=== PATIENT | female | born 1955 | race Hispanic/Latino ===

== ENCOUNTER 2018-06-02 10:25 | Observation (INO) | payer OTHER ==
[2018-06-02 10:45] VITALS: BMI 26.2
[2018-06-02 11:15] LABS: BASO # 0.03 K/mm3 (0.0-2.0); BASO % 0.2 % (0.0-3.0); EOS # 0.3 (0.0-0.7); EOS % 1.4 % (1.5-5.0); GRAN # 15.27 (1.4-6.5); GRAN % 80.5 % (50.0-68.0); HEMOGLOBIN 15.4 g/dL (12.0-16.0); LYMPH % 10.5 % (22.0-35.0); MEAN CELL VOLUME 94.9 fl (80.0-105.0); MEAN CORPUSCULAR HEMOGLOBIN 31.7 pg (25.0-35.0); MEAN CORPUSCULAR HGB CONC 33.4 g/dl (31.0-37.0); MEAN PLATELET VOLUME 9.3 fl (7.0-11.0); MONO # 1.4 (0.1-0.6); MONO % 7.4 % (1.0-6.0); RBC 4.86 10^6/uL (3.5-6.1); RED CELL DISTRIBUTION WIDTH 12.2 % (11.5-14.5)
[2018-06-02 11:20] LABS: ALBUMIN 3.7 g/dL (3.0-4.8); ALT/SGPT 44 U/L (7-56); AMYLASE 52 U/L (35-125); AST/SGOT 61 U/L (14-36); BLOOD UREA NITROGEN 13 mg/dL (7-21); CALCIUM 9.3 mg/dL (8.4-10.5); GFR NON-AFRICAN AMERICAN > 60; INR 1.18; LIPASE 80 U/L (23-300); PARTIAL THROMBOPLASTIN TIME 26.1 Seconds (25.1-36.5); PROTHROMBIN TIME 13.6 SECONDS (9.4-12.5)
[2018-06-02 11:30] LABS: TROPONIN I < 0.01 ng/mL
[2018-06-02] MEDS ORDERED: Iohexol 350 MG/100 ML VIAL ONE (11:32)
--- NOTE | 2018-06-02 11:41 | ED PDOC ---
Arrival/HPI - General Chief Complaint: Abdominal Pain Time Seen by Provider: 06/02/18 10:28 Historian: Patient - History of Present Illness Narrative History of Present Illness (Text): 06/02/18 11:34 63yo female with no significant pmhx referred to ED by her PMD for complaint of diffuse abdominal pain, gassy, and constipation. Patient reports history of pain for one month. States she gets constipation baseline all her life. States she "passed lots of gas" s/p using laxative last night and her pain improved. States she saw her PMD today for the pain and was referred to the ED. Denies nausea, vomiting, diarrhea, fever,c hills, back pain, chest pain, SOB, melena, hematemesis, dizziness, any other complaint. She report history of daily alcohol use, but stopped a week ago. Past Medical History - Provider Review Nursing Documentation Reviewed: Yes - Reproductive Menopause: Yes - Psychiatric Hx Substance Use: No - Surgical History Hx Section: Yes (x2) - Anesthesia Hx Anesthesia: Yes Hx Anesthesia Reactions: No Hx Malignant Hyperthermia: No Family/Social History - Physician Review Nursing Documentation Reviewed: Yes Family/Social History: Unknown Family HX Smoking Status: Never Smoked Hx Alcohol Use: Yes (stopped 5 days ago) Frequency of alcohol use: Daily Hx Substance Use: No Allergies/Home Meds Allergies/Adverse Reactions: Allergies No Known Allergies Allergy (Verified 06/02/18 16:29) Home Medications: Home Meds Medication Instructions Recorded Confirmed RX: No Known Home Med 06/02/18 06/02/18 Review of Systems - Physician Review All systems were reviewed & negative as marked: Yes - Review of Systems Constitutional: Normal Eyes: Normal ENT: Normal Respiratory: Normal Cardiovascular: Normal Gastrointestinal: Abdominal Pain, Constipation. absent: Diarrhea, Nausea, Vomiting, Hematochezia, Hematemesis Genitourinary Female: Normal Musculoskeletal: Normal Skin: Normal Neurological: Normal Endocrine: Normal Hemo/Lymphatic: Normal Psychiatric: Normal Physical Exam Vital Signs Reviewed: Yes Vital Signs Temp Pulse Resp BP Pulse Ox 06/02/18 10:59 97.8 F 104 H 16 136/89 96 Temperature: Afebrile Blood Pressure: Normal Pulse: Regular Respiratory Rate: Normal Appearance: Positive for: Well-Appearing, Non-Toxic, Comfortable Pain Distress: None Mental Status: Positive for: Alert and Oriented X 3 - Systems Exam Head: Present: Atraumatic, Normocephalic Pupils: Present: PERRL Extroacular Muscles: Present: EOMI Conjunctiva: Present: Normal Mouth: Present: Moist Mucous Membranes Neck: Present: Normal Range of Motion Respiratory/Chest: Present: Clear to Auscultation, Good Air Exchange. No: Respiratory Distress, Accessory Muscle Use Cardiovascular: Present: Regular Rate and Rhythm, Normal S1, S2. No: Murmurs Abdomen: Present: Distention, Normal Bowel Sounds, Other (Rigid). No: Tenderness, Peritoneal Signs, Rebound, Guarding, McBurney's Point Tender, Rovsing's Sign Present Back: Present: Normal Inspection Upper Extremity: Present: Normal Inspection. No: Cyanosis, Edema Lower Extremity: Present: Normal Inspection. No: Edema Neurological: Present: GCS=15, CN II-XII Intact, Speech Normal Skin: Present: Warm, Dry, Normal Color. No: Rashes Psychiatric: Present: Alert, Oriented x 3, Normal Insight, Normal Concentration Medical Decision Making ED Course and Treatment: 06/02/18 12:44 63yo female referred to ED for complaint of abdominal pain with constipation x weeks. Labs Abdominal/pelvic CT Lactic acid Blood culture 1L NS, Pepcid chest xray EKG 06/02/18 12:46 Labs was reviewed and leukocytosis was noted EKG NSR @91bpm. N-stemi Abdominal/pelvic CT IMPRESSION: 4 cm mass in the pancreatic tail consistent with a pancreatic malignancy. There is moderate ascites and peritoneal metastases and multiple liver metastases. Chest xray IMPRESSION: No active disease. Case was PAM lance who referred pt to the ED. Pt will be admitted to Dr. mullins's service. All result and plan was DW the pt and her by the bedside and they both agreed 06/02/18 14:17 Case was PAM Geiger who is covering Dr. mullins and she saw pt by the [facility]. Accepted pt for transfer and requested Dr. Isiah padron consult. Case was PAM Lantigua, IR rn occupational health and he states biopsy will likely be done next week. - Lab Interpretations Lab Results: 06/02/18 11:00 06/02/18 11:00 Lab Results 06/02/18 11:00: Sodium 138, Potassium 4.4, Chloride 98, Carbon Dioxide 33, Anion Gap 12, BUN 13, Creatinine 0.6 L, Est GFR ( Amer) > 60, Est GFR (Non-Af Amer) > 60, Random Glucose 132 H, Calcium 9.3, Total Bilirubin 1.0, AST 61 H, ALT 44, Alkaline Phosphatase 206 H, Lactate Dehydrogenase 697, Total Creatine Kinase 45, Troponin I < 0.01, Total Protein 7.5, Albumin 3.7, Globulin 3.9, Albumin/Globulin Ratio 1.0 L, Amylase 52, Lipase 80 06/02/18 11:00: PT 13.6 H, INR 1.18, APTT 26.1 06/02/18 11:00: WBC 19.0 H, RBC 4.86, Hgb 15.4, Hct 46.1, MCV 94.9, MCH 31.7, MCHC 33.4, RDW 12.2, Plt Count 338, MPV 9.3, Gran % 80.5 H, Lymph % (Auto) 10.5 L, Sanborn % (Auto) 7.4 H, Eos % (Auto) 1.4 L, Baso % (Auto) 0.2, Gran # 15.27 H, Lymph # (Auto) 2.0, Sanborn # (Auto) 1.4 H, Eos # (Auto) 0.3, Baso # (Auto) 0.03 - RAD Interpretation Radiology Orders: 06/02/18 11:21 ABD & PELVIS IV CONTRAST ONLY [CT] Stat - Medication Orders Current Medication Orders: Discontinued Medications Famotidine (Pepcid) 20 mg IVP STAT STA Stop: 06/02/18 10:53 Last Admin: 06/02/18 11:20 Dose: 20 mg IVP Administration Document 06/02/18 11:20 (Rec: 06/02/18 11:20 [id number] Charges for Administration # of IVP Administrations 1 Disposition/Present on Arrival - Present on Arrival Any Indicators Present on Arrival: No History of DVT/PE: No History of Uncontrolled Diabetes: No Urinary Catheter: No History of Decub. Ulcer: No History Surgical Site Infection Following: None - Disposition Have Diagnosis and Disposition been Completed?: Yes Diagnosis: Pancreatic cancer metastasized to liver, Leukocytosis, Ascites Disposition: HOSPITALIZED Disposition Time: 12:40 Patient Plan: Admission Patient Problems: Current Active Problems Problem Status Onset Ascites Acute Leukocytosis Acute Pancreatic cancer metastasized to liver Acute Condition: FAIR
--- NOTE | 2018-06-02 12:30 | CT ---
Date of service: 06/02/2018 PROCEDURE: CT Abdomen and Pelvis with contrast HISTORY: abdominal pain COMPARISON: None. TECHNIQUE: Contrast dose: 100 cc of Omni 350 Radiation dose: Total exam DLP = 482.62 mGy-cm. This CT exam was performed using one or more of the following dose reduction techniques: Automated exposure control, adjustment of the mA and/or kV according to patient size, and/or use of iterative reconstruction technique. FINDINGS: LOWER THORAX: Unremarkable. LIVER: Multiple metastatic lesions are seen throughout the liver. The largest measures 2.8 cm diameter. GALLBLADDER AND BILE DUCTS: Unremarkable. PANCREAS: There is a 4 cm mass in the tail of the pancreas SPLEEN: Unremarkable. ADRENALS: Unremarkable. No mass. KIDNEYS AND URETERS: Unremarkable. No hydronephrosis. No solid mass. VASCULATURE: Unremarkable. No aortic aneurysm. No aortic atherosclerotic calcification or mural plaque present. BOWEL: Unremarkable. No obstruction. No gross mural thickening. APPENDIX: Normal appendix. PERITONEUM: There is a moderate amount of ascites. There is increased density within the omental fat consistent with peritoneal metastases. LYMPH NODES: Unremarkable. No enlarged lymph nodes. BLADDER: Unremarkable. REPRODUCTIVE: Unremarkable. BONES: Multilevel disc degeneration OTHER FINDINGS: Findings were discussed with Sal Bartlett at 12:20 p.m. IMPRESSION: 4 cm mass in the pancreatic tail consistent with a pancreatic malignancy. There is moderate ascites and peritoneal metastases and multiple liver metastases.
--- NOTE | 2018-06-02 13:45 | RAD ---
Date of service: 06/02/2018 HISTORY: admission COMPARISON: No prior. FINDINGS: LUNGS: No active pulmonary disease. PLEURA: No significant pleural effusion identified, no pneumothorax apparent. CARDIOVASCULAR: No aortic atherosclerotic calcification present. Normal cardiac size. No pulmonary vascular congestion. OSSEOUS STRUCTURES: No significant abnormalities. VISUALIZED UPPER ABDOMEN: Normal. OTHER FINDINGS: None. IMPRESSION: No active disease.
[2018-06-02 14:45] LABS: URINE BILIRUBIN NEGATIVE (NEGATIVE); URINE BLOOD SMALL (NEGATIVE); URINE GLUCOSE (UA) NEGATIVE (NEGATIVE); URINE LEUKOCYTE ESTERASE NEGATIVE Leu/uL (NEGATIVE); URINE PROTEIN NEGATIVE mg/dL (<30 mg/dL); URINE UROBILINOGEN 0.2 E.U./dL (<1 E.U./dL)
[2018-06-02 14:46] LABS: URINE APPEARANCE CLEAR (CLEAR); URINE COLOR YELLOW (YELLOW)
[2018-06-02 14:55] LABS: URINE BACTERIA FEW /hpf; URINE EPITHELIAL CELLS 0 - 2 /hpf (0-5); URINE WBC 0 - 2 /hpf (0-6)
[2018-06-02] MEDS ORDERED: HYDROmorphone 1 mg/ml ISec IVP PRN (18:20)
--- NOTE | 2018-06-02 19:29 | CARD ---
APPROVED REPORT Date of service: 06/02/2018 EKG Measurement Heart [id number] HI [id number] <Conclusion> Normal sinus rhythm with sinus arrhythmia Normal ECG
[2018-06-02] MEDS ORDERED: Simethicone 80 mg Chewtab PO ONE (19:44)
[2018-06-02 20:02] VITALS: RESP 16
--- NOTE | 2018-06-02 21:36 | HP ---
DATE OF EXAM: 06/02/2018 HISTORY OF PRESENT ILLNESS: The patient is a 63-year-old white female who states she has not been feeling well for almost a month. She was having bloating abdominal distention and has poor appetite intermittently for the last 2-3 days. She started to have abdominal pain, starting from right upper abdomen to epigastrium to the left upper abdomen. She states she lost 2 pounds in the last few days. She has never been to any doctor. She states she does not like to go to doctor, so finally she decided to go to Dr. Estrada who examined the patient in the office and referred her to emergency room for further evaluation. PAST MEDICAL HISTORY: She has no significant past medica history. She take Tylenol once in a while. ALLERGIES: SHE IS NOT ALLERGIC TO ANY MEDICATIONS. MEDICATIONS AT HOME: She is not on any medicine at home. FAMILY HISTORY: Significant for mom having pancreatic cancer and she of complication of pancreatic cancer. SOCIAL HISTORY: She is . Lives with her and she does drink on a regular basis; however, she does not smoke. PHYSICAL EXAMINATION: GENERAL: She looks uncomfortable, complain of abdominal discomfort. She is awake, alert, oriented and communicative. VITAL SIGNS: She is afebrile, pulse 104, respirations 16, and blood pressure 136/89. LUNGS: Bilateral good airflow. No rhonchi or crackle. HEART: S1 and S2 audible. ABDOMEN: Distended. She has palpable discomfort on the left upper epigastric periumbilical area. Positive ascites. NEUROLOGIC: She is awake, alert, oriented, and communicative. LABORATORY DATA: WBC is 19, hemoglobin 15, hematocrit 46, and platelet 338. PT 13.6 and INR 1.18. Chemistry: Sodium 138, potassium 4.4, chloride 98, CO2 of 33, BUN 13, creatinine 0.6, and blood sugar 132. Lactic acid 1.3. AST 61, ALT 44, and alk phos 206. She had x-ray chest done that shows disease; however, she had CT scan the abdomen and pelvis done that shows 4 cm mass in the pancreas consistent with pancreatic malignancy, moderate ascites and peritoneal mets and multiple liver mets. ASSESSMENT: 1. Abdominal pain secondary to metastatic probably pancreatic malignancy. 2. Malignant ascites. 3. Leukocytosis. PLAN: We will get GI consult. We will get Dr. Oj Norris for biopsy. We will start her on IV fluids, start her on Protonix, analgesic as needed and spoke to the patient's that the patient is going to need biopsy to confirm if this is malignancy. We will followup her electrolyte and CBC in a.m. José Luis Geiger MD
[2018-06-03] MEDS ORDERED: POLYETHYLENE GLYCOL 3350 17 GM/Dose PACKET PO ONE (05:13)
[2018-06-03 06:44] LABS: BASO # 0.04 K/mm3 (0.0-2.0); BASO % 0.2 % (0.0-3.0); EOS # 0.3 (0.0-0.7); EOS % 1.7 % (1.5-5.0); GRAN # 16.16 (1.4-6.5); GRAN % 81.3 % (50.0-68.0); HEMOGLOBIN 15.2 g/dL (12.0-16.0); LYMPH # 1.7 (1.2-3.4); LYMPH % 8.5 % (22.0-35.0); MEAN CELL VOLUME 94.5 fl (80.0-105.0); MEAN CORPUSCULAR HGB CONC 32.8 g/dl (31.0-37.0); MEAN PLATELET VOLUME 9.3 fl (7.0-11.0); MONO # 1.7 (0.1-0.6); MONO % 8.3 % (1.0-6.0); RBC 4.91 10^6/uL (3.5-6.1); RED CELL DISTRIBUTION WIDTH 12.2 % (11.5-14.5); WHITE BLOOD COUNT 19.9 10^3/uL (4.5-11.0)
[2018-06-03 07:00] VITALS: BP 140/91; PULSE 90; TEMP 99.1; O2SAT 98
[2018-06-03 07:20] LABS: ALBUMIN 3.5 g/dL (3.0-4.8); ALT/SGPT 42 U/L (7-56); AST/SGOT 51 U/L (14-36); BLOOD UREA NITROGEN 13 mg/dL (7-21); CALCIUM 9.3 mg/dL (8.4-10.5); GFR NON-AFRICAN AMERICAN > 60
--- NOTE | 2018-06-03 15:00 | CON ---
DATE: 06/03/2018 REQUESTING PHYSICIAN: José Luis Geiger MD REASON FOR CONSULTATION: I have been asked to see this 63-year-old female, who comes to the hospital with 4-week history of increasing abdominal pain. This has been associated with constipation. The patient came to the emergency room at the recommendation of her physician, Dr. Estrada. For further evaluation of her abdominal pain, CT scan of the abdomen and pelvis performed in the emergency room revealed a 4 cm mass in the tail of the pancreas with associated liver metastasis and peritoneal metastasis. The patient has a history of alcoholism. She drinks a half quart of vodka on a daily basis and has done so for many years. Her last drink was a week ago. PAST MEDICAL HISTORY: Notable for alcoholism. FAMILY HISTORY: Significant for mother with pancreatic cancer. SOCIAL HISTORY: She is an alcoholic. She drinks a half quart of vodka daily. She denies cigarette smoking. REVIEW OF SYSTEMS: Fourteen-point review of systems is notable for abdominal pain and constipation. PHYSICAL EXAMINATION: GENERAL: Well-developed female, lying in bed, in no acute distress. VITAL SIGNS: Reveal temperature of 99.1, blood pressure of 140/91, heart rate of 90. HEENT: Reveal sclerae to be white. Conjunctivae pink. NECK: Supple. CHEST: Reveal lungs to be clear. HEART: Exam reveals a regular rate and rhythm. ABDOMEN: Softly distended. Mild diffuse tenderness. No rebound. No guarding. EXTREMITIES: Show no edema. LABORATORY DATA: Reveal white blood cell count 19.9, hemoglobin 15.2. Chemistries reveal AST 51, ALT 42, alkaline phosphatase of 175. CA 19-9 level was pending. IMPRESSION: A 63-year-old female with a history of alcoholism with stage IV pancreatic cancer with liver and peritoneal metastases. Her prognosis is extremely poor. RECOMMENDATIONS: 1. Await CA 19-[address]-guided biopsy of either liver metastasis or tail of the pancreas mass. 3. Suggest genetic testing for pancreatic cancer as the mother has had pancreatic cancer. Again, her long-term prognosis, which is stage IV pancreatic cancer, is extremely poor. Chet Kincaid MD
--- NOTE | 2018-06-03 20:29 | CON ---
DATE: 06/03/2018 This is [facility] consult for Dr. Holt on the medical floor. CHIEF COMPLIANT: Abdominal pain. HISTORY OF PRESENT ILLNESS: The patient is a 63-year-old female, admitted by the emergency room for evaluation for severe abdominal pain with blotting of approximately 2 to 3 days with the patient's reporting that they discovered for few weeks prior. She reports decreased appetite recently, but otherwise she was recommended by her primary Dr. to be evaluated. With significant findings on CAT to be discussed below. However, she is now seen with her at bedside and appears to be in no acute distress. ALLERGIES: NO KNOWN ALLERGIES. MEDICATIONS: Denied. PAST MEDICAL HISTORY: The patient denies any past history of significance, although does admit to alcohol use. FAMILY AND SOCIAL HISTORY: , lives with her . Her mother with history of pancreatic cancer. The patient is a nonsmoker; however, she does admit to drinking, half a quarter of vodka on a daily basis, last drink was approximately 1 week prior. REVIEW OF SYSTEMS: A 12-point review of systems was done, which is negative except for items mentioned in the history of present illness. PHYSICAL EXAMINATION: VITAL SIGNS: Temperature 99.1, pulse 90, respirations 16, blood pressure 140/91, and pulse ox 98%. HEENT: Unremarkable. NECK: Supple. HEART: Regular rate. LUNGS: Clear. ABDOMEN: Soft, mildly distended, little generalized tenderness too. Gentle palpation and questionable ascites. EXTREMITIES: No edema. SKIN: Warm and dry. NEUROLOGIC: Awake, alert, and oriented x3. LABORATORY DATA: The patient's labs were done. White blood cell count of 19.9, hemoglobin 15.2, hematocrit 46.4, and platelet count 337,000 with an INR of 1.18 done yesterday. Metabolic panel showing potassium of 5.3, chloride of 94, non-fasting glucose 116, AST of 51, alkaline phosphatase of 175, CA 19-9 of greater of 10,000, CA value of 13.1. A urine specimen was done which was positive for small amount of blood, trace of ketones; otherwise negative. The patient did have an EKG on admission yesterday which showed normal sinus rhythm, normal EKG. She had a chest x-ray done yesterday, it was read as no active disease with a CT scan of her abdomen and pelvis done yesterday, done with contrast. IMPRESSION: A 4 cm mass in the pancreatic consistent with pancreatic malignancy. There is a moderate ascites and peritoneal metastasis. Has multiple liver metastasis. The patient's blood cultures were negative after 24 hours. ASSESSMENT: Newly diagnosed pancreatic mass with ascites, probably malignancy, leukocytosis, and alcohol abuse. PLAN: I had a conversation with Dr. Holt. He is to obtain the tissue diagnosis and anticipation of eventual recommendations for treatment. The patient will continue present medical regimen with further recommendations as per gastrointestinal program consultant, with mentioned tissue diagnosis, possibly as outpatient as this is an holiday weekend with interventional radiologist, Dr. Norris not available at present with disposition as per primary doctor. The patient is also recommended to follow with Dr. Holt, the patient's reports that he knows from family members having seen doctor. We will follow with Dr. Holt as an outpatient, she should be discharged in the interm. This is a complex patient with a comprehensive medically necessary and appropriate visit carried in excess of 30 minutes with the patient's questions answered to her satisfaction. Elie Vital MD
--- NOTE | 2018-06-04 08:50 | DS ---
HISTORY OF PRESENT ILLNESS: The patient is 63 years old who was admitted yesterday because of almost one month history of abdominal pain, increasing abdominal girth, decreased appetite and small weight loss; also history of intermittent constipation. Upon evaluation in emergency room, she was found to have a 4 cm mass in her pancreas. So, the patient was admitted for further evaluation. Because of the long weekend, arrangement could not be made to have a CT-guided biopsy, so the patient opted to go home today and will have biopsy done next week sometime. She is given prescription for followup with Dr. Oj Norris and she was given a phone number and advised to make appointment. PHYSICAL EXAMINATION: GENERAL: Today, she is awake and alert, anxious. VITAL SIGNS: She is afebrile, pulse 90, respirations 16, blood pressure 140/91. LUNGS: Bilateral fair airflow. No rhonchi or crackles. HEART: S1 and S2 audible. ABDOMEN: Soft, distended. Periumbilical, right upper, left upper quadrant palpable discomfort. NEUROLOGIC: The patient is awake, alert, oriented; communicative. EXTREMITIES: Bilateral leg, no edema. LABORATORY DATA: WBC 19.9, hemoglobin 15, hematocrit 46, platelets 337. Chemistry; sodium 134, potassium 5.3, chloride 94, CO2 of 32, BUN 13, creatinine 0.6, blood sugar 116. AST 51, alk phos is 171. CEA is 13 and CA 19-9 is more than 10,000. ASSESSMENT: 1. Probably pancreatic malignancy with metastasis to the peritoneum and metastasis to the liver. 2. Intermittent constipation. 3. Leukocytosis. 4. High CA 19-9. PLAN: The patient is being discharged home today. She is given prescription of Percocet. She is advised to take MiraLax daily. She will contact Dr. Oj Norris as outpatient and I also will endorse it to Dr. Barrientos to follow up her as outpatient. José Luis Geiger MD
== END 2018-06-03 13:35 | disposition home or self-care (01) ==
LOC: ED 10:25 → INTOOBSV 13:18 → ERH 13:18 → 3RSO 15:42
PROVIDERS: ADMIT Internal Medicine Nephrology; ATTEND Internal Medicine Nephrology
DX: C25.2 Malignant neoplasm of tail of pancreas (principal); C78.6 Secondary malignant neoplasm of retroperitoneum and peritoneum; C78.7 Secondary malignant neoplasm of liver and intrahepatic bile duct; D72.829 Elevated white blood cell count, unspecified; R18.0 Malignant ascites; F10.20 Alcohol dependence, uncomplicated; K59.00 Constipation, unspecified; Z80.0 Family history of malignant neoplasm of digestive organs
CPT/HCPCS: 36415; 71045; 74177; 80053; 81001; 82150; 82378; 82550; 83605; 83615; 83690; 84484; 85025; 85610; 85730; 86301; 87040; 93005; 96374; 99284; C9113; G0378; Q9967

== ENCOUNTER 2018-06-10 10:42 | Day surgery (SDC) | payer OTHER ==
[2018-06-10 11:35] LABS: BASO # 0.03 K/mm3 (0.0-2.0); BASO % 0.1 % (0.0-3.0); EOS # 0.2 (0.0-0.7); EOS % 0.5 % (1.5-5.0); GRAN # 27.15 (1.4-6.5); GRAN % 87.1 % (50.0-68.0); HEMOGLOBIN 16.3 g/dL (12.0-16.0); LYMPH # 2.8 (1.2-3.4); MEAN CELL VOLUME 93.1 fl (80.0-105.0); MEAN CORPUSCULAR HEMOGLOBIN 31.1 pg (25.0-35.0); MEAN CORPUSCULAR HGB CONC 33.4 g/dl (31.0-37.0); MEAN PLATELET VOLUME 9.7 fl (7.0-11.0); MONO % 3.3 % (1.0-6.0); PLATELET COUNT 343 10^3/uL (120.0-450.0); RBC 5.24 10^6/uL (3.5-6.1); RED CELL DISTRIBUTION WIDTH 12.3 % (11.5-14.5)
[2018-06-10 11:36] LABS: WHITE BLOOD COUNT 31.2 10^3/uL (4.5-11.0)
[2018-06-10 11:49] LABS: CALCIUM 9.2 mg/dL (8.4-10.5)
[2018-06-10 11:54] LABS: INR 1.16; PROTHROMBIN TIME 13.4 SECONDS (9.4-12.5)
[2018-06-10 12:09] LABS: ANISOCYTOSIS SLIGHT; ATYPICAL LYMPHOCYTE 1 % (0.0-0.0); LYMPHOCYTE 10 % (22.0-35.0); MONOCYTE 1 % (1.0-6.0); NEUTROPHIL 88 % (50.0-70.0); PLATELET ESTIMATE NORMAL (NORMAL)
[2018-06-10] MEDS ORDERED: Lidocaine 1% Inj (20ml) ONE (13:38)
[2018-06-10] MEDS ORDERED: Midazolam 2 MG/2 ML VIAL ONE (13:38)
[2018-06-10] MEDS ORDERED: Midazolam 2 MG/2 ML VIAL IVP ONE (14:00)
[2018-06-10] MEDS ORDERED: Oxycodone/Acetaminophen 5/325 mg Tab PO PRN (14:10)
[2018-06-10] MEDS ORDERED: Sodium Chloride 0.45% 1,000 ML IV SCH (14:15)
[2018-06-10 15:14] VITALS: BP 142/80; PULSE 80; RESP 18; TEMP 98.9; O2SAT 96
--- NOTE | 2018-06-10 20:03 | CT ---
PROCEDURE: CT guided liver biopsy. HISTORY: Pancreatic mass with liver lesions. Carcinomatosis. Evaluate for malignancy PHYSICIAN(S): Oj Norris MD. TECHNIQUE: The relative risks and indications of the procedure were explained to the patient and consent obtained. The patient was placed supine on the CT scanner and preliminary images through the upper abdomen obtained. Conscious sedation and monitoring were provided throughout the procedure by a nurse. There are multiple low-attenuation masses in both lobes liver. A 4 cm lesion in the neural segment left lobe was selected for biopsy.. A subxyphoid approach was selected and the area prepped and draped in the usual sterile fashion. 1% Xylocaine was used to anesthetize the skin and soft tissues. A 17-gauge guiding needle was advanced into the 4 cm left liver mass.. Its position was confirmed with CT. Using coaxial technique, multiple core biopsies were obtained. The postprocedure images show no evidence of significant hemorrhage. IMPRESSION: 1. CT-guided liver biopsy as described above.
== END 2018-06-10 16:50 | disposition home or self-care (01) ==
LOC: SDS 10:42
PROVIDERS: ATTEND Radiology Vascular & Interventional Radiology
DX: C78.7 Secondary malignant neoplasm of liver and intrahepatic bile duct (principal); C25.9 Malignant neoplasm of pancreas, unspecified; Z72.89 Other problems related to lifestyle
CPT/HCPCS: 36415; 47000; 77012; 80048; 85025; 85610; 85730; 88307; 99152; J2250; J2405; J3010; J7030

== ENCOUNTER 2018-06-15 14:15 | Inpatient (IN) | payer OTHER ==
[2018-06-15 14:17] VITALS: BMI 26.7
[2018-06-15] MEDS ORDERED: Sodium Chloride 0.9% 1,000 ML IV STA (14:17)
[2018-06-15] MEDS ORDERED: Morphine 4 mg/ml ISec IVP STA ×2 (14:47→16:19)
--- NOTE | 2018-06-15 14:54 | ED PDOC ---
Arrival/HPI - General Chief Complaint: Abdominal Pain Historian: Patient - Critical Care Critical Care Minutes: 60 minutes - History of Present Illness Narrative History of Present Illness (Text): 06/15/18 14:17 63 y/o F, with past medical history of pancreatic CA with metastases to liver, was referred to the ED by Dr. Holt for evaluation of nausea, vomiting and abdominal pain and distention today. Patient states history of abdominal pain since past 1 week and was reportedly started on 10 mg oxycodon 2 days ago for pain management. Patient reports following up with Dr. Holt this morning when she experienced an episode of vomiting in his office and was subsequently referred to the ED for evaluation. Patient denies any other associated somatic complaints. Patient denies any fevers, chills, headache, dizziness, chest pain, shortness of breath, dyspnea on exertion, cough, diarrhea, back pain, neck pain, or any other complaints. Oncologist: Dr. Holt Time/Duration: 1 week Symptom Onset: Gradual Symptom Course: Unchanged Activities at Onset: Light Context: Home Past Medical History - Provider Review Nursing Documentation Reviewed: Yes - Travel History Have you recently traveled outside [place] w/in the past 3 mons?: No - Reproductive Menopause: Yes - Cardiac Hx Pacemaker: No - Pulmonary Hx Respiratory Disorders: No - Neurological Hx Neurological Disorder: No - HEENT Hx HEENT Disorder: No - Renal Hx Renal Disorder: No - Endocrine/Metabolic Hx Endocrine Disorders: No - Hematological/Oncological Hx Blood Transfusions: No Hx Cancer: Yes (pancreatic) - Integumentary Hx Dermatological Disorder: No - Musculoskeletal/Rheumatological Hx Musculoskeletal Disorders: No - Gastrointestinal Hx Gastrointestinal Disorders: Yes (ASCITES-PANCREATIC CA WITH METS TO LIVER 06-02-18) - Genitourinary/Gynecological Hx Genitourinary Disorders: Yes (C/S X 2) - Psychiatric Hx Emotional Abuse: No Hx Physical Abuse: No Hx Substance Use: No - Surgical History Hx Section: Yes (x2) - Anesthesia Hx Anesthesia: Yes Hx Anesthesia Reactions: No Hx Malignant Hyperthermia: No - Suicidal Assessment Feels Threatened In Home Enviroment: No Family/Social History - Physician Review Nursing Documentation Reviewed: Yes Family/Social History: No Known Family HX Smoking Status: Never Smoked Hx Alcohol Use: Yes (MODERATE TO HEAVY IN THE PAST) Hx Substance Use: No Allergies/Home Meds Allergies/Adverse Reactions: Allergies No Known Allergies Allergy (Verified 06/15/18 15:47) Review of Systems - Physician Review All systems were reviewed & negative as marked: Yes - Review of Systems Constitutional: absent: Fevers Respiratory: absent: SOB, Cough Cardiovascular: absent: Chest Pain Gastrointestinal: Abdominal Pain, Nausea, Vomiting. absent: Diarrhea Genitourinary Female: absent: Dysuria, Urine Output Changes Musculoskeletal: absent: Back Pain, Neck Pain Skin: absent: Rash Neurological: absent: Headache, Dizziness Physical Exam Vital Signs Reviewed: Yes Vital Signs Temp Pulse Resp BP Pulse Ox 06/15/18 14:22 98.2 F 93 H 18 128/71 98 Temperature: Afebrile Blood Pressure: Normal Pulse: Regular Respiratory Rate: Normal Appearance: Positive for: Well-Appearing, Non-Toxic, Comfortable Pain Distress: None Mental Status: Positive for: Alert and Oriented X 3 - Systems Exam Head: Present: Atraumatic, Normocephalic Pupils: Present: PERRL Extroacular Muscles: Present: EOMI Conjunctiva: Present: Normal Respiratory/Chest: Present: Clear to Auscultation, Good Air Exchange. No: Respiratory Distress, Accessory Muscle Use Cardiovascular: Present: Regular Rate and Rhythm, Normal S1, S2. No: Murmurs Abdomen: Present: Tenderness (diffuse tenderness), Distention. No: Peritoneal Signs Back: Present: Normal Inspection Upper Extremity: Present: Normal Inspection. No: Cyanosis, Edema Lower Extremity: Present: Normal Inspection. No: Edema Neurological: Present: GCS=15, CN II-XII Intact, Speech Normal Skin: Present: Warm, Dry, Other (jaundice). No: Rashes Psychiatric: Present: Alert, Oriented x 3, Normal Insight, Normal Concentration Medical Decision Making ED Course and Treatment: 06/15/18 14:17 Impression: 63 year old female presents to the ED for evaluation of abdominal pain, nausea and vomiting. Differential Diagnosis included but are not limited to: -- Ascites --Sepsis Plan: -- VBG -- EKG -- Labs --Dextrose --Sodium Bicarbonate --Calcium Gluconate --Albuterol -- Morphine --Zosyn --Vancomycin --Blood Culture -- Reglan -- IV Fluids -- Urine Culture -- Urinalysis -- Reassess and disposition Prior Visits: Notes and results from previous visits were reviewed. Progress Notes: 06/15/18 15:30 CODE SEPSIS ACTIVATED. 30cc/kg NSS ordered. Zosyn and Vancomycin. Call placed to Dr. Patel(covering for Dr. Estrada). 06/15/18 16:05 Profound hyperkalemia of 6.1 detected with sodium of [address] noted. [address] Patel who accepts the case onto his service. Spoke to Dr. Orosco(sales assistant entertainment and media) who will come down to evaluate the patient. 06/15/18 16:[address] Lacey Nichole(oncology)who will come see the patient. - Lab Interpretations Lab Results: 06/15/18 14:54 06/15/18 14:54 Lab Results 06/15/18 14:54: Sodium 123 L, Chloride 79 L, Potassium 6.1 H* D, Carbon Dioxide 24, Anion Gap 26 H, BUN 76 H, Creatinine 3.6 H, Est GFR ( Amer) 15, Est GFR (Non-Af Amer) 13, Random Glucose 157 H, Calcium 9.1, Magnesium 3.3 H, Total Bilirubin 1.5 H, AST 94 H D, ALT 50, Alkaline Phosphatase 255 H D, Total Protein 7.8, Albumin 3.7, Globulin 4.2, Albumin/Globulin Ratio 0.9 L, Lipase 149 06/15/18 14:54: pO2 30, VBG pH 7.19 L*, VBG pCO2 70.0 H*, VBG HCO3 26.7, VBG Total CO2 28.8 H, VBG O2 Sat (Calc) 49.9, VBG Base Excess -3.1 L, VBG Potassium 5.7 H, Sodium 119.0 L*, Chloride 78.0 L, Glucose 158 H, Lactate 5.4 H*, FiO2 21.0, Venous Blood Potassium 5.7 H 06/15/18 14:54: PT 13.2 H, INR 1.15, APTT 27.5 06/15/18 14:54: WBC 32.3 H*, RBC 5.35, Hgb 16.7 H, Hct 49.1 H, MCV 91.8, MCH 31.2, MCHC 34.0, RDW 12.7, Plt Count 346, MPV 9.7, Gran % 89.8 H, Lymph % (Auto) 7.2 L, [place] % (Auto) 2.7, Eos % (Auto) 0.2 L, Baso % (Auto) 0.1, Gran # 28.98 H, Lymph # (Auto) 2.3, [place] # (Auto) 0.9 H, Eos # (Auto) 0.1, Baso # (Auto) 0.03, Neutrophils % (Manual) Pending, Lymphocytes % (Manual) Pending, Monocytes % (Manual) Pending I have reviewed the lab results: Yes - Medication Orders Current Medication Orders: Sodium Chloride (Sodium Chloride 0.9%) 1,000 mls @ 999 mls/hr IV .[id number] STA Stop: 06/15/18 15:17 Discontinued Medications Metoclopramide HCl (Reglan) 10 mg IVP STAT STA Stop: 06/15/18 14:18 Morphine Sulfate (Morphine) 6 mg IVP STAT STA Stop: 06/15/18 14:48 - Scribe Statement The provider has reviewed the documentation as recorded by the Scribe Jeancarlos Israel. All medical record entries made by the Scribe were at my direction and personally dictated by me. I have reviewed the chart and agree that the record accurately reflects my personal performance of the history, physical exam, medical decision making, and the department course for this patient. I have also personally directed, reviewed, and agree with the discharge instructions and disposition. Disposition/Present on Arrival - Present on Arrival Any Indicators Present on Arrival: No History of DVT/PE: No History of Uncontrolled Diabetes: No Urinary Catheter: No History of Decub. Ulcer: No History Surgical Site Infection Following: None - Disposition Have Diagnosis and Disposition been Completed?: Yes Diagnosis: Sepsis, Hyperkalemia, Hyponatremia Disposition: HOSPITALIZED Disposition Time: 16:05 Patient Plan: Admission, ICU Patient Problems: Current Active Problems Problem Status Onset Hyperkalemia Acute Hyponatremia Acute Sepsis Acute Condition: CRITICAL
[2018-06-15 15:18] LABS: VENOUS BLOOD GAS BASE EXCESS -3.1 mmol/L (0.0-2.0); VENOUS BLOOD GAS PO2 30 mm/Hg (30-55); VENOUS BLOOD PH 7.19 (7.32-7.43)
[2018-06-15 15:24] LABS: BASO # 0.03 K/mm3 (0.0-2.0); BASO % 0.1 % (0.0-3.0); EOS # 0.1 (0.0-0.7); EOS % 0.2 % (1.5-5.0); GRAN # 28.98 (1.4-6.5); GRAN % 89.8 % (50.0-68.0); HEMOGLOBIN 16.7 g/dL (12.0-16.0); LYMPH # 2.3 (1.2-3.4); LYMPH % 7.2 % (22.0-35.0); MEAN CELL VOLUME 91.8 fl (80.0-105.0); MEAN CORPUSCULAR HEMOGLOBIN 31.2 pg (25.0-35.0); MEAN PLATELET VOLUME 9.7 fl (7.0-11.0); MONO # 0.9 (0.1-0.6); MONO % 2.7 % (1.0-6.0); PLATELET COUNT 346 10^3/uL (120.0-450.0); RBC 5.35 10^6/uL (3.5-6.1); RED CELL DISTRIBUTION WIDTH 12.7 % (11.5-14.5)
[2018-06-15 15:26] LABS: WHITE BLOOD COUNT 32.3 10^3/uL (4.5-11.0)
[2018-06-15 15:28] LABS: INR 1.15; PARTIAL THROMBOPLASTIN TIME 27.5 Seconds (25.1-36.5); PROTHROMBIN TIME 13.2 SECONDS (9.4-12.5)
[2018-06-15 15:47] LABS: ALB/GLOB RATIO 0.9 (1.1-1.8); ALBUMIN 3.7 g/dL (3.0-4.8); CALCIUM 9.1 mg/dL (8.4-10.5)
[2018-06-15] MEDS ORDERED: Piperacill/Tazo 4.5gm in NS 4.5 GM/100 ML BAG IVPB STA (15:55)
[2018-06-15] MEDS ORDERED: Insulin Regular 1 UNITS/0.01 ML ML IV STA (15:56)
[2018-06-15] MEDS ORDERED: Albuterol 0.083% Inhal Sol (2.5 mg/3 mL) UD INH STA (15:56)
[2018-06-15] MEDS ORDERED: Dextrose 50% SYRINGE Inj (50 ml) IVP STA (15:56)
[2018-06-15] MEDS ORDERED: Vancomycin 1gm in NS 250ml 1 GM/250 ML BAG IVPB STA (16:22)
[2018-06-15] MEDS ORDERED: Sodium Chloride 0.9% 1,000 ML IV SCH (17:30)
--- NOTE | 2018-06-15 17:47 | CP.PCM.CON ---
<Leandro Farmer - Last Filed: 06/15/18 17:25> History of Present Illness - History of Present Illness History of Present Illness: Leandro Farmer, PGY-1 Consult Note for ICU CC: Vomiting HPI: Ms. Coppola is a 63 year old female with a past medical history of uterine fibroid tumor removal 30 years ago who presents with complaints of vomiting and abdominal distension. Patient states that after her recent hospitalization 2 weeks ago, patient has had poor appetite, lethargy along with an inability to pass bowel movements. During that hospitalization, a CT guided biopsy confirmed pancreatic cancer with metastases to the liver. Patient reports that over the last few years, she has been drinking half a pint of vodka daily on and off along with Aleve to suppress her abdominal pain. Patient was started on a higher dose of Percocet 10 mg every 4-6 hours earlier this week per her oncologist to help relieve the pain. Patient states that after visiting her oncologist on Wednesday for blood work, patient started vomiting during a follow up appointment today. Patient was then directed to visit the ED. Patient notes excessive belching associated with intermittent periods of shortness of breath and flatulence, but denies chest pain, palpitations, dizziness, headaches, blurry vision, urinary incontinence, leg pain, fevers, chills, cough, sputum production. PMHx: As described above Surg Hx: Fibroid tumor removal, 2 c-sections All: NKDA Social: ETOH use on and off for 5 years, denies tobacco and illicit drug use Fam hx: mom passed from pancreatic cancer in her 80s Meds: Percocet 10 mg q6 PO Review of Systems - Review of Systems Review of Systems: 12 point ROS completed and negative except as described in HPI Past Patient History - Past Social History Smoking Status: Never Smoked - CARDIAC Hx Pacemaker: No - PULMONARY Hx Respiratory Disorders: No - NEUROLOGICAL Hx Neurological Disorder: No - HEENT Hx HEENT Problems: No - RENAL Hx Chronic Kidney Disease: No - ENDOCRINE/METABOLIC Hx Endocrine Disorders: No - HEMATOLOGICAL/ONCOLOGICAL Hx Blood Transfusions: No Hx Cancer: Yes (pancreatic) - INTEGUMENTARY Hx Dermatological Problems: No - MUSCULOSKELETAL/RHEUMATOLOGICAL Hx Musculoskeletal Disorders: No - GASTROINTESTINAL Hx Gastrointestinal Disorders: Yes (ASCITES-PANCREATIC CA WITH METS TO LIVER 06-02-18) - GENITOURINARY/GYNECOLOGICAL Hx Genitourinary Disorders: Yes (C/S X 2) - PSYCHIATRIC Hx Emotional Abuse: No Hx Physical Abuse: No Hx Substance Use: No - SURGICAL HISTORY Hx Section: Yes (x2) - ANESTHESIA Hx Anesthesia: Yes Hx Anesthesia Reactions: No Hx Malignant Hyperthermia: No Meds Allergies/Adverse Reactions: Allergies Allergy/AdvReac Type Severity Reaction Status Date / Time No Known Allergies Allergy Verified 06/15/18 15:47 - Medications Medications: Current Medications Vancomycin HCl (Vancomycin 1gm) 1 gm in 250 mls @ 167 mls/hr IVPB STAT STA; Protocol Stop: 06/15/18 17:51 Sodium Chloride (Sodium Chloride 0.9%) 1,000 mls @ 75 mls/hr IV .[id number] B[facility]KE Vancomycin HCl (Vancomycin 1gm) 1 gm in 250 mls @ 167 mls/hr IVPB Q12H [facility]; Protocol Piperacillin Sod/Tazobactam Sod (Zosyn 4.5 Gm In Ns 100ml) 4.5 gm in 100 mls @ 25 mls/hr IVPB Q8 [facility]; Protocol Stop: 06/16/18 09:59 Physical Exam - Constitutional Appears: Non-toxic, In Acute Distress, Chronically Ill - Head Exam Head Exam: ATRAUMATIC, NORMOCEPHALIC - Eye Exam Eye Exam: EOMI, Normal appearance Pupil Exam: PERRL - ENT Exam ENT Exam: Mucous Membranes Moist - Neck Exam Neck exam: Positive for: Normal Inspection - Respiratory Exam Respiratory Exam: Clear to Auscultation Bilateral. absent: Rales, Rhonchi, Wheezes, Respiratory Distress - Cardiovascular Exam Cardiovascular Exam: RRR, +S1, +S2 - GI/Abdominal Exam GI & Abdominal Exam: Diminished Bowel Sounds, Distended, Firm, Organomegaly. absent: Guarding, Rebound Additional comments: caput medusae present, no fluid wave present - Extremities Exam Extremities exam: Positive for: normal inspection. Negative for: joint swelling, pedal edema - Back Exam Back exam: absent: CVA tenderness (L), CVA tenderness (R) - Neurological Exam Neurological exam: Alert, Oriented x3 - Psychiatric Exam Psychiatric exam: Depressed - Skin Skin Exam: Dry, Intact Results - Vital Signs Recent Vital Signs: Last Vital Signs Temp 96.8 F L 06/15/18 16:55 Pulse 101 H 06/15/18 16:42 Resp 18 06/15/18 16:42 BP 118/62 06/15/18 16:42 Pulse Ox 99 06/15/18 16:42 - Labs Result Diagrams: 06/15/18 14:54 06/15/18 14:54 Labs: Laboratory Results - last 24 hr 06/15/18 06/15/18 06/15/18 14:54 14:54 14:54 WBC 32.3 H* RBC 5.35 Hgb 16.7 H Hct 49.1 H MCV 91.8 MCH 31.2 MCHC 34.0 RDW 12.7 Plt Count 346 MPV 9.7 Gran % 89.8 H Lymph % (Auto) 7.2 L [place] % (Auto) 2.7 Eos % (Auto) 0.2 L Baso % (Auto) 0.1 Gran # 28.98 H Lymph # (Auto) 2.3 [place] # (Auto) 0.9 H Eos # (Auto) 0.1 Baso # (Auto) 0.03 PT 13.2 H INR 1.15 APTT 27.5 pO2 30 VBG pH 7.19 L* VBG pCO2 70.0 H* VBG HCO3 26.7 VBG Total CO2 28.8 H VBG O2 Sat (Calc) 49.9 VBG Base Excess -3.1 L VBG Potassium 5.7 H Sodium 119.0 L* Chloride 78.0 L Glucose 158 H Lactate 5.4 H* FiO2 21.0 Potassium Carbon Dioxide Anion Gap BUN Creatinine Est GFR ( Amer) Est GFR (Non-Af Amer) POC Glucose (mg/dL) Random Glucose Calcium Magnesium Total Bilirubin AST ALT Alkaline Phosphatase Total Protein Albumin Globulin Albumin/Globulin Ratio Lipase Venous Blood Potassium 5.7 H 06/15/18 06/15/18 14:54 16:20 WBC RBC Hgb Hct MCV MCH MCHC RDW Plt Count MPV Gran % Lymph % (Auto) [place] % (Auto) Eos % (Auto) Baso % (Auto) Gran # Lymph # (Auto) [place] # (Auto) Eos # (Auto) Baso # (Auto) PT INR APTT pO2 VBG pH VBG pCO2 VBG HCO3 VBG Total CO2 VBG O2 Sat (Calc) VBG Base Excess VBG Potassium Sodium 123 L Chloride 79 L Glucose Lactate FiO2 Potassium 6.1 H* D Carbon Dioxide 24 Anion Gap 26 H BUN 76 H Creatinine 3.6 H Est GFR ( Amer) 15 Est GFR (Non-Af Amer) 13 POC Glucose (mg/dL) 148 H Random Glucose 157 H Calcium 9.1 Magnesium 3.3 H Total Bilirubin 1.5 H AST 94 H D ALT 50 Alkaline Phosphatase 255 H D Total Protein 7.8 Albumin 3.7 Globulin 4.2 Albumin/Globulin Ratio 0.9 L Lipase 149 Venous Blood Potassium Assessment & Plan - Assessment and Plan (Free Text) Assessment: Mrs. Coppola is 63 year old female with biopsy confirmed stage 4 pancreatic cancer who presents with abdominal distension and multiple metabolic derangements. Neuro: -AAOx3, no FND, moving extremities past midline. -Monitor neuro status. -Reorient patient as necessary. Cardio: - RRR, normotensive, no signs of HD compromise at this time - Maintain MAP>65. - Monitor for S/S, HD compromise. Pulm: - VBG shows lactic acidosis - F/u repeat VBG w shock panel - No signs of respiratory distress. CTA B/L - Patient is satting well on room air. - Maintain O2 saturation>92%. - O2 NC PRN - Elevate bed to 30 degrees GI: Metastatic Pancreatic Cancer Pain - Percocet on board from home dose Nausea - Zofran 4 q8 Constipation - Senokot, Colace, Kayexalate NM - F/u Amylase & Lipase in AM F/u Abdominal U/S - HHD - Protonix /Nephro: KIMBERLY -BUN/Cr 76/3.6 -UA negative Hypernatremic - volume depleted, hypochloremic likely 2/2 vomiting - NS @ 75 cc/hr Hyperkalemic - Ca gluconate, Albuterol, D50, insulin given, kayexalate NM ordered - CMP q4 Hypermagnesemic - Ca gluconate given - F/U CMP -Replete electrolytes as needed. -Maintain euvolemia. Endocrinology: - Random glucose: 157, 148 - Maintain euglycemia. Heme/Onc: Hem/Onc consult - Dr. Yanet lee appreciated Intravascularly depleted, third spacing from dehydration - hemodynamically stable 147/95, HR @ 100 bpm - F/u shock VBG @ 630 pm - H/H stable at 16.7, likely hemoconcentrated - No signs of HD compromise. - Continue monitoring H/H ID: ID consult - Dr. Abad - recs appreciated - Afebrile, Leukocytosis 32.3 - Follow up BCx, UCx, shock VBG - Monitor for signs and symptoms of infection. DVT prophylaxis: Heparin 5000 q8 GI prophylaxis: Protonix Patient seen, case reviewed and plan approved by Dr. Andry Orosco. Leandro Farmer, PGY-1 <Leigha Orosco - Last Filed: 06/16/18 17:31> Meds - Medications Medications: Current Medications Docusate Sodium (Colace) 100 mg PO BID [facility] Last Admin: 06/16/18 10:10 Dose: Not Given Heparin Sodium (Porcine) (Heparin) 5,000 units SC Q8 [facility]; Protocol Last Admin: 06/16/18 15:23 Dose: 5,000 units Piperacillin Sod/Tazobactam Sod (Zosyn 2.25 Gm In 0.9% 100 Ml) 2.25 gm in 100 mls @ 100 mls/hr IVPB Q8 [facility]; Protocol Stop: 06/24/18 22:01 Last Admin: 06/16/18 14:10 Dose: 100 mls/hr Dextrose/Sodium Chloride (Dextrose 5%/0.9% Ns 1000 Ml) 1,000 mls @ 125 mls/hr IV .Q8H [facility] Last Admin: 06/16/18 13:48 Dose: 125 mls/hr Ondansetron HCl (Zofran Inj) 4 mg IVP Q4H PRN PRN Reason: Nausea/Vomiting Oxycodone/Acetaminophen (Percocet 5/325 Mg Tab) 1 tab PO TID PRN PRN Reason: Pain, severe (8-10) Stop: 06/18/18 17:45 Last Admin: 06/16/18 14:03 Dose: 1 tab Pantoprazole Sodium (Protonix Ec Tab) 40 mg PO 0600 [facility] Last Admin: 06/16/18 05:29 Dose: 40 mg Sennosides (Senokot Tab) 8.6 mg PO DAILY [facility] Last Admin: 06/16/18 10:10 Dose: Not Given Sodium Chloride (Sodium Chloride Tab) 1 gm PO WM [facility] Last Admin: 06/16/18 14:12 Dose: Not Given Results - Vital Signs Recent Vital Signs: Last Vital Signs Temp 97.9 F 06/16/18 16:00 Pulse 93 H 06/16/18 17:10 Resp 21 06/16/18 17:10 BP 113/68 06/16/18 17:00 Pulse Ox 98 06/16/18 17:10 - Labs Result Diagrams: 06/16/18 06:15 06/16/18 15:16 Labs: Laboratory Results - last 24 hr 06/15/18 06/15/18 06/15/18 14:54 18:00 19:36 WBC RBC Hgb Hct MCV MCH MCHC RDW Plt Count MPV Gran % Lymph % (Auto) [place] % (Auto) Eos % (Auto) Baso % (Auto) Gran # Lymph # (Auto) [place] # (Auto) Eos # (Auto) Baso # (Auto) Neutrophils % (Manual) 85 H Band Neutrophils % 1 Lymphocytes % (Manual) 10 L Atypical Lymphs % 2 H Monocytes % (Manual) 2 Platelet Evaluation Normal pO2 49 VBG pH 7.10 L* VBG pCO2 71.0 H* VBG HCO3 22.0 VBG Total CO2 24.2 VBG O2 Sat (Calc) 78.3 H VBG Base Excess -8.9 L VBG Potassium 5.7 H Sodium 122.0 L 123 L Chloride 87.0 L 90 L Glucose 94 Lactate 4.9 H* FiO2 21.0 Potassium 5.9 H* Carbon Dioxide 20 L Anion Gap 20 BUN 68 H Creatinine 3.2 H Est GFR ( Amer) 18 Est GFR (Non-Af Amer) 15 POC Glucose (mg/dL) Random Glucose 94 Lactic Acid Calcium 8.0 L Phosphorus Magnesium Total Bilirubin 1.4 H AST 76 H ALT 36 Alkaline Phosphatase 198 H D Total Protein 5.8 Albumin 2.8 L Globulin 3.1 Albumin/Globulin Ratio 0.9 L Amylase Lipase Venous Blood Potassium 5.7 H Urine Color Urine Appearance Urine pH Ur Specific [place] Urine Protein Urine Glucose (UA) Urine Ketones Urine Blood Urine Nitrate Urine Bilirubin Urine Urobilinogen Ur Leukocyte Esterase Urine RBC Urine WBC Ur Epithelial Cells Urine Bacteria 06/15/18 06/15/18 06/15/18 21:50 23:55 23:55 WBC RBC Hgb Hct MCV MCH MCHC RDW Plt Count MPV Gran % Lymph % (Auto) [place] % (Auto) Eos % (Auto) Baso % (Auto) Gran # Lymph # (Auto) [place] # (Auto) Eos # (Auto) Baso # (Auto) Neutrophils % (Manual) Band Neutrophils % Lymphocytes % (Manual) Atypical Lymphs % Monocytes % (Manual) Platelet Evaluation pO2 VBG pH VBG pCO2 VBG HCO3 VBG Total CO2 VBG O2 Sat (Calc) VBG Base Excess VBG Potassium Sodium 123 L Chloride 85 L Glucose Lactate FiO2 Potassium 6.5 H* Carbon Dioxide 25 Anion Gap 19 BUN 70 H Creatinine 3.2 H Est GFR ( Amer) 18 Est GFR (Non-Af Amer) 15 POC Glucose (mg/dL) Random Glucose 126 H Lactic Acid 2.0 Calcium 8.6 Phosphorus Magnesium Total Bilirubin 1.6 H AST 92 H D ALT 44 Alkaline Phosphatase 231 H Total Protein 6.5 Albumin 3.0 Globulin 3.5 Albumin/Globulin Ratio 0.8 L Amylase Lipase Venous Blood Potassium Urine Color Yellow Urine Appearance Cloudy Urine pH 5.5 Ur Specific [place] >= 1.030 Urine Protein Trace H Urine Glucose (UA) Negative Urine Ketones Negative Urine Blood Trace-lysed H Urine Nitrate Negative Urine Bilirubin Negative Urine Urobilinogen 0.2 Ur Leukocyte Esterase Negative Urine RBC 5 - 10 H Urine WBC 0 - 2 Ur Epithelial Cells 0 - 2 Urine Bacteria Large 06/16/18 06/16/18 06/16/18 01:23 03:10 06:15 WBC 30.9 H* RBC 4.86 Hgb 15.3 Hct 44.7 MCV 92.0 MCH 31.5 MCHC 34.2 RDW 12.6 Plt Count 320 MPV 9.4 Gran % 89.6 H Lymph % (Auto) 8.1 L [place] % (Auto) 1.9 Eos % (Auto) 0.3 L Baso % (Auto) 0.1 Gran # 27.63 H Lymph # (Auto) 2.5 [place] # (Auto) 0.6 Eos # (Auto) 0.1 Baso # (Auto) 0.02 Neutrophils % (Manual) Band Neutrophils % Lymphocytes % (Manual) Atypical Lymphs % Monocytes % (Manual) Platelet Evaluation pO2 VBG pH VBG pCO2 VBG HCO3 VBG Total CO2 VBG O2 Sat (Calc) VBG Base Excess VBG Potassium Sodium 123 L Chloride 87 L Glucose Lactate FiO2 Potassium 5.0 Carbon Dioxide 20 L Anion Gap 21 H BUN 69 H Creatinine 3.1 H Est GFR ( Amer) 18 Est GFR (Non-Af Amer) 15 POC Glucose (mg/dL) 241 H Random Glucose 99 Lactic Acid Calcium 8.1 L Phosphorus Magnesium Total Bilirubin 1.6 H AST 93 H ALT 47 Alkaline Phosphatase 245 H Total Protein 6.4 Albumin 2.9 L Globulin 3.5 Albumin/Globulin Ratio 0.8 L Amylase Lipase Venous Blood Potassium Urine Color Urine Appearance Urine pH Ur Specific [place] Urine Protein Urine Glucose (UA) Urine Ketones Urine Blood Urine Nitrate Urine Bilirubin Urine Urobilinogen Ur Leukocyte Esterase Urine RBC Urine WBC Ur Epithelial Cells Urine Bacteria 06/16/18 06/16/18 06/16/18 06:15 06:15 09:00 WBC RBC Hgb Hct MCV MCH MCHC RDW Plt Count MPV Gran % Lymph % (Auto) [place] % (Auto) Eos % (Auto) Baso % (Auto) Gran # Lymph # (Auto) [place] # (Auto) Eos # (Auto) Baso # (Auto) Neutrophils % (Manual) Band Neutrophils % Lymphocytes % (Manual) Atypical Lymphs % Monocytes % (Manual) Platelet Evaluation pO2 VBG pH VBG pCO2 VBG HCO3 VBG Total CO2 VBG O2 Sat (Calc) VBG Base Excess VBG Potassium Sodium 124 L 124 L Chloride 85 L 86 L Glucose Lactate FiO2 Potassium 7.0 H* D 6.3 H* Carbon Dioxide 24 21 Anion Gap 22 H 24 H BUN 73 H 74 H Creatinine 3.4 H 3.1 H Est GFR ( Amer) 17 18 Est GFR (Non-Af Amer) 14 15 POC Glucose (mg/dL) Random Glucose 110 96 Lactic Acid Calcium 8.7 8.5 Phosphorus 9.6 H Magnesium 2.8 H Total Bilirubin 1.6 H AST 94 H ALT 47 Alkaline Phosphatase 241 H Total Protein 6.5 Albumin 3.0 Globulin 3.6 Albumin/Globulin Ratio 0.8 L Amylase 70 Lipase 72 Venous Blood Potassium Urine Color Urine Appearance Urine pH Ur Specific [place] Urine Protein Urine Glucose (UA) Urine Ketones Urine Blood Urine Nitrate Urine Bilirubin Urine Urobilinogen Ur Leukocyte Esterase Urine RBC Urine WBC Ur Epithelial Cells Urine Bacteria 06/16/18 06/16/18 15:16 15:16 WBC RBC Hgb Hct MCV MCH MCHC RDW Plt Count MPV Gran % Lymph % (Auto) [place] % (Auto) Eos % (Auto) Baso % (Auto) Gran # Lymph # (Auto) [place] # (Auto) Eos # (Auto) Baso # (Auto) Neutrophils % (Manual) Band Neutrophils % Lymphocytes % (Manual) Atypical Lymphs % Monocytes % (Manual) Platelet Evaluation pO2 151 H VBG pH 7.39 VBG pCO2 28.0 L VBG HCO3 16.9 L VBG Total CO2 17.8 L VBG O2 Sat (Calc) 100.0 H VBG Base Excess -6.6 L VBG Potassium 4.2 Sodium 121 L 117.0 L* Chloride 88 L 86.0 L Glucose 169 H Lactate 2.5 H FiO2 21.0 Potassium 4.4 Carbon Dioxide 18 L Anion Gap 20 BUN 72 H Creatinine 3.0 H Est GFR ( Amer) 19 Est GFR (Non-Af Amer) 16 POC Glucose (mg/dL) Random Glucose 163 H Lactic Acid Calcium 7.8 L Phosphorus Magnesium Total Bilirubin 1.8 H AST 86 H ALT 47 Alkaline Phosphatase 228 H Total Protein 6.1 Albumin 2.7 L Globulin 3.4 Albumin/Globulin Ratio 0.8 L Amylase Lipase Venous Blood Potassium 4.2 Urine Color Urine Appearance Urine pH Ur Specific [place] Urine Protein Urine Glucose (UA) Urine Ketones Urine Blood Urine Nitrate Urine Bilirubin Urine Urobilinogen Ur Leukocyte Esterase Urine RBC Urine WBC Ur Epithelial Cells Urine Bacteria Addendum Addendum: 06/15/18 17:31 ICU Attending Addendum Patient seen and examined in the ED on 06/[address] Reeves. Case reviewed on round with housestaff. 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 Likely from dehydration and poor nutrition hydrate with NS cocktail given for K repeat chem repwat VBG f/u onc rec may need paracentesis Rest of care as above Leigha Orosco MD Pulmonary Critical Care and Sleep Medicine
[2018-06-15] MEDS ORDERED: Sod Polystyrene Sulf 15 gm/60 ml Susp PR ONE (17:51)
[2018-06-15 18:12] LABS: VENOUS BLOOD GAS BASE EXCESS -8.9 mmol/L (0.0-2.0); VENOUS BLOOD GAS PO2 49 mm/Hg (30-55)
--- NOTE | 2018-06-15 18:36 | CARD ---
APPROVED REPORT Date of service: 06/15/2018 EKG Measurement Heart [id number] <Conclusion> Normal sinus rhythm Normal ECG
[2018-06-15] MEDS ORDERED: Iohexol 240 (50 ml) ONE (18:47)
--- NOTE | 2018-06-15 19:17 | PCM.SEPTIC ---
Sepsis Progress Note - Reassessment Type Date of Evaluation: 06/15/18 Time of Evaluation: 19:15 Reassessment Type: Non-invasive reassessment - Non Invasive Reassessment Were the most recent vital sign reviewed: Yes Vital Sign (Latest): Temp Pulse Resp BP Pulse Ox 96.8 F L 95 H 18 119/82 84 L 06/15/18 16:55 06/15/18 18:23 06/15/18 17:36 06/15/18 18:23 06/15/18 18:23 Cardiovascular: Yes: Regular Rate, Rhythm. No: Chest Non Tender, Edema, Murmur Respiratory: Yes: Normal Breath Sounds. No: Crackles, Rales, Rhonchi, Wheezing Capillary Refill: Normal (Less than 2 sec) Pulses: Normal Radial, Normal Dorsalis Pedis, Normal Posterior Tibialis Skin: Normal Color - Invasive Reassessment (complete 2 of 4) Was a Central Venous Pressure Measurement obtained within 6 Hours after the presentation of septic shock: No Was a central venous oxygen measurement obtained within 6 hours after the presentation of septic shock: No Was a bedside cardiovascular ultrasound performed within 6 hours after the presentation of septic shock: No Was a passive leg raise performed or was a fluid challenge performed within 6 hrs of the initial fluid bolus: No Fluid Challenge performed: No
[2018-06-15] MEDS ORDERED: Influenza Vaccine 60 mcg/0.5 mL SYR (4YR UP) IM ONE (19:35)
[2018-06-15] MEDS ORDERED: Pneumococcal 23-Valent Vaccine IM ONE (19:35)
[2018-06-15 20:03] LABS: ALB/GLOB RATIO 0.9 (1.1-1.8); ALBUMIN 2.8 g/dL (3.0-4.8)
[2018-06-15] MEDS: Piperacillin/Tazobact 2.25gm 2.25 GM/100 ML BAG IVPB SCH (21:34)
[2018-06-15 21:54] LABS: ATYPICAL LYMPHOCYTE 2 % (0.0-0.0); BAND 1 % (0-2); LYMPHOCYTE 10 % (22.0-35.0); MONOCYTE 2 % (1.0-6.0); NEUTROPHIL 85 % (50.0-70.0)
[2018-06-15 21:55] LABS: PLATELET ESTIMATE NORMAL (NORMAL)
[2018-06-15] MEDS ORDERED: Piperacill/Tazo 4.5gm in NS 4.5 GM/100 ML BAG IVPB SCH (22:00)
[2018-06-15 22:09] LABS: PH,URINE 5.5 (4.7-8.0); URINE BILIRUBIN NEGATIVE (NEGATIVE); URINE BLOOD TRACE-LYSED (NEGATIVE); URINE GLUCOSE (UA) NEGATIVE (NEGATIVE); URINE LEUKOCYTE ESTERASE NEGATIVE Leu/uL (NEGATIVE); URINE PROTEIN TRACE mg/dL (<30 mg/dL); URINE UROBILINOGEN 0.2 E.U./dL (<1 E.U./dL)
[2018-06-15 22:11] LABS: URINE APPEARANCE CLOUDY (CLEAR); URINE COLOR YELLOW (YELLOW)
[2018-06-15 22:48] LABS: URINE EPITHELIAL CELLS 0 - 2 /hpf (0-5); URINE WBC 0 - 2 /hpf (0-6)
[2018-06-15 22:49] LABS: URINE BACTERIA LARGE /hpf
[2018-06-16 00:30] LABS: ALB/GLOB RATIO 0.8 (1.1-1.8); CALCIUM 8.6 mg/dL (8.4-10.5)
[2018-06-16] MEDS ORDERED: Dextrose 50% SYRINGE Inj (50 ml) IVP ONE ×2 (00:59→07:14)
[2018-06-16] MEDS ORDERED: Insulin Regular 1 UNITS/0.01 ML ML SC STA (00:59)
[2018-06-16] MEDS ORDERED: Sod Polystyrene Sulf 15 gm/60 ml Susp PO ONE (01:00)
[2018-06-16] MEDS: Oxycodone/Acetaminophen 5/325 mg Tab PO PRN ×3 (01:00→14:03)
[2018-06-16 03:45] LABS: ALB/GLOB RATIO 0.8 (1.1-1.8); ALBUMIN 2.9 g/dL (3.0-4.8); CALCIUM 8.1 mg/dL (8.4-10.5)
[2018-06-16] MEDS: Piperacillin/Tazobact 2.25gm 2.25 GM/100 ML BAG IVPB SCH ×3 (05:28→21:31)
[2018-06-16] MEDS: Pantoprazole 40 mg EC Tab PO SCH (05:29)
[2018-06-16 06:31] LABS: BASO # 0.02 K/mm3 (0.0-2.0); BASO % 0.1 % (0.0-3.0); EOS # 0.1 (0.0-0.7); EOS % 0.3 % (1.5-5.0); GRAN # 27.63 (1.4-6.5); GRAN % 89.6 % (50.0-68.0); HEMOGLOBIN 15.3 g/dL (12.0-16.0); LYMPH # 2.5 (1.2-3.4); LYMPH % 8.1 % (22.0-35.0); MEAN CORPUSCULAR HEMOGLOBIN 31.5 pg (25.0-35.0); MEAN CORPUSCULAR HGB CONC 34.2 g/dl (31.0-37.0); MEAN PLATELET VOLUME 9.4 fl (7.0-11.0); MONO # 0.6 (0.1-0.6); MONO % 1.9 % (1.0-6.0); RBC 4.86 10^6/uL (3.5-6.1); RED CELL DISTRIBUTION WIDTH 12.6 % (11.5-14.5)
[2018-06-16 06:52] LABS: WHITE BLOOD COUNT 30.9 10^3/uL (4.5-11.0)
[2018-06-16 07:08] LABS: CALCIUM 8.7 mg/dL (8.4-10.5)
[2018-06-16 07:09] LABS: ALB/GLOB RATIO 0.8 (1.1-1.8)
--- NOTE | 2018-06-16 07:15 | CP.PCM.CON ---
History of Present Illness - History of Present Illness History of Present Illness: PGY-[address] Dawkins ID consult: Antibiotics choice Ms. Coppola, 63F, with PMH ETOH abuse, recent diagnosed pancreatic cancer with met to liver, uterine fibroid tumor removal 30 years ago, C/O vomiting and abdominal distension. Patient states that after her recent hospitalization 2 weeks ago, patient has had poor appetite, lethargy along with an inability to pass bowel movements. During that hospitalization, a CT guided biopsy confirmed pancreatic cancer with metastases to the liver. For the past few years, pt had chronic abdominal pain and she has been drinking half a pint of vodka daily on and off along with Aleve to suppress her abdominal pain. After Dx with pancreatic cancer, Dr Holt (oncologist) started her on P ercocet 10 mg every 4-6 hours earlier this week. Patient states that after visiting her oncologist on Wednesday for blood work, patient started vomiting during a follow up appointment today. Dr Holt send the pt to the ED. (+) excessive belching associated, (+) intermittent periods of shortness of breath and flatulence. (+) vomiting, bilous ROS: Denies recent antibiotics, denies travel. Home has 2 dogs and 2 birds (+) vomit (+) abdominal pain (+) excessive belching associated, (+) intermittent periods of shortness of breath and flatulence Denies chest pain, palpitations, dizziness, headaches, blurry vision, urinary incontinence, leg pain, fevers, chills, cough, sputum production. PMHx: ETOH abuse x few years, 1/2 pint vodka almost daily, last drink 1 month ago Pancreatic cancer metastasis to liver, with ascites (Dx 06/02/2018) uterine fibroid tumor removal 30 years ago Percocet and constipation Surg Hx: Fibroid tumor removal, 2 c-sections Fam hx: mom passed from pancreatic cancer in her 80s Social: ETOH use on and off for 5 years, denies tobacco and illicit drug use All: NKDA Meds: Percocet 10 mg q6 PO Last night, T93, HR 106, BP 110s, RR 55, SaO2 94RA WBC 32, Hb 16.7 Na 123, K 6.1, BUN 76, Cre 3.6 Lactate 5.4 TB 1.5, AST 94, ALT 50, Albumin 3.7, INR 1.[address] A/P: increased peritoneal carcinomatosis moderate increase in ascites increase fluid collection/loculated ascites next to gastric wall Unchange as compared 06/02/18: mild b/l pleural effusion, pericardial effusion, diffuse liver mets\ CODE SEPSIS ACTIVATED. 30cc/kg NSS ordered. Zosyn and Vancomycin. Cynthia Past Patient History - Past Social History Smoking Status: Never Smoked - CARDIAC Hx Cardiac Disorders: No Hx Pacemaker: No - PULMONARY Hx Respiratory Disorders: No - NEUROLOGICAL Hx Neurological Disorder: No - HEENT Hx HEENT Problems: No - RENAL Hx Chronic Kidney Disease: No - ENDOCRINE/METABOLIC Hx Endocrine Disorders: No - HEMATOLOGICAL/ONCOLOGICAL Hx Blood Disorders: Yes Hx Cancer: Yes (pancreatic CA WITH METS TO LIVER .NEWLY DXED MAY 2018) - INTEGUMENTARY Hx Dermatological Problems: No - MUSCULOSKELETAL/RHEUMATOLOGICAL Hx Musculoskeletal Disorders: No Hx Falls: Yes - GASTROINTESTINAL Hx Gastrointestinal Disorders: Yes (ASCITES-PANCREATIC CA WITH METS TO LIVER 06-02-18) Other/Comment: HEMORRHOIDS,CONSTIPATION. - GENITOURINARY/GYNECOLOGICAL Hx Genitourinary Disorders: Yes (C/S X 2) - PSYCHIATRIC Hx Psychophysiologic Disorder: Yes (ETOH ABUSE. H/O DRINKING DAILY VODKA.QUIT MAY 2018.) Hx Emotional Abuse: No Hx Physical Abuse: No Hx Substance Use: No (DENIES) - SURGICAL HISTORY Hx Surgeries: Yes (CS X 2,LAPAROSCOPIC SX) - ANESTHESIA Hx Anesthesia: Yes Hx Anesthesia Reactions: No Hx Malignant Hyperthermia: No Meds Allergies/Adverse Reactions: Allergies Allergy/AdvReac Type Severity Reaction Status Date / Time No Known Allergies Allergy Verified 06/15/18 15:47 - Medications Medications: Current Medications Docusate Sodium (Colace) 100 mg PO BID [facility] Last Admin: 06/15/18 18:08 Dose: 100 mg Heparin Sodium (Porcine) (Heparin) 5,000 units SC Q8 BLAKE; Protocol Last Admin: 06/16/18 05:29 Dose: 5,000 units Sodium Chloride (Sodium Chloride 0.9%) 1,000 mls @ 75 mls/hr IV .[id number] [facility] Last Admin: 06/15/18 17:29 Dose: 75 mls/hr Piperacillin Sod/Tazobactam Sod (Zosyn 2.25 Gm In 0.9% 100 Ml) 2.25 gm in 100 mls @ 100 mls/hr IVPB Q8 [facility]; Protocol Stop: 06/24/18 22:01 Last Admin: 06/16/18 05:28 Dose: 100 mls/hr Ondansetron HCl (Zofran Inj) 4 mg IVP Q4H PRN PRN Reason: Nausea/Vomiting Oxycodone/Acetaminophen (Percocet 5/325 Mg Tab) 1 tab PO TID PRN PRN Reason: Pain, severe (8-10) Stop: 06/18/18 17:45 Last Admin: 06/16/18 01:00 Dose: 1 tab Pantoprazole Sodium (Protonix Ec Tab) 40 mg PO 0600 [facility] Last Admin: 06/16/18 05:29 Dose: 40 mg Sennosides (Senokot Tab) 8.6 mg PO DAILY [facility] Last Admin: 06/15/18 18:10 Dose: 8.6 mg Sodium Chloride (Sodium Chloride Tab) 1 gm PO WM [facility] Physical Exam - Constitutional Appears: No Acute Distress - Head Exam Head Exam: ATRAUMATIC, NORMAL INSPECTION, NORMOCEPHALIC - Eye Exam Eye Exam: EOMI, Normal appearance, PERRL. absent: Scleral icterus Pupil Exam: NORMAL ACCOMODATION - ENT Exam ENT Exam: Mucous Membranes Moist - Neck Exam Additional comments: supple - Respiratory Exam Respiratory Exam: Decreased Breath Sounds (b/l lung bases), Clear to Auscultation Bilateral. absent: Rhonchi, Wheezes - Cardiovascular Exam Cardiovascular Exam: REGULAR RHYTHM, +S1, +S2 - GI/Abdominal Exam GI & Abdominal Exam: Distended, Normal Bowel Sounds, Soft, Tenderness (R sided). absent: Firm, Guarding - Extremities Exam Extremities exam: Positive for: pedal edema. Negative for: calf tenderness Additional comments: torres urine esme with slight red - Back Exam Back exam: absent: CVA tenderness (L), CVA tenderness (R) - Neurological Exam Neurological exam: Alert, Oriented x3 - Psychiatric Exam Psychiatric exam: Normal Affect, Normal Mood - Skin Skin Exam: Dry, Warm Results - Vital Signs Recent Vital Signs: Last Vital Signs Temp 98.6 F 06/16/18 02:10 Pulse 95 H 06/16/18 06:00 Resp 20 06/16/18 02:10 BP 130/62 06/16/18 02:00 Pulse Ox 98 06/16/18 02:10 - Labs Result Diagrams: 06/16/18 06:15 06/16/18 15:16 Labs: Laboratory Results - last 24 hr 06/15/18 06/15/18 06/15/18 14:54 14:54 14:54 WBC 32.3 H* RBC 5.35 Hgb 16.7 H Hct 49.1 H MCV 91.8 MCH 31.2 MCHC 34.0 RDW 12.7 Plt Count 346 MPV 9.7 Gran % 89.8 H Lymph % (Auto) 7.2 L [place] % (Auto) 2.7 Eos % (Auto) 0.2 L Baso % (Auto) 0.1 Gran # 28.98 H Lymph # (Auto) 2.3 [place] # (Auto) 0.9 H Eos # (Auto) 0.1 Baso # (Auto) 0.03 Neutrophils % (Manual) 85 H Band Neutrophils % 1 Lymphocytes % (Manual) 10 L Atypical Lymphs % 2 H Monocytes % (Manual) 2 Platelet Evaluation Normal PT 13.2 H INR 1.15 APTT 27.5 pO2 30 VBG pH 7.19 L* VBG pCO2 70.0 H* VBG HCO3 26.7 VBG Total CO2 28.8 H VBG O2 Sat (Calc) 49.9 VBG Base Excess -3.1 L VBG Potassium 5.7 H Sodium 119.0 L* Chloride 78.0 L Glucose 158 H Lactate 5.4 H* FiO2 21.0 Potassium Carbon Dioxide Anion Gap BUN Creatinine Est GFR ( Amer) Est GFR (Non-Af Amer) POC Glucose (mg/dL) Random Glucose Lactic Acid Calcium Phosphorus Magnesium Total Bilirubin AST ALT Alkaline Phosphatase Total Protein Albumin Globulin Albumin/Globulin Ratio Lipase Venous Blood Potassium 5.7 H Urine Color Urine Appearance Urine pH Ur Specific [place] Urine Protein Urine Glucose (UA) Urine Ketones Urine Blood Urine Nitrate Urine Bilirubin Urine Urobilinogen Ur Leukocyte Esterase Urine RBC Urine WBC Ur Epithelial Cells Urine Bacteria 06/15/18 06/15/18 06/15/18 14:54 16:20 18:00 WBC RBC Hgb Hct MCV MCH MCHC RDW Plt Count MPV Gran % Lymph % (Auto) [place] % (Auto) Eos % (Auto) Baso % (Auto) Gran # Lymph # (Auto) [place] # (Auto) Eos # (Auto) Baso # (Auto) Neutrophils % (Manual) Band Neutrophils % Lymphocytes % (Manual) Atypical Lymphs % Monocytes % (Manual) Platelet Evaluation PT INR APTT pO2 49 VBG pH 7.10 L* VBG pCO2 71.0 H* VBG HCO3 22.0 VBG Total CO2 24.2 VBG O2 Sat (Calc) 78.3 H VBG Base Excess -8.9 L VBG Potassium 5.7 H Sodium 123 L 122.0 L Chloride 79 L 87.0 L Glucose 94 Lactate 4.9 H* FiO2 21.0 Potassium 6.1 H* D Carbon Dioxide 24 Anion Gap 26 H BUN 76 H Creatinine 3.6 H Est GFR ( Amer) 15 Est GFR (Non-Af Amer) 13 POC Glucose (mg/dL) 148 H Random Glucose 157 H Lactic Acid Calcium 9.1 Phosphorus Magnesium 3.3 H Total Bilirubin 1.5 H AST 94 H D ALT 50 Alkaline Phosphatase 255 H D Total Protein 7.8 Albumin 3.7 Globulin 4.2 Albumin/Globulin Ratio 0.9 L Lipase 149 Venous Blood Potassium 5.7 H Urine Color Urine Appearance Urine pH Ur Specific [place] Urine Protein Urine Glucose (UA) Urine Ketones Urine Blood Urine Nitrate Urine Bilirubin Urine Urobilinogen Ur Leukocyte Esterase Urine RBC Urine WBC Ur Epithelial Cells Urine Bacteria 06/15/18 06/15/18 06/15/18 19:36 21:50 23:55 WBC RBC Hgb Hct MCV MCH MCHC RDW Plt Count MPV Gran % Lymph % (Auto) [place] % (Auto) Eos % (Auto) Baso % (Auto) Gran # Lymph # (Auto) [place] # (Auto) Eos # (Auto) Baso # (Auto) Neutrophils % (Manual) Band Neutrophils % Lymphocytes % (Manual) Atypical Lymphs % Monocytes % (Manual) Platelet Evaluation PT INR APTT pO2 VBG pH VBG pCO2 VBG HCO3 VBG Total CO2 VBG O2 Sat (Calc) VBG Base Excess VBG Potassium Sodium 123 L 123 L Chloride 90 L 85 L Glucose Lactate FiO2 Potassium 5.9 H* 6.5 H* Carbon Dioxide 20 L 25 Anion Gap 20 19 BUN 68 H 70 H Creatinine 3.2 H 3.2 H Est GFR ( Amer) 18 18 Est GFR (Non-Af Amer) 15 15 POC Glucose (mg/dL) Random Glucose 94 126 H Lactic Acid Calcium 8.0 L 8.6 Phosphorus Magnesium Total Bilirubin 1.4 H 1.6 H AST 76 H 92 H D ALT 36 44 Alkaline Phosphatase 198 H D 231 H Total Protein 5.8 6.5 Albumin 2.8 L 3.0 Globulin 3.1 3.5 Albumin/Globulin Ratio 0.9 L 0.8 L Lipase Venous Blood Potassium Urine Color Yellow Urine Appearance Cloudy Urine pH 5.5 Ur Specific [place] >= 1.030 Urine Protein Trace H Urine Glucose (UA) Negative Urine Ketones Negative Urine Blood Trace-lysed H Urine Nitrate Negative Urine Bilirubin Negative Urine Urobilinogen 0.2 Ur Leukocyte Esterase Negative Urine RBC 5 - 10 H Urine WBC 0 - 2 Ur Epithelial Cells 0 - 2 Urine Bacteria Large 06/15/18 06/16/18 06/16/18 23:55 01:23 03:10 WBC RBC Hgb Hct MCV MCH MCHC RDW Plt Count MPV Gran % Lymph % (Auto) [place] % (Auto) Eos % (Auto) Baso % (Auto) Gran # Lymph # (Auto) [place] # (Auto) Eos # (Auto) Baso # (Auto) Neutrophils % (Manual) Band Neutrophils % Lymphocytes % (Manual) Atypical Lymphs % Monocytes % (Manual) Platelet Evaluation PT INR APTT pO2 VBG pH VBG pCO2 VBG HCO3 VBG Total CO2 VBG O2 Sat (Calc) VBG Base Excess VBG Potassium Sodium 123 L Chloride 87 L Glucose Lactate FiO2 Potassium 5.0 Carbon Dioxide 20 L Anion Gap 21 H BUN 69 H Creatinine 3.1 H Est GFR ( Amer) 18 Est GFR (Non-Af Amer) 15 POC Glucose (mg/dL) 241 H Random Glucose 99 Lactic Acid 2.0 Calcium 8.1 L Phosphorus Magnesium Total Bilirubin 1.6 H AST 93 H ALT 47 Alkaline Phosphatase 245 H Total Protein 6.4 Albumin 2.9 L Globulin 3.5 Albumin/Globulin Ratio 0.8 L Lipase Venous Blood Potassium Urine Color Urine Appearance Urine pH Ur Specific [place] Urine Protein Urine Glucose (UA) Urine Ketones Urine Blood Urine Nitrate Urine Bilirubin Urine Urobilinogen Ur Leukocyte Esterase Urine RBC Urine WBC Ur Epithelial Cells Urine Bacteria 06/16/18 06/16/18 06:15 06:15 WBC 30.9 H* RBC 4.86 Hgb 15.3 Hct 44.7 MCV 92.0 MCH 31.5 MCHC 34.2 RDW 12.6 Plt Count 320 MPV 9.4 Gran % 89.6 H Lymph % (Auto) 8.1 L [place] % (Auto) 1.9 Eos % (Auto) 0.3 L Baso % (Auto) 0.1 Gran # 27.63 H Lymph # (Auto) 2.5 [place] # (Auto) 0.6 Eos # (Auto) 0.1 Baso # (Auto) 0.02 Neutrophils % (Manual) Band Neutrophils % Lymphocytes % (Manual) Atypical Lymphs % Monocytes % (Manual) Platelet Evaluation PT INR APTT pO2 VBG pH VBG pCO2 VBG HCO3 VBG Total CO2 VBG O2 Sat (Calc) VBG Base Excess VBG Potassium Sodium 124 L Chloride 85 L Glucose Lactate FiO2 Potassium 7.0 H* D Carbon Dioxide 24 Anion Gap 22 H BUN 73 H Creatinine 3.4 H Est GFR ( Amer) 17 Est GFR (Non-Af Amer) 14 POC Glucose (mg/dL) Random Glucose 110 Lactic Acid Calcium 8.7 Phosphorus 9.6 H Magnesium 2.8 H Total Bilirubin 1.6 H AST 94 H ALT 47 Alkaline Phosphatase 241 H Total Protein 6.5 Albumin 3.0 Globulin 3.6 Albumin/Globulin Ratio 0.8 L Lipase Venous Blood Potassium Urine Color Urine Appearance Urine pH Ur Specific [place] Urine Protein Urine Glucose (UA) Urine Ketones Urine Blood Urine Nitrate Urine Bilirubin Urine Urobilinogen Ur Leukocyte Esterase Urine RBC Urine WBC Ur Epithelial Cells Urine Bacteria Assessment & Plan - Assessment and Plan (Free Text) Plan: Mrs. Coppola, 63F, with Hx ETOH, chronic pain on percocet, stage 4 pancreatic cancer with liver mets, c/o intractable vomiting associated with SOB and flatullence. A: Severe sepsis complicated by KIMBERLY possibly due to hospital acquired intraabdominal infection r/o Spontaneous bacterial peritonitis (SBP) Decompensated liver injury complicated by increasing ascites, possible portal hypertension P: - zosyn (day 1) - therapeutic Paracentesis - follow on VS, WBC, culture, ascites fluid analysis, and clinical course s/r/d/w Dr Dawkins
[2018-06-16] MEDS ORDERED: Dextrose 50% SYRINGE Inj (50 ml) IVP STA (07:19)
[2018-06-16] MEDS ORDERED: Insulin Regular 1 UNITS/0.01 ML ML IV STA (07:20)
[2018-06-16] MEDS ORDERED: Sod Polystyrene Sulf 15 gm/60 ml Susp PR STA (07:22)
[2018-06-16] MEDS ORDERED: Albuterol 0.042% Inhal Sol (1.25 mg/3 mL) UD IH STA (07:22)
[2018-06-16 07:23] LABS: AMYLASE 70 U/L (35-125); LIPASE 72 U/L (23-300)
[2018-06-16] MEDS ORDERED: Albuterol 0.5% Inhal Sol (2.5 mg/0.5 ml) UD IH STA (08:05)
--- NOTE | 2018-06-16 09:07 | US ---
Date of service: 06/16/2018 HISTORY: ascites COMPARISON: None. TECHNIQUE: Sonographic evaluation of the abdomen. FINDINGS: LIVER: Measures 17.5 cm. Multiple scattered hepatic metastases are appreciated throughout the liver once again. No prominent intrahepatic biliary dilatation appreciable. Moderate perihepatic ascites identified. GALLBLADDER: Unremarkable. No gallstones. COMMON BILE DUCT: Measures mm. No stones. No dilatation. PANCREAS: Obscured by overlying stomach or bowel gas. RIGHT KIDNEY: Measures 10.4cm. Normal echogenicity. No calculus, mass, or hydronephrosis. LEFT KIDNEY: Measures 10.9cm. Normal echogenicity. No calculus, mass, or hydronephrosis. SPLEEN: Normal in size and contour, measuring 10.4 cm. Moderate perisplenic ascites identified. No mass. AORTA: No aneurysmal dilatation. IVC: Unremarkable. OTHER FINDINGS: None. IMPRESSION: Moderate upper abdominal ascites identified in the perihepatic and perisplenic spaces. Hepatic metastases reiterated as compared prior abdomen pelvis CT also performed 06/16/2018. Pancreas completely obscured by overlying bowel gas.
--- NOTE | 2018-06-16 09:15 | CP.CCUPN ---
<Heriberto Yang - Last Filed: 06/16/18 12:21> CCU Subjective - Physician Review Subjective (Free Text): Subjective: Patient seen and examined. No acute overnight events. States abdominal pain has improved from baseline. Admits to nausea and 2 bouts of nonbloody, nonbilious emesis. Denies fever, chills, chest pain, SOB. 12 point ROS negative except as indicated in the HPI Physical Examination: - Constitutional Appears: Non-toxic, In Acute Distress, Chronically Ill - Head Exam Head Exam: ATRAUMATIC, NORMOCEPHALIC - Eye Exam Eye Exam: EOMI, Normal appearance Pupil Exam: PERRL - ENT Exam ENT Exam: Mucous Membranes Moist - Neck Exam Neck exam: Positive for: Normal Inspection - Respiratory Exam Respiratory Exam: Clear to Auscultation Bilateral. absent: Rales, Rhonchi, Wheezes, Respiratory Distress - Cardiovascular Exam Cardiovascular Exam: RRR, +S1, +S2 - GI/Abdominal Exam GI & Abdominal Exam: Diminished Bowel Sounds, Distended, Firm, Organomegaly. absent: Guarding, Rebound Additional comments: caput medusae present, no fluid wave present - Extremities Exam Extremities exam: Positive for: normal inspection. Negative for: joint swelling, pedal edema - Back Exam Back exam: absent: CVA tenderness (L), CVA tenderness (R) - Neurological Exam Neurological exam: Alert, Oriented x3, responds to verbal stimuli, follows commands, moves extremities past midline - Psychiatric Exam Psychiatric exam: flat affect - Skin Skin Exam: Dry, Intact Assessment and Plan: Patient is a 63 year old female with a past medical history of biopsy confirmed stage 4 pancreatic cancer with metastasis to the liver who was referred to the emergency room by her oncologist for evaluation and treatment of evaluation of nausea, vomiting, and abdominal pain/distention today. In the ED, the patient was found to have meet SIRs criteria and multiple metabolic derangements including hyponatermia 123 and hyperkalemia 6.1. Patient was transferred to the ICU for further management. Neuro: -AAOx3 -Monitor neuro status. -Reorient patient as necessary. Cardio: - RRR, normotensive, no signs of HD compromise at this time - Maintain MAP>65. - Monitor for S/S, HD compromise. Pulm: - VBG shows lactic acidosis - F/u repeat VBG w shock panel - No signs of respiratory distress. CTA B/L - Patient is satting well on room air. - Maintain O2 saturation>92%. - O2 NC PRN - Elevate bed to 30 degrees GI: Abdominal Pain 2/2 Metastatic Pancreatic Cancer with Ascities - 06/16/[address] without contrast- Interval distention of the abdomen is identified secondary to moderate to severe ascites which has increased in the interval. Numerous hepatic metastases are identified as well as likely omental caking once again. - 06/16/2018 Abdominal U/S- -Moderate upper abdominal ascites identified in the perihepatic and perisplenic spaces. Hepatic metastases reiterated as compared prior abdomen pelvis CT also performed 06/16/2018. Pancreas completely obscured by overlying bowel gas - Pain control - Percocet on board from home dose - requires diagnostic and therapeutic paracentesis Nausea - continue Zofran 4mg q8 Constipation - continue Senokot and colace GI prophylaxis - Protonix 40mg PO daily Nephrology: KIMBERLY - BUN/Cr down trending - UA negative Hyponatremic - volume depleted, hypochloremic likely 2/2 vomiting - discontinue NS @ 75 cc/hr - start d5 NS @ 125cc/hr, after 1 liter reduce rate to 100cc/hr Hyperkalemic - Albuterol, D50, insulin given, kayexalate TX - CMP repeat at 1400 Hypermagnesemic - monitor closely Endocrinology: - Maintain euglycemia Heme/Onc: Metastatic Pancreatic Cancer - Hem/Onc consult - Dr. Yanet lee appreciated - hemodynamically stable - F/u shock VBG - H/H stable - Continue monitoring H/H DVT prophylaxis: - Heparin 5000 q8 ID: - ID consult - Dr. Max lee appreciated- continue zosyn - Follow up BCx, UCx, shock VBG - Monitor for signs and symptoms of infection Patient seen, case reviewed, and plan approved by Dr. Andry Orosco. CCU Objective - Vital Signs / Intake & Output Vital Signs (Last 4 hours): Vital Signs Pulse 06/16/18 06:00 95 H Intake and Output (Last 8hrs): Intake & Output 06/15/18 06/16/18 06/16/18 22:59 06:59 14:59 Intake Total 200 Output Total 300 Balance -100 Weight 151 lb Intake: IV 200 abx 200 Output: Urine 300 Urethral (Marie) 300 Other: Voiding Method Bedside Commode - Physical Exam Head: Positive for: Atraumatic, Normocephalic Pupils: Positive for: PERRL Extroacular Muscles: Positive for: EOMI Conjunctiva: Positive for: Normal Respiratory/Chest: Positive for: Clear to Auscultation, Good Air Exchange. Negative for: Respiratory Distress, Accessory Muscle Use Cardiovascular: Positive for: Regular Rate and Rhythm, Normal S1, S2. Negative for: Murmurs Abdomen: Positive for: Tenderness (diffuse tenderness), Distention. Negative for: Peritoneal Signs Back: Positive for: Normal Inspection Upper Extremity: Positive for: Normal Inspection. Negative for: Cyanosis, Edema Lower Extremity: Positive for: Normal Inspection. Negative for: Edema Neurological: Positive for: GCS=15, CN II-XII Intact, Speech Normal Skin: Positive for: Warm, Dry, Other (jaundice). Negative for: Rashes Psychiatric: Positive for: Alert, Oriented x 3, Normal Insight, Normal Concentration - Medications Active Medications: Active Medications Generic Name Dose Route Start Last Admin Trade Name Freq PRN Reason Stop Dose Admin Docusate Sodium 100 mg 06/15/18 18:00 06/15/18 18:08 Colace PO 100 mg BID BLAKE Administration Heparin Sodium (Porcine) 5,000 units 06/15/18 22:00 06/16/18 05:29 Heparin SC 5,000 units Q8 BLAKE Administration Protocol Sodium Chloride 1,000 mls @ 75 mls/hr 06/15/18 17:30 06/15/18 17:29 Sodium Chloride 0.9% IV 75 mls/hr .[id number] BLAKE Administration Piperacillin Sod/Tazobactam Sod 2.25 gm in 100 mls @ 100 mls/hr 06/15/18 22:00 06/16/18 05:28 Zosyn 2.25 Gm In 0.9% 100 Ml IVPB 06/24/18 22:01 100 mls/hr Q8 BLAKE Administration Protocol Ondansetron HCl 4 mg 06/16/18 02:42 Zofran Inj IVP Q4H PRN Nausea/Vomiting Oxycodone/Acetaminophen 1 tab 06/15/18 17:44 06/16/18 01:00 Percocet 5/325 Mg Tab PO 06/18/18 17:45 1 tab TID PRN Administration Pain, severe (8-10) Pantoprazole Sodium 40 mg 06/16/18 06:00 06/16/18 05:29 Protonix Ec Tab PO 40 mg 0600 BLAKE Administration Sennosides 8.6 mg 06/15/18 18:00 06/15/18 18:10 Senokot Tab PO 8.6 mg DAILY BLAKE Administration Sodium Chloride 1 gm 06/16/18 08:00 Sodium Chloride Tab PO WM BLAKE - Patient Studies Lab Studies: Lab Studies 06/16/18 06/16/18 06/16/18 Range/Units 06:15 06:15 06:15 WBC 30.9 H* (4.5-11.0) 10^3/uL RBC 4.86 (3.5-6.1) 10^6/uL Hgb 15.3 (12.0-16.0) g/dL Hct 44.7 (36.0-48.0) % MCV 92.0 (80.0-105.0) fl MCH 31.5 (25.0-35.0) pg MCHC 34.2 (31.0-37.0) g/dl RDW 12.6 (11.5-14.5) % Plt Count 320 (120.0-450.0) 10^3/uL MPV 9.4 (7.0-11.0) fl Gran % 89.6 H (50.0-68.0) % Lymph % (Auto) 8.1 L (22.0-35.0) % Morris % (Auto) 1.9 (1.0-6.0) % Eos % (Auto) 0.3 L (1.5-5.0) % Baso % (Auto) 0.1 (0.0-3.0) % Gran # 27.63 H (1.4-6.5) Lymph # (Auto) 2.5 (1.2-3.4) Morris # (Auto) 0.6 (0.1-0.6) Eos # (Auto) 0.1 (0.0-0.7) Baso # (Auto) 0.02 (0.0-2.0) K/mm3 Neutrophils % (Manual) (50.0-70.0) % Band Neutrophils % (0-2) % Lymphocytes % (Manual) (22.0-35.0) % Atypical Lymphs % (0.0-0.0) % Monocytes % (Manual) (1.0-6.0) % Platelet Evaluation (NORMAL) PT (9.4-12.5) SECONDS INR APTT (25.1-36.5) Seconds pO2 (30-55) mm/Hg VBG pH (7.32-7.43) VBG pCO2 (40-60) VBG HCO3 (21-28) mmol/l VBG Total CO2 (22-28) mmol.L VBG O2 Sat (Calc) (40-65) % VBG Base Excess (0.0-2.0) mmol/L VBG Potassium (3.6-5.2) mmol/L Sodium 124 L (132-148) mmol/L Chloride 85 L (98-107) mmol/L Glucose (65-105) mg/dl Lactate (0.7-2.1) mmol/L FiO2 % Potassium 7.0 H* D (3.6-5.0) mmol/L Carbon Dioxide 24 (21-33) mmol/L Anion Gap 22 H (10-20) BUN 73 H (7-21) mg/dL Creatinine 3.4 H (0.7-1.2) mg/dl Est GFR ( Amer) 17 Est GFR (Non-Af Amer) 14 POC Glucose (mg/dL) (65-110) mg/dL Random Glucose 110 (70-110) mg/dL Lactic Acid (0.7-2.1) mmol/L Calcium 8.7 (8.4-10.5) mg/dL Phosphorus 9.6 H (2.5-4.5) mg/dL Magnesium 2.8 H (1.7-2.2) mg/dL Total Bilirubin 1.6 H (0.2-1.3) mg/dL AST 94 H (14-36) U/L ALT 47 (7-56) U/L Alkaline Phosphatase 241 H (38-126) U/L Total Protein 6.5 (5.8-8.3) g/dL Albumin 3.0 (3.0-4.8) g/dL Globulin 3.6 gm/dL Albumin/Globulin Ratio 0.8 L (1.1-1.8) Amylase 70 (35-125) U/L Lipase 72 (23-300) U/L Venous Blood Potassium (3.6-5.2) mmol/L Urine Color (YELLOW) Urine Appearance (CLEAR) Urine pH (4.7-8.0) Ur Specific Harlan (1.005-1.035) Urine Protein (<30 mg/dL) mg/dL Urine Glucose (UA) (NEGATIVE) mg/dL Urine Ketones (NEGATIVE) mg/dL Urine Blood (NEGATIVE) Urine Nitrate (NEGATIVE) Urine Bilirubin (NEGATIVE) Urine Urobilinogen (<1 E.U./dL) E.U./dL Ur Leukocyte Esterase (NEGATIVE) Abel/uL Urine RBC (0-2) /hpf Urine WBC (0-6) /hpf Ur Epithelial Cells (0-5) /hpf Urine Bacteria (NONE) /hpf 06/16/18 06/16/18 06/15/18 Range/Units 03:10 01:23 23:55 WBC (4.5-11.0) 10^3/uL RBC (3.5-6.1) 10^6/uL Hgb (12.0-16.0) g/dL Hct (36.0-48.0) % MCV (80.0-105.0) fl MCH (25.0-35.0) pg MCHC (31.0-37.0) g/dl RDW (11.5-14.5) % Plt Count (120.0-450.0) 10^3/uL MPV (7.0-11.0) fl Gran % (50.0-68.0) % Lymph % (Auto) (22.0-35.0) % Morris % (Auto) (1.0-6.0) % Eos % (Auto) (1.5-5.0) % Baso % (Auto) (0.0-3.0) % Gran # (1.4-6.5) Lymph # (Auto) (1.2-3.4) Morris # (Auto) (0.1-0.6) Eos # (Auto) (0.0-0.7) Baso # (Auto) (0.0-2.0) K/mm3 Neutrophils % (Manual) (50.0-70.0) % Band Neutrophils % (0-2) % Lymphocytes % (Manual) (22.0-35.0) % Atypical Lymphs % (0.0-0.0) % Monocytes % (Manual) (1.0-6.0) % Platelet Evaluation (NORMAL) PT (9.4-12.5) SECONDS INR APTT (25.1-36.5) Seconds pO2 (30-55) mm/Hg VBG pH (7.32-7.43) VBG pCO2 (40-60) VBG HCO3 (21-28) mmol/l VBG Total CO2 (22-28) mmol.L VBG O2 Sat (Calc) (40-65) % VBG Base Excess (0.0-2.0) mmol/L VBG Potassium (3.6-5.2) mmol/L Sodium 123 L (132-148) mmol/L Chloride 87 L (98-107) mmol/L Glucose (65-105) mg/dl Lactate (0.7-2.1) mmol/L FiO2 % Potassium 5.0 (3.6-5.0) mmol/L Carbon Dioxide 20 L (21-33) mmol/L Anion Gap 21 H (10-20) BUN 69 H (7-21) mg/dL Creatinine 3.1 H (0.7-1.2) mg/dl Est GFR ( Amer) 18 Est GFR (Non-Af Amer) 15 POC Glucose (mg/dL) 241 H (65-110) mg/dL Random Glucose 99 (70-110) mg/dL Lactic Acid 2.0 (0.7-2.1) mmol/L Calcium 8.1 L (8.4-10.5) mg/dL Phosphorus (2.5-4.5) mg/dL Magnesium (1.7-2.2) mg/dL Total Bilirubin 1.6 H (0.2-1.3) mg/dL AST 93 H (14-36) U/L ALT 47 (7-56) U/L Alkaline Phosphatase 245 H (38-126) U/L Total Protein 6.4 (5.8-8.3) g/dL Albumin 2.9 L (3.0-4.8) g/dL Globulin 3.5 gm/dL Albumin/Globulin Ratio 0.8 L (1.1-1.8) Amylase (35-125) U/L Lipase (23-300) U/L Venous Blood Potassium (3.6-5.2) mmol/L Urine Color (YELLOW) Urine Appearance (CLEAR) Urine pH (4.7-8.0) Ur Specific Harlan (1.005-1.035) Urine Protein (<30 mg/dL) mg/dL Urine Glucose (UA) (NEGATIVE) mg/dL Urine Ketones (NEGATIVE) mg/dL Urine Blood (NEGATIVE) Urine Nitrate (NEGATIVE) Urine Bilirubin (NEGATIVE) Urine Urobilinogen (<1 E.U./dL) E.U./dL Ur Leukocyte Esterase (NEGATIVE) Abel/uL Urine RBC (0-2) /hpf Urine WBC (0-6) /hpf Ur Epithelial Cells (0-5) /hpf Urine Bacteria (NONE) /hpf 06/15/18 06/15/18 06/15/18 Range/Units 23:55 21:50 19:36 WBC (4.5-11.0) 10^3/uL RBC (3.5-6.1) 10^6/uL Hgb (12.0-16.0) g/dL Hct (36.0-48.0) % MCV (80.0-105.0) fl MCH (25.0-35.0) pg MCHC (31.0-37.0) g/dl RDW (11.5-14.5) % Plt Count (120.0-450.0) 10^3/uL MPV (7.0-11.0) fl Gran % (50.0-68.0) % Lymph % (Auto) (22.0-35.0) % Morris % (Auto) (1.0-6.0) % Eos % (Auto) (1.5-5.0) % Baso % (Auto) (0.0-3.0) % Gran # (1.4-6.5) Lymph # (Auto) (1.2-3.4) Morris # (Auto) (0.1-0.6) Eos # (Auto) (0.0-0.7) Baso # (Auto) (0.0-2.0) K/mm3 Neutrophils % (Manual) (50.0-70.0) % Band Neutrophils % (0-2) % Lymphocytes % (Manual) (22.0-35.0) % Atypical Lymphs % (0.0-0.0) % Monocytes % (Manual) (1.0-6.0) % Platelet Evaluation (NORMAL) PT (9.4-12.5) SECONDS INR APTT (25.1-36.5) Seconds pO2 (30-55) mm/Hg VBG pH (7.32-7.43) VBG pCO2 (40-60) VBG HCO3 (21-28) mmol/l VBG Total CO2 (22-28) mmol.L VBG O2 Sat (Calc) (40-65) % VBG Base Excess (0.0-2.0) mmol/L VBG Potassium (3.6-5.2) mmol/L Sodium 123 L 123 L (132-148) mmol/L Chloride 85 L 90 L (98-107) mmol/L Glucose (65-105) mg/dl Lactate (0.7-2.1) mmol/L FiO2 % Potassium 6.5 H* 5.9 H* (3.6-5.0) mmol/L Carbon Dioxide 25 20 L (21-33) mmol/L Anion Gap 19 20 (10-20) BUN 70 H 68 H (7-21) mg/dL Creatinine 3.2 H 3.2 H (0.7-1.2) mg/dl Est GFR ( Amer) 18 18 Est GFR (Non-Af Amer) 15 15 POC Glucose (mg/dL) (65-110) mg/dL Random Glucose 126 H 94 (70-110) mg/dL Lactic Acid (0.7-2.1) mmol/L Calcium 8.6 8.0 L (8.4-10.5) mg/dL Phosphorus (2.5-4.5) mg/dL Magnesium (1.7-2.2) mg/dL Total Bilirubin 1.6 H 1.4 H (0.2-1.3) mg/dL AST 92 H D 76 H (14-36) U/L ALT 44 36 (7-56) U/L Alkaline Phosphatase 231 H 198 H D (38-126) U/L Total Protein 6.5 5.8 (5.8-8.3) g/dL Albumin 3.0 2.8 L (3.0-4.8) g/dL Globulin 3.5 3.1 gm/dL Albumin/Globulin Ratio 0.8 L 0.9 L (1.1-1.8) Amylase (35-125) U/L Lipase (23-300) U/L Venous Blood Potassium (3.6-5.2) mmol/L Urine Color Yellow (YELLOW) Urine Appearance Cloudy (CLEAR) Urine pH 5.5 (4.7-8.0) Ur Specific Harlan >= 1.030 (1.005-1.035) Urine Protein Trace H (<30 mg/dL) mg/dL Urine Glucose (UA) Negative (NEGATIVE) mg/dL Urine Ketones Negative (NEGATIVE) mg/dL Urine Blood Trace-lysed H (NEGATIVE) Urine Nitrate Negative (NEGATIVE) Urine Bilirubin Negative (NEGATIVE) Urine Urobilinogen 0.2 (<1 E.U./dL) E.U./dL Ur Leukocyte Esterase Negative (NEGATIVE) Abel/uL Urine RBC 5 - 10 H (0-2) /hpf Urine WBC 0 - 2 (0-6) /hpf Ur Epithelial Cells 0 - 2 (0-5) /hpf Urine Bacteria Large (NONE) /hpf 06/15/18 06/15/18 06/15/18 Range/Units 18:00 16:20 14:54 WBC (4.5-11.0) 10^3/uL RBC (3.5-6.1) 10^6/uL Hgb (12.0-16.0) g/dL Hct (36.0-48.0) % MCV (80.0-105.0) fl MCH (25.0-35.0) pg MCHC (31.0-37.0) g/dl RDW (11.5-14.5) % Plt Count (120.0-450.0) 10^3/uL MPV (7.0-11.0) fl Gran % (50.0-68.0) % Lymph % (Auto) (22.0-35.0) % Morris % (Auto) (1.0-6.0) % Eos % (Auto) (1.5-5.0) % Baso % (Auto) (0.0-3.0) % Gran # (1.4-6.5) Lymph # (Auto) (1.2-3.4) Morris # (Auto) (0.1-0.6) Eos # (Auto) (0.0-0.7) Baso # (Auto) (0.0-2.0) K/mm3 Neutrophils % (Manual) (50.0-70.0) % Band Neutrophils % (0-2) % Lymphocytes % (Manual) (22.0-35.0) % Atypical Lymphs % (0.0-0.0) % Monocytes % (Manual) (1.0-6.0) % Platelet Evaluation (NORMAL) PT (9.4-12.5) SECONDS INR APTT (25.1-36.5) Seconds pO2 49 (30-55) mm/Hg VBG pH 7.10 L* (7.32-7.43) VBG pCO2 71.0 H* (40-60) VBG HCO3 22.0 (21-28) mmol/l VBG Total CO2 24.2 (22-28) mmol.L VBG O2 Sat (Calc) 78.3 H (40-65) % VBG Base Excess -8.9 L (0.0-2.0) mmol/L VBG Potassium 5.7 H (3.6-5.2) mmol/L Sodium 122.0 L 123 L (132-148) mmol/L Chloride 87.0 L 79 L (98-107) mmol/L Glucose 94 (65-105) mg/dl Lactate 4.9 H* (0.7-2.1) mmol/L FiO2 21.0 % Potassium 6.1 H* D (3.6-5.0) mmol/L Carbon Dioxide 24 (21-33) mmol/L Anion Gap 26 H (10-20) BUN 76 H (7-21) mg/dL Creatinine 3.6 H (0.7-1.2) mg/dl Est GFR ( Amer) 15 Est GFR (Non-Af Amer) 13 POC Glucose (mg/dL) 148 H (65-110) mg/dL Random Glucose 157 H (70-110) mg/dL Lactic Acid (0.7-2.1) mmol/L Calcium 9.1 (8.4-10.5) mg/dL Phosphorus (2.5-4.5) mg/dL Magnesium 3.3 H (1.7-2.2) mg/dL Total Bilirubin 1.5 H (0.2-1.3) mg/dL AST 94 H D (14-36) U/L ALT 50 (7-56) U/L Alkaline Phosphatase 255 H D (38-126) U/L Total Protein 7.8 (5.8-8.3) g/dL Albumin 3.7 (3.0-4.8) g/dL Globulin 4.2 gm/dL Albumin/Globulin Ratio 0.9 L (1.1-1.8) Amylase (35-125) U/L Lipase 149 (23-300) U/L Venous Blood Potassium 5.7 H (3.6-5.2) mmol/L Urine Color (YELLOW) Urine Appearance (CLEAR) Urine pH (4.7-8.0) Ur Specific Harlan (1.005-1.035) Urine Protein (<30 mg/dL) mg/dL Urine Glucose (UA) (NEGATIVE) mg/dL Urine Ketones (NEGATIVE) mg/dL Urine Blood (NEGATIVE) Urine Nitrate (NEGATIVE) Urine Bilirubin (NEGATIVE) Urine Urobilinogen (<1 E.U./dL) E.U./dL Ur Leukocyte Esterase (NEGATIVE) Able/uL Urine RBC (0-2) /hpf Urine WBC (0-6) /hpf Ur Epithelial Cells (0-5) /hpf Urine Bacteria (NONE) /hpf 06/15/18 06/15/18 06/15/18 Range/Units 14:54 14:54 14:54 WBC 32.3 H* (4.5-11.0) 10^3/uL RBC 5.35 (3.5-6.1) 10^6/uL Hgb 16.7 H (12.0-16.0) g/dL Hct 49.1 H (36.0-48.0) % MCV 91.8 (80.0-105.0) fl MCH 31.2 (25.0-35.0) pg MCHC 34.0 (31.0-37.0) g/dl RDW 12.7 (11.5-14.5) % Plt Count 346 (120.0-450.0) 10^3/uL MPV 9.7 (7.0-11.0) fl Gran % 89.8 H (50.0-68.0) % Lymph % (Auto) 7.2 L (22.0-35.0) % Morris % (Auto) 2.7 (1.0-6.0) % Eos % (Auto) 0.2 L (1.5-5.0) % Baso % (Auto) 0.1 (0.0-3.0) % Gran # 28.98 H (1.4-6.5) Lymph # (Auto) 2.3 (1.2-3.4) Morris # (Auto) 0.9 H (0.1-0.6) Eos # (Auto) 0.1 (0.0-0.7) Baso # (Auto) 0.03 (0.0-2.0) K/mm3 Neutrophils % (Manual) 85 H (50.0-70.0) % Band Neutrophils % 1 (0-2) % Lymphocytes % (Manual) 10 L (22.0-35.0) % Atypical Lymphs % 2 H (0.0-0.0) % Monocytes % (Manual) 2 (1.0-6.0) % Platelet Evaluation Normal (NORMAL) PT 13.2 H (9.4-12.5) SECONDS INR 1.15 APTT 27.5 (25.1-36.5) Seconds pO2 30 (30-55) mm/Hg VBG pH 7.19 L* (7.32-7.43) VBG pCO2 70.0 H* (40-60) VBG HCO3 26.7 (21-28) mmol/l VBG Total CO2 28.8 H (22-28) mmol.L VBG O2 Sat (Calc) 49.9 (40-65) % VBG Base Excess -3.1 L (0.0-2.0) mmol/L VBG Potassium 5.7 H (3.6-5.2) mmol/L Sodium 119.0 L* (132-148) mmol/L Chloride 78.0 L (98-107) mmol/L Glucose 158 H (65-105) mg/dl Lactate 5.4 H* (0.7-2.1) mmol/L FiO2 21.0 % Potassium (3.6-5.0) mmol/L Carbon Dioxide (21-33) mmol/L Anion Gap (10-20) BUN (7-21) mg/dL Creatinine (0.7-1.2) mg/dl Est GFR ( Amer) Est GFR (Non-Af Amer) POC Glucose (mg/dL) (65-110) mg/dL Random Glucose (70-110) mg/dL Lactic Acid (0.7-2.1) mmol/L Calcium (8.4-10.5) mg/dL Phosphorus (2.5-4.5) mg/dL Magnesium (1.7-2.2) mg/dL Total Bilirubin (0.2-1.3) mg/dL AST (14-36) U/L ALT (7-56) U/L Alkaline Phosphatase (38-126) U/L Total Protein (5.8-8.3) g/dL Albumin (3.0-4.8) g/dL Globulin gm/dL Albumin/Globulin Ratio (1.1-1.8) Amylase (35-125) U/L Lipase (23-300) U/L Venous Blood Potassium 5.7 H (3.6-5.2) mmol/L Urine Color (YELLOW) Urine Appearance (CLEAR) Urine pH (4.7-8.0) Ur Specific Harlan (1.005-1.035) Urine Protein (<30 mg/dL) mg/dL Urine Glucose (UA) (NEGATIVE) mg/dL Urine Ketones (NEGATIVE) mg/dL Urine Blood (NEGATIVE) Urine Nitrate (NEGATIVE) Urine Bilirubin (NEGATIVE) Urine Urobilinogen (<1 E.U./dL) E.U./dL Ur Leukocyte Esterase (NEGATIVE) Abel/uL Urine RBC (0-2) /hpf Urine WBC (0-6) /hpf Ur Epithelial Cells (0-5) /hpf Urine Bacteria (NONE) /hpf Laboratory Results - last 24 hr 06/15/18 06/15/18 06/15/18 14:54 14:54 14:54 WBC 32.3 H* RBC 5.35 Hgb 16.7 H Hct 49.1 H MCV 91.8 MCH 31.2 MCHC 34.0 RDW 12.7 Plt Count 346 MPV 9.7 Gran % 89.8 H Lymph % (Auto) 7.2 L Morris % (Auto) 2.7 Eos % (Auto) 0.2 L Baso % (Auto) 0.1 Gran # 28.98 H Lymph # (Auto) 2.3 Morris # (Auto) 0.9 H Eos # (Auto) 0.1 Baso # (Auto) 0.03 Neutrophils % (Manual) 85 H Band Neutrophils % 1 Lymphocytes % (Manual) 10 L Atypical Lymphs % 2 H Monocytes % (Manual) 2 Platelet Evaluation Normal PT 13.2 H INR 1.15 APTT 27.5 pO2 30 VBG pH 7.19 L* VBG pCO2 70.0 H* VBG HCO3 26.7 VBG Total CO2 28.8 H VBG O2 Sat (Calc) 49.9 VBG Base Excess -3.1 L VBG Potassium 5.7 H Sodium 119.0 L* Chloride 78.0 L Glucose 158 H Lactate 5.4 H* FiO2 21.0 Potassium Carbon Dioxide Anion Gap BUN Creatinine Est GFR ( Amer) Est GFR (Non-Af Amer) POC Glucose (mg/dL) Random Glucose Lactic Acid Calcium Phosphorus Magnesium Total Bilirubin AST ALT Alkaline Phosphatase Total Protein Albumin Globulin Albumin/Globulin Ratio Amylase Lipase Venous Blood Potassium 5.7 H Urine Color Urine Appearance Urine pH Ur Specific Harlan Urine Protein Urine Glucose (UA) Urine Ketones Urine Blood Urine Nitrate Urine Bilirubin Urine Urobilinogen Ur Leukocyte Esterase Urine RBC Urine WBC Ur Epithelial Cells Urine Bacteria 06/15/18 06/15/18 06/15/18 14:54 16:20 18:00 WBC RBC Hgb Hct MCV MCH MCHC RDW Plt Count MPV Gran % Lymph % (Auto) Morris % (Auto) Eos % (Auto) Baso % (Auto) Gran # Lymph # (Auto) Morris # (Auto) Eos # (Auto) Baso # (Auto) Neutrophils % (Manual) Band Neutrophils % Lymphocytes % (Manual) Atypical Lymphs % Monocytes % (Manual) Platelet Evaluation PT INR APTT pO2 49 VBG pH 7.10 L* VBG pCO2 71.0 H* VBG HCO3 22.0 VBG Total CO2 24.2 VBG O2 Sat (Calc) 78.3 H VBG Base Excess -8.9 L VBG Potassium 5.7 H Sodium 123 L 122.0 L Chloride 79 L 87.0 L Glucose 94 Lactate 4.9 H* FiO2 21.0 Potassium 6.1 H* D Carbon Dioxide 24 Anion Gap 26 H BUN 76 H Creatinine 3.6 H Est GFR ( Amer) 15 Est GFR (Non-Af Amer) 13 POC Glucose (mg/dL) 148 H Random Glucose 157 H Lactic Acid Calcium 9.1 Phosphorus Magnesium 3.3 H Total Bilirubin 1.5 H AST 94 H D ALT 50 Alkaline Phosphatase 255 H D Total Protein 7.8 Albumin 3.7 Globulin 4.2 Albumin/Globulin Ratio 0.9 L Amylase Lipase 149 Venous Blood Potassium 5.7 H Urine Color Urine Appearance Urine pH Ur Specific Har[place] Urine Protein Urine Glucose (UA) Urine Ketones Urine Blood Urine Nitrate Urine Bilirubin Urine Urobilinogen Ur Leukocyte Esterase Urine RBC Urine WBC Ur Epithelial Cells Urine Bacteria 06/15/18 06/15/18 06/15/18 19:36 21:50 23:55 WBC RBC Hgb Hct MCV MCH MCHC RDW Plt Count MPV Gran % Lymph % (Auto) Morris % (Auto) Eos % (Auto) Baso % (Auto) Gran # Lymph # (Auto) Morris # (Auto) Eos # (Auto) Baso # (Auto) Neutrophils % (Manual) Band Neutrophils % Lymphocytes % (Manual) Atypical Lymphs % Monocytes % (Manual) Platelet Evaluation PT INR APTT pO2 VBG pH VBG pCO2 VBG HCO3 VBG Total CO2 VBG O2 Sat (Calc) VBG Base Excess VBG Potassium Sodium 123 L 123 L Chloride 90 L 85 L Glucose Lactate FiO2 Potassium 5.9 H* 6.5 H* Carbon Dioxide 20 L 25 Anion Gap 20 19 BUN 68 H 70 H Creatinine 3.2 H 3.2 H Est GFR ( Amer) 18 18 Est GFR (Non-Af Amer) 15 15 POC Glucose (mg/dL) Random Glucose 94 126 H Lactic Acid Calcium 8.0 L 8.6 Phosphorus Magnesium Total Bilirubin 1.4 H 1.6 H AST 76 H 92 H D ALT 36 44 Alkaline Phosphatase 198 H D 231 H Total Protein 5.8 6.5 Albumin 2.8 L 3.0 Globulin 3.1 3.5 Albumin/Globulin Ratio 0.9 L 0.8 L Amylase Lipase Venous Blood Potassium Urine Color Yellow Urine Appearance Cloudy Urine pH 5.5 Ur Specific Harlan >= 1.030 Urine Protein Trace H Urine Glucose (UA) Negative Urine Ketones Negative Urine Blood Trace-lysed H Urine Nitrate Negative Urine Bilirubin Negative Urine Urobilinogen 0.2 Ur Leukocyte Esterase Negative Urine RBC 5 - 10 H Urine WBC 0 - 2 Ur Epithelial Cells 0 - 2 Urine Bacteria Large 06/15/18 06/16/18 06/16/18 23:55 01:23 03:10 WBC RBC Hgb Hct MCV MCH MCHC RDW Plt Count MPV Gran % Lymph % (Auto) Morris % (Auto) Eos % (Auto) Baso % (Auto) Gran # Lymph # (Auto) Morris # (Auto) Eos # (Auto) Baso # (Auto) Neutrophils % (Manual) Band Neutrophils % Lymphocytes % (Manual) Atypical Lymphs % Monocytes % (Manual) Platelet Evaluation PT INR APTT pO2 VBG pH VBG pCO2 VBG HCO3 VBG Total CO2 VBG O2 Sat (Calc) VBG Base Excess VBG Potassium Sodium 123 L Chloride 87 L Glucose Lactate FiO2 Potassium 5.0 Carbon Dioxide 20 L Anion Gap 21 H BUN 69 H Creatinine 3.1 H Est GFR ( Amer) 18 Est GFR (Non-Af Amer) 15 POC Glucose (mg/dL) 241 H Random Glucose 99 Lactic Acid 2.0 Calcium 8.1 L Phosphorus Magnesium Total Bilirubin 1.6 H AST 93 H ALT 47 Alkaline Phosphatase 245 H Total Protein 6.4 Albumin 2.9 L Globulin 3.5 Albumin/Globulin Ratio 0.8 L Amylase Lipase Venous Blood Potassium Urine Color Urine Appearance Urine pH Ur Specific [place] Urine Protein Urine Glucose (UA) Urine Ketones Urine Blood Urine Nitrate Urine Bilirubin Urine Urobilinogen Ur Leukocyte Esterase Urine RBC Urine WBC Ur Epithelial Cells Urine Bacteria 06/16/18 06/16/18 06/16/18 06:15 06:15 06:15 WBC 30.9 H* RBC 4.86 Hgb 15.3 Hct 44.7 MCV 92.0 MCH 31.5 MCHC 34.2 RDW 12.6 Plt Count 320 MPV 9.4 Gran % 89.6 H Lymph % (Auto) 8.1 L Morris % (Auto) 1.9 Eos % (Auto) 0.3 L Baso % (Auto) 0.1 Gran # 27.63 H Lymph # (Auto) 2.5 Morris # (Auto) 0.6 Eos # (Auto) 0.1 Baso # (Auto) 0.02 Neutrophils % (Manual) Band Neutrophils % Lymphocytes % (Manual) Atypical Lymphs % Monocytes % (Manual) Platelet Evaluation PT INR APTT pO2 VBG pH VBG pCO2 VBG HCO3 VBG Total CO2 VBG O2 Sat (Calc) VBG Base Excess VBG Potassium Sodium 124 L Chloride 85 L Glucose Lactate FiO2 Potassium 7.0 H* D Carbon Dioxide 24 Anion Gap 22 H BUN 73 H Creatinine 3.4 H Est GFR ( Amer) 17 Est GFR (Non-Af Amer) 14 POC Glucose (mg/dL) Random Glucose 110 Lactic Acid Calcium 8.7 Phosphorus 9.6 H Magnesium 2.8 H Total Bilirubin 1.6 H AST 94 H ALT 47 Alkaline Phosphatase 241 H Total Protein 6.5 Albumin 3.0 Globulin 3.6 Albumin/Globulin Ratio 0.8 L Amylase 70 Lipase 72 Venous Blood Potassium Urine Color Urine Appearance Urine pH Ur Specific Harlan Urine Protein Urine Glucose (UA) Urine Ketones Urine Blood Urine Nitrate Urine Bilirubin Urine Urobilinogen Ur Leukocyte Esterase Urine RBC Urine WBC Ur Epithelial Cells Urine Bacteria EKG/Cardiology Studies: Cardiology / EKG Studies 06/15/18 14:21 EKG [ELECTROCARDIOGRAM] Stat Comment: Reason For Exam: VOMITING Fingerstick Blood Sugar Results: 148 Critical Care Progress Note - Nutrition Nutrition: Nutrition Category Date Time Status Heart Healthy Diet [DIET] Diets 06/16/18 Breakfast Active <Leigha Orosco - Last Filed: 06/16/18 17:33> CCU Objective - Vital Signs / Intake & Output Vital Signs (Last 4 hours): Vital Signs Temp Pulse Resp BP Pulse Ox 06/16/18 17:10 93 H 21 98 06/16/18 17:00 90 20 113/68 97 06/16/18 16:50 89 23 94 L 06/16/18 16:40 94 H 13 100 06/16/18 16:30 91 H 13 94 L 06/16/18 16:20 96 H 14 95 06/16/18 16:10 95 H 14 95 06/16/18 16:00 97.9 F 93 H 19 138/77 95 06/16/18 15:50 93 H 14 96 06/16/18 15:40 88 14 97 06/16/18 15:30 86 16 99 06/16/18 15:20 89 22 97 06/16/18 15:16 121/66 06/16/18 15:15 87 L 06/16/18 15:10 80 L 06/16/18 15:06 91 L 06/16/18 14:50 93 H 22 94 L 06/16/18 14:48 98 H 24 140/98 H 96 06/16/18 14:40 102 H 15 95 06/16/18 14:30 104 H 21 96 06/16/18 14:20 105 H 19 96 06/16/18 14:10 106 H 26 H 97 06/16/18 14:00 88 110/78 06/16/18 13:59 100 H 27 H 91 L 06/16/18 13:50 104 H 26 H 92 L 06/16/18 13:40 102 H 29 H 97 Intake and Output (Last 8hrs): Intake & Output 06/16/18 06/16/18 06/16/18 06:59 14:59 22:59 Intake Total 200 Output Total 300 Balance -100 Intake: IV 200 abx 200 Output: Urine 300 Urethral (Marie) 300 - Medications Active Medications: Active Medications Generic Name Dose Route Start Last Admin Trade Name Freq PRN Reason Stop Dose Admin Docusate Sodium 100 mg 06/15/18 18:00 06/16/18 10:10 Colace PO Not Given BID [facility] Heparin Sodium (Porcine) 5,000 units 06/15/18 22:00 06/16/18 15:23 Heparin SC 5,000 units Q8 BLAKE Administration Protocol Piperacillin Sod/Tazobactam Sod 2.25 gm in 100 mls @ 100 mls/hr 06/15/18 22:00 06/16/18 14:10 Zosyn 2.25 Gm In 0.9% 100 Ml IVPB 06/24/18 22:01 100 mls/hr Q8 BLAKE Administration Protocol Dextrose/Sodium Chloride 1,000 mls @ 125 mls/hr 06/16/18 12:30 06/16/18 13:48 Dextrose 5%/0.9% Ns 1000 Ml IV 125 mls/hr .Q8H BLAKE Administration Ondansetron HCl 4 mg 06/16/18 02:42 Zofran Inj IVP Q4H PRN Nausea/Vomiting Oxycodone/Acetaminophen 1 tab 06/15/18 17:44 06/16/18 14:03 Percocet 5/325 Mg Tab PO 06/18/18 17:45 1 tab TID PRN Administration Pain, severe (8-10) Pantoprazole Sodium 40 mg 06/16/18 06:00 06/16/18 05:29 Protonix Ec Tab PO 40 mg 0600 BLAKE Administration Sennosides 8.6 mg 06/15/18 18:00 06/16/18 10:10 Senokot Tab PO Not Given DAILY BLAKE Sodium Chloride 1 gm 06/16/18 08:00 06/16/18 14:12 Sodium Chloride Tab PO Not Given WM BLAKE - Patient Studies Lab Studies: Microbiology Studies 06/15/18 15:20 Blood Culture - Preliminary Blood NO GROWTH AFTER 24 HOURS 06/15/18 15:00 Blood Culture - Preliminary Blood NO GROWTH AFTER 24 HOURS Lab Studies 06/16/18 06/16/18 06/16/18 Range/Units 15:16 15:16 09:00 WBC (4.5-11.0) 10^3/uL RBC (3.5-6.1) 10^6/uL Hgb (12.0-16.0) g/dL Hct (36.0-48.0) % MCV (80.0-105.0) fl MCH (25.0-35.0) pg MCHC (31.0-37.0) g/dl RDW (11.5-14.5) % Plt Count (120.0-450.0) 10^3/uL MPV (7.0-11.0) fl Gran % (50.0-68.0) % Lymph % (Auto) (22.0-35.0) % Morris % (Auto) (1.0-6.0) % Eos % (Auto) (1.5-5.0) % Baso % (Auto) (0.0-3.0) % Gran # (1.4-6.5) Lymph # (Auto) (1.2-3.4) Morris # (Auto) (0.1-0.6) Eos # (Auto) (0.0-0.7) Baso # (Auto) (0.0-2.0) K/mm3 Neutrophils % (Manual) (50.0-70.0) % Band Neutrophils % (0-2) % Lymphocytes % (Manual) (22.0-35.0) % Atypical Lymphs % (0.0-0.0) % Monocytes % (Manual) (1.0-6.0) % Platelet Evaluation (NORMAL) pO2 151 H (30-55) mm/Hg VBG pH 7.39 (7.32-7.43) VBG pCO2 28.0 L (40-60) VBG HCO3 16.9 L (21-28) mmol/l VBG Total CO2 17.8 L (22-28) mmol.L VBG O2 Sat (Calc) 100.0 H (40-65) % VBG Base Excess -6.6 L (0.0-2.0) mmol/L VBG Potassium 4.2 (3.6-5.2) mmol/L Sodium 117.0 L* 121 L 124 L (132-148) mmol/L Chloride 86.0 L 88 L 86 L (98-107) mmol/L Glucose 169 H (65-105) mg/dl Lactate 2.5 H (0.7-2.1) mmol/L FiO2 21.0 % Potassium 4.4 6.3 H* (3.6-5.0) mmol/L Carbon Dioxide 18 L 21 (21-33) mmol/L Anion Gap 20 24 H (10-20) BUN 72 H 74 H (7-21) mg/dL Creatinine 3.0 H 3.1 H (0.7-1.2) mg/dl Est GFR ( Amer) 19 18 Est GFR (Non-Af Amer) 16 15 POC Glucose (mg/dL) (65-110) mg/dL Random Glucose 163 H 96 (70-110) mg/dL Lactic Acid (0.7-2.1) mmol/L Calcium 7.8 L 8.5 (8.4-10.5) mg/dL Phosphorus (2.5-4.5) mg/dL Magnesium (1.7-2.2) mg/dL Total Bilirubin 1.8 H (0.2-1.3) mg/dL AST 86 H (14-36) U/L ALT 47 (7-56) U/L Alkaline Phosphatase 228 H (38-126) U/L Total Protein 6.1 (5.8-8.3) g/dL Albumin 2.7 L (3.0-4.8) g/dL Globulin 3.4 gm/dL Albumin/Globulin Ratio 0.8 L (1.1-1.8) Amylase (35-125) U/L Lipase (23-300) U/L Venous Blood Potassium 4.2 (3.6-5.2) mmol/L Urine Color (YELLOW) Urine Appearance (CLEAR) Urine pH (4.7-8.0) Ur Specific Harlan (1.005-1.035) Urine Protein (<30 mg/dL) mg/dL Urine Glucose (UA) (NEGATIVE) mg/dL Urine Ketones (NEGATIVE) mg/dL Urine Blood (NEGATIVE) Urine Nitrate (NEGATIVE) Urine Bilirubin (NEGATIVE) Urine Urobilinogen (<1 E.U./dL) E.U./dL Ur Leukocyte Esterase (NEGATIVE) Abel/uL Urine RBC (0-2) /hpf Urine WBC (0-6) /hpf Ur Epithelial Cells (0-5) /hpf Urine Bacteria (NONE) /hpf 06/16/18 06/16/18 06/16/18 Range/Units 06:15 06:15 06:15 WBC 30.9 H* (4.5-11.0) 10^3/uL RBC 4.86 (3.5-6.1) 10^6/uL Hgb 15.3 (12.0-16.0) g/dL Hct 44.7 (36.0-48.0) % MCV 92.0 (80.0-105.0) fl MCH 31.5 (25.0-35.0) pg MCHC 34.2 (31.0-37.0) g/dl RDW 12.6 (11.5-14.5) % Plt Count 320 (120.0-450.0) 10^3/uL MPV 9.4 (7.0-11.0) fl Gran % 89.6 H (50.0-68.0) % Lymph % (Auto) 8.1 L (22.0-35.0) % Morris % (Auto) 1.9 (1.0-6.0) % Eos % (Auto) 0.3 L (1.5-5.0) % Baso % (Auto) 0.1 (0.0-3.0) % Gran # 27.63 H (1.4-6.5) Lymph # (Auto) 2.5 (1.2-3.4) Morris # (Auto) 0.6 (0.1-0.6) Eos # (Auto) 0.1 (0.0-0.7) Baso # (Auto) 0.02 (0.0-2.0) K/mm3 Neutrophils % (Manual) (50.0-70.0) % Band Neutrophils % (0-2) % Lymphocytes % (Manual) (22.0-35.0) % Atypical Lymphs % (0.0-0.0) % Monocytes % (Manual) (1.0-6.0) % Platelet Evaluation (NORMAL) pO2 (30-55) mm/Hg VBG pH (7.32-7.43) VBG pCO2 (40-60) VBG HCO3 (21-28) mmol/l VBG Total CO2 (22-28) mmol.L VBG O2 Sat (Calc) (40-65) % VBG Base Excess (0.0-2.0) mmol/L VBG Potassium (3.6-5.2) mmol/L Sodium 124 L (132-148) mmol/L Chloride 85 L (98-107) mmol/L Glucose (65-105) mg/dl Lactate (0.7-2.1) mmol/L FiO2 % Potassium 7.0 H* D (3.6-5.0) mmol/L Carbon Dioxide 24 (21-33) mmol/L Anion Gap 22 H (10-20) BUN 73 H (7-21) mg/dL Creatinine 3.4 H (0.7-1.2) mg/dl Est GFR ( Amer) 17 Est GFR (Non-Af Amer) 14 POC Glucose (mg/dL) (65-110) mg/dL Random Glucose 110 (70-110) mg/dL Lactic Acid (0.7-2.1) mmol/L Calcium 8.7 (8.4-10.5) mg/dL Phosphorus 9.6 H (2.5-4.5) mg/dL Magnesium 2.8 H (1.7-2.2) mg/dL Total Bilirubin 1.6 H (0.2-1.3) mg/dL AST 94 H (14-36) U/L ALT 47 (7-56) U/L Alkaline Phosphatase 241 H (38-126) U/L Total Protein 6.5 (5.8-8.3) g/dL Albumin 3.0 (3.0-4.8) g/dL Globulin 3.6 gm/dL Albumin/Globulin Ratio 0.8 L (1.1-1.8) Amylase 70 (35-125) U/L Lipase 72 (23-300) U/L Venous Blood Potassium (3.6-5.2) mmol/L Urine Color (YELLOW) Urine Appearance (CLEAR) Urine pH (4.7-8.0) Ur Specific Harlan (1.005-1.035) Urine Protein (<30 mg/dL) mg/dL Urine Glucose (UA) (NEGATIVE) mg/dL Urine Ketones (NEGATIVE) mg/dL Urine Blood (NEGATIVE) Urine Nitrate (NEGATIVE) Urine Bilirubin (NEGATIVE) Urine Urobilinogen (<1 E.U./dL) E.U./dL Ur Leukocyte Esterase (NEGATIVE) Abel/uL Urine RBC (0-2) /hpf Urine WBC (0-6) /hpf Ur Epithelial Cells (0-5) /hpf Urine Bacteria (NONE) /hpf 06/16/18 06/16/18 06/15/18 Range/Units 03:10 01:23 23:55 WBC (4.5-11.0) 10^3/uL RBC (3.5-6.1) 10^6/uL Hgb (12.0-16.0) g/dL Hct (36.0-48.0) % MCV (80.0-105.0) fl MCH (25.0-35.0) pg MCHC (31.0-37.0) g/dl RDW (11.5-14.5) % Plt Count (120.0-450.0) 10^3/uL MPV (7.0-11.0) fl Gran % (50.0-68.0) % Lymph % (Auto) (22.0-35.0) % Morris % (Auto) (1.0-6.0) % Eos % (Auto) (1.5-5.0) % Baso % (Auto) (0.0-3.0) % Gran # (1.4-6.5) Lymph # (Auto) (1.2-3.4) Morris # (Auto) (0.1-0.6) Eos # (Auto) (0.0-0.7) Baso # (Auto) (0.0-2.0) K/mm3 Neutrophils % (Manual) (50.0-70.0) % Band Neutrophils % (0-2) % Lymphocytes % (Manual) (22.0-35.0) % Atypical Lymphs % (0.0-0.0) % Monocytes % (Manual) (1.0-6.0) % Platelet Evaluation (NORMAL) pO2 (30-55) mm/Hg VBG pH (7.32-7.43) VBG pCO2 (40-60) VBG HCO3 (21-28) mmol/l VBG Total CO2 (22-28) mmol.L VBG O2 Sat (Calc) (40-65) % VBG Base Excess (0.0-2.0) mmol/L VBG Potassium (3.6-5.2) mmol/L Sodium 123 L (132-148) mmol/L Chloride 87 L (98-107) mmol/L Glucose (65-105) mg/dl Lactate (0.7-2.1) mmol/L FiO2 % Potassium 5.0 (3.6-5.0) mmol/L Carbon Dioxide 20 L (21-33) mmol/L Anion Gap 21 H (10-20) BUN 69 H (7-21) mg/dL Creatinine 3.1 H (0.7-1.2) mg/dl Est GFR ( Amer) 18 Est GFR (Non-Af Amer) 15 POC Glucose (mg/dL) 241 H (65-110) mg/dL Random Glucose 99 (70-110) mg/dL Lactic Acid 2.0 (0.7-2.1) mmol/L Calcium 8.1 L (8.4-10.5) mg/dL Phosphorus (2.5-4.5) mg/dL Magnesium (1.7-2.2) mg/dL Total Bilirubin 1.6 H (0.2-1.3) mg/dL AST 93 H (14-36) U/L ALT 47 (7-56) U/L Alkaline Phosphatase 245 H (38-126) U/L Total Protein 6.4 (5.8-8.3) g/dL Albumin 2.9 L (3.0-4.8) g/dL Globulin 3.5 gm/dL Albumin/Globulin Ratio 0.8 L (1.1-1.8) Amylase (35-125) U/L Lipase (23-300) U/L Venous Blood Potassium (3.6-5.2) mmol/L Urine Color (YELLOW) Urine Appearance (CLEAR) Urine pH (4.7-8.0) Ur Specific Harlan (1.005-1.035) Urine Protein (<30 mg/dL) mg/dL Urine Glucose (UA) (NEGATIVE) mg/dL Urine Ketones (NEGATIVE) mg/dL Urine Blood (NEGATIVE) Urine Nitrate (NEGATIVE) Urine Bilirubin (NEGATIVE) Urine Urobilinogen (<1 E.U./dL) E.U./dL Ur Leukocyte Esterase (NEGATIVE) Abel/uL Urine RBC (0-2) /hpf Urine WBC (0-6) /hpf Ur Epithelial Cells (0-5) /hpf Urine Bacteria (NONE) /hpf 06/15/18 06/15/18 06/15/18 Range/Units 23:55 21:50 19:36 WBC (4.5-11.0) 10^3/uL RBC (3.5-6.1) 10^6/uL Hgb (12.0-16.0) g/dL Hct (36.0-48.0) % MCV (80.0-105.0) fl MCH (25.0-35.0) pg MCHC (31.0-37.0) g/dl RDW (11.5-14.5) % Plt Count (120.0-450.0) 10^3/uL MPV (7.0-11.0) fl Gran % (50.0-68.0) % Lymph % (Auto) (22.0-35.0) % Morris % (Auto) (1.0-6.0) % Eos % (Auto) (1.5-5.0) % Baso % (Auto) (0.0-3.0) % Gran # (1.4-6.5) Lymph # (Auto) (1.2-3.4) Morris # (Auto) (0.1-0.6) Eos # (Auto) (0.0-0.7) Baso # (Auto) (0.0-2.0) K/mm3 Neutrophils % (Manual) (50.0-70.0) % Band Neutrophils % (0-2) % Lymphocytes % (Manual) (22.0-35.0) % Atypical Lymphs % (0.0-0.0) % Monocytes % (Manual) (1.0-6.0) % Platelet Evaluation (NORMAL) pO2 (30-55) mm/Hg VBG pH (7.32-7.43) VBG pCO2 (40-60) VBG HCO3 (21-28) mmol/l VBG Total CO2 (22-28) mmol.L VBG O2 Sat (Calc) (40-65) % VBG Base Excess (0.0-2.0) mmol/L VBG Potassium (3.6-5.2) mmol/L Sodium 123 L 123 L (132-148) mmol/L Chloride 85 L 90 L (98-107) mmol/L Glucose (65-105) mg/dl Lactate (0.7-2.1) mmol/L FiO2 % Potassium 6.5 H* 5.9 H* (3.6-5.0) mmol/L Carbon Dioxide 25 20 L (21-33) mmol/L Anion Gap 19 20 (10-20) BUN 70 H 68 H (7-21) mg/dL Creatinine 3.2 H 3.2 H (0.7-1.2) mg/dl Est GFR ( Amer) 18 18 Est GFR (Non-Af Amer) 15 15 POC Glucose (mg/dL) (65-110) mg/dL Random Glucose 126 H 94 (70-110) mg/dL Lactic Acid (0.7-2.1) mmol/L Calcium 8.6 8.0 L (8.4-10.5) mg/dL Phosphorus (2.5-4.5) mg/dL Magnesium (1.7-2.2) mg/dL Total Bilirubin 1.6 H 1.4 H (0.2-1.3) mg/dL AST 92 H D 76 H (14-36) U/L ALT 44 36 (7-56) U/L Alkaline Phosphatase 231 H 198 H D (38-126) U/L Total Protein 6.5 5.8 (5.8-8.3) g/dL Albumin 3.0 2.8 L (3.0-4.8) g/dL Globulin 3.5 3.1 gm/dL Albumin/Globulin Ratio 0.8 L 0.9 L (1.1-1.8) Amylase (35-125) U/L Lipase (23-300) U/L Venous Blood Potassium (3.6-5.2) mmol/L Urine Color Yellow (YELLOW) Urine Appearance Cloudy (CLEAR) Urine pH 5.5 (4.7-8.0) Ur Specific Harlan >= 1.030 (1.005-1.035) Urine Protein Trace H (<30 mg/dL) mg/dL Urine Glucose (UA) Negative (NEGATIVE) mg/dL Urine Ketones Negative (NEGATIVE) mg/dL Urine Blood Trace-lysed H (NEGATIVE) Urine Nitrate Negative (NEGATIVE) Urine Bilirubin Negative (NEGATIVE) Urine Urobilinogen 0.2 (<1 E.U./dL) E.U./dL Ur Leukocyte Esterase Negative (NEGATIVE) Abel/uL Urine RBC 5 - 10 H (0-2) /hpf Urine WBC 0 - 2 (0-6) /hpf Ur Epithelial Cells 0 - 2 (0-5) /hpf Urine Bacteria Large (NONE) /hpf 06/15/18 06/15/18 Range/Units 18:00 14:54 WBC (4.5-11.0) 10^3/uL RBC (3.5-6.1) 10^6/uL Hgb (12.0-16.0) g/dL Hct (36.0-48.0) % MCV (80.0-105.0) fl MCH (25.0-35.0) pg MCHC (31.0-37.0) g/dl RDW (11.5-14.5) % Plt Count (120.0-450.0) 10^3/uL MPV (7.0-11.0) fl Gran % (50.0-68.0) % Lymph % (Auto) (22.0-35.0) % Morris % (Auto) (1.0-6.0) % Eos % (Auto) (1.5-5.0) % Baso % (Auto) (0.0-3.0) % Gran # (1.4-6.5) Lymph # (Auto) (1.2-3.4) Morris # (Auto) (0.1-0.6) Eos # (Auto) (0.0-0.7) Baso # (Auto) (0.0-2.0) K/mm3 Neutrophils % (Manual) 85 H (50.0-70.0) % Band Neutrophils % 1 (0-2) % Lymphocytes % (Manual) 10 L (22.0-35.0) % Atypical Lymphs % 2 H (0.0-0.0) % Monocytes % (Manual) 2 (1.0-6.0) % Platelet Evaluation Normal (NORMAL) pO2 49 (30-55) mm/Hg VBG pH 7.10 L* (7.32-7.43) VBG pCO2 71.0 H* (40-60) VBG HCO3 22.0 (21-28) mmol/l VBG Total CO2 24.2 (22-28) mmol.L VBG O2 Sat (Calc) 78.3 H (40-65) % VBG Base Excess -8.9 L (0.0-2.0) mmol/L VBG Potassium 5.7 H (3.6-5.2) mmol/L Sodium 122.0 L (132-148) mmol/L Chloride 87.0 L (98-107) mmol/L Glucose 94 (65-105) mg/dl Lactate 4.9 H* (0.7-2.1) mmol/L FiO2 21.0 % Potassium (3.6-5.0) mmol/L Carbon Dioxide (21-33) mmol/L Anion Gap (10-20) BUN (7-21) mg/dL Creatinine (0.7-1.2) mg/dl Est GFR ( Amer) Est GFR (Non-Af Amer) POC Glucose (mg/dL) (65-110) mg/dL Random Glucose (70-110) mg/dL Lactic Acid (0.7-2.1) mmol/L Calcium (8.4-10.5) mg/dL Phosphorus (2.5-4.5) mg/dL Magnesium (1.7-2.2) mg/dL Total Bilirubin (0.2-1.3) mg/dL AST (14-36) U/L ALT (7-56) U/L Alkaline Phosphatase (38-126) U/L Total Protein (5.8-8.3) g/dL Albumin (3.0-4.8) g/dL Globulin gm/dL Albumin/Globulin Ratio (1.1-1.8) Amylase (35-125) U/L Lipase (23-300) U/L Venous Blood Potassium 5.7 H (3.6-5.2) mmol/L Urine Color (YELLOW) Urine Appearance (CLEAR) Urine pH (4.7-8.0) Ur Specific Harlan (1.005-1.035) Urine Protein (<30 mg/dL) mg/dL Urine Glucose (UA) (NEGATIVE) mg/dL Urine Ketones (NEGATIVE) mg/dL Urine Blood (NEGATIVE) Urine Nitrate (NEGATIVE) Urine Bilirubin (NEGATIVE) Urine Urobilinogen (<1 E.U./dL) E.U./dL Ur Leukocyte Esterase (NEGATIVE) Abel/uL Urine RBC (0-2) /hpf Urine WBC (0-6) /hpf Ur Epithelial Cells (0-5) /hpf Urine Bacteria (NONE) /hpf Laboratory Results - last 24 hr 06/15/18 06/15/18 06/15/18 14:54 18:00 19:36 WBC RBC Hgb Hct MCV MCH MCHC RDW Plt Count MPV Gran % Lymph % (Auto) Morris % (Auto) Eos % (Auto) Baso % (Auto) Gran # Lymph # (Auto) Morris # (Auto) Eos # (Auto) Baso # (Auto) Neutrophils % (Manual) 85 H Band Neutrophils % 1 Lymphocytes % (Manual) 10 L Atypical Lymphs % 2 H Monocytes % (Manual) 2 Platelet Evaluation Normal pO2 49 VBG pH 7.10 L* VBG pCO2 71.0 H* VBG HCO3 22.0 VBG Total CO2 24.2 VBG O2 Sat (Calc) 78.3 H VBG Base Excess -8.9 L VBG Potassium 5.7 H Sodium 122.0 L 123 L Chloride 87.0 L 90 L Glucose 94 Lactate 4.9 H* FiO2 21.0 Potassium 5.9 H* Carbon Dioxide 20 L Anion Gap 20 BUN 68 H Creatinine 3.2 H Est GFR ( Amer) 18 Est GFR (Non-Af Amer) 15 POC Glucose (mg/dL) Random Glucose 94 Lactic Acid Calcium 8.0 L Phosphorus Magnesium Total Bilirubin 1.4 H AST 76 H ALT 36 Alkaline Phosphatase 198 H D Total Protein 5.8 Albumin 2.8 L Globulin 3.1 Albumin/Globulin Ratio 0.9 L Amylase Lipase Venous Blood Potassium 5.7 H Urine Color Urine Appearance Urine pH Ur Specific Harlan Urine Protein Urine Glucose (UA) Urine Ketones Urine Blood Urine Nitrate Urine Bilirubin Urine Urobilinogen Ur Leukocyte Esterase Urine RBC Urine WBC Ur Epithelial Cells Urine Bacteria 06/15/18 06/15/18 06/15/18 21:50 23:55 23:55 WBC RBC Hgb Hct MCV MCH MCHC RDW Plt Count MPV Gran % Lymph % (Auto) Morris % (Auto) Eos % (Auto) Baso % (Auto) Gran # Lymph # (Auto) Morris # (Auto) Eos # (Auto) Baso # (Auto) Neutrophils % (Manual) Band Neutrophils % Lymphocytes % (Manual) Atypical Lymphs % Monocytes % (Manual) Platelet Evaluation pO2 VBG pH VBG pCO2 VBG HCO3 VBG Total CO2 VBG O2 Sat (Calc) VBG Base Excess VBG Potassium Sodium 123 L Chloride 85 L Glucose Lactate FiO2 Potassium 6.5 H* Carbon Dioxide 25 Anion Gap 19 BUN 70 H Creatinine 3.2 H Est GFR ( Amer) 18 Est GFR (Non-Af Amer) 15 POC Glucose (mg/dL) Random Glucose 126 H Lactic Acid 2.0 Calcium 8.6 Phosphorus Magnesium Total Bilirubin 1.6 H AST 92 H D ALT 44 Alkaline Phosphatase 231 H Total Protein 6.5 Albumin 3.0 Globulin 3.5 Albumin/Globulin Ratio 0.8 L Amylase Lipase Venous Blood Potassium Urine Color Yellow Urine Appearance Cloudy Urine pH 5.5 Ur Specific Harlan >= 1.030 Urine Protein Trace H Urine Glucose (UA) Negative Urine Ketones Negative Urine Blood Trace-lysed H Urine Nitrate Negative Urine Bilirubin Negative Urine Urobilinogen 0.2 Ur Leukocyte Esterase Negative Urine RBC 5 - 10 H Urine WBC 0 - 2 Ur Epithelial Cells 0 - 2 Urine Bacteria Large 06/16/18 06/16/18 06/16/18 01:23 03:10 06:15 WBC 30.9 H* RBC 4.86 Hgb 15.3 Hct 44.7 MCV 92.0 MCH 31.5 MCHC 34.2 RDW 12.6 Plt Count 320 MPV 9.4 Gran % 89.6 H Lymph % (Auto) 8.1 L Morris % (Auto) 1.9 Eos % (Auto) 0.3 L Baso % (Auto) 0.1 Gran # 27.63 H Lymph # (Auto) 2.5 Morris # (Auto) 0.6 Eos # (Auto) 0.1 Baso # (Auto) 0.02 Neutrophils % (Manual) Band Neutrophils % Lymphocytes % (Manual) Atypical Lymphs % Monocytes % (Manual) Platelet Evaluation pO2 VBG pH VBG pCO2 VBG HCO3 VBG Total CO2 VBG O2 Sat (Calc) VBG Base Excess VBG Potassium Sodium 123 L Chloride 87 L Glucose Lactate FiO2 Potassium 5.0 Carbon Dioxide 20 L Anion Gap 21 H BUN 69 H Creatinine 3.1 H Est GFR ( Amer) 18 Est GFR (Non-Af Amer) 15 POC Glucose (mg/dL) 241 H Random Glucose 99 Lactic Acid Calcium 8.1 L Phosphorus Magnesium Total Bilirubin 1.6 H AST 93 H ALT 47 Alkaline Phosphatase 245 H Total Protein 6.4 Albumin 2.9 L Globulin 3.5 Albumin/Globulin Ratio 0.8 L Amylase Lipase Venous Blood Potassium Urine Color Urine Appearance Urine pH Ur Specific Harlan Urine Protein Urine Glucose (UA) Urine Ketones Urine Blood Urine Nitrate Urine Bilirubin Urine Urobilinogen Ur Leukocyte Esterase Urine RBC Urine WBC Ur Epithelial Cells Urine Bacteria 06/16/18 06/16/18 06/16/18 06:15 06:15 09:00 WBC RBC Hgb Hct MCV MCH MCHC RDW Plt Count MPV Gran % Lymph % (Auto) Morris % (Auto) Eos % (Auto) Baso % (Auto) Gran # Lymph # (Auto) Morris # (Auto) Eos # (Auto) Baso # (Auto) Neutrophils % (Manual) Band Neutrophils % Lymphocytes % (Manual) Atypical Lymphs % Monocytes % (Manual) Platelet Evaluation pO2 VBG pH VBG pCO2 VBG HCO3 VBG Total CO2 VBG O2 Sat (Calc) VBG Base Excess VBG Potassium Sodium 124 L 124 L Chloride 85 L 86 L Glucose Lactate FiO2 Potassium 7.0 H* D 6.3 H* Carbon Dioxide 24 21 Anion Gap 22 H 24 H BUN 73 H 74 H Creatinine 3.4 H 3.1 H Est GFR ( Amer) 17 18 Est GFR (Non-Af Amer) 14 15 POC Glucose (mg/dL) Random Glucose 110 96 Lactic Acid Calcium 8.7 8.5 Phosphorus 9.6 H Magnesium 2.8 H Total Bilirubin 1.6 H AST 94 H ALT 47 Alkaline Phosphatase 241 H Total Protein 6.5 Albumin 3.0 Globulin 3.6 Albumin/Globulin Ratio 0.8 L Amylase 70 Lipase 72 Venous Blood Potassium Urine Color Urine Appearance Urine pH Ur Specific Harlan Urine Protein Urine Glucose (UA) Urine Ketones Urine Blood Urine Nitrate Urine Bilirubin Urine Urobilinogen Ur Leukocyte Esterase Urine RBC Urine WBC Ur Epithelial Cells Urine Bacteria 06/16/18 06/16/18 15:16 15:16 WBC RBC Hgb Hct MCV MCH MCHC RDW Plt Count MPV Gran % Lymph % (Auto) Morris % (Auto) Eos % (Auto) Baso % (Auto) Gran # Lymph # (Auto) Morris # (Auto) Eos # (Auto) Baso # (Auto) Neutrophils % (Manual) Band Neutrophils % Lymphocytes % (Manual) Atypical Lymphs % Monocytes % (Manual) Platelet Evaluation pO2 151 H VBG pH 7.39 VBG pCO2 28.0 L VBG HCO3 16.9 L VBG Total CO2 17.8 L VBG O2 Sat (Calc) 100.0 H VBG Base Excess -6.6 L VBG Potassium 4.2 Sodium 121 L 117.0 L* Chloride 88 L 86.0 L Glucose 169 H Lactate 2.5 H FiO2 21.0 Potassium 4.4 Carbon Dioxide 18 L Anion Gap 20 BUN 72 H Creatinine 3.0 H Est GFR ( Amer) 19 Est GFR (Non-Af Amer) 16 POC Glucose (mg/dL) Random Glucose 163 H Lactic Acid Calcium 7.8 L Phosphorus Magnesium Total Bilirubin 1.8 H AST 86 H ALT 47 Alkaline Phosphatase 228 H Total Protein 6.1 Albumin 2.7 L Globulin 3.4 Albumin/Globulin Ratio 0.8 L Amylase Lipase Venous Blood Potassium 4.2 Urine Color Urine Appearance Urine pH Ur Specific Harlan Urine Protein Urine Glucose (UA) Urine Ketones Urine Blood Urine Nitrate Urine Bilirubin Urine Urobilinogen Ur Leukocyte Esterase Urine RBC Urine WBC Ur Epithelial Cells Urine Bacteria Radiology Impressions: Radiology Impressions Abdomen Ultrasound 06/15/18 18:30 IMPRESSION: Moderate upper abdominal ascites identified in the perihepatic and perisplenic spaces. Hepatic metastases reiterated as compared prior abdomen pelvis CT also performed 06/16/2018. Pancreas completely obscured by overlying bowel gas. Abdomen/Pelvis CT 06/15/18 18:38 IMPRESSION: Interval distention of the abdomen is identified secondary to moderate to severe ascites which has increased in the interval. Numerous hepatic metastases are identified as well as likely omental caking once again. Lack images contrast limits interpretation. Concordant preliminary report from Robert, 06/16/2018 1:59 a.m.. Critical Care Progress Note - Nutrition Nutrition: Nutrition Category Date Time Status Heart Healthy Diet [DIET] Diets 06/16/18 Breakfast Active Addendum Addendum: 06/16/18 17:32 ICU Attending Addendum Patient seen and examined. Case reviewed on round with housestaff. 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 Likely from dehydration and poor nutrition cont to hydrate with NS cocktail given for K again repeat chem repeat VBG f/u onc rec plan for paracentesis today which should provide symptomatic releif as well as give us dx samples to send of for cultures family and patient aware of poor prognosis pal care on board enoucrage po intake and bowel regimen Rest of care as above Leigha Orosco MD Pulmonary Critical Care and Sleep Medicine
--- NOTE | 2018-06-16 09:16 | CT ---
Date of service: 06/16/2018 PROCEDURE: CT Abdomen and Pelvis with contrast HISTORY: r/o collection COMPARISON: Abdomen pelvis CT with contrast 06/02/2018. TECHNIQUE: Helical CT of the abdomen and pelvis was performed following oral contrast administration only. Intravenous contrast was not administered as per referring physician request. Coronal and sagittal reformats were generated. Contrast dose: None Radiation dose: Total exam DLP = 772.78 mGy-cm. This CT exam was performed using one or more of the following dose reduction techniques: Automated exposure control, adjustment of the mA and/or kV according to patient size, and/or use of iterative reconstruction technique. FINDINGS: LOWER THORAX: Bilateral basilar subsegmental atelectasis reiterated. No cardiomegaly, pleural or pericardial effusion identified. LIVER: Scattered hepatic metastases reiterated with increasing abdominal ascites now moderate to severe in overall volume. GALLBLADDER AND BILE DUCTS: Stable in appearance. PANCREAS: Stable in appearance. SPLEEN: Stable in appearance. ADRENALS: Stable in appearance. KIDNEYS AND URETERS: Stable in appearance. VASCULATURE: Nonaneurysmal abdominal aortic calcific atherosclerotic changes are identified. BOWEL: Rectal probe apparently inserted. No obstruction. No gross mural thickening. APPENDIX: Not identified. PERITONEUM: Ascites as discussed above. No free intra peritoneal gas collection. Omental caking suspected once again. LYMPH NODES: Unremarkable. No enlarged lymph nodes. BLADDER: Marie catheter now noted decompressed urinary bladder. REPRODUCTIVE: Unremarkable. BONES: Degenerative grade 1 spondylolisthesis L4-5 OTHER FINDINGS: None. IMPRESSION: Interval distention of the abdomen is identified secondary to moderate to severe ascites which has increased in the interval. Numerous hepatic metastases are identified as well as likely omental caking once again. Lack images contrast limits interpretation. Concordant preliminary report from [employer], 06/16/2018 1:59 a.m..
[2018-06-16 09:36] LABS: CALCIUM 8.5 mg/dL (8.4-10.5)
[2018-06-16] MEDS ORDERED: Vancomycin 1gm in NS 250ml 1 GM/250 ML BAG IVPB SCH (10:00)
[2018-06-16] MEDS ORDERED: Dextrose 5%/0.9% NS 1,000 ML IV SCH ×3 (12:30→19:00)
[2018-06-16] MEDS ORDERED: Albumin Human 25% (12.5 gm/50 ml) IV ONE ×4 (15:01→15:26)
[2018-06-16 15:20] LABS: VENOUS BLOOD GAS BASE EXCESS -6.6 mmol/L (0.0-2.0); VENOUS BLOOD GAS PO2 151 mm/Hg (30-55); VENOUS BLOOD PH 7.39 (7.32-7.43)
--- NOTE | 2018-06-16 15:20 | PCM.PROC ---
<Heriberto Yang - Last Filed: 06/16/18 15:17> Procedures Attestation:: I certify that I have explained the specified Operation(s) or Procedure(s), risks, benefits and reasonable alternatives to the Patient and/or other person responsible. The opportunity was given to ask questions and all questions answered - Paracentesis Consent Obtained: verbal consent, written consent Time Out Performed: Yes Indication: Ascites, possible spontaneous bacterial peritonitis Procedure: therapeutic paracentesis, diagnostic paracentesis Location: RLQ Local Anesthetic Used: lidocaine 1% <Leigha Orosco - Last Filed: 06/16/18 17:37> Addendum Addendum: 06/16/18 17:[address] Aiden Yang Supervising Attending Dr Марина Orosco Consent for operation or procedure: Risks and benefits discussed with patient and consent obtained Anesthesia: local Lidocaine Patient positioned supine. Abdomen examined with ultrasound for appropriate site placement. Site marked and prepared with swabs of chlorseptic. Site draped with sterile dressing. Wheel of lidocaine placed. Lidocaine then introduced deep to the peritoneum. Skin punctured with an blade scalpel. Paracentesis needle was placed through the skin into the abdominal cavity. The needle was withdrawn and the site cleaned and bandaged with gauze and tape. Samples were sent to the lab for analysis. Yellow colored was fluid removed Amount of fluid removed: 3.5L Estimated Blood Loss: minimal Complications: The patient tolerated the procedure well without complications. I was present for the entire procedure
[2018-06-16 15:39] LABS: ALB/GLOB RATIO 0.8 (1.1-1.8); ALBUMIN 2.7 g/dL (3.0-4.8); CALCIUM 7.8 mg/dL (8.4-10.5)
--- NOTE | 2018-06-16 15:47 | CP.PCM.CON ---
History of Present Illness - History of Present Illness History of Present Illness: Palliative consult requested by Dr Lashawn Barrientos Reason: Goals of care 63 year old female with history of metastatic pancreatic cancer who presented to ED on 06/15 with vomiting, excessive belching and abdominal distention.She also complained of weakness, lethargy, decrease appetite, flatulence and constipation. She denied chest pain, palpitations, dizziness, headaches, fever, chills, cough, sputum production,leg pain. She was hospitalized two weeks ago, work up revealed pancreatic cancer. CT of abdomen: Interval distention of abdomen secondary to moderate to severe ascites. Numerous hepatic metastases as well as likely omental caking. EKG: NSR. Lab 06/16: Wbc 30.9, Hgb 15.3, Plt 320, Na 124, K 6.3, BUN 74, Education Coordinator 3.1, glucose 96, AST 86, Alt 47, Alk Phos 228, T Protein 6.1, albumin 2.7. Rodríguez cultures pending PMHx: pancreatic cancer metastatic to liver, ascites, uterine fibroid,constipation, alcoholism PSHx: uterine fibrod removal, c section x2 Social Hsity: Daily alcohol consumption(vodka) non smoker, no illicit drugs. Lives with spouse. Family History: Mother > pancreatic cancer. Advance Care Planning: The patient does not have an Advanced Directive Review of Systems: As per HPI, 10 point review otherwise negative Past Patient History - Past Social History Smoking Status: Never Smoked - CARDIAC Hx Cardiac Disorders: No Hx Pacemaker: No - PULMONARY Hx Respiratory Disorders: No - NEUROLOGICAL Hx Neurological Disorder: No - HEENT Hx HEENT Problems: No - RENAL Hx Chronic Kidney Disease: No - ENDOCRINE/METABOLIC Hx Endocrine Disorders: No - HEMATOLOGICAL/ONCOLOGICAL Hx Blood Disorders: Yes Hx Cancer: Yes (pancreatic CA WITH METS TO LIVER .NEWLY DXED MAY 2018) - INTEGUMENTARY Hx Dermatological Problems: No - MUSCULOSKELETAL/RHEUMATOLOGICAL Hx Musculoskeletal Disorders: No Hx Falls: Yes - GASTROINTESTINAL Hx Gastrointestinal Disorders: Yes (ASCITES-PANCREATIC CA WITH METS TO LIVER 06-02-18) Other/Comment: HEMORRHOIDS,CONSTIPATION. - GENITOURINARY/GYNECOLOGICAL Hx Genitourinary Disorders: Yes (C/S X 2) - PSYCHIATRIC Hx Psychophysiologic Disorder: Yes (ETOH ABUSE. H/O DRINKING DAILY VODKA.QUIT MAY 2018.) Hx Emotional Abuse: No Hx Physical Abuse: No Hx Substance Use: No (DENIES) - SURGICAL HISTORY Hx Surgeries: Yes (CS X 2,LAPAROSCOPIC SX) - ANESTHESIA Hx Anesthesia: Yes Hx Anesthesia Reactions: No Hx Malignant Hyperthermia: No Meds Allergies/Adverse Reactions: Allergies Allergy/AdvReac Type Severity Reaction Status Date / Time No Known Allergies Allergy Verified 06/15/18 15:47 - Medications Medications: Current Medications Docusate Sodium (Colace) 100 mg PO BID [facility] Last Admin: 06/16/18 10:10 Dose: Not Given Heparin Sodium (Porcine) (Heparin) 5,000 units SC Q8 [facility]; Protocol Last Admin: 06/16/18 15:23 Dose: 5,000 units Piperacillin Sod/Tazobactam Sod (Zosyn 2.25 Gm In 0.9% 100 Ml) 2.25 gm in 100 mls @ 100 mls/hr IVPB Q8 [facility]; Protocol Stop: 06/24/18 22:01 Last Admin: 06/16/18 14:10 Dose: 100 mls/hr Dextrose/Sodium Chloride (Dextrose 5%/0.9% Ns 1000 Ml) 1,000 mls @ 125 mls/hr IV .Q8H [facility] Last Admin: 06/16/18 13:48 Dose: 125 mls/hr Ondansetron HCl (Zofran Inj) 4 mg IVP Q4H PRN PRN Reason: Nausea/Vomiting Oxycodone/Acetaminophen (Percocet 5/325 Mg Tab) 1 tab PO TID PRN PRN Reason: Pain, severe (8-10) Stop: 06/18/18 17:45 Last Admin: 06/16/18 14:03 Dose: 1 tab Pantoprazole Sodium (Protonix Ec Tab) 40 mg PO 0600 [facility] Last Admin: 06/16/18 05:29 Dose: 40 mg Sennosides (Senokot Tab) 8.6 mg PO DAILY [facility] Last Admin: 06/16/18 10:10 Dose: Not Given Sodium Chloride (Sodium Chloride Tab) 1 gm PO WM [facility] Last Admin: 06/16/18 14:12 Dose: Not Given Physical Exam - Constitutional Appears: Cachectic, Chronically Ill - Head Exam Head Exam: NORMOCEPHALIC - Eye Exam Eye Exam: Normal appearance, PERRL - ENT Exam ENT Exam: Mucous Membranes Moist - Respiratory Exam Respiratory Exam: Decreased Breath Sounds, NORMAL BREATHING PATTERN - Cardiovascular Exam Cardiovascular Exam: REGULAR RHYTHM, +S1, +S2 - GI/Abdominal Exam GI & Abdominal Exam: Distended, Tenderness - Neurological Exam Neurological exam: Alert, Oriented x3 - Skin Skin Exam: Pallor - Additional Findings Additional findings: Palliative performance scale rating 40 % Results - Vital Signs Recent Vital Signs: Last Vital Signs Temp 98.6 F 06/16/18 02:10 Pulse 89 06/16/18 10:00 Resp 26 H 06/16/18 10:00 BP 125/88 06/16/18 07:00 Pulse Ox 100 06/16/18 10:00 - Labs Result Diagrams: 06/17/18 05:40 06/17/18 05:40 Labs: Laboratory Results - last 24 hr 06/15/18 06/15/18 06/15/18 14:54 14:54 16:20 WBC RBC Hgb Hct MCV MCH MCHC RDW Plt Count MPV Gran % Lymph % (Auto) [place] % (Auto) Eos % (Auto) Baso % (Auto) Gran # Lymph # (Auto) [place] # (Auto) Eos # (Auto) Baso # (Auto) Neutrophils % (Manual) 85 H Band Neutrophils % 1 Lymphocytes % (Manual) 10 L Atypical Lymphs % 2 H Monocytes % (Manual) 2 Platelet Evaluation Normal pO2 VBG pH VBG pCO2 VBG HCO3 VBG Total CO2 VBG O2 Sat (Calc) VBG Base Excess VBG Potassium Glucose Lactate FiO2 Sodium 123 L Potassium 6.1 H* D Chloride 79 L Carbon Dioxide 24 Anion Gap 26 H BUN 76 H Creatinine 3.6 H Est GFR ( Amer) 15 Est GFR (Non-Af Amer) 13 POC Glucose (mg/dL) 148 H Random Glucose 157 H Lactic Acid Calcium 9.1 Phosphorus Magnesium 3.3 H Total Bilirubin 1.5 H AST 94 H D ALT 50 Alkaline Phosphatase 255 H D Total Protein 7.8 Albumin 3.7 Globulin 4.2 Albumin/Globulin Ratio 0.9 L Amylase Lipase 149 Venous Blood Potassium Urine Color Urine Appearance Urine pH Ur Specific [place] Urine Protein Urine Glucose (UA) Urine Ketones Urine Blood Urine Nitrate Urine Bilirubin Urine Urobilinogen Ur Leukocyte Esterase Urine RBC Urine WBC Ur Epithelial Cells Urine Bacteria 06/15/18 06/15/18 06/15/18 18:00 19:36 21:50 WBC RBC Hgb Hct MCV MCH MCHC RDW Plt Count MPV Gran % Lymph % (Auto) [place] % (Auto) Eos % (Auto) Baso % (Auto) Gran # Lymph # (Auto) [place] # (Auto) Eos # (Auto) Baso # (Auto) Neutrophils % (Manual) Band Neutrophils % Lymphocytes % (Manual) Atypical Lymphs % Monocytes % (Manual) Platelet Evaluation pO2 49 VBG pH 7.10 L* VBG pCO2 71.0 H* VBG HCO3 22.0 VBG Total CO2 24.2 VBG O2 Sat (Calc) 78.3 H VBG Base Excess -8.9 L VBG Potassium 5.7 H Glucose 94 Lactate 4.9 H* FiO2 21.0 Sodium 122.0 L 123 L Potassium 5.9 H* Chloride 87.0 L 90 L Carbon Dioxide 20 L Anion Gap 20 BUN 68 H Creatinine 3.2 H Est GFR ( Amer) 18 Est GFR (Non-Af Amer) 15 POC Glucose (mg/dL) Random Glucose 94 Lactic Acid Calcium 8.0 L Phosphorus Magnesium Total Bilirubin 1.4 H AST 76 H ALT 36 Alkaline Phosphatase 198 H D Total Protein 5.8 Albumin 2.8 L Globulin 3.1 Albumin/Globulin Ratio 0.9 L Amylase Lipase Venous Blood Potassium 5.7 H Urine Color Yellow Urine Appearance Cloudy Urine pH 5.5 Ur Specific [place] >= 1.030 Urine Protein Trace H Urine Glucose (UA) Negative Urine Ketones Negative Urine Blood Trace-lysed H Urine Nitrate Negative Urine Bilirubin Negative Urine Urobilinogen 0.2 Ur Leukocyte Esterase Negative Urine RBC 5 - 10 H Urine WBC 0 - 2 Ur Epithelial Cells 0 - 2 Urine Bacteria Large 06/15/18 06/15/18 06/16/18 23:55 23:55 01:23 WBC RBC Hgb Hct MCV MCH MCHC RDW Plt Count MPV Gran % Lymph % (Auto) [place] % (Auto) Eos % (Auto) Baso % (Auto) Gran # Lymph # (Auto) [place] # (Auto) Eos # (Auto) Baso # (Auto) Neutrophils % (Manual) Band Neutrophils % Lymphocytes % (Manual) Atypical Lymphs % Monocytes % (Manual) Platelet Evaluation pO2 VBG pH VBG pCO2 VBG HCO3 VBG Total CO2 VBG O2 Sat (Calc) VBG Base Excess VBG Potassium Glucose Lactate FiO2 Sodium 123 L Potassium 6.5 H* Chloride 85 L Carbon Dioxide 25 Anion Gap 19 BUN 70 H Creatinine 3.2 H Est GFR ( Amer) 18 Est GFR (Non-Af Amer) 15 POC Glucose (mg/dL) 241 H Random Glucose 126 H Lactic Acid 2.0 Calcium 8.6 Phosphorus Magnesium Total Bilirubin 1.6 H AST 92 H D ALT 44 Alkaline Phosphatase 231 H Total Protein 6.5 Albumin 3.0 Globulin 3.5 Albumin/Globulin Ratio 0.8 L Amylase Lipase Venous Blood Potassium Urine Color Urine Appearance Urine pH Ur Specific [place] Urine Protein Urine Glucose (UA) Urine Ketones Urine Blood Urine Nitrate Urine Bilirubin Urine Urobilinogen Ur Leukocyte Esterase Urine RBC Urine WBC Ur Epithelial Cells Urine Bacteria 06/16/18 06/16/18 06/16/18 03:10 06:15 06:15 WBC 30.9 H* RBC 4.86 Hgb 15.3 Hct 44.7 MCV 92.0 MCH 31.5 MCHC 34.2 RDW 12.6 Plt Count 320 MPV 9.4 Gran % 89.6 H Lymph % (Auto) 8.1 L [place] % (Auto) 1.9 Eos % (Auto) 0.3 L Baso % (Auto) 0.1 Gran # 27.63 H Lymph # (Auto) 2.5 [place] # (Auto) 0.6 Eos # (Auto) 0.1 Baso # (Auto) 0.02 Neutrophils % (Manual) Band Neutrophils % Lymphocytes % (Manual) Atypical Lymphs % Monocytes % (Manual) Platelet Evaluation pO2 VBG pH VBG pCO2 VBG HCO3 VBG Total CO2 VBG O2 Sat (Calc) VBG Base Excess VBG Potassium Glucose Lactate FiO2 Sodium 123 L 124 L Potassium 5.0 7.0 H* D Chloride 87 L 85 L Carbon Dioxide 20 L 24 Anion Gap 21 H 22 H BUN 69 H 73 H Creatinine 3.1 H 3.4 H Est GFR ( Amer) 18 17 Est GFR (Non-Af Amer) 15 14 POC Glucose (mg/dL) Random Glucose 99 110 Lactic Acid Calcium 8.1 L 8.7 Phosphorus 9.6 H Magnesium 2.8 H Total Bilirubin 1.6 H 1.6 H AST 93 H 94 H ALT 47 47 Alkaline Phosphatase 245 H 241 H Total Protein 6.4 6.5 Albumin 2.9 L 3.0 Globulin 3.5 3.6 Albumin/Globulin Ratio 0.8 L 0.8 L Amylase Lipase Venous Blood Potassium Urine Color Urine Appearance Urine pH Ur Specific [place] Urine Protein Urine Glucose (UA) Urine Ketones Urine Blood Urine Nitrate Urine Bilirubin Urine Urobilinogen Ur Leukocyte Esterase Urine RBC Urine WBC Ur Epithelial Cells Urine Bacteria 06/16/18 06/16/18 06/16/18 06:15 09:00 15:16 WBC RBC Hgb Hct MCV MCH MCHC RDW Plt Count MPV Gran % Lymph % (Auto) [place] % (Auto) Eos % (Auto) Baso % (Auto) Gran # Lymph # (Auto) [place] # (Auto) Eos # (Auto) Baso # (Auto) Neutrophils % (Manual) Band Neutrophils % Lymphocytes % (Manual) Atypical Lymphs % Monocytes % (Manual) Platelet Evaluation pO2 151 H VBG pH 7.39 VBG pCO2 28.0 L VBG HCO3 16.9 L VBG Total CO2 17.8 L VBG O2 Sat (Calc) 100.0 H VBG Base Excess -6.6 L VBG Potassium 4.2 Glucose 169 H Lactate 2.5 H FiO2 21.0 Sodium 124 L 117.0 L* Potassium 6.3 H* Chloride 86 L 86.0 L Carbon Dioxide 21 Anion Gap 24 H BUN 74 H Creatinine 3.1 H Est GFR ( Amer) 18 Est GFR (Non-Af Amer) 15 POC Glucose (mg/dL) Random Glucose 96 Lactic Acid Calcium 8.5 Phosphorus Magnesium Total Bilirubin AST ALT Alkaline Phosphatase Total Protein Albumin Globulin Albumin/Globulin Ratio Amylase 70 Lipase 72 Venous Blood Potassium 4.2 Urine Color Urine Appearance Urine pH Ur Specific [place] Urine Protein Urine Glucose (UA) Urine Ketones Urine Blood Urine Nitrate Urine Bilirubin Urine Urobilinogen Ur Leukocyte Esterase Urine RBC Urine WBC Ur Epithelial Cells Urine Bacteria Assessment & Plan - Assessment and Plan (Free Text) Assessment: 63 year old female with history of pancreatic cancer, alcoholism and ascites who is admitted with sepsis, KIMBERLY,hyponatremia, hyperkalemia, abdominal pain and distention, vomiting. The patient is alert and oriented She is uncomfortable, complains of abdominal pain and distention. Paracentisis pending. Palliative services met with patients an sister. They report she has persistent abdominal pain,distention, belching,flatulence and constipation. They are aware of her diagnosis. Family was notified of pathology report yesterday and have not had the opportunity to discuss treatment options with her on cologist. The patient does not have an advanced directive. Her states they have not had any prior discussion regarding her resuscitation wishes. Family overwhelmed. Psychosocial support provided. Patient having multiple procedures, I did not have the opportunity to speak with her regarding about advance care planning. Time spent with family in goals of care and advance care planning, 20 minutes Plan: Goals of care and advance care planning GI: Paracentisis today, Albumin. Zofran for nausea. Senokot for constipation, would add Colace twice daily.Protonix prophylaxis. Pain: Percocet 5/325 1 tab as needed. Motor for pain control, adjust as needed. Sepsis:Blood/ urine cultures negative. ID following, continue Zosyn Hyponatremai NS IVF's, sodium chloride po. Monitor CMP. Hyperkalemia: IVF's, cardiac motoring, may need Kayexalate Monitor CMP.
--- NOTE | 2018-06-16 15:56 | HP ---
DATE OF EXAM: 06/16/2018 CHIEF COMPLAINT AND HISTORY OF PRESENT ILLNESS: This is a 63-year-old female who is coming into the hospital because of abdominal distention and vomiting. She has a history of pancreatic cancer that was diagnosed fairly recently by Dr. Holt. She has a history of having metastases to the liver. She says that she has a history of drinking for many years. She was recently started on pain medications with Percocet by Dr. Holt to help relieve some of her pain. She also has a history of uterine fibroids. She says she has been feeling weak. She says the pain medication has not been helping. She has been having belching. She does get shortness of breath at times. She was seen in the ER and had elevated potassium. She also had significant elevated white cell count. She has no diplopia or dysarthria. She denies cough. She has no dysuria or frequency. She has poor appetite. She has been trying to drink fluids at home. All of the review of symptoms are within normal limits except as mentioned. ALLERGIES: NO KNOWN DRUG ALLERGIES. HOME MEDICATIONS: She is on Percocet. PAST MEDICAL HISTORY: 1. Pancreatic cancer with metastasis to the liver. 2. Uterine fibroid. 3. Constipation. SOCIAL HISTORY: She does have a history of alcohol abuse. She was drinking half a pint of vodka daily. She denies smoking and drug use. FAMILY HISTORY: Mom had pancreatic cancer. SURGICAL HISTORY: Uterine fibroid removal and C section. PHYSICAL EXAMINATION VITAL SIGNS: Temperature is 95, pulse of 86, respirations 20, O2 saturation is 89% and blood pressure is 128/71. Height is 5 feet 3 inches. Weight is 151 pounds. GENERAL: The patient is lying in bed, comfortable, and in no acute distress. HEENT: Atraumatic and normocephalic. Anicteric sclerae. Moist mucosa. [place] conjunctivae. No oral lesions. NECK: No JVD, anterior and posterior adenopathy, thyromegaly, or bruits. CARDIOVASCULAR: S1 and S2 regular. No murmurs, rubs or gallops. LUNGS: Clear to auscultation bilaterally. No wheezes, rales, or rhonchi. ABDOMEN: Bowel sounds are positive. Soft, nontender and nondistended. No rebound and no guarding. EXTREMITIES: No cyanosis, clubbing, or edema. NEUROLOGIC: No facial asymmetry. Tongue is midline. No uvula deviation. Power is 5/5 upper extremities and lower extremities. Sensation intact in upper extremities and lower extremities. PSYCHIATRIC: She is awake, alert and oriented x3. No anxiety or depression. She has normal affect. GENITOURINARY: No CVA tenderness. VASCULAR: 2+ pulses in the carotid pulses and pedal pulses. SKIN: No erythema or nodules SPINE: Shows normal curvature. LABORATORY DATA: White count is 32.3, hemoglobin 16.7 and platelet count 346. INR is 1.15. Lactate was 5.4, repeat is 4.9. The patient's sodium 123, potassium 6.1, creatinine 3.6. The creatinine on 06/10/2018 was 1.2 which is 5 days ago. Alkaline phosphatase is 255. Urine shows blood is trace, nitrates are negative and bilirubin is negative. EKG shows sinus rhythm at 93 with QTC of 420, no STT changes. Abdominal ultrasound is pending. CT of the abdomen and pelvis shows increased peritoneal carcinomatosis, there is moderately increased ascites. There is increased fluid collection. Kidney shows no signs of hydro. ASSESSMENT: 1. Sepsis, rule out SBP. 2. Pancreatic cancer. 3. Acute kidney injury. 4. Hyperkalemia. 5. Hyponatremia. 6. Ascites. PLAN: The patient has severe sepsis. She has acute kidney injury. She has hyponatremia and hypokalemia. She was given dextrose, insulin and Kayexalate in the ER. The patient is waiting for repeat chemistry to be done. The patient may be intravascularly hypovolemic, she may be third spacing, so I will give her IV fluids, this may be the cause of her hyponatremia and her acute kidney injury. Overall prognosis is poor. Given her metastatic disease of her pancreas, the patient is on antibiotics of Zosyn. She has an abdominal ultrasound that is pending. The kidneys do not show signs of obstruction. The patient is going to need Infectious Disease management. The patient is in the ICU, critically ill. I will also get Dr. Holt to follow for the patient's pancreatic cancer. The patient will need IV fluids. She is going to be on heparin for DVT prophylaxis. She may need a abdominal tap. We will need to place the patient on a heart healthy diet. I did repeat the patient's potassium, I am not sure of the potassium of 7 that has resulted for this morning's . She was 5 earlier and 3 hours before that blood draw. She is also having bowel movement since she did not have any bowel movements overnight. Hank Barrientos MD MTDD
[2018-06-16 20:14] LABS: VENOUS BLOOD GAS BASE EXCESS -4.4 mmol/L (0.0-2.0); VENOUS BLOOD GAS PO2 41 mm/Hg (30-55); VENOUS BLOOD PH 7.34 (7.32-7.43)
[2018-06-17] MEDS: Piperacillin/Tazobact 2.25gm 2.25 GM/100 ML BAG IVPB SCH ×3 (05:18→22:06)
[2018-06-17] MEDS: Pantoprazole 40 mg EC Tab PO SCH (05:18)
[2018-06-17 06:40] LABS: BASO # 0.01 K/mm3 (0.0-2.0); EOS # 0.5 (0.0-0.7); EOS % 2.2 % (1.5-5.0); GRAN # 20.13 (1.4-6.5); GRAN % 86.7 % (50.0-68.0); LYMPH # 1.7 (1.2-3.4); LYMPH % 7.3 % (22.0-35.0); MEAN CELL VOLUME 90.3 fl (80.0-105.0); MEAN CORPUSCULAR HEMOGLOBIN 30.4 pg (25.0-35.0); MEAN CORPUSCULAR HGB CONC 33.7 g/dl (31.0-37.0); MEAN PLATELET VOLUME 9.5 fl (7.0-11.0); MONO # 0.9 (0.1-0.6); MONO % 3.8 % (1.0-6.0); RBC 4.31 10^6/uL (3.5-6.1); RED CELL DISTRIBUTION WIDTH 12.6 % (11.5-14.5); WHITE BLOOD COUNT 23.2 10^3/uL (4.5-11.0)
[2018-06-17 07:11] LABS: HEMOGLOBIN 13.1 g/dL (12.0-16.0)
[2018-06-17 07:19] LABS: ALBUMIN 2.9 g/dL (3.0-4.8); CALCIUM 7.8 mg/dL (8.4-10.5)
--- NOTE | 2018-06-17 08:02 | CON ---
DATE: 06/16/2018 Ms. Daly Coppola's consult on the intensive care floor. For Dr. Holt. CHIEF COMPLAINT: Sepsis. HISTORY OF PRESENT ILLNESS: The patient is a 63-year-old female admitted via the emergency room to the intensive care unit with known recent diagnosis of pancreatic cancer, metastasis to the liver with severe nausea and abdominal pain with the patient subsequently developing multisystem organ failure with a creatinine of 3, BUN of 72 with a potassium of 7. She was in respiratory distress with elevated lactate of 5.4 now improved after treatment. At present, the patient is emotionally disturbed due to family issues and is otherwise denying any pain at this time, status post emergency paracentesis by Dr. Orosco, loftsman/woman. ALLERGIES: NO KNOWN ALLERGIES. MEDICINES: Percocet is her only medication prior to admission. FAMILY HISTORY: Mother with history of pancreatic cancer. SOCIAL HISTORY: and lives with her . Nonsmoker. Had a quarter of vodka on a daily basis prior to admission in May. REVIEW OF SYSTEMS: A 12-point review of systems done which is negative to question except for items mentioned in the history o present illness. PHYSICAL EXAMINATION: VITAL SIGNS: Temperature 97.9, pulse 83, respirations 22, blood pressure 112/59, and pulse ox 97%. HEENT: Unremarkable with sclerae mildly icteric? NECK: Supple. HEART: Regular rate. LUNGS: Clear. ABDOMEN: Minimally distended, status post paracentesis. EXTREMITIES: Faint +1 edema. NEUROLOGIC: Awake and alert. SKIN: Warm and dry. LABORATORY DATA: The patient's labs were done. White blood cell count today of 30,900, on admission 32,300; hemoglobin 15.3; hematocrit 44.7; and platelet count 320,000. Her metabolic panel on admission was a potassium of 6.1 with repeat of 7 now down to 4.4. BUN of 72, on admission 76; creatinine of 3.6 with a value of creatinine 3 today. Her T. bilirubin is 1.8, AST of 86, alkaline phosphatase 228, amylase is 70, and lipase is 72. INR 1.15 with an ABG on admission pH of 7.1 with a repeat of 7.3 today. Again lactate of 5.4, repeat at 3.2 today. On admission, CAT scan of the abdomen and pelvis showed interval distention of the abdomen was identified secondary to [id number] ascites, which has increased the interval numerous hepatic metastasis are identified is likely omental caking once again. Ultrasound of the abdomen was also done, it was read as moderate upper abdominal ascites are identified in the perihepatic and perisplenic spaces. Hepatic metastasis reiterated as compared prior abdominal CAT scan. Pancreas completely obscured by overlying bowel gas. The patient's EKG on admission was read as normal sinus rhythm, normal EKG. The patient did have a paracentesis earlier today with results of 3.5 L removed. ASSESSMENT: The assessment for this patient is that of peritoneal carcinomatosis with sepsis, acute kidney injury, spontaneous bacterial peritonitis, pancreatic cancer, leukocytosis, history of alcohol abuse, severe hyperkalemia, and acute kidney injury. PLAN: For this patient after conversation with Dr. Holt is to continue present medical regimen. The patient also has significant anxiety secondary to stress. We will add low dose Ativan p.o. We will ask for consult with Infectious Disease Dr. Dawkins and continue antibiotics as indicated. Prognosis for this patient is guarded. This is a complex patient with comprehensive medically necessary and appropriate visit carried out in excess of 90 minutes with the patient's questions answered to his satisfaction. Elie Vital MD
--- NOTE | 2018-06-17 08:39 | CP.CCUPN ---
<TreyHeriberto - Last Filed: 06/17/18 10:57> CCU Subjective - Physician Review Subjective (Free Text): Heriberto Yang- Internal Medicine Resident- Critical Care Progress Note Subjective: Patient seen and examined. No acute overnight events. States abdominal pain and nausea has significantly improved from baseline. Denies vomiting. Tolerating diet. Further denies fever, chills, chest pain, SOB. 12 point ROS negative except as indicated in the HPI Physical Examination: - Constitutional Appears: Non-toxic, In Acute Distress, Chronically Ill - Head Exam Head Exam: ATRAUMATIC, NORMOCEPHALIC - Eye Exam Eye Exam: EOMI, Normal appearance Pupil Exam: PERRL - ENT Exam ENT Exam: Mucous Membranes Moist - Neck Exam Neck exam: Positive for: Normal Inspection - Respiratory Exam Respiratory Exam: Clear to Auscultation Bilateral. absent: Rales, Rhonchi, Wheezes, Respiratory Distress - Cardiovascular Exam Cardiovascular Exam: RRR, +S1, +S2 - GI/Abdominal Exam GI & Abdominal Exam: Tender to touch in epigastrium, Diminished Bowel Sounds, Organomegaly. absent: Guarding, Rebound Additional comments: caput medusae present, no fluid wave present - Extremities Exam Extremities exam: Positive for: normal inspection. Negative for: joint swelling, pedal edema - Back Exam Back exam: absent: CVA tenderness (L), CVA tenderness (R) - Neurological Exam Neurological exam: Alert, Oriented x3, responds to verbal stimuli, follows commands, moves extremities past midline - Psychiatric Exam Psychiatric exam: flat affect - Skin Skin Exam: Dry, Intact Assessment and Plan: Patient is a 63 year old female with a past medical history of biopsy confirmed stage 4 pancreatic cancer with metastasis to the liver who was referred to the emergency room by her oncologist for evaluation and treatment of evaluation of nausea, vomiting, and abdominal pain/distention today. In the ED, the patient was found to have meet SIRs criteria and multiple metabolic derangements including hyponatermia 123 and hyperkalemia 6.1. Patient was transferred to the ICU for further management. Neuro: -AAOx3 -Monitor neuro status. -Reorient patient as necessary Cardio: - RRR, normotensive, no signs of HD compromise at this time - Maintain MAP>65 - Monitor for S/S, HD compromise Pulm: - VBG shows increase in lactate from 2.5 to 3.2, pH 7.34 from 7.39 - No signs of respiratory distress. CTA B/L - Patient is satting well on room air. - Maintain O2 saturation>92%. - O2 NC PRN - Elevate bed to 30 degrees GI: Abdominal Pain 2/2 Metastatic Pancreatic Cancer with Ascities - 06/16/[address] without contrast- Interval distention of the abdomen is identified secondary to moderate to severe ascites which has increased in the interval. Numerous hepatic metastases are identified as well as likely omental caking once again. - 06/16/2018 Abdominal U/S- Moderate upper abdominal ascites identified in the perihepatic and perisplenic spaces. Hepatic metastases reiterated as compared prior abdomen pelvis CT also performed 06/16/2018. Pancreas completely obscured by overlying bowel gas - Pain control - Percocet on board from home dose - s/p diagnostic and therapeutic paracentesis Nausea - continue Zofran 4mg q8 Constipation - continue Senokot and colace GI prophylaxis - Protonix 40mg PO daily Nephrology: KIMBERLY - BUN/Cr downtrending - UA negative Hyponatremic - volume depleted, hypochloremic likely 2/2 vomiting - continue d5 NS @ 100cc/hr Hyperkalemic - resolved Hypermagnesemic - downtrending, monitor closely Endocrinology: - Maintain euglycemia Heme/Onc: Metastatic Pancreatic Cancer - Hem/Onc consult - Dr. Yanet lee appreciated - continue po ativan 0.5mg PO q6 prn anxiety - hemodynamically stable - F/u shock VBG - H/H stable - Continue monitoring H/H DVT prophylaxis: - Heparin 5000 q8 ID: - ID consult - Dr. Max lee appreciated- continue zosyn - Follow up BCx- no growth after 24 hours - urine culture- no growth - Monitor for signs and symptoms of infection Dispo: Patient is hemodynamically stable for transfer. Primary has placed order to transfer patient to med/surg. Patient seen, case reviewed, and plan approved by Dr. Dickerson. 06/17/18 10:57 CCU Objective - Vital Signs / Intake & Output Vital Signs (Last 4 hours): Vital Signs Pulse Resp Pulse Ox 06/17/18 07:30 99 H 19 96 06/17/18 07:20 94 H 24 98 06/17/18 07:10 88 18 99 06/17/18 07:00 90 20 99 06/17/18 06:50 86 16 98 06/17/18 06:40 87 15 99 06/17/18 06:30 89 17 98 06/17/18 06:20 84 16 99 06/17/18 06:10 82 15 99 06/17/18 06:00 88 14 97 06/17/18 05:50 87 14 96 06/17/18 05:44 86 14 06/17/18 05:43 90 13 06/17/18 05:42 90 14 06/17/18 05:41 88 13 06/17/18 05:40 86 13 06/17/18 05:39 90 13 06/17/18 05:38 90 13 06/17/18 05:37 90 14 06/17/18 05:36 88 13 06/17/18 05:35 91 H 15 06/17/18 05:34 90 13 06/17/18 05:33 92 H 14 06/17/18 05:32 92 H 13 06/17/18 05:31 92 H 14 06/17/18 05:30 89 14 06/17/18 05:29 90 13 06/17/18 05:28 90 13 06/17/18 05:27 91 H 14 06/17/18 05:26 88 14 06/17/18 05:25 94 H 14 06/17/18 05:24 91 H 14 06/17/18 05:23 95 H 15 06/17/18 05:22 92 H 14 06/17/18 05:21 94 H 14 06/17/18 05:20 90 15 06/17/18 05:19 93 H 13 06/17/18 05:18 94 H 14 06/17/18 05:17 92 H 12 06/17/18 05:16 94 H 15 06/17/18 05:15 89 14 06/17/18 05:14 87 14 Intake and Output (Last 8hrs): Intake & Output 06/16/18 06/17/18 06/17/18 22:59 06:59 14:59 Intake Total 1605 1400 Output Total 3775 650 Balance -2170 750 Intake: IV 1125 1400 abx 1125 200 d5/0.9 1200 Oral 480 Output: Urine 275 650 Urethral (Marie) 275 650 Other 3500 Other: # Bowel Movements 0 - Physical Exam Head: Positive for: Atraumatic, Normocephalic Pupils: Positive for: PERRL Extroacular Muscles: Positive for: EOMI Conjunctiva: Positive for: Normal Respiratory/Chest: Positive for: Clear to Auscultation, Good Air Exchange. Negative for: Respiratory Distress, Accessory Muscle Use Cardiovascular: Positive for: Regular Rate and Rhythm, Normal S1, S2. Negative for: Murmurs Abdomen: Positive for: Tenderness (diffuse tenderness), Distention. Negative for: Peritoneal Signs Back: Positive for: Normal Inspection Upper Extremity: Positive for: Normal Inspection. Negative for: Cyanosis, Edema Lower Extremity: Positive for: Normal Inspection. Negative for: Edema Neurological: Positive for: GCS=15, CN II-XII Intact, Speech Normal Skin: Positive for: Warm, Dry, Other (jaundice). Negative for: Rashes Psychiatric: Positive for: Alert, Oriented x 3, Normal Insight, Normal Concentration - Medications Active Medications: Active Medications Generic Name Dose Route Start Last Admin Trade Name Freq PRN Reason Stop Dose Admin Docusate Sodium 100 mg 06/15/18 18:00 06/16/18 18:17 Colace PO 100 mg BID BLAKE Administration Heparin Sodium (Porcine) 5,000 units 06/15/18 22:00 06/17/18 05:18 Heparin SC 5,000 units Q8 BLAKE Administration Protocol Piperacillin Sod/Tazobactam Sod 2.25 gm in 100 mls @ 100 mls/hr 06/15/18 22:00 06/17/18 05:18 Zosyn 2.25 Gm In 0.9% 100 Ml IVPB 06/24/18 22:01 100 mls/hr Q8 BLAKE Administration Protocol Dextrose/Sodium Chloride 1,000 mls @ 100 mls/hr 06/16/18 19:00 06/16/18 20:45 Dextrose 5%/0.9% Ns 1000 Ml IV 100 mls/hr .Q10H BLAKE Administration Lorazepam 0.5 mg 06/16/18 20:33 06/17/18 03:59 Ativan PO 0.5 mg Q6 PRN Administration Anxiety Protocol Ondansetron HCl 4 mg 06/16/18 02:42 Zofran Inj IVP Q4H PRN Nausea/Vomiting Oxycodone/Acetaminophen 1 tab 06/15/18 17:44 06/16/18 14:03 Percocet 5/325 Mg Tab PO 06/18/18 17:45 1 tab TID PRN Administration Pain, severe (8-10) Pantoprazole Sodium 40 mg 06/16/18 06:00 06/17/18 05:18 Protonix Ec Tab PO 40 mg 0600 BLAKE Administration Sennosides 8.6 mg 06/15/18 18:00 06/16/18 10:10 Senokot Tab PO Not Given DAILY BLAKE Sodium Chloride 1 gm 06/16/18 08:00 06/16/18 18:18 Sodium Chloride Tab PO 1 gm WM BLAKE Administration - Patient Studies Lab Studies: Microbiology Studies 06/15/18 15:20 Blood Culture - Preliminary Blood NO GROWTH AFTER 24 HOURS 06/15/18 15:00 Blood Culture - Preliminary Blood NO GROWTH AFTER 24 HOURS Lab Studies 06/17/18 06/17/18 06/16/18 Range/Units 05:40 05:40 20:10 WBC 23.2 H D (4.5-11.0) 10^3/uL RBC 4.31 (3.5-6.1) 10^6/uL Hgb 13.1 D (12.0-16.0) g/dL Hct 38.9 (36.0-48.0) % MCV 90.3 (80.0-105.0) fl MCH 30.4 (25.0-35.0) pg MCHC 33.7 (31.0-37.0) g/dl RDW 12.6 (11.5-14.5) % Plt Count 259 (120.0-450.0) 10^3/uL MPV 9.5 (7.0-11.0) fl Gran % 86.7 H (50.0-68.0) % Lymph % (Auto) 7.3 L (22.0-35.0) % [place] % (Auto) 3.8 (1.0-6.0) % Eos % (Auto) 2.2 (1.5-5.0) % Baso % (Auto) 0.0 (0.0-3.0) % Gran # 20.13 H (1.4-6.5) Lymph # (Auto) 1.7 (1.2-3.4) [place] # (Auto) 0.9 H (0.1-0.6) Eos # (Auto) 0.5 (0.0-0.7) Baso # (Auto) 0.01 (0.0-2.0) K/mm3 pO2 41 (30-55) mm/Hg VBG pH 7.34 (7.32-7.43) VBG pCO2 39.0 L (40-60) VBG HCO3 21.0 (21-28) mmol/l VBG Total CO2 22.2 (22-28) mmol.L VBG O2 Sat (Calc) 77.8 H (40-65) % VBG Base Excess -4.4 L (0.0-2.0) mmol/L VBG Potassium 4.0 (3.6-5.2) mmol/L Glucose 144 H (65-105) mg/dl Lactate 3.2 H (0.7-2.1) mmol/L FiO2 21.0 % Sodium 125 L 122.0 L (132-148) mmol/L Potassium 3.6 (3.6-5.0) mmol/L Chloride 92 L 87.0 L (98-107) mmol/L Carbon Dioxide 21 (21-33) mmol/L Anion Gap 16 (10-20) BUN 66 H (7-21) mg/dL Creatinine 2.6 H (0.7-1.2) mg/dl Est GFR ( Amer) 22 Est GFR (Non-Af Amer) 19 Random Glucose 149 H (70-110) mg/dL Calcium 7.8 L (8.4-10.5) mg/dL Phosphorus 5.1 H (2.5-4.5) mg/dL Magnesium 2.6 H (1.7-2.2) mg/dL Total Bilirubin 1.8 H (0.2-1.3) mg/dL AST 69 H (14-36) U/L ALT 39 (7-56) U/L Alkaline Phosphatase 178 H D (38-126) U/L Total Protein 5.8 (5.8-8.3) g/dL Albumin 2.9 L (3.0-4.8) g/dL Globulin 2.9 gm/dL Albumin/Globulin Ratio 1.0 L (1.1-1.8) Venous Blood Potassium 4.0 (3.6-5.2) mmol/L 06/16/18 06/16/18 06/16/18 Range/Units 15:16 15:16 09:00 WBC (4.5-11.0) 10^3/uL RBC (3.5-6.1) 10^6/uL Hgb (12.0-16.0) g/dL Hct (36.0-48.0) % MCV (80.0-105.0) fl MCH (25.0-35.0) pg MCHC (31.0-37.0) g/dl RDW (11.5-14.5) % Plt Count (120.0-450.0) 10^3/uL MPV (7.0-11.0) fl Gran % (50.0-68.0) % Lymph % (Auto) (22.0-35.0) % [place] % (Auto) (1.0-6.0) % Eos % (Auto) (1.5-5.0) % Baso % (Auto) (0.0-3.0) % Gran # (1.4-6.5) Lymph # (Auto) (1.2-3.4) [place] # (Auto) (0.1-0.6) Eos # (Auto) (0.0-0.7) Baso # (Auto) (0.0-2.0) K/mm3 pO2 151 H (30-55) mm/Hg VBG pH 7.39 (7.32-7.43) VBG pCO2 28.0 L (40-60) VBG HCO3 16.9 L (21-28) mmol/l VBG Total CO2 17.8 L (22-28) mmol.L VBG O2 Sat (Calc) 100.0 H (40-65) % VBG Base Excess -6.6 L (0.0-2.0) mmol/L VBG Potassium 4.2 (3.6-5.2) mmol/L Glucose 169 H (65-105) mg/dl Lactate 2.5 H (0.7-2.1) mmol/L FiO2 21.0 % Sodium 117.0 L* 121 L 124 L (132-148) mmol/L Potassium 4.4 6.3 H* (3.6-5.0) mmol/L Chloride 86.0 L 88 L 86 L (98-107) mmol/L Carbon Dioxide 18 L 21 (21-33) mmol/L Anion Gap 20 24 H (10-20) BUN 72 H 74 H (7-21) mg/dL Creatinine 3.0 H 3.1 H (0.7-1.2) mg/dl Est GFR ( Amer) 19 18 Est GFR (Non-Af Amer) 16 15 Random Glucose 163 H 96 (70-110) mg/dL Calcium 7.8 L 8.5 (8.4-10.5) mg/dL Phosphorus (2.5-4.5) mg/dL Magnesium (1.7-2.2) mg/dL Total Bilirubin 1.8 H (0.2-1.3) mg/dL AST 86 H (14-36) U/L ALT 47 (7-56) U/L Alkaline Phosphatase 228 H (38-126) U/L Total Protein 6.1 (5.8-8.3) g/dL Albumin 2.7 L (3.0-4.8) g/dL Globulin 3.4 gm/dL Albumin/Globulin Ratio 0.8 L (1.1-1.8) Venous Blood Potassium 4.2 (3.6-5.2) mmol/L Laboratory Results - last 24 hr 06/16/18 06/16/18 06/16/18 09:00 15:16 15:16 WBC RBC Hgb Hct MCV MCH MCHC RDW Plt Count MPV Gran % Lymph % (Auto) [place] % (Auto) Eos % (Auto) Baso % (Auto) Gran # Lymph # (Auto) [place] # (Auto) Eos # (Auto) Baso # (Auto) pO2 151 H VBG pH 7.39 VBG pCO2 28.0 L VBG HCO3 16.9 L VBG Total CO2 17.8 L VBG O2 Sat (Calc) 100.0 H VBG Base Excess -6.6 L VBG Potassium 4.2 Glucose 169 H Lactate 2.5 H FiO2 21.0 Sodium 124 L 121 L 117.0 L* Potassium 6.3 H* 4.4 Chloride 86 L 88 L 86.0 L Carbon Dioxide 21 18 L Anion Gap 24 H 20 BUN 74 H 72 H Creatinine 3.1 H 3.0 H Est GFR ( Amer) 18 19 Est GFR (Non-Af Amer) 15 16 Random Glucose 96 163 H Calcium 8.5 7.8 L Phosphorus Magnesium Total Bilirubin 1.8 H AST 86 H ALT 47 Alkaline Phosphatase 228 H Total Protein 6.1 Albumin 2.7 L Globulin 3.4 Albumin/Globulin Ratio 0.8 L Venous Blood Potassium 4.2 06/16/18 06/17/18 06/17/18 20:10 05:40 05:40 WBC 23.2 H D RBC 4.31 Hgb 13.1 D Hct 38.9 MCV 90.3 MCH 30.4 MCHC 33.7 RDW 12.6 Plt Count 259 MPV 9.5 Gran % 86.7 H Lymph % (Auto) 7.3 L [place] % (Auto) 3.8 Eos % (Auto) 2.2 Baso % (Auto) 0.0 Gran # 20.13 H Lymph # (Auto) 1.7 [place] # (Auto) 0.9 H Eos # (Auto) 0.5 Baso # (Auto) 0.01 pO2 41 VBG pH 7.34 VBG pCO2 39.0 L VBG HCO3 21.0 VBG Total CO2 22.2 VBG O2 Sat (Calc) 77.8 H VBG Base Excess -4.4 L VBG Potassium 4.0 Glucose 144 H Lactate 3.2 H FiO2 21.0 Sodium 122.0 L 125 L Potassium 3.6 Chloride 87.0 L 92 L Carbon Dioxide 21 Anion Gap 16 BUN 66 H Creatinine 2.6 H Est GFR ( Amer) 22 Est GFR (Non-Af Amer) 19 Random Glucose 149 H Calcium 7.8 L Phosphorus 5.1 H Magnesium 2.6 H Total Bilirubin 1.8 H AST 69 H ALT 39 Alkaline Phosphatase 178 H D Total Protein 5.8 Albumin 2.9 L Globulin 2.9 Albumin/Globulin Ratio 1.0 L Venous Blood Potassium 4.0 Radiology Impressions: Radiology Impressions Abdomen Ultrasound 06/15/18 18:30 IMPRESSION: Moderate upper abdominal ascites identified in the perihepatic and perisplenic spaces. Hepatic metastases reiterated as compared prior abdomen pelvis CT also performed 06/16/2018. Pancreas completely obscured by overlying bowel gas. Abdomen/Pelvis CT 06/15/18 18:38 IMPRESSION: Interval distention of the abdomen is identified secondary to moderate to severe ascites which has increased in the interval. Numerous hepatic metastases are identified as well as likely omental caking once again. Lack images contrast limits interpretation. Concordant preliminary report from Robert, 06/16/2018 1:59 a.m.. Fingerstick Blood Sugar Results: 148 Critical Care Progress Note - Nutrition Nutrition: Nutrition Category Date Time Status Heart Healthy Diet [DIET] Diets 06/16/18 Breakfast Active <Nicola Dickerson - Last Filed: 06/17/18 11:13> CCU Objective - Vital Signs / Intake & Output Vital Signs (Last 4 hours): Vital Signs Pulse Resp Pulse Ox 06/17/18 07:30 99 H 19 96 06/17/18 07:20 94 H 24 98 06/17/18 07:10 88 18 99 Intake and Output (Last 8hrs): Intake & Output 06/16/18 06/17/18 06/17/18 22:59 06:59 14:59 Intake Total 1605 1400 Output Total 3775 650 Balance -2170 750 Intake: IV 1125 1400 abx 1125 200 d5/0.9 1200 Oral 480 Output: Urine 275 650 Urethral (Marie) 275 650 Other 3500 Other: # Bowel Movements 0 - Medications Active Medications: Active Medications Generic Name Dose Route Start Last Admin Trade Name Freq PRN Reason Stop Dose Admin Docusate Sodium 100 mg 06/15/18 18:00 06/17/18 10:07 Colace PO 100 mg BID BLAKE Administration Heparin Sodium (Porcine) 5,000 units 06/15/18 22:00 06/17/18 05:18 Heparin SC 5,000 units Q8 BLAKE Administration Protocol Piperacillin Sod/Tazobactam Sod 2.25 gm in 100 mls @ 100 mls/hr 06/15/18 22:00 06/17/18 05:18 Zosyn 2.25 Gm In 0.9% 100 Ml IVPB 06/24/18 22:01 100 mls/hr Q8 BLAKE Administration Protocol Dextrose/Sodium Chloride 1,000 mls @ 100 mls/hr 06/16/18 19:00 06/16/18 20:45 Dextrose 5%/0.9% Ns 1000 Ml IV 100 mls/hr .Q10H BLAKE Administration Lorazepam 0.5 mg 06/16/18 20:33 06/17/18 03:59 Ativan PO 0.5 mg Q6 PRN Administration Anxiety Protocol Ondansetron HCl 4 mg 06/16/18 02:42 Zofran Inj IVP Q4H PRN Nausea/Vomiting Oxycodone/Acetaminophen 1 tab 06/15/18 17:44 06/16/18 14:03 Percocet 5/325 Mg Tab PO 06/18/18 17:45 1 tab TID PRN Administration Pain, severe (8-10) Pantoprazole Sodium 40 mg 06/16/18 06:00 06/17/18 05:18 Protonix Ec Tab PO 40 mg 0600 BLAKE Administration Sennosides 8.6 mg 06/15/18 18:00 06/17/18 10:07 Senokot Tab PO 8.6 mg DAILY BLAKE Administration Sodium Chloride 1 gm 06/16/18 08:00 06/17/18 08:57 Sodium Chloride Tab PO 1 gm WM BLAKE Administration - Patient Studies Lab Studies: Microbiology Studies 06/15/18 21:50 Urine Culture - Final Urine,Clean Catch No Growth (<1,000 CFU/ML) 06/15/18 15:20 Blood Culture - Preliminary Blood NO GROWTH AFTER 24 HOURS 06/15/18 15:00 Blood Culture - Preliminary Blood NO GROWTH AFTER 24 HOURS Lab Studies 06/17/18 06/17/18 06/16/18 Range/Units 05:40 05:40 20:10 WBC 23.2 H D (4.5-11.0) 10^3/uL RBC 4.31 (3.5-6.1) 10^6/uL Hgb 13.1 D (12.0-16.0) g/dL Hct 38.9 (36.0-48.0) % MCV 90.3 (80.0-105.0) fl MCH 30.4 (25.0-35.0) pg MCHC 33.7 (31.0-37.0) g/dl RDW 12.6 (11.5-14.5) % Plt Count 259 (120.0-450.0) 10^3/uL MPV 9.5 (7.0-11.0) fl Gran % 86.7 H (50.0-68.0) % Lymph % (Auto) 7.3 L (22.0-35.0) % [place] % (Auto) 3.8 (1.0-6.0) % Eos % (Auto) 2.2 (1.5-5.0) % Baso % (Auto) 0.0 (0.0-3.0) % Gran # 20.13 H (1.4-6.5) Lymph # (Auto) 1.7 (1.2-3.4) [place] # (Auto) 0.9 H (0.1-0.6) Eos # (Auto) 0.5 (0.0-0.7) Baso # (Auto) 0.01 (0.0-2.0) K/mm3 pO2 41 (30-55) mm/Hg VBG pH 7.34 (7.32-7.43) VBG pCO2 39.0 L (40-60) VBG HCO3 21.0 (21-28) mmol/l VBG Total CO2 22.2 (22-28) mmol.L VBG O2 Sat (Calc) 77.8 H (40-65) % VBG Base Excess -4.4 L (0.0-2.0) mmol/L VBG Potassium 4.0 (3.6-5.2) mmol/L Sodium 125 L 122.0 L (132-148) mmol/L Chloride 92 L 87.0 L (98-107) mmol/L Glucose 144 H (65-105) mg/dl Lactate 3.2 H (0.7-2.1) mmol/L FiO2 21.0 % Potassium 3.6 (3.6-5.0) mmol/L Carbon Dioxide 21 (21-33) mmol/L Anion Gap 16 (10-20) BUN 66 H (7-21) mg/dL Creatinine 2.6 H (0.7-1.2) mg/dl Est GFR ( Amer) 22 Est GFR (Non-Af Amer) 19 Random Glucose 149 H (70-110) mg/dL Calcium 7.8 L (8.4-10.5) mg/dL Phosphorus 5.1 H (2.5-4.5) mg/dL Magnesium 2.6 H (1.7-2.2) mg/dL Total Bilirubin 1.8 H (0.2-1.3) mg/dL AST 69 H (14-36) U/L ALT 39 (7-56) U/L Alkaline Phosphatase 178 H D (38-126) U/L Total Protein 5.8 (5.8-8.3) g/dL Albumin 2.9 L (3.0-4.8) g/dL Globulin 2.9 gm/dL Albumin/Globulin Ratio 1.0 L (1.1-1.8) Venous Blood Potassium 4.0 (3.6-5.2) mmol/L 06/16/18 06/16/18 Range/Units 15:16 15:16 WBC (4.5-11.0) 10^3/uL RBC (3.5-6.1) 10^6/uL Hgb (12.0-16.0) g/dL Hct (36.0-48.0) % MCV (80.0-105.0) fl MCH (25.0-35.0) pg MCHC (31.0-37.0) g/dl RDW (11.5-14.5) % Plt Count (120.0-450.0) 10^3/uL MPV (7.0-11.0) fl Gran % (50.0-68.0) % Lymph % (Auto) (22.0-35.0) % [place] % (Auto) (1.0-6.0) % Eos % (Auto) (1.5-5.0) % Baso % (Auto) (0.0-3.0) % Gran # (1.4-6.5) Lymph # (Auto) (1.2-3.4) [place] # (Auto) (0.1-0.6) Eos # (Auto) (0.0-0.7) Baso # (Auto) (0.0-2.0) K/mm3 pO2 151 H (30-55) mm/Hg VBG pH 7.39 (7.32-7.43) VBG pCO2 28.0 L (40-60) VBG HCO3 16.9 L (21-28) mmol/l VBG Total CO2 17.8 L (22-28) mmol.L VBG O2 Sat (Calc) 100.0 H (40-65) % VBG Base Excess -6.6 L (0.0-2.0) mmol/L VBG Potassium 4.2 (3.6-5.2) mmol/L Sodium 117.0 L* 121 L (132-148) mmol/L Chloride 86.0 L 88 L (98-107) mmol/L Glucose 169 H (65-105) mg/dl Lactate 2.5 H (0.7-2.1) mmol/L FiO2 21.0 % Potassium 4.4 (3.6-5.0) mmol/L Carbon Dioxide 18 L (21-33) mmol/L Anion Gap 20 (10-20) BUN 72 H (7-21) mg/dL Creatinine 3.0 H (0.7-1.2) mg/dl Est GFR ( Amer) 19 Est GFR (Non-Af Amer) 16 Random Glucose 163 H (70-110) mg/dL Calcium 7.8 L (8.4-10.5) mg/dL Phosphorus (2.5-4.5) mg/dL Magnesium (1.7-2.2) mg/dL Total Bilirubin 1.8 H (0.2-1.3) mg/dL AST 86 H (14-36) U/L ALT 47 (7-56) U/L Alkaline Phosphatase 228 H (38-126) U/L Total Protein 6.1 (5.8-8.3) g/dL Albumin 2.7 L (3.0-4.8) g/dL Globulin 3.4 gm/dL Albumin/Globulin Ratio 0.8 L (1.1-1.8) Venous Blood Potassium 4.2 (3.6-5.2) mmol/L Laboratory Results - last 24 hr 06/16/18 06/16/18 06/16/18 15:16 15:16 20:10 WBC RBC Hgb Hct MCV MCH MCHC RDW Plt Count MPV Gran % Lymph % (Auto) [place] % (Auto) Eos % (Auto) Baso % (Auto) Gran # Lymph # (Auto) [place] # (Auto) Eos # (Auto) Baso # (Auto) pO2 151 H 41 VBG pH 7.39 7.34 VBG pCO2 28.0 L 39.0 L VBG HCO3 16.9 L 21.0 VBG Total CO2 17.8 L 22.2 VBG O2 Sat (Calc) 100.0 H 77.8 H VBG Base Excess -6.6 L -4.4 L VBG Potassium 4.2 4.0 Sodium 121 L 117.0 L* 122.0 L Chloride 88 L 86.0 L 87.0 L Glucose 169 H 144 H Lactate 2.5 H 3.2 H FiO2 21.0 21.0 Potassium 4.4 Carbon Dioxide 18 L Anion Gap 20 BUN 72 H Creatinine 3.0 H Est GFR ( Amer) 19 Est GFR (Non-Af Amer) 16 Random Glucose 163 H Calcium 7.8 L Phosphorus Magnesium Total Bilirubin 1.8 H AST 86 H ALT 47 Alkaline Phosphatase 228 H Total Protein 6.1 Albumin 2.7 L Globulin 3.4 Albumin/Globulin Ratio 0.8 L Venous Blood Potassium 4.2 4.0 06/17/18 06/17/18 05:40 05:40 WBC 23.2 H D RBC 4.31 Hgb 13.1 D Hct 38.9 MCV 90.3 MCH 30.4 MCHC 33.7 RDW 12.6 Plt Count 259 MPV 9.5 Gran % 86.7 H Lymph % (Auto) 7.3 L [place] % (Auto) 3.8 Eos % (Auto) 2.2 Baso % (Auto) 0.0 Gran # 20.13 H Lymph # (Auto) 1.7 [place] # (Auto) 0.9 H Eos # (Auto) 0.5 Baso # (Auto) 0.01 pO2 VBG pH VBG pCO2 VBG HCO3 VBG Total CO2 VBG O2 Sat (Calc) VBG Base Excess VBG Potassium Sodium 125 L Chloride 92 L Glucose Lactate FiO2 Potassium 3.6 Carbon Dioxide 21 Anion Gap 16 BUN 66 H Creatinine 2.6 H Est GFR ( Amer) 22 Est GFR (Non-Af Amer) 19 Random Glucose 149 H Calcium 7.8 L Phosphorus 5.1 H Magnesium 2.6 H Total Bilirubin 1.8 H AST 69 H ALT 39 Alkaline Phosphatase 178 H D Total Protein 5.8 Albumin 2.9 L Globulin 2.9 Albumin/Globulin Ratio 1.0 L Venous Blood Potassium Critical Care Progress Note - Nutrition Nutrition: Nutrition Category Date Time Status Heart Healthy Diet [DIET] Diets 06/16/18 Breakfast Active Attending/Attestation - Attestation I have personally seen and examined this patient.: Yes I have fully participated in the care of the patient.: Yes I have reviewed all pertinent clinical information: Yes Notes (Text): 06/17/18 11:08 The patient was seen and examined at the bedside. Patient care was discussed with resident Medical records, lab studies were reviewed and management issues were discussed and formulated. Agree with above treatment plans as outlined in 's note with addition of the following: KIMBERLY \ Hyponatremia \ Metastatic Pancreatic CA \ Sepsis \ Elevated LFT \ Ascites -hemodynamic monitoring to maintain MAP>65 -o2 supplementation to maintain Spo2 90-92 Pao2>60; comfortable on NC at this time -continue Abx as per ID team and f\u cultures and fluid studies -f\u Bun\Cr and U\o; continue IVF ; monitor serial Na+ -renal team f\u -PO diet and aspiration precautions -s\p paracentesis yesterday -f\u LFT; consider GI eval -Heme\Onc f\u -PT\OT eval for OOB -DVT \ PUD prophylaxis CCM time 32min
--- NOTE | 2018-06-17 10:20 | PN ---
DATE: 06/17/2018 SUBJECTIVE: The patient states she feels slightly better today than yesterday. She was having lots of diarrhea yesterday. She was able to sleep better than she did the day before according to the nurse. PHYSICAL EXAMINATION: GENERAL: The patient is lying in bed, flat, comfortable. VITAL SIGNS: Temperature is 98, pulse of 99, blood pressure 130/63, respirations 19. HEENT: No oral lesion. Anicteric sclerae. Moist mucosa. NECK: No JVD, adenopathy, or thyromegaly. CARDIOVASCULAR: S1 and S2, regular. No murmurs, rubs, or gallops. LUNGS: Clear to auscultation bilaterally. No wheeze, rales, or rhonchi. ABDOMEN: Bowel sounds are positive, soft, nontender and nondistended. EXTREMITIES: no cyanosis, clubbing or edema. LABS: White count of 23.2, hemoglobin 13.1, creatinine is 2.6. Sodium is 125. ASSESSMENT: 1. Sepsis. 2. Pancreatic cancer. 3. Hyperkalemia, improving. 4. Hyponatremia, improving. 5. Acute kidney injury. 6. Ascites. PLAN: The patient is currently feeling better. Her potassium has improved significantly. Her sodium and potassium are improving. She had a white count that is decreasing, it is 23 this morning. She has blood cultures and urine cultures that have been negative. Suspect that the patient has SBP. The patient is on Colace for constipation. She is on Ativan as needed. The patient is going to be on heparin for DVT prophylaxis. The patient is on Zofran as needed. She is on Zosyn for antibiotics and it is renally dosed. The patient is on a heart healthy diet. At this point, I will transfer the patient to the medical floor. Hank Barrienots MD
[2018-06-17 12:06] LABS: VENOUS BLOOD GAS BASE EXCESS -4.8 mmol/L (0.0-2.0); VENOUS BLOOD GAS PO2 42 mm/Hg (30-55); VENOUS BLOOD PH 7.34 (7.32-7.43)
[2018-06-17] MEDS: Oxycodone/Acetaminophen 5/325 mg Tab PO PRN ×2 (12:41→19:31)
--- NOTE | 2018-06-17 15:11 | CP.PCM.PN ---
<Gunjan Rothman - Last Filed: 06/17/18 15:08> Subjective - Date & Time of Evaluation Date of Evaluation: 06/17/18 Time of Evaluation: 08:00 - Subjective Subjective: ID progress note PGY-[address] torres Pt breathing better. No more vomiting. No other acute complaint Objective - Vital Signs/Intake and Output Vital Signs (last 24 hours): Temp Pulse Resp BP Pulse Ox 98.0 F 96 H 18 120/66 93 L 06/17/18 04:00 06/17/18 13:40 06/17/18 13:40 06/17/18 13:00 06/17/18 13:40 Intake and Output: 06/17/18 06/17/18 06:59 18:59 Intake Total 1400 Output Total 650 Balance 750 - Medications Medications: Current Medications Docusate Sodium (Colace) 100 mg PO BID [facility] Last Admin: 06/17/18 10:07 Dose: 100 mg Heparin Sodium (Porcine) (Heparin) 5,000 units SC Q8 [facility]; Protocol Last Admin: 06/17/18 13:28 Dose: 5,000 units Piperacillin Sod/Tazobactam Sod (Zosyn 2.25 Gm In 0.9% 100 Ml) 2.25 gm in 100 mls @ 100 mls/hr IVPB Q8 [facility]; Protocol Stop: 06/24/18 22:01 Last Admin: 06/17/18 13:29 Dose: 100 mls/hr Dextrose/Sodium Chloride (Dextrose 5%/0.9% Ns 1000 Ml) 1,000 mls @ 100 mls/hr IV .Q10H [facility] Last Admin: 06/16/18 20:45 Dose: 100 mls/hr Lorazepam (Ativan) 0.5 mg PO Q6 PRN; Protocol PRN Reason: Anxiety Last Admin: 06/17/18 03:59 Dose: 0.5 mg Ondansetron HCl (Zofran Inj) 4 mg IVP Q4H PRN PRN Reason: Nausea/Vomiting Oxycodone/Acetaminophen (Percocet 5/325 Mg Tab) 1 tab PO TID PRN PRN Reason: Pain, severe (8-10) Stop: 06/18/18 17:45 Last Admin: 06/17/18 12:41 Dose: 1 tab Pantoprazole Sodium (Protonix Ec Tab) 40 mg PO 0600 [facility] Last Admin: 06/17/18 05:18 Dose: 40 mg Sennosides (Senokot Tab) 8.6 mg PO DAILY [facility] Last Admin: 06/17/18 10:07 Dose: 8.6 mg Sodium Chloride (Sodium Chloride Tab) 1 gm PO WM [facility] Last Admin: 06/17/18 11:51 Dose: 1 gm - Labs Labs: 06/17/18 05:40 06/17/18 05:40 PT 13.2 SECONDS (9.4-12.5) H 06/15/18 14:54 INR 1.15 06/15/18 14:54 APTT 27.5 Seconds (25.1-36.5) 06/15/18 14:54 - Constitutional Appears: No Acute Distress - Head Exam Head Exam: ATRAUMATIC, NORMAL INSPECTION, NORMOCEPHALIC - Eye Exam Eye Exam: EOMI, Normal appearance, PERRL - ENT Exam ENT Exam: Mucous Membranes Moist - Neck Exam Additional comments: supple - Respiratory Exam Respiratory Exam: Clear to Ausculation Bilateral. absent: Rales, Rhonchi, Wheezes - Cardiovascular Exam Cardiovascular Exam: REGULAR RHYTHM. absent: +S1, +S2 - GI/Abdominal Exam GI & Abdominal Exam: Distended, Tenderness, Hypoactive Bowel Sounds. absent: Guarding (improves), Rigid - Extremities Exam Extremities Exam: Pedal Edema. absent: Calf Tenderness - Back Exam Back Exam: absent: CVA tenderness (L), CVA tenderness (R) - Neurological Exam Neurological Exam: Alert, Awake, Oriented x3 - Psychiatric Exam Psychiatric exam: Normal Affect, Normal Mood - Skin Skin Exam: Dry, Warm Assessment and Plan - Assessment and Plan (Free Text) Plan: Mrs. Coppola, 63F, with Hx ETOH, chronic pain on percocet, stage 4 pancreatic cancer with liver mets, c/o intractable vomiting associated with SOB and flatullence. A: Severe sepsis complicated by KIMBERLY possibly due to hospital acquired intraabdominal infection r/o Spontaneous bacterial peritonitis (SBP) Decompensated liver injury complicated by increasing ascites, possible portal hypertension P: - zosyn (day 2) - therapeutic Paracentesis POD#1 - follow on VS, WBC, culture, ascites fluid analysis, and clinical course s/r/d/w Dr Torres <Aleksander Torres S - Last Filed: 06/17/18 16:07> Objective - Vital Signs/Intake and Output Vital Signs (last 24 hours): Temp Pulse Resp BP Pulse Ox 97.3 F L 96 H 18 120/66 93 L 06/17/18 08:00 06/17/18 13:40 06/17/18 13:40 06/17/18 13:00 06/17/18 13:40 Intake and Output: 06/17/18 06/17/18 06:59 18:59 Intake Total 1400 Output Total 650 Balance 750 - Medications Medications: Current Medications Docusate Sodium (Colace) 100 mg PO BID [facility] Last Admin: 06/17/18 10:07 Dose: 100 mg Heparin Sodium (Porcine) (Heparin) 5,000 units SC Q8 [facility]; Protocol Last Admin: 06/17/18 13:28 Dose: 5,000 units Piperacillin Sod/Tazobactam Sod (Zosyn 2.25 Gm In 0.9% 100 Ml) 2.25 gm in 100 mls @ 100 mls/hr IVPB Q8 [facility]; Protocol Stop: 06/24/18 22:01 Last Admin: 06/17/18 13:29 Dose: 100 mls/hr Dextrose/Sodium Chloride (Dextrose 5%/0.9% Ns 1000 Ml) 1,000 mls @ 100 mls/hr IV .Q10H [facility] Last Admin: 06/16/18 20:45 Dose: 100 mls/hr Lorazepam (Ativan) 0.5 mg PO Q6 PRN; Protocol PRN Reason: Anxiety Last Admin: 06/17/18 03:59 Dose: 0.5 mg Ondansetron HCl (Zofran Inj) 4 mg IVP Q4H PRN PRN Reason: Nausea/Vomiting Oxycodone/Acetaminophen (Percocet 5/325 Mg Tab) 1 tab PO TID PRN PRN Reason: Pain, severe (8-10) Stop: 06/18/18 17:45 Last Admin: 06/17/18 12:41 Dose: 1 tab Pantoprazole Sodium (Protonix Ec Tab) 40 mg PO 0600 [facility] Last Admin: 06/17/18 05:18 Dose: 40 mg Sennosides (Senokot Tab) 8.6 mg PO DAILY [facility] Last Admin: 06/17/18 10:07 Dose: 8.6 mg Sodium Chloride (Sodium Chloride Tab) 1 gm PO WM [facility] Last Admin: 06/17/18 11:51 Dose: 1 gm - Labs Labs: 06/17/18 05:40 06/17/18 05:40 PT 13.2 SECONDS (9.4-12.5) H 06/15/18 14:54 INR 1.15 06/15/18 14:54 APTT 27.5 Seconds (25.1-36.5) 06/15/18 14:54 Assessment and Plan - Assessment and Plan (Free Text) Plan: Infectious diseases Attending Physician Attestation Patient seen and examined, discussed with medical lab technologist. I have reviewed the patient's history of present illness, past medical, social, personal and family histories, pertinent physical exam findings, course so far in this hospital admission, pertinent laboratory and imaging results. I agree with the above findings, assessment and plan. In addition, continue Zosyn for this patient with severe sepsis with KIMBERLY consider IAI R/O SBP. Follow up ascitic fluid analysis and cultures.
[2018-06-17 17:10] LABS: VENOUS BLOOD GAS BASE EXCESS -3.5 mmol/L (0.0-2.0); VENOUS BLOOD GAS PO2 28 mm/Hg (30-55); VENOUS BLOOD PH 7.32 (7.32-7.43)
--- NOTE | 2018-06-17 20:43 | PN ---
DATE: 06/17/2018 SUBJECTIVE: The patient is a 63-year-old female admitted by the emergency room with severe sepsis with spontaneous bacterial peritonitis status post paracentesis with the patient improved since admission, sitting up, speaking with family members with analgesics controlling her pain. At present, she is to be transferred to the med/surg floor for further recommendations. The patient did have a tissue diagnosis dated from 06/10/2018 showing a 4-cm left liver mass with metastatic adenocarcinoma most likely originating from the pancreatobiliary tract. The patient also had a CEA value dated 06/03/2018 of 13.1 with a CA 19-9 value on the same day of greater than 10,000, normal being below 37. OBJECTIVE/PHYSICAL EXAMINATION: VITAL SIGNS: Temperature 97.3, pulse 89, respirations 18, blood pressure 120/66 with a pulse ox of 93%. HEENT: Unremarkable. Tongue is dry. NECK: Supple. HEART: Regular rate. LUNGS: Clear. ABDOMEN: Minimally distended, soft with minimal generalized tenderness. EXTREMITIES: No edema. SKIN: Warm and dry. NEUROLOGIC: Awake and alert. LABORATORY DATA: The patient's labs were done. White blood cell count of 23.2 down from 32.3 two days prior, hemoglobin of 13.1, hematocrit of 38.9, platelet count of 259,000. Metabolic panel showing a sodium of 125, chloride of 92, BUN of 66, creatinine of 2.6 with a calcium of 7.8, magnesium of 2.6. AST of 69, alkaline phosphatase 178, T. bilirubin of 1.8. Her INR 2 days prior was 1.1. Urine specimen showed traces of light blood two days prior. ASSESSMENT: For this patient is that of adenocarcinoma metastatic to the liver, suspected pancreatic origin, peritoneal carcinomatosis with sepsis, spontaneous bacterial peritonitis, leukocytosis, history of alcohol abuse, severe hyperkalemia, acute kidney injury, anxiety, electrolyte abnormalities. PLAN: For this patient is to continue present medical regimen. As per attending medical cost consultant's recommendations, we will transfer her to the med/surg floor with the prognosis of the patient guarded. This is a complex patient with comprehensive medically necessary and appropriate visit carried out in excess of 25 minutes with the patient's and family's questions answered to their satisfaction. Elie MD Amanuel
[2018-06-18] MEDS: Oxycodone/Acetaminophen 5/325 mg Tab PO PRN ×3 (01:14→20:36)
[2018-06-18] MEDS: Piperacillin/Tazobact 2.25gm 2.25 GM/100 ML BAG IVPB SCH ×3 (05:33→22:20)
[2018-06-18] MEDS: Pantoprazole 40 mg EC Tab PO SCH (05:33)
[2018-06-18 07:55] LABS: BASO # 0.01 K/mm3 (0.0-2.0); EOS # 0.4 (0.0-0.7); EOS % 1.6 % (1.5-5.0); HEMOGLOBIN 14.4 g/dL (12.0-16.0); MEAN CELL VOLUME 91.9 fl (80.0-105.0); MEAN CORPUSCULAR HEMOGLOBIN 30.5 pg (25.0-35.0); MEAN CORPUSCULAR HGB CONC 33.2 g/dl (31.0-37.0); MEAN PLATELET VOLUME 9.7 fl (7.0-11.0); MONO # 0.8 (0.1-0.6); MONO % 3.5 % (1.0-6.0); PLATELET COUNT 305 10^3/uL (120.0-450.0); RBC 4.72 10^6/uL (3.5-6.1)
[2018-06-18 08:14] LABS: ALB/GLOB RATIO 0.9 (1.1-1.8); ALBUMIN 2.9 g/dL (3.0-4.8)
[2018-06-18] MEDS ORDERED: Potassium Chloride 20 mEq ER Tab PO ONE (09:04)
--- NOTE | 2018-06-18 10:04 | PN ---
DATE: 06/18/2018 SUBJECTIVE: The patient has no complaints of any chest pain. No shortness of breath. She says she is feeling better. She is out of the ICU. PHYSICAL EXAMINATION: VITAL SIGNS: Temperature is 97.8, pulse of 97, blood pressure 117/71, respirations 20. GENERAL: The patient is lying in bed, flat, comfortable. HEENT: No oral lesion. Anicteric sclerae. Moist mucosa. NECK: No JVD, adenopathy, or thyromegaly. CARDIOVASCULAR: S1 and S2, regular. No murmurs, rubs, or gallops. LUNGS: Clear to auscultation bilaterally. No wheeze, rales, or rhonchi. ABDOMEN: Bowel sounds are positive, soft, nontender and nondistended. EXTREMITIES: No cyanosis, clubbing or edema. LABS: White count of 23.2, hemoglobin 13.1, creatinine is 2.6. These labs are from yesterday. This morning, labs are pending. ASSESSMENT: 1. Sepsis. 2. Pancreatic cancer. 3. Hyperkalemia, improving. 4. Hyponatremia, improving. 5. Acute kidney injury. 6. Ascites. PLAN: The patient is currently comfortable. She has adenocarcinoma with mets to the liver from the pancreas. She has improvement of her electrolytes. I did advise her to try to eat better. The patient is currently in the medical floor. I will decrease her IV fluids to 50 an hour. Her creatinine is improving. She is on Senna for constipation. She is receiving Zofran as needed for nausea. She is on antibiotics on Zosyn 2.25 mg, which is renally dosed. She has blood cultures and urine cultures that have been negative. She is being followed by Infectious Disease and by Oncology. She is going to need physical therapy. I will put a physical therapy evaluation in place. She is on heparin for DVT prophylaxis. Hank Barrientos MD
--- NOTE | 2018-06-18 18:50 | PN ---
DATE: 06/18/2018 SUBJECTIVE: The patient is in bed, in no acute distress. PHYSICAL EXAMINATION: VITAL SIGNS: Temperature is 97, blood pressure is 101/60, respiratory rate of 18, heart rate of 103. HEENT: Unremarkable. NECK: Supple. LUNGS: Have decreased breath sounds. HEART: Normal S1 and S2. ABDOMEN: Soft, nontender. LABORATORY EXAMINATION: Reveals a white count of 24,000, hemoglobin of 14. BUN of 55, creatinine of 1.8. Urinalysis is noted. Serology, HIV is negative. Microbiology reveals peritoneal fluid cultures are negative. Urine culture is negative. MRSA is negative. Blood cultures are negative. REVIEW OR ORDERS: Reveals the patient to be on Zosyn. Dr. Barrientos's note from this morning is reviewed. ASSESSMENT AND PLAN: A 63-year-old who has a history of alcoholism, chronic pain, stage IV pancreatic cancer with liver metastasis, intractable vomiting, severe sepsis with acute kidney injury, on day #3 of Zosyn. We will check on the final culture results and follow closely with you. The patient's leukocytosis may be secondary to liver metastasis. If all cultures remain negative, we will discontinue antibiotics. Danyel Dawkins MD
[2018-06-19] MEDS: Oxycodone/Acetaminophen 5/325 mg Tab PO PRN ×3 (02:27→18:25)
[2018-06-19] MEDS: Piperacillin/Tazobact 2.25gm 2.25 GM/100 ML BAG IVPB SCH (05:52)
[2018-06-19] MEDS: Pantoprazole 40 mg EC Tab PO SCH (05:53)
[2018-06-19 07:08] LABS: TOTAL PROTEIN PERITONEAL FLUID 4.1 g/dL
[2018-06-19 07:37] LABS: BASO # 0.01 K/mm3 (0.0-2.0); EOS # 0.3 (0.0-0.7); EOS % 1.3 % (1.5-5.0); GRAN # 21.12 (1.4-6.5); GRAN % 88.1 % (50.0-68.0); HEMOGLOBIN 14.6 g/dL (12.0-16.0); LYMPH % 8.3 % (22.0-35.0); MEAN CORPUSCULAR HGB CONC 33.3 g/dl (31.0-37.0); MONO # 0.6 (0.1-0.6); MONO % 2.3 % (1.0-6.0); RBC 4.71 10^6/uL (3.5-6.1); RED CELL DISTRIBUTION WIDTH 13.2 % (11.5-14.5)
[2018-06-19 07:59] LABS: ALB/GLOB RATIO 0.9 (1.1-1.8); ALBUMIN 2.9 g/dL (3.0-4.8); CALCIUM 8.3 mg/dL (8.4-10.5)
--- NOTE | 2018-06-19 11:57 | PN ---
DATE: 06/19/2018 SUBJECTIVE: The patient has no complaints of any chest pain or shortness of breath or headaches or dizziness. OBJECTIVE: VITAL SIGNS: Temperature is 99, pulse of 97, blood pressure 105/66, respirations 20. GENERAL: The patient is lying in bed, flat, comfortable. HEENT: No oral lesion. Anicteric sclerae. Moist mucosa. NECK: No JVD, adenopathy, or thyromegaly. CARDIOVASCULAR: S1 and S2, regular. No murmurs, rubs, or gallops. LUNGS: Clear to auscultation bilaterally. No wheeze, rales, or rhonchi. ABDOMEN: Bowel sounds are positive, soft, nontender and nondistended. EXTREMITIES: No cyanosis, clubbing or edema. LABORATORY DATA: White count of 24, hemoglobin is 14.6, creatinine 1.4. ASSESSMENT: 1. Sepsis. 2. Pancreatic cancer. 3. Hyperkalemia, improved. 4. Hyponatremia, improved. 5. Acute kidney injury. 6. Ascites. PLAN: The patient is currently comfortable, the white count is elevated at 24 and has improved. The patient's creatinine continues to improve. The sodium is almost normalized. The patient is going to need physical therapy. She is thinking about Transitional Care. I did speak to her regarding this. The patient is on Ativan. She is receiving heparin for DVT prophylaxis. She is on Senna for the constipation. Hank Barrientos MD
--- NOTE | 2018-06-19 14:56 | PN ---
DATE: 06/19/2018 SUBJECTIVE: The patient is in bed, in no acute distress. Nontoxic. The patient was seen earlier today in room 570. PHYSICAL EXAMINATION: VITAL SIGNS: Temperature is 98, blood pressure is 105/60, and respiratory rate of 20. HEENT: Unremarkable. NECK: Supple. LUNGS: Have decreased breath sounds. HEART: Normal S1 and S2. ABDOMEN: Soft. LABORATORY EXAMINATION: Reviewed. ASSESSMENT AND PLAN: A 63-year-old female with history of alcoholism, chronic pain syndrome, and stage IV pancreatic cancer with liver metastasis, admitted with severe sepsis and acute kidney injury, on day #4 of Zosyn. White count remains persistently elevated with negative cultures. Peritoneal fluid cultures is negative. Blood culture is negative. Urine culture is negative and most likely the leukocytosis is secondary to liver metastasis. We will discontinue the Zosyn. Overall prognosis is quite poor. The patient did have a CAT scan which shows distention of the abdomen, severe ascites and numerous hepatic metastasis. The patient is at risk of developing nosocomial infections, we will discontinue the Zosyn . Danyel Dawkins MD
--- NOTE | 2018-06-19 22:41 | CP.PCM.PN ---
Subjective - Date & Time of Evaluation Date of Evaluation: 06/18/18 Time of Evaluation: 20:00 - Subjective Subjective: Pain controlled; abdomen more distended ROS; 12 ROS otherwise negative pain: denies Objective - Vital Signs/Intake and Output Vital Signs (last 24 hours): Temp Pulse Resp BP Pulse Ox 97.6 F 86 18 107/71 95 06/19/18 22:32 06/19/18 22:32 06/19/18 22:32 06/19/18 22:32 06/19/18 22:32 - Medications Medications: Current Medications Docusate Sodium (Colace) 100 mg PO BID [facility] Last Admin: 06/19/18 18:15 Dose: Not Given Heparin Sodium (Porcine) (Heparin) 5,000 units SC Q8 [facility]; Protocol Last Admin: 06/19/18 22:27 Dose: 5,000 units Lorazepam (Ativan) 0.5 mg PO Q6 PRN; Protocol PRN Reason: Anxiety Last Admin: 06/17/18 03:59 Dose: 0.5 mg Ondansetron HCl (Zofran Inj) 4 mg IVP Q4H PRN PRN Reason: Nausea/Vomiting Oxycodone/Acetaminophen (Percocet 5/325 Mg Tab) 1 tab PO Q6H PRN PRN Reason: Pain, severe (8-10) Stop: 06/22/18 18:11 Last Admin: 06/19/18 18:25 Dose: 1 tab Pantoprazole Sodium (Protonix Ec Tab) 40 mg PO 0600 [facility] Last Admin: 06/19/18 05:53 Dose: 40 mg Sennosides (Senokot Tab) 8.6 mg PO DAILY [facility] Last Admin: 06/19/18 09:34 Dose: Not Given Sodium Chloride (Sodium Chloride Tab) 1 gm PO WM [facility] Last Admin: 06/19/18 18:26 Dose: 1 gm - Labs Labs: 06/19/18 07:00 06/19/18 07:00 PT 13.2 SECONDS (9.4-12.5) H 06/15/18 14:54 INR 1.15 06/15/18 14:54 APTT 27.5 Seconds (25.1-36.5) 06/15/18 14:54 - Constitutional Appears: Non-toxic - Respiratory Exam Respiratory Exam: Clear to Ausculation Bilateral, NORMAL BREATHING PATTERN - Cardiovascular Exam Cardiovascular Exam: REGULAR RHYTHM, +S1, +S2. absent: Murmur - GI/Abdominal Exam GI & Abdominal Exam: Distended, Firm. absent: Diminished Bowel Sounds - Extremities Exam Extremities Exam: Pedal Edema Assessment and Plan - Assessment and Plan (Free Text) Assessment: Ms. Coppola esau 63 y/o women with pmhx significant for stage IV pancreatic cancer c/b malignant ascites currently admitted for SBP and ARF with associated terry ctrolye abnormalities s/p paracentesis. Patient's abdomen appears to be getting distended again. Consider repeat paracentesis on wednesday pending imaging. Could conceivably consider peritoneal catheter placement but given recent hx of SBP would probably hold off for now. Once patient stablized from kidney and electrolyte vantage point and tolerating PO intake can consider palliative gem/abraxane. Amaury Holt MD Oncology
--- NOTE | 2018-06-19 22:42 | CP.PCM.PN ---
Subjective - Date & Time of Evaluation Date of Evaluation: 06/19/18 Time of Evaluation: 21:00 - Subjective Subjective: Abdominal pain more pronounced; abdomen more distended ROS: 12 ROS otherwise negative Pain: denies Objective - Vital Signs/Intake and Output Vital Signs (last 24 hours): Temp Pulse Resp BP Pulse Ox 97.6 F 86 18 107/71 95 06/19/18 22:32 06/19/18 22:32 06/19/18 22:32 06/19/18 22:32 06/19/18 22:32 - Medications Medications: Current Medications Docusate Sodium (Colace) 100 mg PO BID [facility] Last Admin: 06/19/18 18:15 Dose: Not Given Heparin Sodium (Porcine) (Heparin) 5,000 units SC Q8 [facility]; Protocol Last Admin: 06/19/18 22:27 Dose: 5,000 units Lorazepam (Ativan) 0.5 mg PO Q6 PRN; Protocol PRN Reason: Anxiety Last Admin: 06/17/18 03:59 Dose: 0.5 mg Ondansetron HCl (Zofran Inj) 4 mg IVP Q4H PRN PRN Reason: Nausea/Vomiting Oxycodone/Acetaminophen (Percocet 5/325 Mg Tab) 1 tab PO Q6H PRN PRN Reason: Pain, severe (8-10) Stop: 06/22/18 18:11 Last Admin: 06/19/18 18:25 Dose: 1 tab Pantoprazole Sodium (Protonix Ec Tab) 40 mg PO 0600 [facility] Last Admin: 06/19/18 05:53 Dose: 40 mg Sennosides (Senokot Tab) 8.6 mg PO DAILY [facility] Last Admin: 06/19/18 09:34 Dose: Not Given Sodium Chloride (Sodium Chloride Tab) 1 gm PO WM [facility] Last Admin: 06/19/18 18:26 Dose: 1 gm - Labs Labs: 06/19/18 07:00 06/19/18 07:00 PT 13.2 SECONDS (9.4-12.5) H 06/15/18 14:54 INR 1.15 06/15/18 14:54 APTT 27.5 Seconds (25.1-36.5) 06/15/18 14:54 - Constitutional Appears: Non-toxic - Respiratory Exam Respiratory Exam: Clear to Ausculation Bilateral, NORMAL BREATHING PATTERN - Cardiovascular Exam Cardiovascular Exam: REGULAR RHYTHM, +S1, +S2. absent: Murmur - GI/Abdominal Exam GI & Abdominal Exam: Distended, Firm - Extremities Exam Extremities Exam: Pedal Edema Assessment and Plan - Assessment and Plan (Free Text) Assessment: Ms. Coppola esau 63 y/o women with pmhx significant for stage IV pancreatic cancer c/b malignant ascites currently admitted for SBP and ARF with associated electrolye abnormalities s/p paracentesis. Patient's abdomen appears to be getting distended again. Consider repeat paracentesis on wednesday pending imaging. Could conceivably consider peritoneal catheter placement but given recent hx of SBP would probably hold off for now. Once patient stablized from kidney and electrolyte vantage point and tolerating PO intake can consider palliative gem/abraxane. Amaury Holt MD Oncology
[2018-06-20] MEDS: Oxycodone/Acetaminophen 5/325 mg Tab PO PRN ×4 (00:38→19:53)
--- NOTE | 2018-06-20 05:32 | CP.PCM.PN ---
<Luis Alberto Arizaima - Last Filed: 06/20/18 19:49> Subjective - Date & Time of Evaluation Date of Evaluation: 06/20/18 Time of Evaluation: 07:45 - Subjective Subjective: Pgy3 Medicine Progress note for Dr. Barrientos Patient seen and examined sitting up in bed. Patient seemed uncomfortable but reported her pain regimen is controlling her pain better at this time. She reported she was able to sleep for 4 hours the night prior which had not happened in a while. Patient did complain that she was taking shallow breaths as it was painful to breathe deeply. She complained that her abdomen seemed to be distended again and was tight despite having been tapped recently. She also reported her LE swelling is still present. She is making good urine and had a BM this morning. She is using the commode as feels too unsteady and becomes SOB when ambulating to the bathroom. Patient did admit to an appetite and said she ate well. She denied complaints of fever, chills, chest pain, palpitation, cough, nausea, vomiting. Objective - Vital Signs/Intake and Output Vital Signs (last 24 hours): Temp Pulse Resp BP Pulse Ox 97.6 F 86 18 107/71 95 06/19/18 22:32 06/19/18 22:32 06/19/18 22:32 06/19/18 22:32 06/19/18 22:32 - Medications Medications: Current Medications Docusate Sodium (Colace) 100 mg PO BID [facility] Last Admin: 06/19/18 18:15 Dose: Not Given Heparin Sodium (Porcine) (Heparin) 5,000 units SC Q8 [facility]; Protocol Last Admin: 06/19/18 22:27 Dose: 5,000 units Lorazepam (Ativan) 0.5 mg PO Q6 PRN; Protocol PRN Reason: Anxiety Last Admin: 06/17/18 03:59 Dose: 0.5 mg Ondansetron HCl (Zofran Inj) 4 mg IVP Q4H PRN PRN Reason: Nausea/Vomiting Oxycodone/Acetaminophen (Percocet 5/325 Mg Tab) 1 tab PO Q6H PRN PRN Reason: Pain, severe (8-10) Stop: 06/22/18 18:11 Last Admin: 06/20/18 00:38 Dose: 1 tab Pantoprazole Sodium (Protonix Ec Tab) 40 mg PO 0600 [facility] Last Admin: 06/19/18 05:53 Dose: 40 mg Sennosides (Senokot Tab) 8.6 mg PO DAILY [facility] Last Admin: 06/19/18 09:34 Dose: Not Given Sodium Chloride (Sodium Chloride Tab) 1 gm PO WM [facility] Last Admin: 06/19/18 18:26 Dose: 1 gm - Labs Labs: 06/19/18 07:00 06/19/18 07:00 PT 13.2 SECONDS (9.4-12.5) H 06/15/18 14:54 INR 1.15 06/15/18 14:54 APTT 27.5 Seconds (25.1-36.5) 06/15/18 14:54 - Constitutional Appears: In Acute Distress, Chronically Ill - Head Exam Head Exam: ATRAUMATIC, NORMAL INSPECTION, NORMOCEPHALIC - Eye Exam Eye Exam: EOMI, Normal appearance. absent: Conjunctival injection, Scleral icterus - ENT Exam ENT Exam: Mucous Membranes Moist - Respiratory Exam Respiratory Exam: Clear to Ausculation Bilateral, NORMAL BREATHING PATTERN. absent: Accessory Muscle Use, Rales, Rhonchi, Wheezes - Cardiovascular Exam Cardiovascular Exam: REGULAR RHYTHM, +S2, +S4 - GI/Abdominal Exam GI & Abdominal Exam: Distended, Tenderness, Hyperactive Bowel Sounds. absent: Rebound - Rectal Exam Rectal Exam: Deferred - Extremities Exam Extremities Exam: Pedal Edema - Neurological Exam Neurological Exam: Alert, Awake, Oriented x3 - Psychiatric Exam Psychiatric exam: Flat Affect, Normal Mood - Skin Skin Exam: Dry, Intact, Normal Color, Warm Assessment and Plan - Assessment and Plan (Free Text) Assessment: 1. Sepsis 2. Pancreatic ca Stage IV 3. Malignant Ascites 4. KIMBERLY 5. Pain management 6. Hemorrhoids 7. Gait dysfunction 8. Hyperkalemia 9. Hypermagnesemia Plan: Patient's blood work, imaging, and vitals reviewed. Patient's abdomen continued to be distended and patient was taken for u/s guided paracentesis by IR. 3800cc esme fluid removed- will f/u studies. Patient's leukocytosis improving- will co ntinue to monitor closely. As per ID patient to be monitored off Abx at this time. Blood, urine, and peritoneal cultures grossly negative thus far. Patient requested ointment for her hemorrhoids. Patient's pain is controlled on percocet and she is having BMs with bowel regimen of colace and senna. Will continue to encourage patient to have PO intake. At this time PT recommends MIRA. Will discuss with patient and case management. Appreciate reccs by Heme/onc, IR, ID, and pall care. Continue current management at this time. Discussed with Dr. Floyd Ariza PGY3 <Hank Barrientos S - Last Filed: 06/21/18 20:30> Objective - Vital Signs/Intake and Output Vital Signs (last 24 hours): Temp Pulse Resp BP Pulse Ox 97.3 F L 100 H 18 117/74 99 06/21/18 06:00 06/21/18 06:00 06/21/18 06:00 06/21/18 06:00 06/21/18 06:00 - Medications Medications: Current Medications Docusate Sodium (Colace) 100 mg PO BID [facility] Last Admin: 06/21/18 17:40 Dose: 100 mg Heparin Sodium (Porcine) (Heparin) 5,000 units SC Q8 [facility]; Protocol Last Admin: 06/21/18 15:20 Dose: 5,000 units Lorazepam (Ativan) 0.5 mg PO Q6 PRN; Protocol PRN Reason: Anxiety Last Admin: 06/17/18 03:59 Dose: 0.5 mg Multi-Ingredient Ointment (Prep-Hem) 0 ea TOP BID PRN PRN Reason: Hemorrhoids Ondansetron HCl (Zofran Inj) 4 mg IVP Q4H PRN PRN Reason: Nausea/Vomiting Oxycodone/Acetaminophen (Percocet 5/325 Mg Tab) 1 tab PO Q6H PRN PRN Reason: Pain, severe (8-10) Stop: 06/22/18 18:11 Last Admin: 06/21/18 18:26 Dose: 1 tab Pantoprazole Sodium (Protonix Ec Tab) 40 mg PO 0600 [facility] Last Admin: 06/21/18 06:16 Dose: 40 mg Sennosides (Senokot Tab) 8.6 mg PO DAILY [facility] Last Admin: 06/21/18 10:30 Dose: 8.6 mg Sodium Chloride (Sodium Chloride Tab) 1 gm PO WM [facility] Last Admin: 06/21/18 17:40 Dose: 1 gm - Labs Labs: 06/21/18 07:00 06/21/18 07:00 PT 13.2 SECONDS (9.4-12.5) H 06/15/18 14:54 INR 1.15 06/15/18 14:54 APTT 27.5 Seconds (25.1-36.5) 06/15/18 14:54 Assessment and Plan - Assessment and Plan (Free Text) Plan: This is a late entry from yesterday. Pt seen and examined by me. I have reviewed the note of the medical field representative and I agree with it. I have discussed the assessment and plan with the resident. I have reviewed the medications and the last labs. Pt with sepsis that has improved. She is off of Abx. She had a paracentesis. Pain is controlled. Will need to speak to Oncology about any plans for chemo. ID following. KIMBERLY has improved. Hyponatremia is improving. She had significant ascites. She is on Colace and Senna for constipation. She will need MIRA. Pt is agreeable. TCU not accepting pt.
[2018-06-20] MEDS: Pantoprazole 40 mg EC Tab PO SCH (06:42)
[2018-06-20 07:00] LABS: BASO # 0.02 K/mm3 (0.0-2.0); BASO % 0.1 % (0.0-3.0); EOS # 0.2 (0.0-0.7); GRAN # 19.19 (1.4-6.5); GRAN % 87.2 % (50.0-68.0); HEMOGLOBIN 15.3 g/dL (12.0-16.0); LYMPH # 1.8 (1.2-3.4); LYMPH % 8.2 % (22.0-35.0); MEAN CELL VOLUME 93.1 fl (80.0-105.0); MEAN CORPUSCULAR HEMOGLOBIN 30.4 pg (25.0-35.0); MEAN CORPUSCULAR HGB CONC 32.6 g/dl (31.0-37.0); MONO # 0.8 (0.1-0.6); MONO % 3.5 % (1.0-6.0); RBC 5.04 10^6/uL (3.5-6.1); RED CELL DISTRIBUTION WIDTH 13.4 % (11.5-14.5)
[2018-06-20 07:22] LABS: ALB/GLOB RATIO 0.9 (1.1-1.8); ALBUMIN 3.2 g/dL (3.0-4.8); CALCIUM 8.9 mg/dL (8.4-10.5)
--- NOTE | 2018-06-20 12:22 | CP.PCM.PN ---
Subjective - Date & Time of Evaluation Date of Evaluation: 06/20/18 Time of Evaluation: 10:00 - Subjective Subjective: Alert, oriented. Chronic abdominal pain. Abdominal distention Objective - Vital Signs/Intake and Output Vital Signs (last 24 hours): Temp Pulse Resp BP Pulse Ox 99.4 F 60 18 105/70 94 L 06/20/18 06:00 06/20/18 06:00 06/20/18 06:00 06/20/18 06:00 06/20/18 06:00 - Medications Medications: Current Medications Docusate Sodium (Colace) 100 mg PO BID [facility] Last Admin: 06/20/18 09:38 Dose: 100 mg Heparin Sodium (Porcine) (Heparin) 5,000 units SC Q8 [facility]; Protocol Last Admin: 06/20/18 06:39 Dose: 5,000 units Lorazepam (Ativan) 0.5 mg PO Q6 PRN; Protocol PRN Reason: Anxiety Last Admin: 06/17/18 03:59 Dose: 0.5 mg Ondansetron HCl (Zofran Inj) 4 mg IVP Q4H PRN PRN Reason: Nausea/Vomiting Oxycodone/Acetaminophen (Percocet 5/325 Mg Tab) 1 tab PO Q6H PRN PRN Reason: Pain, severe (8-10) Stop: 06/22/18 18:11 Last Admin: 06/20/18 06:41 Dose: 1 tab Pantoprazole Sodium (Protonix Ec Tab) 40 mg PO 0600 [facility] Last Admin: 06/20/18 06:42 Dose: 40 mg Sennosides (Senokot Tab) 8.6 mg PO DAILY [facility] Last Admin: 06/20/18 09:39 Dose: 8.6 mg Sodium Chloride (Sodium Chloride Tab) 1 gm PO WM [facility] Last Admin: 06/20/18 08:18 Dose: 1 gm - Labs Labs: 06/20/18 06:35 06/20/18 06:35 PT 13.2 SECONDS (9.4-12.5) H 06/15/18 14:54 INR 1.15 06/15/18 14:54 APTT 27.5 Seconds (25.1-36.5) 06/15/18 14:54 - Constitutional Appears: Cachectic, Chronically Ill - Eye Exam Eye Exam: Normal appearance - ENT Exam ENT Exam: Normal Exam - Neck Exam Neck Exam: Normal Inspection - Respiratory Exam Respiratory Exam: Clear to Ausculation Bilateral, NORMAL BREATHING PATTERN - Cardiovascular Exam Cardiovascular Exam: REGULAR RHYTHM, +S1, +S2 - GI/Abdominal Exam GI & Abdominal Exam: Distended, Normal Bowel Sounds - Extremities Exam Extremities Exam: Pedal Edema Additional comments: soft skin nodule left jackson,no pain, swelling or erythema - Back Exam Back Exam: NORMAL INSPECTION - Neurological Exam Neurological Exam: Alert, Oriented x3 - Skin Skin Exam: Pallor Assessment and Plan - Assessment and Plan (Free Text) Assessment: 63 year old female with history of pancreatic cancer and alcoholism who is admitted with abdominal pain, distention, ascites,constipation, leukocytosis, KIMBERLY, hyperglycemia and hyperkalemia/hyponatremia which has since resolved. The patient is alert, states she has persistent abdominal pain which is receiving with Percocet. She has abdominal distention, occasional belching. Her appetite is fair. She is having soft BM's. Mrs Coppola is aware of her diagnosis but has not discussed treatment plan with her oncologist yet. She states that she is willing to receive whatever therapy is prescribed for her. She is is most affected by ascites and chronic pain. Palliative services explained, patient is appreciative of palliative input. We did not discuss advance care planning or resuscitation status today Time spent in goals of care discussion, 15 minutes Plan: Goals of care Leukocytosis: ID recs reviewed, Zosyn discontinued. Ascites: Paracentisis and eval for drainage catheter placement Pain: Percocet 5/325 for pain Constipation: Colace twice daily KIMBERLY: Monitor CMP
[2018-06-20] MEDS ORDERED: Hemorrohoidal Ointment (2 oz) TOP PRN (13:01)
--- NOTE | 2018-06-20 16:32 | CP.PCM.PN ---
Subjective - Date & Time of Evaluation Date of Evaluation: 06/20/18 Time of Evaluation: 09:20 - Subjective Subjective: No fevers, not in distress. Objective - Vital Signs/Intake and Output Vital Signs (last 24 hours): Temp Pulse Resp BP Pulse Ox 98.1 F 95 H 18 114/66 96 06/20/18 14:00 06/20/18 14:00 06/20/18 14:00 06/20/18 14:00 06/20/18 14:00 - Medications Medications: Current Medications Docusate Sodium (Colace) 100 mg PO BID [facility] Last Admin: 06/20/18 09:38 Dose: 100 mg Heparin Sodium (Porcine) (Heparin) 5,000 units SC Q8 [facility]; Protocol Last Admin: 06/20/18 13:17 Dose: 5,000 units Lorazepam (Ativan) 0.5 mg PO Q6 PRN; Protocol PRN Reason: Anxiety Last Admin: 06/17/18 03:59 Dose: 0.5 mg Multi-Ingredient Ointment (Prep-Hem) 0 ea TOP BID PRN PRN Reason: Hemorrhoids Ondansetron HCl (Zofran Inj) 4 mg IVP Q4H PRN PRN Reason: Nausea/Vomiting Oxycodone/Acetaminophen (Percocet 5/325 Mg Tab) 1 tab PO Q6H PRN PRN Reason: Pain, severe (8-10) Stop: 06/22/18 18:11 Last Admin: 06/20/18 12:39 Dose: 1 tab Pantoprazole Sodium (Protonix Ec Tab) 40 mg PO 0600 [facility] Last Admin: 06/20/18 06:42 Dose: 40 mg Sennosides (Senokot Tab) 8.6 mg PO DAILY [facility] Last Admin: 06/20/18 09:39 Dose: 8.6 mg Sodium Chloride (Sodium Chloride Tab) 1 gm PO WM [facility] Last Admin: 06/20/18 12:38 Dose: 1 gm - Labs Labs: 06/20/18 06:35 06/20/18 06:35 PT 13.2 SECONDS (9.4-12.5) H 06/15/18 14:54 INR 1.15 06/15/18 14:54 APTT 27.5 Seconds (25.1-36.5) 06/15/18 14:54 - Constitutional Appears: Chronically Ill - Head Exam Head Exam: NORMAL INSPECTION - Neck Exam Neck Exam: absent: Meningismus - Respiratory Exam Respiratory Exam: Decreased Breath Sounds - Cardiovascular Exam Cardiovascular Exam: +S1, +S2 - GI/Abdominal Exam GI & Abdominal Exam: Soft. absent: Tenderness Assessment and Plan - Assessment and Plan (Free Text) Plan: Assessment S/P severe sepsis with KIMBERLY due to IAI in this patient in this patient with stage 4 pancreatic cancer with liver metastases history of chronic alcohol use Plan cultures have been negative will continue to monitor off antibiotics since she is at risk for nosocomial infections overall prognosis is poor
--- NOTE | 2018-06-20 17:11 | CP.PCM.PN ---
Subjective - Date & Time of Evaluation Date of Evaluation: 06/20/18 Time of Evaluation: 08:55 - Subjective Subjective: PGY-2 heme/onc progress note for Dr Amaury Holt No acute events noted overnight. Patient stated some abdominal discomfort and stated she felt as if her belly was getting larger. She was sitting in the chair and appeared uncomfortable. Otherwise tolerating diet and having bowel movements and denied cp, sob, f/c, n/v. Objective - Vital Signs/Intake and Output Vital Signs (last 24 hours): Temp Pulse Resp BP Pulse Ox 98.1 F 95 H 18 114/66 96 06/20/18 14:00 06/20/18 14:00 06/20/18 14:00 06/20/18 14:00 06/20/18 14:00 - Medications Medications: Current Medications Docusate Sodium (Colace) 100 mg PO BID [facility] Last Admin: 06/20/18 09:38 Dose: 100 mg Heparin Sodium (Porcine) (Heparin) 5,000 units SC Q8 [facility]; Protocol Last Admin: 06/20/18 13:17 Dose: 5,000 units Lorazepam (Ativan) 0.5 mg PO Q6 PRN; Protocol PRN Reason: Anxiety Last Admin: 06/17/18 03:59 Dose: 0.5 mg Multi-Ingredient Ointment (Prep-Hem) 0 ea TOP BID PRN PRN Reason: Hemorrhoids Ondansetron HCl (Zofran Inj) 4 mg IVP Q4H PRN PRN Reason: Nausea/Vomiting Oxycodone/Acetaminophen (Percocet 5/325 Mg Tab) 1 tab PO Q6H PRN PRN Reason: Pain, severe (8-10) Stop: 06/22/18 18:11 Last Admin: 06/20/18 12:39 Dose: 1 tab Pantoprazole Sodium (Protonix Ec Tab) 40 mg PO 0600 [facility] Last Admin: 06/20/18 06:42 Dose: 40 mg Sennosides (Senokot Tab) 8.6 mg PO DAILY [facility] Last Admin: 06/20/18 09:39 Dose: 8.6 mg Sodium Chloride (Sodium Chloride Tab) 1 gm PO WM [facility] Last Admin: 06/20/18 12:38 Dose: 1 gm - Labs Labs: 06/20/18 06:35 06/20/18 06:35 PT 13.2 SECONDS (9.4-12.5) H 06/15/18 14:54 INR 1.15 06/15/18 14:54 APTT 27.5 Seconds (25.1-36.5) 06/15/18 14:54 - Additional Findings Additional findings: - Constitutional Appears: No Acute Distress - Head Exam Head Exam: ATRAUMATIC, NORMAL INSPECTION, NORMOCEPHALIC - Eye Exam Eye Exam: EOMI, Normal appearance, PERRL - ENT Exam ENT Exam: Mucous Membranes Moist - Neck Exam Additional comments: supple - Respiratory Exam Respiratory Exam: Clear to Ausculation Bilateral. absent: Rales, Rhonchi, Wheezes - Cardiovascular Exam Cardiovascular Exam: REGULAR RHYTHM. absent: +S1, +S2 - GI/Abdominal Exam GI & Abdominal Exam: Distended, Tenderness, Hypoactive Bowel Sounds. absent: Guarding (improves), Rigid - Extremities Exam Extremities Exam: Pedal Edema. absent: Calf Tenderness - Back Exam Back Exam: absent: CVA tenderness (L), CVA tenderness (R) - Neurological Exam Neurological Exam: Alert, Awake, Oriented x3 - Psychiatric Exam Psychiatric exam: Normal Affect, Normal Mood - Skin Skin Exam: Dry, Warm Assessment and Plan - Assessment and Plan (Free Text) Plan: Ms. Coppola esau 63 y/o women with pmhx significant for stage IV pancreatic cancer c/b malignant ascites currently admitted for SBP and ARF with associated electrolye abnormalities s/p paracentesis. stage IV pancreatic cancer c/b malignant ascites -Patient's abdomen appears to be getting distended again. -Consider repeat paracentesis pending imaging (abd ultrasound). -Could conceivably consider peritoneal catheter placement but given recent hx of SBP would probably hold off for now. -Once patient stablized from kidney and electrolyte vantage point and tolerating PO intake can consider palliative gem/abraxane. Case discussed with Dr Amaury Holt
--- NOTE | 2018-06-20 18:25 | US ---
PROCEDURE: Ultrasound guided paracentesis. HISTORY: Pancreatic CA with liver metastasis and carcinomatosis. Recurrent abdominal distention and pain. Ascites. Needs therapeutic paracentesis PHYSICIAN(S): Oj Norris MD. TECHNIQUE: The relative risks and indications for the procedure were explained to the patient and informed written consent obtained. Sonography of the abdomen was performed in a supine position. This revealed a moderate amount of non-loculated ascites, greatest in the right lower quadrant. A puncture site was selected and the area was prepped and draped in the usual sterile fashion. 1% Xylocaine was used to anesthetize the skin and soft tissues. A 7 Lao paracentesis catheter was trocared into the right lower quadrantand 3800 cc of esme fluid aspirated. IMPRESSION: Ultrasound-guided paracentesis in the right lower quadrant. 3800 cc of fluid were aspirated.
[2018-06-21] MEDS: Oxycodone/Acetaminophen 5/325 mg Tab PO PRN ×3 (01:29→18:26)
--- NOTE | 2018-06-21 06:15 | CP.PCM.PN ---
<Luis Alberto Arizaima - Last Filed: 06/21/18 15:16> Subjective - Date & Time of Evaluation Date of Evaluation: 06/21/18 Time of Evaluation: 07:15 - Subjective Subjective: Pgy3 Medicine progress note for Dr. Barrientos Patient seen and examined at bedside. POD#1 u/s guided paracentesis. Patient tolerated procedure well and overnight had no acute complaints. She reports pain has improved greatly and is she was able to sleep better overnight. Patient is able to eat well and has no bowel complaints. She reports her breathing is still a little shallow but overall feels better. She expressed concern about LLE lump and stated she noticed it recently along with b/l LE swelling. Denies acute complaints of fever, chills, headache, dizziness, chest pain, cough, nausea, vomiting, easy bruising/bleeding. Objective - Vital Signs/Intake and Output Vital Signs (last 24 hours): Temp Pulse Resp BP Pulse Ox 98.1 F 95 H 18 114/66 96 06/20/18 14:00 06/20/18 14:00 06/20/18 14:00 06/20/18 14:00 06/20/18 14:00 Intake and Output: 06/20/18 06/21/18 18:59 06:59 Intake Total 360 Balance 360 - Medications Medications: Current Medications Docusate Sodium (Colace) 100 mg PO BID [facility] Last Admin: 06/20/18 18:15 Dose: 100 mg Heparin Sodium (Porcine) (Heparin) 5,000 units SC Q8 [facility]; Protocol Last Admin: 06/20/18 22:24 Dose: 5,000 units Lorazepam (Ativan) 0.5 mg PO Q6 PRN; Protocol PRN Reason: Anxiety Last Admin: 06/17/18 03:59 Dose: 0.5 mg Multi-Ingredient Ointment (Prep-Hem) 0 ea TOP BID PRN PRN Reason: Hemorrhoids Ondansetron HCl (Zofran Inj) 4 mg IVP Q4H PRN PRN Reason: Nausea/Vomiting Oxycodone/Acetaminophen (Percocet 5/325 Mg Tab) 1 tab PO Q6H PRN PRN Reason: Pain, severe (8-10) Stop: 06/22/18 18:11 Last Admin: 06/21/18 01:29 Dose: 1 tab Pantoprazole Sodium (Protonix Ec Tab) 40 mg PO 0600 [facility] Last Admin: 06/20/18 06:42 Dose: 40 mg Sennosides (Senokot Tab) 8.6 mg PO DAILY [facility] Last Admin: 06/20/18 09:39 Dose: 8.6 mg Sodium Chloride (Sodium Chloride Tab) 1 gm PO WM [facility] Last Admin: 06/20/18 18:15 Dose: 1 gm - Labs Labs: 06/20/18 06:35 06/20/18 06:35 PT 13.2 SECONDS (9.4-12.5) H 06/15/18 14:54 INR 1.15 06/15/18 14:54 APTT 27.5 Seconds (25.1-36.5) 06/15/18 14:54 - Constitutional Appears: No Acute Distress, Chronically Ill - Head Exam Head Exam: ATRAUMATIC, NORMAL INSPECTION, NORMOCEPHALIC - Eye Exam Eye Exam: EOMI, Normal appearance. absent: Conjunctival injection, Scleral icterus - ENT Exam ENT Exam: Mucous Membranes Moist - Respiratory Exam Respiratory Exam: Decreased Breath Sounds, NORMAL BREATHING PATTERN. absent: Accessory Muscle Use, Rales, Rhonchi, Wheezes, Respiratory Distress - Cardiovascular Exam Cardiovascular Exam: Tachycardia, +S1, +S2 - GI/Abdominal Exam GI & Abdominal Exam: Distended, Soft, Hypoactive Bowel Sounds. absent: Guarding, Rigid - Rectal Exam Rectal Exam: Deferred - Extremities Exam Extremities Exam: Pedal Edema - Neurological Exam Neurological Exam: Alert, Awake, Oriented x3 - Psychiatric Exam Psychiatric exam: Normal Affect, Normal Mood - Skin Skin Exam: Dry, Intact, Normal Color, Warm Assessment and Plan - Assessment and Plan (Free Text) Assessment: 1. Sepsis 2. Pancreatic ca Stage IV 3. Malignant Ascites 4. KIMBERLY 5. Pain management 6. Hemorrhoids 7. Gait dysfunction 8. Hyperkalemia Plan: Patient leukocytosis improving and has been afebrile overnight. As per ID will continue to monitor off abx. Patient's pain is controlled on current regimen and she has no bowel complaints with current bowel regimen. Patient is POD#1 paracentesis that removed almost 4L- will f/u fluid studies. Will continue to encourage patient to have PO intake. Case management and social work aware that patient to be d/c to [facility]. Will discuss with patient today. Appreciate reccs by Heme/onc, IR, ID, and pall care. Continue current management at this time. Discussed with Dr. Floyd Ariza PGY3 <Hank Barrientos S - Last Filed: 06/21/18 18:55> Objective - Vital Signs/Intake and Output Vital Signs (last 24 hours): Temp Pulse Resp BP Pulse Ox 97.3 F L 100 H 18 117/74 99 06/21/18 06:00 06/21/18 06:00 06/21/18 06:00 06/21/18 06:00 06/21/18 06:00 Intake and Output: 06/21/18 06/21/18 06:59 18:59 Intake Total 360 Balance 360 - Medications Medications: Current Medications Docusate Sodium (Colace) 100 mg PO BID [facility] Last Admin: 06/21/18 17:40 Dose: 100 mg Heparin Sodium (Porcine) (Heparin) 5,000 units SC Q8 [facility]; Protocol Last Admin: 06/21/18 15:20 Dose: 5,000 units Lorazepam (Ativan) 0.5 mg PO Q6 PRN; Protocol PRN Reason: Anxiety Last Admin: 06/17/18 03:59 Dose: 0.5 mg Multi-Ingredient Ointment (Prep-Hem) 0 ea TOP BID PRN PRN Reason: Hemorrhoids Ondansetron HCl (Zofran Inj) 4 mg IVP Q4H PRN PRN Reason: Nausea/Vomiting Oxycodone/Acetaminophen (Percocet 5/325 Mg Tab) 1 tab PO Q6H PRN PRN Reason: Pain, severe (8-10) Stop: 06/22/18 18:11 Last Admin: 06/21/18 18:26 Dose: 1 tab Pantoprazole Sodium (Protonix Ec Tab) 40 mg PO 0600 [facility] Last Admin: 06/21/18 06:16 Dose: 40 mg Sennosides (Senokot Tab) 8.6 mg PO DAILY [facility] Last Admin: 06/21/18 10:30 Dose: 8.6 mg Sodium Chloride (Sodium Chloride Tab) 1 gm PO WM [facility] Last Admin: 06/21/18 17:40 Dose: 1 gm - Labs Labs: 06/21/18 07:00 06/21/18 07:00 PT 13.2 SECONDS (9.4-12.5) H 06/15/18 14:54 INR 1.15 06/15/18 14:54 APTT 27.5 Seconds (25.1-36.5) 06/15/18 14:54 Assessment and Plan - Assessment and Plan (Free Text) Plan: Pt seen and examined by me. I have reviewed the note of the medical technologist clinical and I agree with it. I have discussed the assessment and plan with the resident. I have reviewed the medications and the last labs. Pt with abdominal tap with 4L of fluid removal. She had sepsis and is now off of Abx. ID is following. I have spoken to Dr Funk and he is planning to start the pt on chemo. She is agreeable to MIRA. The hyponatremia has improved. KIMBERLY has also improved. She is eating better.
[2018-06-21] MEDS: Pantoprazole 40 mg EC Tab PO SCH (06:16)
[2018-06-21 07:24] LABS: BASO # 0.01 K/mm3 (0.0-2.0); EOS # 0.2 (0.0-0.7); EOS % 0.9 % (1.5-5.0); GRAN # 19.12 (1.4-6.5); GRAN % 87.6 % (50.0-68.0); HEMOGLOBIN 14.8 g/dL (12.0-16.0); MEAN CELL VOLUME 93.4 fl (80.0-105.0); MEAN CORPUSCULAR HEMOGLOBIN 30.5 pg (25.0-35.0); MEAN CORPUSCULAR HGB CONC 32.7 g/dl (31.0-37.0); MONO # 0.6 (0.1-0.6); MONO % 2.5 % (1.0-6.0); RBC 4.85 10^6/uL (3.5-6.1); RED CELL DISTRIBUTION WIDTH 13.5 % (11.5-14.5); WHITE BLOOD COUNT 21.9 10^3/uL (4.5-11.0)
[2018-06-21 07:43] LABS: ALB/GLOB RATIO 0.8 (1.1-1.8); ALBUMIN 2.8 g/dL (3.0-4.8); CALCIUM 8.6 mg/dL (8.4-10.5)
--- NOTE | 2018-06-21 10:05 | CP.PCM.PN ---
Subjective - Date & Time of Evaluation Date of Evaluation: 06/21/18 Time of Evaluation: 10:01 - Subjective Subjective: PGY-2 heme/onc progress note for Dr Amaury Holt No acute events noted overnight. Patient stated she is feeling much better after having a paracentesis performed yesterday where almost 4L was removed. Still complained of some pressure in her abdomen. Objective - Vital Signs/Intake and Output Vital Signs (last 24 hours): Temp Pulse Resp BP Pulse Ox 97.3 F L 100 H 18 117/74 99 06/21/18 06:00 06/21/18 06:00 06/21/18 06:00 06/21/18 06:00 06/21/18 06:00 Intake and Output: 06/21/18 06/21/18 06:59 18:59 Intake Total 360 Balance 360 - Medications Medications: Current Medications Docusate Sodium (Colace) 100 mg PO BID [facility] Last Admin: 06/20/18 18:15 Dose: 100 mg Heparin Sodium (Porcine) (Heparin) 5,000 units SC Q8 [facility]; Protocol Last Admin: 06/21/18 06:16 Dose: 5,000 units Lorazepam (Ativan) 0.5 mg PO Q6 PRN; Protocol PRN Reason: Anxiety Last Admin: 06/17/18 03:59 Dose: 0.5 mg Multi-Ingredient Ointment (Prep-Hem) 0 ea TOP BID PRN PRN Reason: Hemorrhoids Ondansetron HCl (Zofran Inj) 4 mg IVP Q4H PRN PRN Reason: Nausea/Vomiting Oxycodone/Acetaminophen (Percocet 5/325 Mg Tab) 1 tab PO Q6H PRN PRN Reason: Pain, severe (8-10) Stop: 06/22/18 18:11 Last Admin: 06/21/18 01:29 Dose: 1 tab Pantoprazole Sodium (Protonix Ec Tab) 40 mg PO 0600 [facility] Last Admin: 06/21/18 06:16 Dose: 40 mg Sennosides (Senokot Tab) 8.6 mg PO DAILY [facility] Last Admin: 06/20/18 09:39 Dose: 8.6 mg Sodium Chloride (Sodium Chloride Tab) 1 gm PO WM [facility] Last Admin: 06/20/18 18:15 Dose: 1 gm - Labs Labs: 06/21/18 07:00 06/21/18 07:00 PT 13.2 SECONDS (9.4-12.5) H 06/15/18 14:54 INR 1.15 06/15/18 14:54 APTT 27.5 Seconds (25.1-36.5) 06/15/18 14:54 - Additional Findings Additional findings: - Constitutional Appears: No Acute Distress - Head Exam Head Exam: ATRAUMATIC, NORMAL INSPECTION, NORMOCEPHALIC - Eye Exam Eye Exam: EOMI, Normal appearance, PERRL - ENT Exam ENT Exam: Mucous Membranes Moist - Neck Exam Additional comments: supple - Respiratory Exam Respiratory Exam: Clear to Ausculation Bilateral. absent: Rales, Rhonchi, Wheezes - Cardiovascular Exam Cardiovascular Exam: REGULAR RHYTHM. absent: +S1, +S2 - GI/Abdominal Exam GI & Abdominal Exam: Distended, Tenderness, Hypoactive Bowel Sounds. absent: Guarding (improves), Rigid - Extremities Exam Extremities Exam: Pedal Edema. absent: Calf Tenderness - Back Exam Back Exam: absent: CVA tenderness (L), CVA tenderness (R) - Neurological Exam Neurological Exam: Alert, Awake, Oriented x3 - Psychiatric Exam Psychiatric exam: Normal Affect, Normal Mood - Skin Skin Exam: Dry, Warm Assessment and Plan - Assessment and Plan (Free Text) Plan: Ms. Coppola esau 63 y/o women with pmhx significant for stage IV pancreatic cancer c/b malignant ascites currently admitted for SBP and ARF with associated electrolye abnormalities s/p paracentesis. stage IV pancreatic cancer c/b malignant ascites -Patient's abdomen appears to be getting distended again. * Repeat paracentesis performed 06/20/18 with 3800cc removed -Could conceivably consider peritoneal catheter placement but given recent hx of SBP would probably hold off for now. -Once patient stablized from kidney and electrolyte vantage point and tolerating PO intake can consider palliative gem/abraxane. Dispo: [facility] planning Case discussed with Dr Amaury Holt
--- NOTE | 2018-06-21 16:44 | CP.PCM.PN ---
Subjective - Date & Time of Evaluation Date of Evaluation: 06/21/18 Time of Evaluation: 09:30 - Subjective Subjective: No fevers, not in distress. Objective - Vital Signs/Intake and Output Vital Signs (last 24 hours): Temp Pulse Resp BP Pulse Ox 98.1 F 95 H 18 114/66 96 06/20/18 14:00 06/20/18 14:00 06/20/18 14:00 06/20/18 14:00 06/20/18 14:00 - Medications Medications: Current Medications Docusate Sodium (Colace) 100 mg PO BID [facility] Last Admin: 06/20/18 09:38 Dose: 100 mg Heparin Sodium (Porcine) (Heparin) 5,000 units SC Q8 [facility]; Protocol Last Admin: 06/20/18 13:17 Dose: 5,000 units Lorazepam (Ativan) 0.5 mg PO Q6 PRN; Protocol PRN Reason: Anxiety Last Admin: 06/17/18 03:59 Dose: 0.5 mg Multi-Ingredient Ointment (Prep-Hem) 0 ea TOP BID PRN PRN Reason: Hemorrhoids Ondansetron HCl (Zofran Inj) 4 mg IVP Q4H PRN PRN Reason: Nausea/Vomiting Oxycodone/Acetaminophen (Percocet 5/325 Mg Tab) 1 tab PO Q6H PRN PRN Reason: Pain, severe (8-10) Stop: 06/22/18 18:11 Last Admin: 06/20/18 12:39 Dose: 1 tab Pantoprazole Sodium (Protonix Ec Tab) 40 mg PO 0600 [facility] Last Admin: 06/20/18 06:42 Dose: 40 mg Sennosides (Senokot Tab) 8.6 mg PO DAILY [facility] Last Admin: 06/20/18 09:39 Dose: 8.6 mg Sodium Chloride (Sodium Chloride Tab) 1 gm PO WM [facility] Last Admin: 06/20/18 12:38 Dose: 1 gm - Labs Labs: 06/20/18 06:35 06/20/18 06:35 PT 13.2 SECONDS (9.4-12.5) H 06/15/18 14:54 INR 1.15 06/15/18 14:54 APTT 27.5 Seconds (25.1-36.5) 06/15/18 14:54 - Constitutional Appears: Chronically Ill - Head Exam Head Exam: NORMAL INSPECTION - ENT Exam ENT Exam: Mucous Membranes Moist - Respiratory Exam Respiratory Exam: Decreased Breath Sounds - Cardiovascular Exam Cardiovascular Exam: +S1, +S2 - GI/Abdominal Exam GI & Abdominal Exam: Soft. absent: Tenderness Assessment and Plan - Assessment and Plan (Free Text) Plan: Assessment S/P severe sepsis with KIMBERLY due to IAI in this patient in this patient with stage 4 pancreatic cancer with liver metastases history of chronic alcohol use Plan cultures have been negative will continue to monitor off antibiotics since she is at risk for hospital- acquired infections overall prognosis is poor
[2018-06-22] MEDS: Oxycodone/Acetaminophen 5/325 mg Tab PO PRN ×4 (00:12→22:12)
[2018-06-22] MEDS: Pantoprazole 40 mg EC Tab PO SCH (05:41)
[2018-06-22 07:00] LABS: BASO # 0.02 K/mm3 (0.0-2.0); BASO % 0.1 % (0.0-3.0); EOS # 0.1 (0.0-0.7); EOS % 0.4 % (1.5-5.0); GRAN # 22.76 (1.4-6.5); GRAN % 89.8 % (50.0-68.0); LYMPH % 3.9 % (22.0-35.0); MEAN CELL VOLUME 93.5 fl (80.0-105.0); MEAN CORPUSCULAR HEMOGLOBIN 30.5 pg (25.0-35.0); MEAN CORPUSCULAR HGB CONC 32.7 g/dl (31.0-37.0); MEAN PLATELET VOLUME 10.2 fl (7.0-11.0); MONO # 1.5 (0.1-0.6); MONO % 5.8 % (1.0-6.0); PLATELET COUNT 229 10^3/uL (120.0-450.0); RBC 4.91 10^6/uL (3.5-6.1); RED CELL DISTRIBUTION WIDTH 13.7 % (11.5-14.5)
[2018-06-22 07:04] LABS: ALB/GLOB RATIO 0.8 (1.1-1.8); ALBUMIN 2.7 g/dL (3.0-4.8); CALCIUM 8.3 mg/dL (8.4-10.5)
[2018-06-22 07:12] LABS: WHITE BLOOD COUNT 25.4 10^3/uL (4.5-11.0)
[2018-06-22 08:13] LABS: BAND 1 % (0-2); LARGE PLATELETS PRESENT; LYMPHOCYTE 5 % (22.0-35.0); MONOCYTE 1 % (1.0-6.0); NEUTROPHIL 93 % (50.0-70.0); PLATELET ESTIMATE NORMAL (NORMAL)
--- NOTE | 2018-06-22 11:03 | CP.PCM.PN ---
<ToAditi - Last Filed: 06/22/18 17:27> Subjective - Date & Time of Evaluation Date of Evaluation: 06/22/18 Time of Evaluation: 09:00 - Subjective Subjective: Pgy3 Medicine note for Dr. Barrientos Patient seen and examined at bedside. Nursing reports no acute events overnight. Patient stated pain is controlled at this time although she feels like her abdomen is become distended once again and she is experiencing some pressure. She denied other acute complaints fever, chills, headache, chest pain, palpitations, SOB, cough, nausea, vomiting, bowel/bladder complaints. She continues to complain of b/l LE swelling. Objective - Vital Signs/Intake and Output Vital Signs (last 24 hours): Temp Pulse Resp BP Pulse Ox 98.1 F 95 H 18 122/78 95 06/22/18 06:00 06/22/18 06:00 06/22/18 06:00 06/22/18 06:00 06/22/18 06:00 Intake and Output: 06/22/18 06/22/18 06:59 18:59 Intake Total 1000 Output Total 3500 Balance -2500 - Medications Medications: Current Medications Docusate Sodium (Colace) 100 mg PO BID [facility] Last Admin: 06/22/18 10:35 Dose: 100 mg Heparin Sodium (Porcine) (Heparin) 5,000 units SC Q8 [facility]; Protocol Last Admin: 06/22/18 05:40 Dose: 5,000 units Lorazepam (Ativan) 0.5 mg PO Q6 PRN; Protocol PRN Reason: Anxiety Last Admin: 06/17/18 03:59 Dose: 0.5 mg Multi-Ingredient Ointment (Prep-Hem) 0 ea TOP BID PRN PRN Reason: Hemorrhoids Ondansetron HCl (Zofran Inj) 4 mg IVP Q4H PRN PRN Reason: Nausea/Vomiting Oxycodone/Acetaminophen (Percocet 5/325 Mg Tab) 1 tab PO Q6H PRN PRN Reason: Pain, severe (8-10) Stop: 06/22/18 18:11 Last Admin: 06/22/18 07:02 Dose: 1 tab Pantoprazole Sodium (Protonix Ec Tab) 40 mg PO 0600 [facility] Last Admin: 06/22/18 05:41 Dose: 40 mg Sennosides (Senokot Tab) 8.6 mg PO DAILY [facility] Last Admin: 06/22/18 10:35 Dose: 8.6 mg Sodium Chloride (Sodium Chloride Tab) 1 gm PO WM [facility] Last Admin: 06/22/18 10:35 Dose: 1 gm - Labs Labs: 06/22/18 06:10 06/22/18 06:10 PT 13.2 SECONDS (9.4-12.5) H 06/15/18 14:54 INR 1.15 06/15/18 14:54 APTT 27.5 Seconds (25.1-36.5) 06/15/18 14:54 - Constitutional Appears: Chronically Ill - Head Exam Head Exam: ATRAUMATIC, NORMAL INSPECTION, NORMOCEPHALIC - Eye Exam Eye Exam: EOMI, Normal appearance. absent: Conjunctival injection, Scleral icterus - ENT Exam ENT Exam: Mucous Membranes Moist - Neck Exam Neck Exam: Full ROM - Respiratory Exam Respiratory Exam: NORMAL BREATHING PATTERN. absent: Accessory Muscle Use, Rales, Rhonchi, Wheezes, Respiratory Distress - Cardiovascular Exam Cardiovascular Exam: Tachycardia, +S1, +S2 - GI/Abdominal Exam GI & Abdominal Exam: Distended, Soft, Tenderness (to palpation), Hypoactive Bowel Sounds. absent: Firm, Rigid - Extremities Exam Extremities Exam: Pedal Edema. absent: Tenderness - Neurological Exam Neurological Exam: Alert, Awake, Oriented x3 - Psychiatric Exam Psychiatric exam: Normal Affect, Normal Mood - Skin Skin Exam: Dry, Intact, Normal Color Assessment and Plan - Assessment and Plan (Free Text) Assessment: 1. Pancreatic ca Stage IV 2. Malignant Ascites 3. KIMBERLY 4. Pain management 5. Hemorrhoids 6. Gait dysfunction Plan: Patient's elevation in wbc noted. Patient to be transferred to 3rd floor for chemo as per heme/onc team. Patient is pod#2 paracentesis but abdomen seems to becoming distentded once again. Continuing to monitor patient off abx at this time as cultures so far have remained negative. Continue pain management and bowel regimen. As per case workers, patient to be discharged home with services when medically optimized. Will continue current management at this time and monitor closely. Discussed with Dr. Floyd Ariza PGY3 <Hank Barrientos - Last Filed: 06/22/18 18:29> Objective - Vital Signs/Intake and Output Vital Signs (last 24 hours): Temp Pulse Resp BP Pulse Ox 98.7 F 86 16 124/73 98 06/22/18 14:00 06/22/18 14:00 06/22/18 14:00 06/22/18 14:00 06/22/18 14:00 Intake and Output: 06/22/18 06/22/18 06:59 18:59 Intake Total 1000 Output Total 3500 Balance -2500 - Medications Medications: Current Medications Docusate Sodium (Colace) 100 mg PO BID [facility] Last Admin: 06/22/18 10:35 Dose: 100 mg Heparin Sodium (Porcine) (Heparin) 5,000 units SC Q8 [facility]; Protocol Last Admin: 06/22/18 14:40 Dose: 5,000 units Lorazepam (Ativan) 0.5 mg PO Q6 PRN; Protocol PRN Reason: Anxiety Last Admin: 06/17/18 03:59 Dose: 0.5 mg Multi-Ingredient Ointment (Prep-Hem) 0 ea TOP BID PRN PRN Reason: Hemorrhoids Ondansetron HCl (Zofran Inj) 4 mg IVP Q4H PRN PRN Reason: Nausea/Vomiting Pantoprazole Sodium (Protonix Ec Tab) 40 mg PO 0600 [facility] Last Admin: 06/22/18 05:41 Dose: 40 mg Sennosides (Senokot Tab) 8.6 mg PO DAILY [facility] Last Admin: 06/22/18 10:35 Dose: 8.6 mg Sodium Chloride (Sodium Chloride Tab) 1 gm PO WM [facility] Last Admin: 06/22/18 14:40 Dose: 1 gm - Labs Labs: 06/22/18 06:10 06/22/18 06:10 PT 13.2 SECONDS (9.4-12.5) H 06/15/18 14:54 INR 1.15 06/15/18 14:54 APTT 27.5 Seconds (25.1-36.5) 06/15/18 14:54 Assessment and Plan - Assessment and Plan (Free Text) Plan: Pt seen and examined by me. I have reviewed the note of the medical office receptionist assistant and I agree with it. I have discussed the assessment and plan with the resident. I have reviewed the medications and the last labs. Pt was not accepted to [facility]CU or [facility]. She is waiting for chemo to be given by Dr Funk. I spoke to ID about the elevated WCC. It is ok to give chemo as Dr Puente felt that the elevated WCC was due to to the Pancreatic Ca. She is tolerating her diet. Pain is controlled. She does have some LE edema. She is getting PT.
--- NOTE | 2018-06-22 19:17 | CP.PCM.PN ---
Subjective - Date & Time of Evaluation Date of Evaluation: 06/22/18 Time of Evaluation: 08:45 - Subjective Subjective: Comfortable, no fever or chills, not in distress, no diarrhea. Objective - Vital Signs/Intake and Output Vital Signs (last 24 hours): Temp Pulse Resp BP Pulse Ox 98.7 F 86 16 124/73 98 06/22/18 14:00 06/22/18 14:00 06/22/18 14:00 06/22/18 14:00 06/22/18 14:00 - Medications Medications: Current Medications Docusate Sodium (Colace) 100 mg PO BID [facility] Last Admin: 06/22/18 18:11 Dose: 100 mg Heparin Sodium (Porcine) (Heparin) 5,000 units SC Q8 [facility]; Protocol Last Admin: 06/22/18 14:40 Dose: 5,000 units Lorazepam (Ativan) 0.5 mg PO Q6 PRN; Protocol PRN Reason: Anxiety Last Admin: 06/17/18 03:59 Dose: 0.5 mg Multi-Ingredient Ointment (Prep-Hem) 0 ea TOP BID PRN PRN Reason: Hemorrhoids Ondansetron HCl (Zofran Inj) 4 mg IVP Q4H PRN PRN Reason: Nausea/Vomiting Pantoprazole Sodium (Protonix Ec Tab) 40 mg PO 0600 [facility] Last Admin: 06/22/18 05:41 Dose: 40 mg Sennosides (Senokot Tab) 8.6 mg PO DAILY [facility] Last Admin: 06/22/18 10:35 Dose: 8.6 mg Sodium Chloride (Sodium Chloride Tab) 1 gm PO WM [facility] Last Admin: 06/22/18 18:11 Dose: 1 gm - Labs Labs: 06/22/18 06:10 06/22/18 06:10 PT 13.2 SECONDS (9.4-12.5) H 06/15/18 14:54 INR 1.15 06/15/18 14:54 APTT 27.5 Seconds (25.1-36.5) 06/15/18 14:54 - Constitutional Appears: Chronically Ill - Head Exam Head Exam: NORMAL INSPECTION - Respiratory Exam Respiratory Exam: Decreased Breath Sounds - Cardiovascular Exam Cardiovascular Exam: +S1, +S2 - GI/Abdominal Exam GI & Abdominal Exam: Soft. absent: Tenderness Assessment and Plan - Assessment and Plan (Free Text) Plan: Assessment S/P severe sepsis with KIMBERLY due to IAI in this patient in this patient with stage 4 pancreatic cancer with liver metastases persistent leukocytosis probably from cancer history of chronic alcohol use Plan cultures have been negative will continue to monitor off antibiotics since she is at risk for hospital- acquired infections discussed with Dr. Patel - patient is to be started on chemotherapy overall prognosis is poor
[2018-06-23] MEDS: Oxycodone/Acetaminophen 5/325 mg Tab PO PRN ×3 (05:20→18:41)
[2018-06-23] MEDS: Pantoprazole 40 mg EC Tab PO SCH (05:21)
[2018-06-23 06:59] LABS: BASO # 0.02 K/mm3 (0.0-2.0); BASO % 0.1 % (0.0-3.0); EOS # 0.1 (0.0-0.7); EOS % 0.5 % (1.5-5.0); GRAN # 25.91 (1.4-6.5); GRAN % 90.3 % (50.0-68.0); LYMPH # 1.1 (1.2-3.4); LYMPH % 3.8 % (22.0-35.0); MEAN CELL VOLUME 93.9 fl (80.0-105.0); MEAN CORPUSCULAR HEMOGLOBIN 30.7 pg (25.0-35.0); MEAN CORPUSCULAR HGB CONC 32.7 g/dl (31.0-37.0); MEAN PLATELET VOLUME 10.3 fl (7.0-11.0); MONO # 1.5 (0.1-0.6); MONO % 5.3 % (1.0-6.0); RBC 4.89 10^6/uL (3.5-6.1); RED CELL DISTRIBUTION WIDTH 13.9 % (11.5-14.5)
[2018-06-23 07:24] LABS: ALB/GLOB RATIO 0.8 (1.1-1.8); ALBUMIN 2.8 g/dL (3.0-4.8); CALCIUM 8.7 mg/dL (8.4-10.5)
[2018-06-23] MEDS ORDERED: Dextrose 50% SYRINGE Inj (50 ml) IVP ONE (07:35)
[2018-06-23] MEDS ORDERED: Insulin Regular 1 UNITS/0.01 ML ML SC ONE (07:35)
[2018-06-23 08:07] LABS: WHITE BLOOD COUNT 28.7 10^3/uL (4.5-11.0)
--- NOTE | 2018-06-23 08:14 | CP.PCM.PN ---
<dAiti Ariza - Last Filed: 06/23/18 11:27> Subjective - Date & Time of Evaluation Date of Evaluation: 06/23/18 Time of Evaluation: 07:00 - Subjective Subjective: Pgy3 Medicine Progress note for Dr. Barrientos Patient seen and examined at bedside. Transferred to [facility] as she is due for chemo today. Patient was in acute distress this AM. Sister at bedside. She was having trouble finding a comfortable position because of the pain in her abdomen and reported that her continuous hiccups were giving her more pain. She reported her abdomen felt tighter and more distended and that the pain although diffuse was 10/10 in her lower abdomen. She had a big BM the day prior and is eating as much as possible. Patient denied other complaints of fever, chills, headache, dizziness, chest pain, palpitations, SOB, cough, nausea, vomiting, pain in her legs b/l. Patient's legs are still swollen b/l. Objective - Vital Signs/Intake and Output Vital Signs (last 24 hours): Temp Pulse Resp BP Pulse Ox 97.7 F 87 18 130/81 98 06/22/18 20:25 06/22/18 20:25 06/22/18 20:25 06/22/18 20:25 06/22/18 20:25 Intake and Output: 06/23/18 06/23/18 06:59 18:59 Intake Total 720 Balance 720 - Medications Medications: Current Medications Docusate Sodium (Colace) 100 mg PO BID [facility] Last Admin: 06/22/18 18:11 Dose: 100 mg Heparin Sodium (Porcine) (Heparin) 5,000 units SC Q8 [facility]; Protocol Last Admin: 06/23/18 05:22 Dose: 5,000 units Calcium Gluconate 1,000 mg/ (Sodium Chloride) 110 mls @ 110 mls/hr IVPB ONCE ONE Stop: 06/23/18 08:30 Lorazepam (Ativan) 0.5 mg PO Q6 PRN; Protocol PRN Reason: Anxiety Last Admin: 06/17/18 03:59 Dose: 0.5 mg Multi-Ingredient Ointment (Prep-Hem) 0 ea TOP BID PRN PRN Reason: Hemorrhoids Ondansetron HCl (Zofran Inj) 4 mg IVP Q4H PRN PRN Reason: Nausea/Vomiting Oxycodone/Acetaminophen (Percocet 5/325 Mg Tab) 1 tab PO Q6H PRN PRN Reason: Pain, moderate (4-7) Stop: 06/25/18 19:41 Last Admin: 06/23/18 05:20 Dose: 1 tab Pantoprazole Sodium (Protonix Ec Tab) 40 mg PO 0600 [facility] Last Admin: 06/23/18 05:21 Dose: 40 mg Sennosides (Senokot Tab) 8.6 mg PO DAILY [facility] Last Admin: 06/22/18 10:35 Dose: 8.6 mg Sodium Chloride (Sodium Chloride Tab) 1 gm PO WM [facility] Last Admin: 06/22/18 18:11 Dose: 1 gm - Labs Labs: 06/23/18 06:25 06/23/18 06:25 PT 13.2 SECONDS (9.4-12.5) H 06/15/18 14:54 INR 1.15 06/15/18 14:54 APTT 27.5 Seconds (25.1-36.5) 06/15/18 14:54 - Constitutional Appears: In Acute Distress (pain), Chronically Ill - Head Exam Head Exam: ATRAUMATIC, NORMAL INSPECTION, NORMOCEPHALIC - Eye Exam Eye Exam: EOMI, Normal appearance, PERRL. absent: Conjunctival injection, Scleral icterus - ENT Exam ENT Exam: Mucous Membranes Moist Additional comments: NC in place - Respiratory Exam Respiratory Exam: Decreased Breath Sounds, NORMAL BREATHING PATTERN. absent: Accessory Muscle Use, Rales, Rhonchi, Wheezes, Respiratory Distress - Cardiovascular Exam Cardiovascular Exam: +S1, +S2 - GI/Abdominal Exam GI & Abdominal Exam: Distended, Soft, Tenderness (to light palpation), Hypoactive Bowel Sounds. absent: Firm, Guarding, Rigid, Pulsatile Mass - Extremities Exam Extremities Exam: Pedal Edema. absent: Joint Swelling, Tenderness - Neurological Exam Neurological Exam: Alert, Awake, CN II-XII Intact, Oriented x3 - Psychiatric Exam Psychiatric exam: Normal Affect, Normal Mood - Skin Skin Exam: Dry, Intact Assessment and Plan - Assessment and Plan (Free Text) Assessment: 1. Pancreatic ca Stage IV 2. Malignant Ascites 3. Hyperkalemia 4. KIMBERLY 5. Pain management 6. Hemorrhoids 7. Gait dysfunction Plan: Patient's vitals, bloodwork, and imaging reviewed. Patient's potassium elevated this AM 6.1. STAT EKG ordered and revealed no T elevations. Patient was given cocktail of calcium gluconate, insulin, and D50. Will recheck BMP in 4 hours. Patient in a lot of pain this AM; have added morphine to pain regimen as needed in addition to percocet. Continue bowel regimen with Senna and Colace to avoid constipation. Patient going for chemotherapy today as per heme/onc. Will be given kayexalate after. Patient's abdomen seems more distended this morning- abdominal u/s ordered to see if there is any fluid to tap. Patient's creatinine is stable at this time. Continue hemorrhoid ointment at this time. GI and DVT ppx ordered. Patient on HHD with supplements. At this time PT recommends home with services. Discussed with Dr. Floyd Ariza PGY3 <Hank Barrientos S - Last Filed: 06/25/18 15:49> Objective - Vital Signs/Intake and Output Vital Signs (last 24 hours): Temp Pulse Resp BP Pulse Ox 97.7 F 101 H 20 122/80 96 06/25/18 06:00 06/25/18 06:00 06/25/18 06:00 06/25/18 06:00 06/25/18 06:00 Intake and Output: 06/25/18 06/25/18 06:59 18:59 Intake Total 400 Output Total 300 Balance 100 - Medications Medications: Current Medications Bisacodyl (Dulcolax) 10 mg RC DAILY PRN PRN Reason: Constipation Docusate Sodium (Colace) 100 mg PO BID [facility] Last Admin: 06/25/18 12:52 Dose: 100 mg Heparin Sodium (Porcine) (Heparin) 5,000 units SC Q12 [facility]; Protocol Dextrose/Sodium Chloride (Dextrose 5%/0.9% Ns 1000 Ml) 1,000 mls @ 50 mls/hr IV .Q20H [facility] Last Admin: 06/25/18 13:04 Dose: 50 mls/hr Lorazepam (Ativan) 0.5 mg PO Q6 PRN; Protocol PRN Reason: Anxiety Last Admin: 06/17/18 03:59 Dose: 0.5 mg Morphine Sulfate (Morphine) 3 mg IVP Q3H PRN PRN Reason: Pain, moderate (4-7) Multi-Ingredient Ointment (Prep-Hem) 0 ea TOP BID PRN PRN Reason: Hemorrhoids Nystatin (Nystatin Oral Susp) 5 ml PO QID [facility] Last Admin: 06/25/18 14:45 Dose: 5 ml Ondansetron HCl (Zofran Inj) 4 mg IVP Q4H PRN PRN Reason: Nausea/Vomiting Last Admin: 06/24/18 19:14 Dose: 4 mg Oxycodone/Acetaminophen (Percocet 5/325 Mg Tab) 1 tab PO Q6H PRN PRN Reason: Pain, moderate (4-7) Stop: 06/25/18 19:41 Last Admin: 06/25/18 06:49 Dose: 1 tab Pantoprazole Sodium (Protonix Ec Tab) 40 mg PO 0600 [facility] Last Admin: 06/25/18 05:57 Dose: 40 mg Sennosides (Senokot Tab) 8.6 mg PO DAILY [facility] Last Admin: 06/25/18 12:52 Dose: 8.6 mg Sodium Chloride (Sodium Chloride Tab) 1 gm PO WM [facility] Last Admin: 06/25/18 13:00 Dose: Not Given - Labs Labs: 06/25/18 08:20 06/25/18 08:20 PT 13.2 SECONDS (9.4-12.5) H 06/15/18 14:54 INR 1.15 06/15/18 14:54 APTT 27.5 Seconds (25.1-36.5) 06/15/18 14:54 Assessment and Plan - Assessment and Plan (Free Text) Plan: Pt seen and examined by me. This is late entry. I have reviewed the note of the medical doctor md/medical director and I agree with it. I have discussed the assessment and plan with the resident. I have reviewed the medications and the last labs. Pt with Pancreatic CA. She has K that is high. She lorie be placed on Kayexelate. She has malignant ascites. She is going to get chemo today. He prognosis is poor. Will get palliative care consult.
[2018-06-23] MEDS ORDERED: Insulin Regular 1 UNITS/0.01 ML ML IV ONE (08:37)
--- NOTE | 2018-06-23 09:19 | CP.PCM.PN ---
Subjective - Date & Time of Evaluation Date of Evaluation: 06/23/18 Time of Evaluation: 09:17 - Subjective Subjective: PGY-2 heme/onc progress note for Dr Amaury Holt No acute events overnight. Patient complained of abd discomfort and feeling nauseous. Slated for chemo infusion later today. Objective - Vital Signs/Intake and Output Vital Signs (last 24 hours): Temp Pulse Resp BP Pulse Ox 97.8 F 89 20 128/81 100 06/23/18 08:14 06/23/18 08:14 06/23/18 08:14 06/23/18 08:14 06/23/18 08:14 Intake and Output: 06/23/18 06/23/18 06:59 18:59 Intake Total 720 Balance 720 - Medications Medications: Current Medications Docusate Sodium (Colace) 100 mg PO BID [facility] Last Admin: 06/22/18 18:11 Dose: 100 mg Heparin Sodium (Porcine) (Heparin) 5,000 units SC Q8 [facility]; Protocol Last Admin: 06/23/18 05:22 Dose: 5,000 units Lorazepam (Ativan) 0.5 mg PO Q6 PRN; Protocol PRN Reason: Anxiety Last Admin: 06/17/18 03:59 Dose: 0.5 mg Multi-Ingredient Ointment (Prep-Hem) 0 ea TOP BID PRN PRN Reason: Hemorrhoids Ondansetron HCl (Zofran Inj) 4 mg IVP Q4H PRN PRN Reason: Nausea/Vomiting Oxycodone/Acetaminophen (Percocet 5/325 Mg Tab) 1 tab PO Q6H PRN PRN Reason: Pain, moderate (4-7) Stop: 06/25/18 19:41 Last Admin: 06/23/18 05:20 Dose: 1 tab Pantoprazole Sodium (Protonix Ec Tab) 40 mg PO 0600 [facility] Last Admin: 06/23/18 05:21 Dose: 40 mg Sennosides (Senokot Tab) 8.6 mg PO DAILY [facility] Last Admin: 06/22/18 10:35 Dose: 8.6 mg Sodium Chloride (Sodium Chloride Tab) 1 gm PO WM [facility] Last Admin: 06/22/18 18:11 Dose: 1 gm - Labs Labs: 06/23/18 06:25 06/23/18 06:25 PT 13.2 SECONDS (9.4-12.5) H 06/15/18 14:54 INR 1.15 06/15/18 14:54 APTT 27.5 Seconds (25.1-36.5) 06/15/18 14:54 - Additional Findings Additional findings: - Constitutional Appears: No Acute Distress - Head Exam Head Exam: ATRAUMATIC, NORMAL INSPECTION, NORMOCEPHALIC - Eye Exam Eye Exam: EOMI, Normal appearance, PERRL - ENT Exam ENT Exam: Mucous Membranes Moist - Neck Exam Additional comments: supple - Respiratory Exam Respiratory Exam: Clear to Ausculation Bilateral. absent: Rales, Rhonchi, Whe ezes - Cardiovascular Exam Cardiovascular Exam: REGULAR RHYTHM. absent: +S1, +S2 - GI/Abdominal Exam GI & Abdominal Exam: Distended, Tenderness, Hypoactive Bowel Sounds. absent: Guarding (improves), Rigid - Extremities Exam Extremities Exam: Pedal Edema. absent: Calf Tenderness - Back Exam Back Exam: absent: CVA tenderness (L), CVA tenderness (R) - Neurological Exam Neurological Exam: Alert, Awake, Oriented x3 - Psychiatric Exam Psychiatric exam: Normal Affect, Normal Mood - Skin Skin Exam: Dry, Warm Assessment and Plan - Assessment and Plan (Free Text) Plan: Ms. Coppola esau 63 y/o women with pmhx significant for stage IV pancreatic cancer c/b malignant ascites currently admitted for SBP and ARF with associated electrolye abnormalities s/p paracentesis. stage IV pancreatic cancer c/b malignant ascites -Patient's abdomen appears to be getting distended again. * Repeat paracentesis performed 06/20/18 with 3800cc removed -Could conceivably consider peritoneal catheter placement but given recent hx of SBP would probably hold off for now. -Once patient stablized from kidney and electrolyte vantage point and tolerating PO intake can consider palliative gem/abraxane. -now receiving chemo in-house * gem/abraxane on 06/23/18, cycle is for day 1, 8, 15 -order for abd u/s on 06/23 for abd discomfort -we will consider neupogen infusion for her Dispo: as per case workers, patient to be discharged home with services when me dically optimized (not accepted to TCU or [facility]) Case discussed with Dr Amaury Holt
[2018-06-23] MEDS ORDERED: Morphine 2 mg/ml ISec IVP ONE (10:26)
[2018-06-23 12:09] LABS: CALCIUM 8.7 mg/dL (8.4-10.5)
[2018-06-23] MEDS ORDERED: SODIUM CHLORIDE 0.9% IV ONE ×2 (14:00)
[2018-06-23] MEDS ORDERED: GEMCITABINE IV ONE (14:00)
[2018-06-23] MEDS ORDERED: SODIUM CHLORIDE 0.9% IVPB ONE (14:00)
[2018-06-23] MEDS ORDERED: ONDANSETRON IVPB ONE (14:00)
[2018-06-23] MEDS ORDERED: FAMOTIDINE IVPB ONE (14:00)
[2018-06-23] MEDS ORDERED: DEXAMETHASONE IVPB ONE (14:00)
[2018-06-23] MEDS ORDERED: PACLITAXEL PROTEIN BOUND IV ONE (14:00)
--- NOTE | 2018-06-23 15:48 | CP.PCM.PN ---
Subjective - Date & Time of Evaluation Date of Evaluation: 06/23/18 Time of Evaluation: 09:50 - Subjective Subjective: Having intermittent abdominal pain and some nausea. No fevers. Objective - Vital Signs/Intake and Output Vital Signs (last 24 hours): Temp Pulse Resp BP Pulse Ox 98.7 F 86 16 124/73 98 06/22/18 14:00 06/22/18 14:00 06/22/18 14:00 06/22/18 14:00 06/22/18 14:00 - Medications Medications: Current Medications Docusate Sodium (Colace) 100 mg PO BID [facility] Last Admin: 06/22/18 18:11 Dose: 100 mg Heparin Sodium (Porcine) (Heparin) 5,000 units SC Q8 [facility]; Protocol Last Admin: 06/22/18 14:40 Dose: 5,000 units Lorazepam (Ativan) 0.5 mg PO Q6 PRN; Protocol PRN Reason: Anxiety Last Admin: 06/17/18 03:59 Dose: 0.5 mg Multi-Ingredient Ointment (Prep-Hem) 0 ea TOP BID PRN PRN Reason: Hemorrhoids Ondansetron HCl (Zofran Inj) 4 mg IVP Q4H PRN PRN Reason: Nausea/Vomiting Pantoprazole Sodium (Protonix Ec Tab) 40 mg PO 0600 [facility] Last Admin: 06/22/18 05:41 Dose: 40 mg Sennosides (Senokot Tab) 8.6 mg PO DAILY [facility] Last Admin: 06/22/18 10:35 Dose: 8.6 mg Sodium Chloride (Sodium Chloride Tab) 1 gm PO WM [facility] Last Admin: 06/22/18 18:11 Dose: 1 gm - Labs Labs: 06/22/18 06:10 06/22/18 06:10 PT 13.2 SECONDS (9.4-12.5) H 06/15/18 14:54 INR 1.15 06/15/18 14:54 APTT 27.5 Seconds (25.1-36.5) 06/15/18 14:54 - Constitutional Appears: Chronically Ill - Head Exam Head Exam: NORMAL INSPECTION - Respiratory Exam Respiratory Exam: Decreased Breath Sounds - Cardiovascular Exam Cardiovascular Exam: +S1, +S2 - GI/Abdominal Exam GI & Abdominal Exam: Distended, Soft. absent: Tenderness Assessment and Plan - Assessment and Plan (Free Text) Plan: Assessment S/P severe sepsis with KIMBERLY due to IAI in this patient in this patient with stage 4 pancreatic cancer with liver metastases persistent leukocytosis probably from cancer history of chronic alcohol use Plan cultures have been negative will continue to monitor off antibiotics since she is at risk for hospital- acquired infections discussed with Dr. Patel - patient is to be started on chemotherapy overall prognosis is poor follow up ultrasound of the abdomen - patient may need more ascitic fluid drainage
[2018-06-23] MEDS: Morphine 2 mg/ml ISec IVP PRN (16:11)
--- NOTE | 2018-06-23 16:26 | CARD ---
APPROVED REPORT Date of service: 06/23/2018 EKG Measurement Heart [id number] <Conclusion> Normal sinus rhythm Septal infarct, age undetermined NSSTW changes
[2018-06-24] MEDS: Morphine 2 mg/ml ISec IVP PRN ×4 (00:19→20:23)
[2018-06-24] MEDS: Oxycodone/Acetaminophen 5/325 mg Tab PO PRN (01:39)
[2018-06-24] MEDS ORDERED: Morphine 2 mg/ml ISec IVP ONE (02:35)
--- NOTE | 2018-06-24 05:21 | CP.PCM.PN ---
<Luis Alberto Arizaima - Last Filed: 06/24/18 12:26> Subjective - Date & Time of Evaluation Date of Evaluation: 06/24/18 Time of Evaluation: 07:30 - Subjective Subjective: Pgy3 Medicine note for Dr. Barrientos Patient seen and examined at bedside. Patient was in pain and uncomfortable this AM. She reports she had an episode of nonbloody nonbilious emesis after taking salt tab this AM. Patient also reported she felt like her abdomen had become distended again. She complained of some nausea and constantly wanting to belch. She denied complaints of chest pain or SOB. Patient continues to have b/l LE swelling. Objective - Vital Signs/Intake and Output Vital Signs (last 24 hours): Temp Pulse Resp BP Pulse Ox 97.4 F L 92 H 19 118/79 98 06/23/18 17:51 06/23/18 17:51 06/23/18 17:51 06/23/18 17:51 06/23/18 17:51 - Medications Medications: Current Medications Docusate Sodium (Colace) 100 mg PO BID [facility] Last Admin: 06/23/18 18:40 Dose: 100 mg Heparin Sodium (Porcine) (Heparin) 5,000 units SC Q8 [facility]; Protocol Last Admin: 06/23/18 21:32 Dose: 5,000 units Lorazepam (Ativan) 0.5 mg PO Q6 PRN; Protocol PRN Reason: Anxiety Last Admin: 06/17/18 03:59 Dose: 0.5 mg Morphine Sulfate (Morphine) 1 mg IVP Q4H PRN PRN Reason: Pain, severe (8-10) Last Admin: 06/24/18 00:19 Dose: 1 mg Multi-Ingredient Ointment (Prep-Hem) 0 ea TOP BID PRN PRN Reason: Hemorrhoids Ondansetron HCl (Zofran Inj) 4 mg IVP Q4H PRN PRN Reason: Nausea/Vomiting Last Admin: 06/24/18 01:39 Dose: 4 mg Oxycodone/Acetaminophen (Percocet 5/325 Mg Tab) 1 tab PO Q6H PRN PRN Reason: Pain, moderate (4-7) Stop: 06/25/18 19:41 Last Admin: 06/24/18 01:39 Dose: 1 tab Pantoprazole Sodium (Protonix Ec Tab) 40 mg PO 0600 [facility] Last Admin: 06/23/18 05:21 Dose: 40 mg Sennosides (Senokot Tab) 8.6 mg PO DAILY [facility] Last Admin: 06/23/18 11:08 Dose: 8.6 mg Sodium Chloride (Sodium Chloride Tab) 1 gm PO WM [facility] Last Admin: 06/23/18 18:41 Dose: 1 gm - Labs Labs: 06/23/18 06:25 06/23/18 11:50 PT 13.2 SECONDS (9.4-12.5) H 06/15/18 14:54 INR 1.15 06/15/18 14:54 APTT 27.5 Seconds (25.1-36.5) 06/15/18 14:54 - Constitutional Appears: In Acute Distress (pain), Chronically Ill - Head Exam Head Exam: ATRAUMATIC, NORMAL INSPECTION, NORMOCEPHALIC - Eye Exam Eye Exam: EOMI, Normal appearance. absent: Conjunctival injection, Scleral icterus - ENT Exam ENT Exam: Mucous Membranes Dry - Respiratory Exam Respiratory Exam: Clear to Ausculation Bilateral, NORMAL BREATHING PATTERN. absent: Accessory Muscle Use, Rales, Rhonchi, Wheezes, Respiratory Distress - Cardiovascular Exam Cardiovascular Exam: Tachycardia, REGULAR RHYTHM, +S1, +S2 - GI/Abdominal Exam GI & Abdominal Exam: Distended, Soft, Tenderness (to palpation). absent: Firm, Guarding, Rigid - Extremities Exam Extremities Exam: Pedal Edema (b/l LE ) - Neurological Exam Neurological Exam: Alert, Awake, CN II-XII Intact, Oriented x3 - Psychiatric Exam Psychiatric exam: Anxious, Depressed - Skin Skin Exam: Dry, Intact, Normal Color, Warm Assessment and Plan - Assessment and Plan (Free Text) Assessment: 1. Pancreatic ca Stage IV 2. Malignant Ascites 3. Hyperkalemia 4. KIMBERLY 5. Pain management 6. Hemorrhoids 7. Gait dysfunction Plan: Patient's vitals, bloodwork, and imaging reviewed. Patient's potassium elevated this AM 6.6. Given cocktail of calcium gluconate, insulin, and D50. Will recheck K+ in 4 hours. Pain regimen adjusted to Morphine 2q3 in addition to Percocet 1q6. Bowel regimen on board to avoid constipation secondary to pain medications. Patient had chemotherapy yesterday. Will follow up abdominal u/s to see if there is any more fluid to tap. Will consider IR consultation for plerux catheter in light of recurrent malignant abdominal ascites. Patient's creatinine slightly elevated this AM. Will continue to monitor closely. Continue hemorrhoid ointment at this time. GI and DVT ppx ordered. Patient on HHD with supplements. Will continue to monitor patient closely. Poor prognosis at this time. Safia Marcus on board to discuss goals of care and code status with patient and family later today. Discussed with Dr. Floyd Ariza PGY3 <Hank Barrientos S - Last Filed: 06/25/18 15:10> Objective - Vital Signs/Intake and Output Vital Signs (last 24 hours): Temp Pulse Resp BP Pulse Ox 97.7 F 101 H 20 122/80 96 06/25/18 06:00 06/25/18 06:00 06/25/18 06:00 06/25/18 06:00 06/25/18 06:00 Intake and Output: 06/25/18 06/25/18 06:59 18:59 Intake Total 400 Output Total 300 Balance 100 - Medications Medications: Current Medications Bisacodyl (Dulcolax) 10 mg RC DAILY PRN PRN Reason: Constipation Docusate Sodium (Colace) 100 mg PO BID [facility] Last Admin: 06/25/18 12:52 Dose: 100 mg Heparin Sodium (Porcine) (Heparin) 5,000 units SC Q12 [facility]; Protocol Dextrose/Sodium Chloride (Dextrose 5%/0.9% Ns 1000 Ml) 1,000 mls @ 50 mls/hr IV .Q20H [facility] Last Admin: 06/25/18 13:04 Dose: 50 mls/hr Lorazepam (Ativan) 0.5 mg PO Q6 PRN; Protocol PRN Reason: Anxiety Last Admin: 06/17/18 03:59 Dose: 0.5 mg Morphine Sulfate (Morphine) 3 mg IVP Q3H PRN PRN Reason: Pain, moderate (4-7) Multi-Ingredient Ointment (Prep-Hem) 0 ea TOP BID PRN PRN Reason: Hemorrhoids Nystatin (Nystatin Oral Susp) 5 ml PO QID [facility] Last Admin: 06/25/18 14:45 Dose: 5 ml Ondansetron HCl (Zofran Inj) 4 mg IVP Q4H PRN PRN Reason: Nausea/Vomiting Last Admin: 06/24/18 19:14 Dose: 4 mg Oxycodone/Acetaminophen (Percocet 5/325 Mg Tab) 1 tab PO Q6H PRN PRN Reason: Pain, moderate (4-7) Stop: 06/25/18 19:41 Last Admin: 06/25/18 06:49 Dose: 1 tab Pantoprazole Sodium (Protonix Ec Tab) 40 mg PO 0600 [facility] Last Admin: 06/25/18 05:57 Dose: 40 mg Sennosides (Senokot Tab) 8.6 mg PO DAILY [facility] Last Admin: 06/25/18 12:52 Dose: 8.6 mg Sodium Chloride (Sodium Chloride Tab) 1 gm PO WM [facility] Last Admin: 06/25/18 13:00 Dose: Not Given - Labs Labs: 06/25/18 08:20 06/25/18 08:20 PT 13.2 SECONDS (9.4-12.5) H 06/15/18 14:54 INR 1.15 06/15/18 14:54 APTT 27.5 Seconds (25.1-36.5) 06/15/18 14:54 Assessment and Plan - Assessment and Plan (Free Text) Plan: Pt seen and examined by me. This is late entry. I have reviewed the note of the medical staffing coordinator and I agree with it. I have discussed the assessment and plan with the resident. I have reviewed the medications and the last labs. Pt with Pancreatic Ca with ascites. She has hyperkalemia. She will be given kayexelate and his labs will be repeated in the am. She is DNR/DNI.
[2018-06-24] MEDS: Pantoprazole 40 mg EC Tab PO SCH (05:54)
[2018-06-24 06:43] LABS: BASO # 0.01 K/mm3 (0.0-2.0); EOS # 0.1 (0.0-0.7); EOS % 0.1 % (1.5-5.0); GRAN # 31.6 (1.4-6.5); GRAN % 94.5 % (50.0-68.0); HEMOGLOBIN 14.8 g/dL (12.0-16.0); LYMPH # 0.8 (1.2-3.4); LYMPH % 2.4 % (22.0-35.0); MEAN CELL VOLUME 94.2 fl (80.0-105.0); MEAN CORPUSCULAR HEMOGLOBIN 30.6 pg (25.0-35.0); MEAN CORPUSCULAR HGB CONC 32.5 g/dl (31.0-37.0); MEAN PLATELET VOLUME 10.6 fl (7.0-11.0); RBC 4.84 10^6/uL (3.5-6.1)
[2018-06-24 07:03] LABS: WHITE BLOOD COUNT 33.5 10^3/uL (4.5-11.0)
[2018-06-24 08:02] LABS: ALB/GLOB RATIO 0.8 (1.1-1.8); ALBUMIN 2.8 g/dL (3.0-4.8); CALCIUM 8.4 mg/dL (8.4-10.5)
--- NOTE | 2018-06-24 09:02 | CP.PCM.PN ---
Subjective - Date & Time of Evaluation Date of Evaluation: 06/24/18 Time of Evaluation: 08:58 - Subjective Subjective: PGY-2 heme/onc progress note No acute events noted overnight. Sister and at bedside. Patient complaining of lower abd discomfort. Also complained of soreness in her mouth. Objective - Vital Signs/Intake and Output Vital Signs (last 24 hours): Temp Pulse Resp BP Pulse Ox 98.1 F 97 H 20 122/78 99 06/24/18 08:27 06/24/18 08:27 06/24/18 08:27 06/24/18 08:27 06/24/18 08:27 Intake and Output: 06/24/18 06/24/18 06:59 18:59 Intake Total 720 Balance 720 - Medications Medications: Current Medications Docusate Sodium (Colace) 100 mg PO BID [facility] Last Admin: 06/23/18 18:40 Dose: 100 mg Heparin Sodium (Porcine) (Heparin) 5,000 units SC Q8 [facility]; Protocol Last Admin: 06/24/18 05:54 Dose: 5,000 units Lorazepam (Ativan) 0.5 mg PO Q6 PRN; Protocol PRN Reason: Anxiety Last Admin: 06/17/18 03:59 Dose: 0.5 mg Morphine Sulfate (Morphine) 2 mg IVP Q3H PRN PRN Reason: Pain, moderate (4-7) Last Admin: 06/24/18 08:37 Dose: 2 mg Multi-Ingredient Ointment (Prep-Hem) 0 ea TOP BID PRN PRN Reason: Hemorrhoids Ondansetron HCl (Zofran Inj) 4 mg IVP Q4H PRN PRN Reason: Nausea/Vomiting Last Admin: 06/24/18 01:39 Dose: 4 mg Oxycodone/Acetaminophen (Percocet 5/325 Mg Tab) 1 tab PO Q6H PRN PRN Reason: Pain, moderate (4-7) Stop: 06/25/18 19:41 Last Admin: 06/24/18 01:39 Dose: 1 tab Pantoprazole Sodium (Protonix Ec Tab) 40 mg PO 0600 [facility] Last Admin: 06/24/18 05:54 Dose: 40 mg Sennosides (Senokot Tab) 8.6 mg PO DAILY [facility] Last Admin: 06/23/18 11:08 Dose: 8.6 mg Sodium Chloride (Sodium Chloride Tab) 1 gm PO WM [facility] Last Admin: 06/23/18 18:41 Dose: 1 gm - Labs Labs: 06/24/18 06:00 06/24/18 06:00 PT 13.2 SECONDS (9.4-12.5) H 06/15/18 14:54 INR 1.15 06/15/18 14:54 APTT 27.5 Seconds (25.1-36.5) 06/15/18 14:54 - Additional Findings Additional findings: - Constitutional Appears: No Acute Distress - Head Exam Head Exam: ATRAUMATIC, NORMAL INSPECTION, NORMOCEPHALIC - Eye Exam Eye Exam: EOMI, Normal appearance, PERRL - ENT Exam ENT Exam: Mucous Membranes Moist - Neck Exam Additional comments: supple - Respiratory Exam Respiratory Exam: Clear to Ausculation Bilateral. absent: Rales, Rhonchi, Wheezes - Cardiovascular Exam Cardiovascular Exam: REGULAR RHYTHM. absent: +S1, +S2 - GI/Abdominal Exam GI & Abdominal Exam: Distended, Tenderness, Hypoactive Bowel Sounds. absent: Guarding (improves), Rigid - Extremities Exam Extremities Exam: Pedal Edema. absent: Calf Tenderness - Back Exam Back Exam: absent: CVA tenderness (L), CVA tenderness (R) - Neurological Exam Neurological Exam: Alert, Awake, Oriented x3 - Psychiatric Exam Psychiatric exam: Normal Affect, Normal Mood - Skin Skin Exam: Dry, Warm Assessment and Plan - Assessment and Plan (Free Text) Plan: Ms. Coppola esau 63 y/o women with pmhx significant for stage IV pancreatic cancer c/b malignant ascites currently admitted for SBP and ARF with associated electrolye abnormalities s/p paracentesis. stage IV pancreatic cancer c/b malignant ascites -Patient's abdomen appears to be getting distended again. * Repeat paracentesis performed 06/20/18 with 3800cc removed -Could conceivably consider peritoneal catheter placement but given recent hx of SBP would probably hold off for now * Primary to speak to IR about placement of peritoneal catheter -now receiving chemo in-house * gem/abraxane on 06/23/18, cycle is for day 1, 8, 15 -order for abd u/s on 06/23 for abd discomfort - official report pending -we will consider neupogen infusion for her Dispo: as per case workers, patient to be discharged home with services when medically optimized (not accepted to TCU or [facility]) Case discussed with Dr Amaury Holt
[2018-06-24] MEDS ORDERED: Dextrose 50% SYRINGE Inj (50 ml) IVP ONE (09:06)
[2018-06-24] MEDS ORDERED: Insulin Regular 1 UNITS/0.01 ML ML IV ONE (09:06)
[2018-06-24] MEDS ORDERED: Albuterol-Ipratrop 3 mg / 0.5 (3 ml) UD IH ONE (09:07)
[2018-06-24 13:26] LABS: CALCIUM 8.2 mg/dL (8.4-10.5)
--- NOTE | 2018-06-24 13:33 | US ---
Date of service: 06/23/2018 HISTORY: collecting fluid again? COMPARISON: Comparison is made to the previous CT dated 06/16/2018 previous ultrasound dated 06/16/2018 TECHNIQUE: Sonographic evaluation of the abdomen. FINDINGS: LIVER: Measures 16.7 x 14.5 cm. Heterogeneous increased echogenicity of the liver parenchyma. Multiple mass lesion in the liver are noted. There is 2.8 x 2.5 x 2.2 centimeter mass in the left liver lobe. There are also multiple mass lesion in the right liver lobe measures approximately 2-3 centimeter each. GALLBLADDER: The gallbladder is partially distended contains sludge and sludge fluid level. No evidence of acute cholecystitis. COMMON BILE DUCT: Measures 3.2 mm. No stones. No dilatation. PANCREAS: The pancreas is obscured by overlying bowel gas. RIGHT KIDNEY: Measures 9.7 x 5.5 x 5.3cm. Normal echogenicity. No calculus, mass, or hydronephrosis. LEFT KIDNEY: Measures 10.9 x 5 x 6cm. Normal echogenicity. No calculus, mass, or hydronephrosis. SPLEEN: Spleen is upper normal limit in size measures 11 x 5.1 centimeter. AORTA: No aneurysmal dilatation. IVC: Unremarkable. OTHER FINDINGS: There is moderate amount of ascites in the abdomen. IMPRESSION: Multiple lesions in the liver with the largest measures approximately 2.8 centimeter in the left liver lobe suspicious for malignant neoplasm. Gallbladder sludge. Moderate amount of ascites in the abdomen. Preliminary report was submitted by [facility].
--- NOTE | 2018-06-24 14:29 | CP.PCM.PN ---
Subjective - Date & Time of Evaluation Date of Evaluation: 06/24/18 Time of Evaluation: 13:00 - Subjective Subjective: Alert, abdomen distended, complains of lower abdominal discomfort,frequent belching Objective - Vital Signs/Intake and Output Vital Signs (last 24 hours): Temp Pulse Resp BP Pulse Ox 98.1 F 97 H 20 122/78 99 06/24/18 08:27 06/24/18 10:23 06/24/18 08:27 06/24/18 08:27 06/24/18 08:27 Intake and Output: 06/24/18 06/24/18 06:59 18:59 Intake Total 720 Balance 720 - Medications Medications: Current Medications Docusate Sodium (Colace) 100 mg PO BID [facility] Last Admin: 06/24/18 09:55 Dose: 100 mg Heparin Sodium (Porcine) (Heparin) 5,000 units SC Q8 [facility]; Protocol Last Admin: 06/24/18 05:54 Dose: 5,000 units Lorazepam (Ativan) 0.5 mg PO Q6 PRN; Protocol PRN Reason: Anxiety Last Admin: 06/17/18 03:59 Dose: 0.5 mg Morphine Sulfate (Morphine) 2 mg IVP Q3H PRN PRN Reason: Pain, moderate (4-7) Last Admin: 06/24/18 08:37 Dose: 2 mg Multi-Ingredient Ointment (Prep-Hem) 0 ea TOP BID PRN PRN Reason: Hemorrhoids Ondansetron HCl (Zofran Inj) 4 mg IVP Q4H PRN PRN Reason: Nausea/Vomiting Last Admin: 06/24/18 01:39 Dose: 4 mg Oxycodone/Acetaminophen (Percocet 5/325 Mg Tab) 1 tab PO Q6H PRN PRN Reason: Pain, moderate (4-7) Stop: 06/25/18 19:41 Last Admin: 06/24/18 01:39 Dose: 1 tab Pantoprazole Sodium (Protonix Ec Tab) 40 mg PO 0600 [facility] Last Admin: 06/24/18 05:54 Dose: 40 mg Sennosides (Senokot Tab) 8.6 mg PO DAILY [facility] Last Admin: 06/24/18 10:02 Dose: 8.6 mg Sodium Chloride (Sodium Chloride Tab) 1 gm PO WM [facility] Last Admin: 06/24/18 10:04 Dose: 1 gm - Labs Labs: 06/24/18 06:00 06/24/18 13:00 PT 13.2 SECONDS (9.4-12.5) H 06/15/18 14:54 INR 1.15 06/15/18 14:54 APTT 27.5 Seconds (25.1-36.5) 06/15/18 14:54 - Constitutional Appears: Cachectic, Chronically Ill - Head Exam Head Exam: NORMOCEPHALIC - Eye Exam Eye Exam: Normal appearance, PERRL - ENT Exam ENT Exam: Mucous Membranes Moist, Normal Oropharynx - Neck Exam Neck Exam: Normal Inspection - Respiratory Exam Respiratory Exam: Decreased Breath Sounds, NORMAL BREATHING PATTERN - Cardiovascular Exam Cardiovascular Exam: REGULAR RHYTHM, +S1, +S2 - GI/Abdominal Exam GI & Abdominal Exam: Distended, Firm, Hypoactive Bowel Sounds - Extremities Exam Extremities Exam: Pedal Edema - Back Exam Back Exam: NORMAL INSPECTION - Neurological Exam Neurological Exam: Alert, Oriented x3 - Skin Skin Exam: Dry, Warm Assessment and Plan - Assessment and Plan (Free Text) Assessment: 63 year old female with history of metastatic pancreatic cancer who is admitted with ascites, hyperkalemia, abdominal pain, weakness, constipation This morning Mrs. Coppola spoke with her attending physician who updated on her co ndition and prognosis. I met with the patient, family was at bedside. Pat stated she understood her medical condition and prognosis. She verbalized that she is struggling to fully accept the situation. I explained that she had some time to consider her options and that palliative services would help support her in decision making. Her family is supportive. We addressed resuscitation wishes and advance care planning. Benefits and burdens of resuscitation explained, questions answered. The patient completed a POLST:DNR/DNI. Her Nicola is her health care surrogate. Psychosocial support provided. Spiritual support offered but was declined at this time The patient states her pain is alleviated with Morphine. Last BM 3 days ago,she is on bowel regimen. Time spent with patient and family in goals of care and advance care planning 45 minutes Plan: Goals of care and advance care planning, POLST DNR/DNI Hyperkalemia: Kayexealte given Ascites: US showing moderate amount of ascites. IR to evaluate for paracentisis and catheter placement Pain: Morphine 2 mg IVP every 3 hours as needed for pain. Bowl regimen: Docusate twice daily, Senekot daily,Will offer Ducloax RC. Hemorrhoid: Hem Prep
--- NOTE | 2018-06-24 16:34 | CON ---
DATE: 06/24/2018 GASTROENTEROLOGY CONSULTATION REQUESTING PHYSICIAN: Dr. Barrientos. REASON FOR CONSULTATION: I have been asked to see this unfortunate 63-year-old female, diagnosed with stage IV pancreatic cancer approximately 3 weeks ago with metastasis to liver and omentum, who comes to the hospital with abdominal distention, vomiting and excessive belching. The patient recently underwent a large-volume paracentesis. Cytology of the ascites fluid was positive for adenocarcinoma. Since her paracentesis, the patient has had rapid reaccumulation of ascites. She complains of some mid abdominal discomfort. PAST MEDICAL HISTORY: Notable for stage IV cancer of the tail of pancreas with metastasis to liver and omentum with malignant ascites, alcohol use. PAST SURGICAL HISTORY: Notable for removal of uterine myoma. SOCIAL HISTORY: The patient has had binge alcohol consumption of up to half pint of vodka daily for the last 5 years. She denies cigarette smoking or alcohol use. FAMILY HISTORY: Notable for mother with pancreatic cancer. REVIEW OF SYSTEMS: Fourteen-point review of systems is notable for abdominal pain, abdominal distention, nausea and vomiting. MEDICATIONS: Medications at home include oxycodone. NOTE: The patient recently had chemotherapy with Dr. Holt. PHYSICAL EXAMINATION: GENERAL: Ill-appearing female, lying in bed, in distress from abdominal pain. VITAL SIGNS: Revealed a temperature of 98.1, blood pressure 122/78, heart rate of 100. HEENT: Reveal sclerae to be white. Conjunctivae pink. NECK: Supple. CHEST: Revealed decreased breath sounds. HEART: Exam reveals a regular rate and rhythm. ABDOMEN: Distended with ascites. Ascites is tense. EXTREMITIES: Show 1+ pedal edema. LABORATORY DATA: Revealed a white blood cell count of 33.5, hemoglobin 14.8, platelet count 217,000. Chemistries reveal potassium 6.6, BUN 58, creatinine 1.7, phosphorus of 5.1, total bilirubin of 1.5, AST 89, ALT 44, alkaline phosphatase of 493. IMPRESSION: Unfortunate 63-year-old female with stage IV pancreatic cancer with metastasis to the liver and omentum with rapidly re-accumulating ascites, leukocytosis, acute renal failure with hyperkalemia. Culture of ascites fluid and blood cultures have been negative. The leukocytosis is most likely secondary to metastasis and peritoneal carcinomatosis. Her prognosis is extremely poor. RECOMMENDATIONS: Consider placement of peritoneal catheter by Interventional Radiology purely for palliative measures for drainage of rapidly accumulating ascites fluid. I did inform the patient and her sister that there is a risk for developing infection and risk of tube malfunction. Unfortunately, there is not much else that that can be offered to this patient, especially in view of her development of acute renal failure. Chet Kincaid MD
[2018-06-24] MEDS: Nystatin 100,000 Units/ml Oral Susp 5 ml UD PO SCH ×2 (17:06→22:51)
[2018-06-24] MEDS ORDERED: Sodium Chloride 0.9% 1,000 ML IV SCH (21:30)
[2018-06-25] MEDS: Morphine 2 mg/ml ISec IVP PRN ×3 (05:00→20:14)
[2018-06-25] MEDS: Pantoprazole 40 mg EC Tab PO SCH (05:57)
[2018-06-25] MEDS: Oxycodone/Acetaminophen 5/325 mg Tab PO PRN (06:49)
[2018-06-25] MEDS ORDERED: Sod Polystyrene Sulf 15 gm/60 ml Susp PR ONE (08:15)
[2018-06-25 08:35] LABS: BASO # 0.01 K/mm3 (0.0-2.0); EOS % 0.1 % (1.5-5.0); GRAN # 30.63 (1.4-6.5); GRAN % 96.1 % (50.0-68.0); HEMOGLOBIN 14.5 g/dL (12.0-16.0); LYMPH # 0.7 (1.2-3.4); LYMPH % 2.2 % (22.0-35.0); MEAN CELL VOLUME 94.9 fl (80.0-105.0); MEAN CORPUSCULAR HEMOGLOBIN 30.7 pg (25.0-35.0); MEAN CORPUSCULAR HGB CONC 32.4 g/dl (31.0-37.0); MEAN PLATELET VOLUME 11.4 fl (7.0-11.0); MONO # 0.5 (0.1-0.6); MONO % 1.6 % (1.0-6.0); PLATELET COUNT 190 10^3/uL (120.0-450.0); RBC 4.72 10^6/uL (3.5-6.1); RED CELL DISTRIBUTION WIDTH 14.3 % (11.5-14.5)
[2018-06-25 08:44] LABS: WHITE BLOOD COUNT 31.9 10^3/uL (4.5-11.0)
[2018-06-25 09:30] LABS: EOSINOPHIL 1 % (0.0-3.0); LYMPHOCYTE 3 % (22.0-35.0); MONOCYTE 1 % (1.0-6.0); NEUTROPHIL 95 % (50.0-70.0)
[2018-06-25 09:43] LABS: ALB/GLOB RATIO 0.8 (1.1-1.8); ALBUMIN 2.6 g/dL (3.0-4.8); CALCIUM 8.2 mg/dL (8.4-10.5)
--- NOTE | 2018-06-25 10:27 | PN ---
DATE: 06/25/2018 SUBJECTIVE: The patient is lying in bed. She is comfortable at this point. She has required morphine sulfate for pain relief. PHYSICAL EXAMINATION: VITAL SIGNS: Reveal temperature of 97.7, blood pressure 122/80, heart rate of 100. HEENT: Reveal sclerae to be white. Conjunctivae pink. NECK: Supple. CHEST: Reveal distant breath sounds. HEART: Exam reveals regular rate and rhythm. ABDOMEN: Distended with ascites. EXTREMITIES: Show 1+ pedal edema. LABORATORY DATA: Reveal white blood cell count 31.9, hemoglobin 14.5. IMPRESSION: 1. Stage IV pancreatic cancer with metastasis to omentum and liver with malignant recurrent ascites. 2. Acute renal failure. RECOMMENDATIONS: 1. Continue supportive care. 2. Her prognosis is extremely poor. 3. Consider palliative care. Chet Kincaid MD
[2018-06-25] MEDS: Nystatin 100,000 Units/ml Oral Susp 5 ml UD PO SCH ×4 (12:53→22:31)
[2018-06-25] MEDS: Dextrose 5%/0.9% NS 1,000 ML IV SCH (13:04)
--- NOTE | 2018-06-25 21:07 | PN ---
DATE: 06/25/2018 This is [facility]'s universal health services visit on the medical floor. For Dr. Holt. SUBJECTIVE: The patient is a 63-year-old female seen lying awake in bed reporting that her abdominal discomfort is modestly improved. She was seen by Dr. Kincaid, her youth care specialist with the patient now known to have elevated potassium for which Kayexalate was given. She also had her ultrasound, which showed moderate amount of ascites. The patient known to had paracentesis done recently with re-consult with Dr. Oj Norris recommended with possible consideration for Aspira catheter to be placed as indicated. She reports her narcotic analgesics alleviate her pain. She is also now being treated for constipation as this may be contributing to her abdominal discomfort. PHYSICAL EXAMINATION: VITAL SIGNS: Temperature .97.7, pulse 101, respirations 20, blood pressure 122/80, and pulse ox 96%. HEENT: Unremarkable. Tongue is moist. NECK: Supple. HEART: Regular rate. LUNGS: Clear. ABDOMEN: Distended. Positive ascitic fluid wave. Minimal tenderness to gentle palpation. EXTREMITIES: Faint +1 edema. NEUROLOGIC: Awake and alert. SKIN: Mild icteric tinge. LABORATORY DATA: The patient labs were done. White blood cell count of , hemoglobin of 14.5, hematocrit of 44.8, and platelet count of 190,000. Metabolic panel showing potassium of 6.7 increased from 5.7 yesterday after the Kayexalate was given. BUN is 63, creatinine is 1.7 with total bilirubin of 1.4, magnesium 2.5, and AST of 123. The patient did have an abdominal ultrasound done 2 days prior, it was read as multiple lesions in the liver with the largest measuring approximately 2.8 cm in the liver lobe left suspicious for malignant neoplasm, gallbladder sludge, moderate amount of ascites in the abdomen preliminary report. 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 PLAN: For this patient is to continue present medical regimen. Gastrointestinal consultants recommendations and input was appreciated with recommendations for repeat paracentesis as indicated for therapeutic and symptomatic reasons. We will continue present medical regimen, monitoring clinically with labs. This is a complex patient with a comprehensive medically necessary and appropriate visit carried out in excess of 40 minutes with the patient and her family members questions answered to her satisfaction. We will also add a plasma potassium to tomorrow's labs. Elie Vital MD
[2018-06-26] MEDS: Morphine 2 mg/ml ISec IVP PRN (01:41)
[2018-06-26] MEDS: Morphine 4 mg/ml ISec IVP PRN ×5 (05:06→18:18)
[2018-06-26] MEDS: Dextrose 5%/0.9% NS 1,000 ML IV SCH (08:29)
[2018-06-26 08:31] LABS: EOS % 0.1 % (1.5-5.0); GRAN # 36.21 (1.4-6.5); GRAN % 98.5 % (50.0-68.0); HEMOGLOBIN 14.2 g/dL (12.0-16.0); LYMPH # 0.4 (1.2-3.4); MEAN CELL VOLUME 94.4 fl (80.0-105.0); MEAN CORPUSCULAR HEMOGLOBIN 30.7 pg (25.0-35.0); MEAN CORPUSCULAR HGB CONC 32.5 g/dl (31.0-37.0); MEAN PLATELET VOLUME 11.3 fl (7.0-11.0); MONO # 0.1 (0.1-0.6); MONO % 0.4 % (1.0-6.0); RBC 4.63 10^6/uL (3.5-6.1); RED CELL DISTRIBUTION WIDTH 14.4 % (11.5-14.5)
[2018-06-26 08:40] LABS: WHITE BLOOD COUNT 36.7 10^3/uL (4.5-11.0)
[2018-06-26 10:20] LABS: CALCIUM 8.1 mg/dL (8.4-10.5)
[2018-06-26 10:21] LABS: ALB/GLOB RATIO 0.8 (1.1-1.8); ALBUMIN 2.7 g/dL (3.0-4.8)
[2018-06-26] MEDS: Nystatin 100,000 Units/ml Oral Susp 5 ml UD PO SCH ×4 (10:31→21:53)
--- NOTE | 2018-06-26 13:34 | CP.PCM.PN ---
Subjective - Date & Time of Evaluation Date of Evaluation: 06/24/18 Time of Evaluation: 09:45 - Subjective Subjective: No fevers but with abdominal discomfort, no diarrhea, still feels weak. Objective - Vital Signs/Intake and Output Vital Signs (last 24 hours): Temp Pulse Resp BP Pulse Ox 97.8 F 89 20 128/81 100 06/23/18 08:14 06/23/18 08:14 06/23/18 08:14 06/23/18 08:14 06/23/18 08:14 Intake and Output: 06/23/18 06/23/18 06:59 18:59 Intake Total 720 Balance 720 - Medications Medications: Current Medications Docusate Sodium (Colace) 100 mg PO BID [facility] Last Admin: 06/23/18 11:09 Dose: 100 mg Heparin Sodium (Porcine) (Heparin) 5,000 units SC Q8 [facility]; Protocol Last Admin: 06/23/18 14:38 Dose: 5,000 units Gemcitabine HCl 1,700 mg/ (Sodium Chloride) 250 mls @ 125 mls/hr IV ONCE ONE Stop: 06/23/18 15:59 Lorazepam (Ativan) 0.5 mg PO Q6 PRN; Protocol PRN Reason: Anxiety Last Admin: 06/17/18 03:59 Dose: 0.5 mg Morphine Sulfate (Morphine) 1 mg IVP Q4H PRN PRN Reason: Pain, severe (8-10) Multi-Ingredient Ointment (Prep-Hem) 0 ea TOP BID PRN PRN Reason: Hemorrhoids Ondansetron HCl (Zofran Inj) 4 mg IVP Q4H PRN PRN Reason: Nausea/Vomiting Last Admin: 06/23/18 13:31 Dose: 4 mg Oxycodone/Acetaminophen (Percocet 5/325 Mg Tab) 1 tab PO Q6H PRN PRN Reason: Pain, moderate (4-7) Stop: 06/25/18 19:41 Last Admin: 06/23/18 12:40 Dose: 1 tab Pantoprazole Sodium (Protonix Ec Tab) 40 mg PO 0600 [facility] Last Admin: 06/23/18 05:21 Dose: 40 mg Sennosides (Senokot Tab) 8.6 mg PO DAILY [facility] Last Admin: 06/23/18 11:08 Dose: 8.6 mg Sodium Chloride (Sodium Chloride Tab) 1 gm PO WM [facility] Last Admin: 06/23/18 11:08 Dose: 1 gm Sodium Polystyrene Sulfonate (Kayexalate) 15 gm PO ONCE ONE Stop: 06/23/18 17:01 - Labs Labs: 06/23/18 06:25 06/23/18 11:50 PT 13.2 SECONDS (9.4-12.5) H 06/15/18 14:54 INR 1.15 06/15/18 14:54 APTT 27.5 Seconds (25.1-36.5) 06/15/18 14:54 - Constitutional Appears: Chronically Ill - Head Exam Head Exam: NORMAL INSPECTION - Respiratory Exam Respiratory Exam: Decreased Breath Sounds - Cardiovascular Exam Cardiovascular Exam: +S1, +S2 - GI/Abdominal Exam GI & Abdominal Exam: Soft. absent: Tenderness Assessment and Plan - Assessment and Plan (Free Text) Plan: Assessment S/P severe sepsis with KIMBERLY due to IAI in this patient in this patient with stage 4 pancreatic cancer with liver metastases persistent leukocytosis probably from cancer history of chronic alcohol use Plan cultures have been negative will continue to monitor off antibiotics since she is at risk for nosocomial infections discussed with Dr. Patel - patient is to be started on chemotherapy overall prognosis is poor there is plan to put an indwelling abdominal catheter for ascitic fluid drainage
[2018-06-26] MEDS: Nystatin 100,000 Units/gm Oint(30 gm) TOP SCH (17:55)
[2018-06-26] MEDS ORDERED: Nystatin 100,000 Units/gm Oint(30 gm) TOP SCH (18:00)
--- NOTE | 2018-06-26 18:55 | PN ---
DATE: 06/26/2018 This is [facility]'s [facility] visit on the medical floor. For Dr. Holt. SUBJECTIVE: The patient is 63-year-old female, seen lying awake in bed. Now to be washed and placed on the commode to see if she will have a bowel movement after Kayexalate was given or significantly elevated potassium. She is still reporting significant pain, despite narcotic analgesics which will increase minimally until her therapeutic relief of pain is achieved. At present, she still has abdominal distention with component of constipation possibly complicating this with family is at bedside. PHYSICAL EXAMINATION: VITAL SIGNS: Temperature 97.5, pulse 106, respirations 18, blood pressure 103/63 and pulse oximetry 97%. HEENT: Unremarkable. Tongue is moist. NECK: Supple. HEART: Regular rate. LUNGS: Minimal decreased breath sounds at the bases. ABDOMEN: Distended. Positive ascitic fluid wave. Minimal tenderness to gentle palpation for paracentesis tomorrow. EXTREMITIES: Faint +1 edema. NEUROLOGIC: Awake and alert. SKIN: Mild icteric tinge. LABORATORY DATA: The patient's labs were done, white blood cell count , hemoglobin 14.2, hematocrit 43.7 and platelet count 181,000 with a metabolic panel showing a potassium 6.4, sodium is 130, chloride of 99, BUN of 78, creatinine of 2.2 with the calcium of 8.1, AST 141 and ALT 60. Total bili today is reported normal at 1.3, total bili is 1.3. ASSESSMENT: For this patient is that of adenocarcinoma, metastatic to the liver, suspected pancreatic origin, peritoneal carcinomatosis with sepsis, spontaneous bacterial peritonitis, leukocytosis, history of ethanol abuse, severe hyperkalemia, acute kidney injury, acute renal failure, anxiety, electrolyte imbalance, constipation, intractable pain of cancer and ascites. PLAN: For this patient is to continue present medical regimen as per Dr. Barrientos for hyperkalemia with Kayexalate to be given with followup with Dr. Oj Norris for therapeutic and symptomatic treatment of her ascites with Aspira catheter placement as indicated. This is a complex patient with a comprehensive medically necessary and appropriate visit carried out in excess of 25 minutes with the patient and her family questions answered to her satisfaction. We will also increase her narcotic analgesics and monitor clinically and with labs. Elie Vital MD
--- NOTE | 2018-06-26 20:53 | PN ---
DATE: 06/26/2018 SUBJECTIVE: The patient is 63 years old, seen and examined, lying in bed, looks sick, dry oral mucosa, distended belly, complaining of epigastric discomfort, does not like the taste of Kayexalate. I offered her to give Kayexalate enema, but she does want that either. PHYSICAL EXAMINATION: VITAL SIGNS: She is afebrile, pulse 106, respirations 18, and blood pressure 103/63. LUNGS: Bilateral diffusely decreased breath sounds, more so in the bases. HEART: S1 and S2 audible, tachycardic. ABDOMEN: Distended with epigastric discomfort. NEUROLOGIC: She is awake and alert, able to communicate. LABORATORY DATA: WBC 36.7, hemoglobin 14, hematocrit 43, and platelets 181. Chemistry: Sodium 130, potassium 6.4, chloride 99, CO2 of 21, BUN 78, creatinine 2.2, blood sugar is 114. Blood cultures are negative. The patient is status post paracentesis. ASSESSMENT: 1. Terminal pancreatic cancer with metastasis to the liver and omentum. 2. Malignant ascites. 3. Hyperkalemia. 4. Acute renal failure. 5. Leukocytosis. 6. Deconditioning. 7. Poor oral intake. PLAN: At this point, she is on conservative and symptomatic treatment. She is on IV fluids. She is on DVT prophylaxis. She is given Kayexalate. Follow up her electrolytes in a.m. José Luis Geiger MD
[2018-06-27] MEDS: Morphine 4 mg/ml ISec IVP PRN ×2 (02:07→07:32)
[2018-06-27] MEDS: Pantoprazole 40 mg EC Tab PO SCH (05:07)
--- NOTE | 2018-06-27 05:27 | CP.PCM.PN ---
Subjective - Date & Time of Evaluation Date of Evaluation: 06/27/18 Time of Evaluation: 07:00 - Subjective Subjective: [facility] Medicine Progress note for Dr. Barrientos Patient seen and examined sitting up at bedside in distress secondary to pain in her abdomen and bilious emesis. Patient's abdomen more distended today. She had a bowel movement this AM which was a small amount of pasty stool. She reports decreased appetite and being unable to keep anything down but feels very dry and only wants ice chips. Patient denied other complaints of fever, chest pain, SOB. She continues to have bilateral lower extremity swelling but no pain. Objective - Vital Signs/Intake and Output Vital Signs (last 24 hours): Temp Pulse Resp BP Pulse Ox 99.5 F 68 18 110/57 L 97 06/26/18 18:55 06/26/18 18:55 06/26/18 18:55 06/26/18 18:55 06/26/18 18:55 Intake and Output: 06/26/18 06/27/18 18:59 06:59 Intake Total 720 1200 Output Total 3700 300 Balance -2980 900 - Medications Medications: Current Medications Bisacodyl (Dulcolax) 10 mg RC DAILY PRN PRN Reason: Constipation Docusate Sodium (Colace) 100 mg PO BID [facility] Last Admin: 06/26/18 18:17 Dose: 100 mg Heparin Sodium (Porcine) (Heparin) 5,000 units SC Q12 [facility]; Protocol Last Admin: 06/26/18 21:52 Dose: 5,000 units Dextrose/Sodium Chloride (Dextrose 5%/0.9% Ns 1000 Ml) 1,000 mls @ 50 mls/hr IV .Q20H [facility] Last Admin: 06/26/18 08:29 Dose: 50 mls/hr Lorazepam (Ativan) 0.5 mg PO Q6 PRN; Protocol PRN Reason: Anxiety Last Admin: 06/17/18 03:59 Dose: 0.5 mg Morphine Sulfate (Morphine) 3 mg IVP Q3H PRN PRN Reason: Pain, moderate (4-7) Stop: 06/28/18 08:02 Last Admin: 06/27/18 02:07 Dose: 3 mg Multi-Ingredient Ointment (Prep-Hem) 0 ea TOP BID PRN PRN Reason: Hemorrhoids Nystatin (Nystatin Oral Susp) 5 ml PO QID [facility] Last Admin: 06/26/18 21:53 Dose: 5 ml Nystatin (Mycostatin Oint) 0 gm TOP TID [facility] Last Admin: 06/26/18 17:55 Dose: 1 applic Ondansetron HCl (Zofran Inj) 4 mg IVP Q4H PRN PRN Reason: Nausea/Vomiting Last Admin: 06/27/18 02:07 Dose: 4 mg Pantoprazole Sodium (Protonix Ec Tab) 40 mg PO 0600 [facility] Last Admin: 06/27/18 05:07 Dose: 40 mg Sennosides (Senokot Tab) 8.6 mg PO DAILY [facility] Last Admin: 06/26/18 10:31 Dose: 8.6 mg Sodium Chloride (Sodium Chloride Tab) 1 gm PO WM [facility] Last Admin: 06/26/18 17:55 Dose: 1 gm - Labs Labs: 06/26/18 08:18 06/26/18 08:18 PT 13.2 SECONDS (9.4-12.5) H 06/15/18 14:54 INR 1.15 06/15/18 14:54 APTT 27.5 Seconds (25.1-36.5) 06/15/18 14:54 - Constitutional Appears: In Acute Distress (secondary to pain), Cachectic, Chronically Ill - Head Exam Head Exam: ATRAUMATIC, NORMAL INSPECTION, NORMOCEPHALIC - Eye Exam Eye Exam: EOMI, Normal appearance. absent: Conjunctival injection, Scleral icterus - ENT Exam ENT Exam: Mucous Membranes Dry - Respiratory Exam Respiratory Exam: NORMAL BREATHING PATTERN. absent: Accessory Muscle Use, Rales, Rhonchi, Wheezes, Respiratory Distress - Cardiovascular Exam Cardiovascular Exam: Tachycardia, +S1, +S2 - GI/Abdominal Exam GI & Abdominal Exam: Distended (more distended than prior exam on 06/24/18), Soft, Tenderness (to palpation), Hypoactive Bowel Sounds. absent: Firm, Rigid, Pulsatile Mass - Extremities Exam Extremities Exam: Normal Capillary Refill, Pedal Edema (+2 b/l LE pitting) - Back Exam Back Exam: NORMAL INSPECTION. absent: rash noted - Neurological Exam Neurological Exam: Alert, Awake, Oriented x3 - Psychiatric Exam Psychiatric exam: Anxious - Skin Skin Exam: Dry, Intact, Normal Color, Warm Assessment and Plan - Assessment and Plan (Free Text) Assessment: 1. Pancreatic ca Stage IV with liver mets 2. Recurrent Malignant Ascites 3. Hyperkalemia 4. KIMBERLY 5. Persistent Leukocytosis 6. Hyponatremia 7. Transaminitis 8. Pain management 9. Constipation 10. DNR/DNI 11. Hemorrhoids 12. Gait dysfunction 13. Decreased PO intake Plan: Patient's blood work, vitals, and imaging reviewed. Patient clinical condition worsening. Patient was given 1 dose of chemo gem/abraxane on 06/23/18. Patient's abdomen has worsening distention and abd u/s done 06/23 showed moderate ascites. Patient to have paracentesis with possible insertion of aspira catheter by IR today. Patient is eager for procedure. Patient's hyperkalemia noted this morning. Kayexalate to be given per rectum as patient unable to tolerate PO suspension. Patient additionally given cocktail of calcium gluconate, insulin, and D50 for hyperkalemia and will get an additional dose of kayexalate MT this evening. Patient's creatinine and KIMBERLY worsening this AM. This could be secondary to recent chemotherapy. Patient also has low bicarb. Started patient on D5W with bicarb fluids which should also help with potassium. Diet has been modified to Renal with low potassium. Patient's leukocytosis has been persistent and worsening with no associated fevers. Leukocytosis likely secondary to pancreatic cancer. Cultures thus far have been negative. As per ID patient to continue to be monitored off antibiotics at this time as she is at risk for nosocomial infections. Patient's sodium has been stable at 130 since 06/18/18. Co ntinue with sodium tabs as ordered at this time. Patient's LFTs continue to be elevated with elevated Alk phos and TBili. This is likely secondary to mets. Patient's pain medications adjusted to Morphine 3q3 and Dilaudid 0.5q4. Palliative care considering continuous morphine gtt at 1mg. Patient has dulcolax, colace, and senna on board for constipation- patient also has decreased PO intake which could explain decreased number of bowel movements despite medications. Patient has Ensure dietary supplement ordered in light of decreased PO intake. Continue topical hemorrhoid cream as needed. Patient has been unable to work with physical therapy for gait conditioning due to clinical condition. GI ppx Protonix and DVT ppx heparin on hold in light of blood work. Patient made DNR/DNI on 06/24/18 by palliative care Safia Marcus. Pall care to have meeting with patient and family regarding hospice in light of patient clinical condition and poor prognosis. Family and patient eager to speak to Heme/Onc regarding clinical condition and prognosis. Appreciate recommendations by heme/onc, pall care, GI, and ID. Patient and family were spoken to at length and concerns and questions were addressed thoroughly. Discussed with Dr. Floyd Ariza PGY3
[2018-06-27 06:30] LABS: BASO # 0.01 K/mm3 (0.0-2.0); GRAN # 36.76 (1.4-6.5); GRAN % 98.6 % (50.0-68.0); HEMOGLOBIN 13.3 g/dL (12.0-16.0); LYMPH # 0.4 (1.2-3.4); LYMPH % 1.2 % (22.0-35.0); MEAN CELL VOLUME 94.1 fl (80.0-105.0); MEAN CORPUSCULAR HEMOGLOBIN 30.2 pg (25.0-35.0); MEAN PLATELET VOLUME 11.5 fl (7.0-11.0); MONO # 0.1 (0.1-0.6); MONO % 0.2 % (1.0-6.0); RBC 4.41 10^6/uL (3.5-6.1); RED CELL DISTRIBUTION WIDTH 14.4 % (11.5-14.5)
[2018-06-27 06:41] LABS: WHITE BLOOD COUNT 37.3 10^3/uL (4.5-11.0)
[2018-06-27 07:17] LABS: ALB/GLOB RATIO 0.8 (1.1-1.8); ALBUMIN 2.6 g/dL (3.0-4.8); CALCIUM 7.8 mg/dL (8.4-10.5)
[2018-06-27] MEDS ORDERED: Insulin Regular 1 UNITS/0.01 ML ML SC ONE (07:18)
[2018-06-27] MEDS ORDERED: Dextrose 50% SYRINGE Inj (50 ml) IVP ONE (07:18)
[2018-06-27] MEDS: Sodium Bicarbonate 8.4% 150 MEQ in Dextrose 5% In Water 1,000 ML IV SCH ×2 (09:48→21:54)
[2018-06-27] MEDS ORDERED: Morphine 4 mg/ml ISec IVP STA (09:54)
[2018-06-27] MEDS: Nystatin 100,000 Units/ml Oral Susp 5 ml UD PO SCH ×4 (09:58→21:58)
[2018-06-27] MEDS: Nystatin 100,000 Units/gm Oint(30 gm) TOP SCH ×3 (09:58→17:13)
[2018-06-27] MEDS ORDERED: HYDROmorphone 0.5 mg/0.5 ml ISec IVP PRN ×2 (10:11→15:34)
--- NOTE | 2018-06-27 11:13 | CP.PCM.PN ---
Subjective - Date & Time of Evaluation Date of Evaluation: 06/27/18 Time of Evaluation: 10:00 - Subjective Subjective: Alert, complaining of abdominal distention and diffuse, aching abdominal pain. Nausea. Objective - Vital Signs/Intake and Output Vital Signs (last 24 hours): Temp Pulse Resp BP Pulse Ox 98 F 102 H 20 101/56 L 95 06/27/18 09:13 06/27/18 09:13 06/27/18 09:13 06/27/18 09:13 06/27/18 09:13 Intake and Output: 06/27/18 06/27/18 06:59 18:59 Intake Total 1320 Output Total 400 Balance 920 - Medications Medications: Current Medications Bisacodyl (Dulcolax) 10 mg RC DAILY PRN PRN Reason: Constipation Docusate Sodium (Colace) 100 mg PO BID [facility] Last Admin: 06/27/18 09:47 Dose: Not Given Heparin Sodium (Porcine) (Heparin) 5,000 units SC Q12 [facility]; Protocol Last Admin: 06/26/18 21:52 Dose: 5,000 units Hydromorphone HCl (Dilaudid) 0.5 mg IVP Q4H PRN PRN Reason: Pain, severe (8-10) Sodium Bicarbonate 150 meq/ (Dextrose) 1,150 mls @ 100 mls/hr IV .[id number] [facility] Last Admin: 06/27/18 09:48 Dose: 100 mls/hr Lorazepam (Ativan) 0.5 mg PO Q6 PRN; Protocol PRN Reason: Anxiety Last Admin: 06/17/18 03:59 Dose: 0.5 mg Morphine Sulfate (Morphine) 3 mg IVP Q3H PRN PRN Reason: Pain, moderate (4-7) Stop: 06/28/18 08:02 Last Admin: 06/27/18 07:32 Dose: 3 mg Multi-Ingredient Ointment (Prep-Hem) 0 ea TOP BID PRN PRN Reason: Hemorrhoids Nystatin (Nystatin Oral Susp) 5 ml PO QID [facility] Last Admin: 06/27/18 09:58 Dose: 5 ml Nystatin (Mycostatin Oint) 0 gm TOP TID [facility] Last Admin: 06/27/18 09:58 Dose: 1 applic Ondansetron HCl (Zofran Inj) 4 mg IVP Q4H PRN PRN Reason: Nausea/Vomiting Last Admin: 06/27/18 07:31 Dose: 4 mg Pantoprazole Sodium (Protonix Ec Tab) 40 mg PO 0600 [facility] Last Admin: 06/27/18 05:07 Dose: 40 mg Sennosides (Senokot Tab) 8.6 mg PO DAILY [facility] Last Admin: 06/27/18 10:05 Dose: Not Given Sodium Chloride (Sodium Chloride Tab) 1 gm PO WM [facility] Last Admin: 06/27/18 09:54 Dose: Not Given Sodium Polystyrene Sulfonate (Kayexalate) 30 gm RC ONCE ONE Stop: 06/27/18 18:01 - Labs Labs: 06/27/18 06:00 06/27/18 06:00 PT 13.2 SECONDS (9.4-12.5) H 06/15/18 14:54 INR 1.15 06/15/18 14:54 APTT 27.5 Seconds (25.1-36.5) 06/15/18 14:54 - Constitutional Appears: Cachectic, Chronically Ill - Eye Exam Eye Exam: Normal appearance, PERRL - ENT Exam ENT Exam: Mucous Membranes Dry - Neck Exam Neck Exam: Normal Inspection - Respiratory Exam Respiratory Exam: Clear to Ausculation Bilateral, NORMAL BREATHING PATTERN - Cardiovascular Exam Cardiovascular Exam: REGULAR RHYTHM, +S1, +S2 - GI/Abdominal Exam GI & Abdominal Exam: Distended, Tenderness - Extremities Exam Extremities Exam: Pedal Edema - Neurological Exam Neurological Exam: Alert - Skin Skin Exam: Dry, Pallor Assessment and Plan - Assessment and Plan (Free Text) Assessment: 63 year old with history of metastatic pancreatic cancer, ascites who is admitted with intractable pain,ascites, hyperkalemia,hyponatremia, leukocytosis,constipation, deconditioning. Family at beside. Family hoping patient will rebound and be well enough to continue with treatment. I explained that she is weak,debilitated and that her liver /kidney functions were not improving. The patient herself states that she is uncomfortable due to abdominal pain/ distention and is unable to focus on future plan. Hospice offered, details explained. Family intends to speak with oncologist regarding next steps. Psychical support provided. Time spent in goals of care discussion, 30 minutes Plan: Goals of care Hyperkalemia: Kayexalate Ascites: IR to drain fluid today, evaluate for Aspira cath placement Steven : Will stop Morphine and replace with Dilaudid, starting 0.5mg.If tolerates well would increase to 1 mg. Constipation: Would continue Colace twice daily, Senokot daily, Dulcolax as needed. Prep H topical Nauseas: Zofran as needed
--- NOTE | 2018-06-27 11:33 | CP.PCM.PN ---
Subjective - Date & Time of Evaluation Date of Evaluation: 06/27/18 Time of Evaluation: 09:35 - Subjective Subjective: Patient continues to have nausea, no fevers overnight, still with abdominal pain and distention. Objective - Vital Signs/Intake and Output Vital Signs (last 24 hours): Temp Pulse Resp BP Pulse Ox 97.5 F L 106 H 18 103/63 97 06/26/18 06:00 06/26/18 06:00 06/26/18 06:00 06/26/18 06:00 06/26/18 06:00 Intake and Output: 06/26/18 06/26/18 06:59 18:59 Intake Total 240 Balance 240 - Medications Medications: Current Medications Bisacodyl (Dulcolax) 10 mg RC DAILY PRN PRN Reason: Constipation Docusate Sodium (Colace) 100 mg PO BID [facility] Last Admin: 06/26/18 10:31 Dose: 100 mg Heparin Sodium (Porcine) (Heparin) 5,000 units SC Q12 [facility]; Protocol Last Admin: 06/26/18 10:33 Dose: 5,000 units Dextrose/Sodium Chloride (Dextrose 5%/0.9% Ns 1000 Ml) 1,000 mls @ 50 mls/hr IV .Q20H [facility] Last Admin: 06/26/18 08:29 Dose: 50 mls/hr Lorazepam (Ativan) 0.5 mg PO Q6 PRN; Protocol PRN Reason: Anxiety Last Admin: 06/17/18 03:59 Dose: 0.5 mg Morphine Sulfate (Morphine) 3 mg IVP Q3H PRN PRN Reason: Pain, moderate (4-7) Stop: 06/28/18 08:02 Last Admin: 06/26/18 10:52 Dose: 3 mg Multi-Ingredient Ointment (Prep-Hem) 0 ea TOP BID PRN PRN Reason: Hemorrhoids Nystatin (Nystatin Oral Susp) 5 ml PO QID [facility] Last Admin: 06/26/18 10:31 Dose: 5 ml Ondansetron HCl (Zofran Inj) 4 mg IVP Q4H PRN PRN Reason: Nausea/Vomiting Last Admin: 06/26/18 08:28 Dose: 4 mg Pantoprazole Sodium (Protonix Ec Tab) 40 mg PO 0600 [facility] Last Admin: 06/25/18 05:57 Dose: 40 mg Sennosides (Senokot Tab) 8.6 mg PO DAILY [facility] Last Admin: 06/26/18 10:31 Dose: 8.6 mg Sodium Chloride (Sodium Chloride Tab) 1 gm PO WM [facility] Last Admin: 06/26/18 08:29 Dose: 1 gm - Labs Labs: 06/26/18 08:18 06/26/18 08:18 PT 13.2 SECONDS (9.4-12.5) H 06/15/18 14:54 INR 1.15 06/15/18 14:54 APTT 27.5 Seconds (25.1-36.5) 06/15/18 14:54 - Constitutional Appears: Cachectic, Chronically Ill - Head Exam Head Exam: NORMAL INSPECTION - Respiratory Exam Respiratory Exam: Decreased Breath Sounds - Cardiovascular Exam Cardiovascular Exam: +S1, +S2 - GI/Abdominal Exam GI & Abdominal Exam: Distended, Soft. absent: Tenderness Assessment and Plan - Assessment and Plan (Free Text) Plan: Assessment S/P severe sepsis with KIMBERLY due to IAI in this patient in this patient with stage 4 pancreatic cancer with liver metastases persistent leukocytosis probably from cancer history of chronic alcohol use Plan cultures have been negative will continue to monitor off antibiotics since she is at risk for hospital- acquired infections discussed with Dr. Patel - patient is to be started on chemotherapy overall prognosis is poor there is plan to put an indwelling abdominal catheter for ascitic fluid drainage today
--- NOTE | 2018-06-27 14:35 | PN ---
DATE: 06/27/2018 SUBJECTIVE: The patient is lying in bed. She is extremely weak. She is complaining of abdominal discomfort and distention. She had an episode of vomiting. She is unable to take anything by mouth. PHYSICAL EXAMINATION: VITAL SIGNS: Reveal temperature of 98, blood pressure 101/56, heart rate 112. HEENT: Reveal sclerae to be white. Conjunctivae pink. NECK: Supple. CHEST: Reveals distant breath sounds. HEART: Exam reveals regular rate and rhythm. ABDOMEN: Distended with ascites, mild diffuse tenderness. No rebound, no guarding. EXTREMITIES: Show 1+ pedal edema. LABORATORY DATA: Reveals sodium of 130, potassium 6.5, total bilirubin of 1.5. AST 114, ALT 57, alkaline phosphatase of 353. CBC reveals white blood cell count 37.3, hemoglobin 13.3, platelet count of 170,000. IMPRESSION: A 63-year-old female with stage IV pancreatic cancer with liver and omental metastasis with malignant ascites. She is doing very poorly. I had a lengthy discussion with the patient's regarding her overall poor prognosis. RECOMMENDATIONS: 1. Consider paracentesis for comfort. 2. Consider hospice, she has stage IV pancreatic cancer with recurrent ascites. She also has acute renal failure. Chet Kincaid MD
--- NOTE | 2018-06-27 15:46 | CP.PCM.CON ---
History of Present Illness - History of Present Illness History of Present Illness: Surgery Consult Note- Dr. Motta Reason for consult: Paracentesis 63F pmhx significant for uterine fibroid tumor revomal 30 years ago, current stage IV pancreatic Ca mets to the liver; surgery was consulted for paracentsis 2/2 malignant ascities. Patient had paracentesis done last week by IR where they pulled of 5L. Patient complaining of shortness of breath and continued abdominal pain and tightness. PMH: As described above PSH: Fibroid tumor removal, 2 c-sections ALL: NKDA SocialHx: ETOH use on and off for 5 yearsast few years- drinking half a pint of vodka daily, denies tobacco and illicit drug use FH: mom passed from pancreatic cancer in her 80s Review of Systems - Review of Systems All systems: reviewed and no additional remarkable complaints except - Constitutional Constitutional: As Per HPI Past Patient History - Past Social History Smoking Status: Never Smoked - CARDIAC Hx Pacemaker: No - PULMONARY Hx Respiratory Disorders: No - NEUROLOGICAL Hx Neurological Disorder: No - HEENT Hx HEENT Problems: No - RENAL Hx Chronic Kidney Disease: No - ENDOCRINE/METABOLIC Hx Endocrine Disorders: No - HEMATOLOGICAL/ONCOLOGICAL Hx Blood Transfusions: No Hx Cancer: Yes (pancreatic) - INTEGUMENTARY Hx Dermatological Problems: No - MUSCULOSKELETAL/RHEUMATOLOGICAL Hx Musculoskeletal Disorders: No - GASTROINTESTINAL Hx Gastrointestinal Disorders: Yes (ASCITES-PANCREATIC CA WITH METS TO LIVER 06-02-18) - GENITOURINARY/GYNECOLOGICAL Hx Genitourinary Disorders: Yes (C/S X 2) - PSYCHIATRIC Hx Emotional Abuse: No Hx Physical Abuse: No Hx Substance Use: No - SURGICAL HISTORY Hx Section: Yes (x2) - ANESTHESIA Hx Anesthesia: Yes Hx Anesthesia Reactions: No Hx Malignant Hyperthermia: No Meds Allergies/Adverse Reactions: Allergies Allergy/AdvReac Type Severity Reaction Status Date / Time No Known Allergies Allergy Verified 06/15/18 15:47 - Medications Medications: Current Medications Bisacodyl (Dulcolax) 10 mg RC DAILY PRN PRN Reason: Constipation Docusate Sodium (Colace) 100 mg PO BID [facility] Last Admin: 06/27/18 09:47 Dose: Not Given Heparin Sodium (Porcine) (Heparin) 5,000 units SC Q12 [facility]; Protocol Last Admin: 06/26/18 21:52 Dose: 5,000 units Hydromorphone HCl (Dilaudid) 1 mg IVP Q3H PRN PRN Reason: Pain, severe (8-10) Sodium Bicarbonate 150 meq/ (Dextrose) 1,150 mls @ 100 mls/hr IV .[id number] [facility] Last Admin: 06/27/18 09:48 Dose: 100 mls/hr Lorazepam (Ativan) 0.5 mg PO Q6 PRN; Protocol PRN Reason: Anxiety Last Admin: 06/17/18 03:59 Dose: 0.5 mg Multi-Ingredient Ointment (Prep-Hem) 0 ea TOP BID PRN PRN Reason: Hemorrhoids Nystatin (Nystatin Oral Susp) 5 ml PO QID [facility] Last Admin: 06/27/18 13:04 Dose: 5 ml Nystatin (Mycostatin Oint) 0 gm TOP TID [facility] Last Admin: 06/27/18 13:10 Dose: 1 applic Ondansetron HCl (Zofran Inj) 4 mg IVP Q4H PRN PRN Reason: Nausea/Vomiting Last Admin: 06/27/18 11:22 Dose: 4 mg Pantoprazole Sodium (Protonix Ec Tab) 40 mg PO 0600 [facility] Last Admin: 06/27/18 05:07 Dose: 40 mg Sennosides (Senokot Tab) 8.6 mg PO DAILY [facility] Last Admin: 06/27/18 10:05 Dose: Not Given Sodium Chloride (Sodium Chloride Tab) 1 gm PO WM [facility] Last Admin: 06/27/18 11:58 Dose: Not Given Sodium Polystyrene Sulfonate (Kayexalate) 30 gm RC ONCE ONE Stop: 06/27/18 18:01 Physical Exam - Constitutional Appears: No Acute Distress, Chronically Ill - Head Exam Head Exam: ATRAUMATIC - Eye Exam Eye Exam: EOMI, Scleral icterus - ENT Exam ENT Exam: Mucous Membranes Moist - Respiratory Exam Respiratory Exam: NORMAL BREATHING PATTERN. absent: Accessory Muscle Use, Respiratory Distress - Cardiovascular Exam Cardiovascular Exam: REGULAR RHYTHM. absent: Bradycardia, Tachycardia - GI/Abdominal Exam GI & Abdominal Exam: Distended, Soft, Tenderness. absent: Firm, Guarding, Hernia - Neurological Exam Neurological exam: Alert, Oriented x3 - Skin Skin Exam: Intact, Warm Results - Vital Signs Recent Vital Signs: Last Vital Signs Temp 98 F 06/27/18 09:13 Pulse 102 H 06/27/18 09:13 Resp 20 06/27/18 09:13 BP 101/56 L 06/27/18 09:13 Pulse Ox 95 06/27/18 09:13 - Labs Result Diagrams: 06/27/18 06:00 06/27/18 06:00 Labs: Laboratory Results - last 24 hr 06/27/18 06/27/18 06:00 06:00 WBC 37.3 H* RBC 4.41 Hgb 13.3 Hct 41.5 MCV 94.1 MCH 30.2 MCHC 32.0 RDW 14.4 Plt Count 178 MPV 11.5 H Gran % 98.6 H Lymph % (Auto) 1.2 L [place] % (Auto) 0.2 L Eos % (Auto) 0.0 L Baso % (Auto) 0.0 Gran # 36.76 H Lymph # (Auto) 0.4 L [place] # (Auto) 0.1 Eos # (Auto) 0.0 Baso # (Auto) 0.01 Sodium 130 L Potassium 6.5 H* Chloride 99 Carbon Dioxide 17 L Anion Gap 21 H BUN 88 H Creatinine 3.1 H Est GFR ( Amer) 18 Est GFR (Non-Af Amer) 15 Random Glucose 127 H Calcium 7.8 L Phosphorus 7.7 H Magnesium 2.6 H Total Bilirubin 1.5 H AST 114 H ALT 57 H Alkaline Phosphatase 353 H Total Protein 5.8 Albumin 2.6 L Globulin 3.2 Albumin/Globulin Ratio 0.8 L Assessment & Plan - Assessment and Plan (Free Text) Assessment: 63F w/ Pancreatic Ca recurrent malignant Ascities Plan: - bedside paracentesis - pain control PRN - recommend palliative care - pulled 3L - discussed w/ Dr. Motta surgical attending PGY2 Procedure - Procedure and Findings -: Date of procedure: 06/27/18 Surgeon: Dr. Nirmala Agustin Anesthesia: Self- Local 5cc 1% lidocaine w/o Epi INDICATION: 63F w/p pancreatic Ca h/x of multiple Paracentesis Ultrasound used to nicole location CONSENT: Consent was obtained from patient prior to the procedure. Indications, risks, and benefits were explained at length. PROCEDURE SUMMARY: A time-out was performed confirmed correct patient, site, and procedure. Patient was cleaned and draped in usual sterile fashion on the Right side of the abdomen just lateral to the rectus using chlorhexidine scrub. Anesthesia was achieved with 1% lidocaine. Sterile probe was used and ultrasound was used to identify greatest fluid collection. The paracentesis catheter was inserted and advanced with negative pressure until straw colored fluid was aspirated. Approximately 30 mL of ascitic fluid was collected and sent for laboratory analysis. The catheter was then connected to the vaccutainer and 3000cc of additional ascitic fluid were drained. The catheter was removed and no leaking was noted. A bandaid was placed over the puncture wound. The patient tolerated the procedure well without any immediate complications. Estimated blood loss was less than 5cc.
[2018-06-27] MEDS: HYDROmorphone 1 mg/ml ISec IVP PRN (17:14)
[2018-06-27 19:27] LABS: BODY FLUID TYPE PERITONEAL/ASCITES
[2018-06-27 19:53] LABS: BF GROSS APPEARANCE SL CLOUDY (CLEAR); BODY FLUID TOTAL COUNT 100 (0-0)
--- NOTE | 2018-06-28 05:28 | CP.PCM.PN ---
<Aditi Ariza - Last Filed: 06/28/18 15:44> Subjective - Date & Time of Evaluation Date of Evaluation: 06/28/18 Time of Evaluation: 07:00 - Subjective Subjective: Pgy3 Medicine progress note for Dr. Barrientos Patient seen and examined at beside. Patient is POD#1 bedside paracentesis that drained 3L. Patient reported pain was improved since the procedure. As per nursing patient had no acute events overnight. Patient was nauseous this AM but denied complaints of fever, chest pain, SOB, pain in her legs b/l. She continues to have moderate pain in her abdomen and b/l LE swelling. Objective - Vital Signs/Intake and Output Vital Signs (last 24 hours): Temp Pulse Resp BP Pulse Ox 98.4 F 90 22 87/47 L 94 L 06/27/18 17:31 06/27/18 18:00 06/27/18 18:00 06/27/18 18:00 06/27/18 18:00 - Medications Medications: Current Medications Bisacodyl (Dulcolax) 10 mg RC DAILY PRN PRN Reason: Constipation Docusate Sodium (Colace) 100 mg PO BID [facility] Last Admin: 06/27/18 17:13 Dose: Not Given Heparin Sodium (Porcine) (Heparin) 5,000 units SC Q12 [facility]; Protocol Last Admin: 06/26/18 21:52 Dose: 5,000 units Hydromorphone HCl (Dilaudid) 1 mg IVP Q3H PRN PRN Reason: Pain, severe (8-10) Last Admin: 06/27/18 17:14 Dose: 1 mg Hydromorphone HCl (Dilaudid) 0.5 mg IVP Q3H PRN PRN Reason: Pain, severe (8-10) Sodium Bicarbonate 150 meq/ (Dextrose) 1,150 mls @ 100 mls/hr IV .[id number] [facility] Last Admin: 06/27/18 21:54 Dose: 100 mls/hr Lorazepam (Ativan) 0.5 mg PO Q6 PRN; Protocol PRN Reason: Anxiety Last Admin: 06/17/18 03:59 Dose: 0.5 mg Multi-Ingredient Ointment (Prep-Hem) 0 ea TOP BID PRN PRN Reason: Hemorrhoids Nystatin (Nystatin Oral Susp) 5 ml PO QID [facility] Last Admin: 06/27/18 21:58 Dose: Not Given Nystatin (Mycostatin Oint) 0 gm TOP TID [facility] Last Admin: 06/27/18 17:13 Dose: Not Given Ondansetron HCl (Zofran Inj) 4 mg IVP Q4H PRN PRN Reason: Nausea/Vomiting Last Admin: 06/27/18 16:10 Dose: 4 mg Pantoprazole Sodium (Protonix Ec Tab) 40 mg PO 0600 [facility] Last Admin: 06/27/18 05:07 Dose: 40 mg Sennosides (Senokot Tab) 8.6 mg PO DAILY [facility] Last Admin: 06/27/18 10:05 Dose: Not Given Sodium Chloride (Sodium Chloride Tab) 1 gm PO WM [facility] Last Admin: 06/27/18 17:14 Dose: Not Given - Labs Labs: 06/27/18 06:00 06/27/18 06:00 PT 13.2 SECONDS (9.4-12.5) H 06/15/18 14:54 INR 1.15 06/15/18 14:54 APTT 27.5 Seconds (25.1-36.5) 06/15/18 14:54 - Constitutional Appears: No Acute Distress, Cachectic, Chronically Ill - Additional Findings Additional findings: - Head Exam Head Exam: ATRAUMATIC, NORMAL INSPECTION, NORMOCEPHALIC - Eye Exam Eye Exam: EOMI, Normal appearance. absent: Conjunctival injection, Scleral icterus - ENT Exam ENT Exam: Mucous Membranes Dry - Respiratory Exam Respiratory Exam: NORMAL BREATHING PATTERN. absent: Accessory Muscle Use, Rales, Rhonchi, Wheezes, Respiratory Distress - Cardiovascular Exam Cardiovascular Exam: Tachycardia, +S1, +S2 - GI/Abdominal Exam GI & Abdominal Exam: Distended (more distended than prior exam on 06/24/18), Soft, Tenderness (to palpation), Hypoactive Bowel Sounds. absent: Firm, Rigid, Pulsatile Mass - Extremities Exam Extremities Exam: Normal Capillary Refill, Pedal Edema (+2 b/l LE pitting) - Back Exam Back Exam: NORMAL INSPECTION. absent: rash noted - Neurological Exam Neurological Exam: Alert, Awake, Oriented x3 - Psychiatric Exam Psychiatric exam: Anxious - Skin Skin Exam: Dry, Intact, Normal Color, Warm Assessment and Plan - Assessment and Plan (Free Text) Assessment: 1. Pancreatic ca Stage IV with liver mets 2. Recurrent Malignant Ascites 3. Hyperkalemia 4. KIMBERLY 5. Persistent Leukocytosis 6. Hyponatremia 7. Transaminitis 8. Pain management 9. Constipation 10. DNR/DNI 11. Hemorrhoids 12. Gait dysfunction 13. Decreased PO intake Plan: Patient's blood work, vitals, and imaging reviewed. Patient is POD#1 bedside paracentesis; Peritoneal studies as follows: esme and cloudy, WBC 621, RBC 07981, Total cell count 100, Mononuclear cells 72.6, PMNs 27.4. Patient to be given 3 doses of Albumin 12.5 bid for 4 days. This is the third paracentesis patient has had during hospital course. As per heme/onc patient on schedule to receive gem/abraxane while in house; 06/23/18 was Day 1 and next dose is Day 8 and 15. IR consulted for Aspira catheter placement for recurrent malignant ascites. Patient's hyperkalemia managed with calcium gluconate, insulin, D50 cocktail, and kayexalate. Will recheck on AM labs. Patient's creatinine and KIMBERLY worsening this AM. Bicarb improving with fluids. Patient's leukocytosis improved this AM. Will continue to monitor off abx at this time. Cultures thus far have been negative. Patient's sodium has been stable at 130 since 06/18/18. Continue with sodium tabs as ordered at this time. Patient's LFTs continue to be elevated with elevated Alk phos and TBili. This is likely secondary to mets. Pain medi cations have been adjusted as per hemeonc and palliative care. Patient on bowel regimen for constipation. Continue Ensure dietary supplement and Renal low potassium diet. Continue topical hemorrhoid cream as needed. Patient has been unable to work with physical therapy for gait conditioning due to clinical condition. GI ppx Protonix and DVT ppx heparin on hold in light of blood work. Patient made DNR/DNI on 06/24/18 by palliative care Safia Catonte. Appreciate recommendations by heme/onc, pall care, GI, and ID. Patient and family were spoken to at length and concerns and questions were addressed thoroughly. Discussed with Dr. Floyd Ariza PGY3 <Hank Barrientos - Last Filed: 06/28/18 19:52> Objective - Vital Signs/Intake and Output Vital Signs (last 24 hours): Temp Pulse Resp BP Pulse Ox 97.7 F 78 18 97/47 L 99 06/28/18 18:00 06/28/18 18:00 06/28/18 18:00 06/28/18 18:00 06/28/18 18:00 Intake and Output: 06/28/18 06/29/18 18:59 06:59 Intake Total 0 Output Total 100 Balance -100 - Medications Medications: Current Medications Acetaminophen (Tylenol 325mg Tab) 650 mg PO Q4 PRN PRN Reason: Pain, Mild (1-3) Albumin Human (Albumin Human 25% (12.5 Gm/50 Ml)) 12.5 gm IV BID [facility] Stop: 07/01/18 18:01 Bisacodyl (Dulcolax) 10 mg RC DAILY PRN PRN Reason: Constipation Docusate Sodium (Colace) 100 mg PO BID [facility] Last Admin: 06/28/18 18:31 Dose: Not Given Heparin Sodium (Porcine) (Heparin) 5,000 units SC Q12 [facility]; Protocol Last Admin: 06/26/18 21:52 Dose: 5,000 units Hydromorphone HCl (Dilaudid) 1 mg IVP Q3H PRN PRN Reason: Pain, severe (8-10) Last Admin: 06/27/18 17:14 Dose: 1 mg Hydromorphone HCl (Dilaudid) 0.5 mg IVP Q3H PRN PRN Reason: Pain, severe (8-10) Sodium Bicarbonate 150 meq/ (Dextrose) 1,150 mls @ 100 mls/hr IV .[id number] [facility] Last Admin: 06/27/18 21:54 Dose: 100 mls/hr Levalbuterol HCl (Xopenex) 1.25 mg IH TIDRESP PRN PRN Reason: Shortness of Breath Lorazepam (Ativan) 0.5 mg PO Q6 PRN; Protocol PRN Reason: Anxiety Last Admin: 06/17/18 03:59 Dose: 0.5 mg Multi-Ingredient Ointment (Prep-Hem) 0 ea TOP BID PRN PRN Reason: Hemorrhoids Nystatin (Nystatin Oral Susp) 5 ml PO QID [facility] Last Admin: 06/28/18 18:32 Dose: Not Given Nystatin (Mycostatin Oint) 0 gm TOP TID [facility] Last Admin: 06/28/18 14:00 Dose: Not Given Ondansetron HCl (Zofran Inj) 4 mg IVP Q4H PRN PRN Reason: Nausea/Vomiting Last Admin: 06/28/18 15:15 Dose: 4 mg Pantoprazole Sodium (Protonix Ec Tab) 40 mg PO 0600 [facility] Last Admin: 06/27/18 05:07 Dose: 40 mg Sennosides (Senokot Tab) 8.6 mg PO DAILY [facility] Last Admin: 06/28/18 10:00 Dose: Not Given Sodium Chloride (Sodium Chloride Tab) 1 gm PO WM [facility] Last Admin: 06/28/18 18:32 Dose: Not Given - Labs Labs: 06/28/18 06:00 06/28/18 06:00 PT 13.2 SECONDS (9.4-12.5) H 06/15/18 14:54 INR 1.15 06/15/18 14:54 APTT 27.5 Seconds (25.1-36.5) 06/15/18 14:54 Assessment and Plan - Assessment and Plan (Free Text) Plan: Pt seen and examined by me. I have reviewed the note of the medical translator and I agree with it. I have discussed the assessment and plan with the resident. I have reviewed the medications and the last labs.Pt had a paracentesis done yesterday. She will be given Albumin. She is off of her Abx. She has KIMBERLY and is on IVF with HCO3 dirp. Her hyperkalemia is better. She has liver mets. Her hyponatremia is stable. She has third space fluid loss and has malignant ascites.
[2018-06-28 06:19] LABS: EOS % 0.1 % (1.5-5.0); GRAN # 18.09 (1.4-6.5); GRAN % 97.6 % (50.0-68.0); HEMOGLOBIN 12.3 g/dL (12.0-16.0); LYMPH # 0.4 (1.2-3.4); LYMPH % 2.1 % (22.0-35.0); MEAN CELL VOLUME 92.9 fl (80.0-105.0); MEAN CORPUSCULAR HEMOGLOBIN 29.9 pg (25.0-35.0); MEAN CORPUSCULAR HGB CONC 32.2 g/dl (31.0-37.0); MEAN PLATELET VOLUME 11.2 fl (7.0-11.0); MONO % 0.2 % (1.0-6.0); RBC 4.11 10^6/uL (3.5-6.1); RED CELL DISTRIBUTION WIDTH 14.3 % (11.5-14.5); WHITE BLOOD COUNT 18.5 10^3/uL (4.5-11.0)
[2018-06-28 07:28] LABS: ALB/GLOB RATIO 0.8 (1.1-1.8); ALBUMIN 2.4 g/dL (3.0-4.8); CALCIUM 7.4 mg/dL (8.4-10.5)
[2018-06-28] MEDS ORDERED: Insulin Regular 1 UNITS/0.01 ML ML SC ONE (08:09)
[2018-06-28] MEDS ORDERED: Insulin Regular 1 UNITS/0.01 ML ML IV ONE (08:09)
[2018-06-28] MEDS ORDERED: Dextrose 50% SYRINGE Inj (50 ml) IVP ONE (08:09)
[2018-06-28] MEDS ORDERED: Lidocaine 2% Inj (20ml) ONE (09:48)
[2018-06-28] MEDS ORDERED: Midazolam 2 MG/2 ML VIAL ONE (09:50)
--- NOTE | 2018-06-28 09:59 | CP.PCM.PN ---
Subjective - Date & Time of Evaluation Date of Evaluation: 06/28/18 Time of Evaluation: 09:50 - Subjective Subjective: PGY-2 heme/onc progress note No acute events noted overnight. Patient's sister and at bedside. Patient somewhat drowsy but per more alert than the previous night. Complained of lower abd pain. Stated she felt thirsty and was asking for jello. Objective - Vital Signs/Intake and Output Vital Signs (last 24 hours): Temp Pulse Resp BP Pulse Ox 97.6 F 97 H 20 90/58 L 98 06/28/18 07:56 06/28/18 07:56 06/28/18 07:56 06/28/18 07:56 06/28/18 07:56 - Medications Medications: Current Medications Bisacodyl (Dulcolax) 10 mg RC DAILY PRN PRN Reason: Constipation Docusate Sodium (Colace) 100 mg PO BID [facility] Last Admin: 06/27/18 17:13 Dose: Not Given Heparin Sodium (Porcine) (Heparin) 5,000 units SC Q12 [facility]; Protocol Last Admin: 06/26/18 21:52 Dose: 5,000 units Hydromorphone HCl (Dilaudid) 1 mg IVP Q3H PRN PRN Reason: Pain, severe (8-10) Last Admin: 06/27/18 17:14 Dose: 1 mg Hydromorphone HCl (Dilaudid) 0.5 mg IVP Q3H PRN PRN Reason: Pain, severe (8-10) Sodium Bicarbonate 150 meq/ (Dextrose) 1,150 mls @ 100 mls/hr IV .[id number] [facility] Last Admin: 06/27/18 21:54 Dose: 100 mls/hr Lorazepam (Ativan) 0.5 mg PO Q6 PRN; Protocol PRN Reason: Anxiety Last Admin: 06/17/18 03:59 Dose: 0.5 mg Multi-Ingredient Ointment (Prep-Hem) 0 ea TOP BID PRN PRN Reason: Hemorrhoids Nystatin (Nystatin Oral Susp) 5 ml PO QID [facility] Last Admin: 06/27/18 21:58 Dose: Not Given Nystatin (Mycostatin Oint) 0 gm TOP TID [facility] Last Admin: 06/27/18 17:13 Dose: Not Given Ondansetron HCl (Zofran Inj) 4 mg IVP Q4H PRN PRN Reason: Nausea/Vomiting Last Admin: 06/28/18 07:16 Dose: 4 mg Pantoprazole Sodium (Protonix Ec Tab) 40 mg PO 0600 [facility] Last Admin: 06/27/18 05:07 Dose: 40 mg Sennosides (Senokot Tab) 8.6 mg PO DAILY [facility] Last Admin: 06/27/18 10:05 Dose: Not Given Sodium Chloride (Sodium Chloride Tab) 1 gm PO WM [facility] Last Admin: 06/27/18 17:14 Dose: Not Given - Labs Labs: 06/28/18 06:00 06/28/18 06:00 PT 13.2 SECONDS (9.4-12.5) H 06/15/18 14:54 INR 1.15 06/15/18 14:54 APTT 27.5 Seconds (25.1-36.5) 06/15/18 14:54 - Additional Findings Additional findings: - Constitutional Appears: No Acute Distress - Head Exam Head Exam: ATRAUMATIC, NORMAL INSPECTION, NORMOCEPHALIC - Eye Exam Eye Exam: EOMI, Normal appearance, PERRL - ENT Exam ENT Exam: Mucous Membranes Moist - Neck Exam Additional comments: supple - Respiratory Exam Respiratory Exam: Clear to Ausculation Bilateral. absent: Rales, Rhonchi, Wheezes - Cardiovascular Exam Cardiovascular Exam: REGULAR RHYTHM. absent: +S1, +S2 - GI/Abdominal Exam GI & Abdominal Exam: Distended, Tenderness, Hypoactive Bowel Sounds. absent: Guarding (improves), Rigid - Extremities Exam Extremities Exam: Pedal Edema. absent: Calf Tenderness - Back Exam Back Exam: absent: CVA tenderness (L), CVA tenderness (R) - Neurological Exam Neurological Exam: Alert, Awake, Oriented x3 - Psychiatric Exam Psychiatric exam: Normal Affect, Normal Mood - Skin Skin Exam: Dry, Warm Assessment and Plan - Assessment and Plan (Free Text) Plan: Ms. Coppola esau 63 y/o women with pmhx significant for stage IV pancreatic cancer c/b malignant ascites currently admitted for SBP and ARF with associated electro lye abnormalities s/p paracentesis. stage IV pancreatic cancer c/b malignant ascites -Patient's abdomen appears to be getting distended again. * Repeat paracentesis performed 06/20/18 with 3800cc removed * paracentesis performed 06/27/18 with 3000cc removed (this is her 3rd p aracentesis this admission) * wbc 621, rbc 19657, total cell count 100, mononuclear cell 72, polymor phonuclear 28, albumin 1.9, total protein 4.1, LDH 627 -aspira peritoneal catheter placed 06/28/18 -now receiving chemo in-house * gem/abraxane on 06/23/18, cycle is for day 1, 8, 15 -we will consider neupogen infusion for her -hyperkalemia being treated with kayexalate, D50, insulin and calcium gluconate -on dilaudid for pain control -KIMBERLY likely prerenal - gave 1u FFP and will start albumin 25% BID for volume expansion -calorie count and dietary referral -f/u fibrinogen, fibrin split products, coags Dispo: as per case workers, patient to be discharged home with services when medically optimized (not accepted to TCU or [facility]); palliative in discussion with family regarding hospice Case discussed with Dr Amaury Holt
[2018-06-28] MEDS: Nystatin 100,000 Units/gm Oint(30 gm) TOP SCH ×2 (10:00→14:00)
[2018-06-28] MEDS: Nystatin 100,000 Units/ml Oral Susp 5 ml UD PO SCH ×4 (10:00→23:23)
[2018-06-28] MEDS ORDERED: Sodium Chloride 0.45% 1,000 ML IV SCH (10:30)
--- NOTE | 2018-06-28 13:35 | CP.PCM.PN ---
Subjective - Date & Time of Evaluation Date of Evaluation: 06/28/18 Time of Evaluation: 10:55 - Subjective Subjective: Paracentesis done again yesterday, no fevers, not in distress but still feels weak. Objective - Vital Signs/Intake and Output Vital Signs (last 24 hours): Temp Pulse Resp BP Pulse Ox 97.6 F 91 H 15 90/50 L 97 06/28/18 11:14 06/28/18 11:14 06/28/18 11:14 06/28/18 11:14 06/28/18 11:14 - Medications Medications: Current Medications Acetaminophen (Tylenol 325mg Tab) 650 mg PO Q4 PRN PRN Reason: Pain, Mild (1-3) Albumin Human (Albumin Human 25% (12.5 Gm/50 Ml)) 12.5 gm IV BID [facility] Stop: 07/01/18 18:01 Bisacodyl (Dulcolax) 10 mg RC DAILY PRN PRN Reason: Constipation Docusate Sodium (Colace) 100 mg PO BID [facility] Last Admin: 06/28/18 10:00 Dose: Not Given Heparin Sodium (Porcine) (Heparin) 5,000 units SC Q12 [facility]; Protocol Last Admin: 06/26/18 21:52 Dose: 5,000 units Hydromorphone HCl (Dilaudid) 1 mg IVP Q3H PRN PRN Reason: Pain, severe (8-10) Last Admin: 06/27/18 17:14 Dose: 1 mg Hydromorphone HCl (Dilaudid) 0.5 mg IVP Q3H PRN PRN Reason: Pain, severe (8-10) Sodium Bicarbonate 150 meq/ (Dextrose) 1,150 mls @ 100 mls/hr IV .[id number] [facility] Last Admin: 06/27/18 21:54 Dose: 100 mls/hr Sodium Chloride (Sodium Chloride 0.45%) 1,000 mls @ 80 mls/hr IV .[id number] [facility] Stop: 06/28/18 16:00 Lorazepam (Ativan) 0.5 mg PO Q6 PRN; Protocol PRN Reason: Anxiety Last Admin: 06/17/18 03:59 Dose: 0.5 mg Multi-Ingredient Ointment (Prep-Hem) 0 ea TOP BID PRN PRN Reason: Hemorrhoids Nystatin (Nystatin Oral Susp) 5 ml PO QID [facility] Last Admin: 06/28/18 10:00 Dose: Not Given Nystatin (Mycostatin Oint) 0 gm TOP TID [facility] Last Admin: 06/28/18 10:00 Dose: Not Given Ondansetron HCl (Zofran Inj) 4 mg IVP Q4H PRN PRN Reason: Nausea/Vomiting Last Admin: 06/28/18 07:16 Dose: 4 mg Pantoprazole Sodium (Protonix Ec Tab) 40 mg PO 0600 [facility] Last Admin: 06/27/18 05:07 Dose: 40 mg Sennosides (Senokot Tab) 8.6 mg PO DAILY [facility] Last Admin: 06/28/18 10:00 Dose: Not Given Sodium Chloride (Sodium Chloride Tab) 1 gm PO WM [facility] Last Admin: 06/28/18 08:00 Dose: Not Given - Labs Labs: 06/28/18 06:00 06/28/18 06:00 PT 13.2 SECONDS (9.4-12.5) H 06/15/18 14:54 INR 1.15 06/15/18 14:54 APTT 27.5 Seconds (25.1-36.5) 06/15/18 14:54 - Constitutional Appears: Chronically Ill - Head Exam Head Exam: NORMAL INSPECTION - Respiratory Exam Respiratory Exam: Decreased Breath Sounds - Cardiovascular Exam Cardiovascular Exam: +S1, +S2 - GI/Abdominal Exam GI & Abdominal Exam: Soft. absent: Tenderness Assessment and Plan - Assessment and Plan (Free Text) Plan: Assessment S/P severe sepsis with KIMBERLY due to IAI in this patient in this patient with stage 4 pancreatic cancer with liver metastases persistent leukocytosis probably from cancer history of chronic alcohol use Plan cultures have been negative will continue to monitor off antibiotics since she is at risk for healthcare- associated infections discussed with Dr. Patel - patient is now on chemotherapy overall prognosis is poor
[2018-06-28] MEDS ORDERED: Levalbuterol 1.25 MG/3 ML Inhal Soln UD IH PRN (17:16)
--- NOTE | 2018-06-28 19:09 | VASCULAR ---
Date of service: 06/28/2018 PROCEDURE: Ultrasound fluoroscopically placed tunneled peritoneal catheter HISTORY: Metastatic pancreatic CA with malignant ascites and recurrent abdominal pain with distention. Requiring frequent paracentesis. Needs tunneled peritoneal catheter COMPARISON: TECHNIQUE: The relative risks and indications of the procedure were explained the patient consent obtained. The patient was placed supine on the arteriography table and sonography abdomen performed. This revealed a small to moderate amount of ascites, largest in the right quadrant. Conscious sedation monitoring were provided throughout the procedure by a nurse A placement site was selected in the right lower quadrant. The skin soft tissues were anesthetized 1 percent xylocaine. A 19 gauge needle was advanced into the peritoneal cavity. A 0.035 glidewire was advanced up the right pericolic gutter. A peel-away sheath was placed. Next the 15.5 Greek Aspira catheter was advanced over the guidewire along the right pericolic gutter and superiorly. The sheath was removed. The catheter was tunneled in the right lower quadrant. 2500 cc of snow fluid was removed. The catheter was flushed and secured. FINDINGS: IMPRESSION: 1. Ultrasound fluoroscopically placed tunneled peritoneal catheter. 2. 2500 cc of snow fluid was removed.
[2018-06-28] MEDS: Albumin Human 25% (12.5 gm/50 ml) IV SCH (21:46)
[2018-06-28] MEDS: HYDROmorphone 0.5 mg/0.5 ml ISec IVP PRN (21:53)
[2018-06-28] MEDS: Sodium Bicarbonate 8.4% 150 MEQ in Dextrose 5% In Water 1,000 ML IV SCH (23:23)
[2018-06-29] MEDS: HYDROmorphone 1 mg/ml ISec IVP PRN (05:51)
[2018-06-29 06:58] LABS: INR 1.21; PARTIAL THROMBOPLASTIN TIME 23.8 Seconds (26.9-38.3); PROTHROMBIN TIME 13.7 SECONDS (9.4-12.5)
[2018-06-29 07:08] LABS: BASO # 0.02 K/mm3 (0.0-2.0); BASO % 0.8 % (0.0-3.0); GRAN # 2.35 (1.4-6.5); GRAN % 88.6 % (50.0-68.0); HEMOGLOBIN 12.8 g/dL (12.0-16.0); LYMPH # 0.3 (1.2-3.4); LYMPH % 10.2 % (22.0-35.0); MEAN CELL VOLUME 91.2 fl (80.0-105.0); MEAN CORPUSCULAR HEMOGLOBIN 29.7 pg (25.0-35.0); MEAN CORPUSCULAR HGB CONC 32.6 g/dl (31.0-37.0); MEAN PLATELET VOLUME 11.7 fl (7.0-11.0); MONO % 0.4 % (1.0-6.0); PLATELET COUNT 55 10^3/uL (120.0-450.0); RBC 4.31 10^6/uL (3.5-6.1); RED CELL DISTRIBUTION WIDTH 14.2 % (11.5-14.5); WHITE BLOOD COUNT 2.7 10^3/uL (4.5-11.0)
[2018-06-29 08:00] LABS: ALB/GLOB RATIO 0.8 (1.1-1.8); ALBUMIN 2.3 g/dL (3.0-4.8); CALCIUM 6.9 mg/dL (8.4-10.5)
[2018-06-29] MEDS ORDERED: Insulin Regular 1 UNITS/0.01 ML ML IV ONE (08:10)
[2018-06-29] MEDS ORDERED: Dextrose 50% SYRINGE Inj (50 ml) IVP ONE (08:10)
[2018-06-29] MEDS ORDERED: Albuterol-Ipratrop 3 mg / 0.5 (3 ml) UD IH STA (08:15)
--- NOTE | 2018-06-29 09:22 | CP.PCM.PN ---
<Aditi Ariza - Last Filed: 06/29/18 13:41> Subjective - Date & Time of Evaluation Date of Evaluation: 06/29/18 Time of Evaluation: 07:30 - Subjective Subjective: Pgy3 Medicine progress note for Dr. Barrientos Patient seen and examined at bedside. As per nursing patient had no acute events overnight. Sister at bedside reports patient had not had a BM yet. She has been eating jello with protein powder and family continues to encourage her to eat. Patient was uncomfortable in bed, continues to complain of abdominal pain and discomfort, abdominal distention, and b/l LE swelling. Denied fever, chest pain, SOB, nausea, vomiting, dysuria, pain in her legs b/l. Objective - Vital Signs/Intake and Output Vital Signs (last 24 hours): Temp Pulse Resp BP Pulse Ox 98.4 F 92 H 20 111/60 99 06/29/18 08:17 06/29/18 08:17 06/29/18 08:17 06/29/18 08:17 06/29/18 08:17 Intake and Output: 06/29/18 06/29/18 06:59 18:59 Intake Total 840 Output Total 1100 Balance -260 - Medications Medications: Current Medications Acetaminophen (Tylenol 325mg Tab) 650 mg PO Q4 PRN PRN Reason: Pain, Mild (1-3) Albumin Human (Albumin Human 25% (12.5 Gm/50 Ml)) 12.5 gm IV BID [facility] Stop: 07/01/18 18:01 Last Admin: 06/28/18 21:46 Dose: 12.5 gm Bisacodyl (Dulcolax) 10 mg RC DAILY PRN PRN Reason: Constipation Docusate Sodium (Colace) 100 mg PO BID [facility] Last Admin: 06/28/18 18:31 Dose: Not Given Heparin Sodium (Porcine) (Heparin) 5,000 units SC Q12 [facility]; Protocol Last Admin: 06/26/18 21:52 Dose: 5,000 units Hydromorphone HCl (Dilaudid) 1 mg IVP Q3H PRN PRN Reason: Pain, severe (8-10) Last Admin: 06/29/18 05:51 Dose: 1 mg Hydromorphone HCl (Dilaudid) 0.5 mg IVP Q3H PRN PRN Reason: Pain, severe (8-10) Last Admin: 06/28/18 21:53 Dose: 0.5 mg Sodium Bicarbonate 150 meq/ (Dextrose) 1,150 mls @ 100 mls/hr IV .[id number] [facility] Last Admin: 06/28/18 23:23 Dose: 100 mls/hr Levalbuterol HCl (Xopenex) 1.25 mg IH TIDRESP PRN PRN Reason: Shortness of Breath Lorazepam (Ativan) 0.5 mg PO Q6 PRN; Protocol PRN Reason: Anxiety Last Admin: 06/17/18 03:59 Dose: 0.5 mg Multi-Ingredient Ointment (Prep-Hem) 0 ea TOP BID PRN PRN Reason: Hemorrhoids Nystatin (Nystatin Oral Susp) 5 ml PO QID [facility] Last Admin: 06/28/18 23:23 Dose: Not Given Nystatin (Mycostatin Oint) 0 gm TOP TID [facility] Last Admin: 06/28/18 14:00 Dose: Not Given Ondansetron HCl (Zofran Inj) 4 mg IVP Q4H PRN PRN Reason: Nausea/Vomiting Last Admin: 06/28/18 15:15 Dose: 4 mg Pantoprazole Sodium (Protonix Ec Tab) 40 mg PO 0600 [facility] Last Admin: 06/27/18 05:07 Dose: 40 mg Sennosides (Senokot Tab) 8.6 mg PO DAILY [facility] Last Admin: 06/28/18 10:00 Dose: Not Given Sodium Chloride (Sodium Chloride Tab) 1 gm PO WM [facility] Last Admin: 06/28/18 18:32 Dose: Not Given - Labs Labs: 06/29/18 06:00 06/29/18 06:00 PT 13.7 SECONDS (9.4-12.5) H 06/29/18 06:00 INR 1.21 06/29/18 06:00 APTT 23.8 Seconds (26.9-38.3) L 06/29/18 06:00 - Additional Findings Additional findings: - Constitutional Appears: No Acute Distress, Cachectic, Chronically Ill - Additional Findings Additional findings: - Head Exam Head Exam: ATRAUMATIC, NORMAL INSPECTION, NORMOCEPHALIC - Eye Exam Eye Exam: EOMI, Normal appearance. absent: Conjunctival injection, Scleral icterus - ENT Exam ENT Exam: Mucous Membranes Dry - Respiratory Exam Respiratory Exam: NORMAL BREATHING PATTERN. absent: Accessory Muscle Use, Rales, Rhonchi, Wheezes, Respiratory Distress - Cardiovascular Exam Cardiovascular Exam: Tachycardia, +S1, +S2 - GI/Abdominal Exam GI & Abdominal Exam: Distended, Soft, Tenderness (to palpation), Hypoactive Bowel Sounds. absent: Firm, Rigid, Pulsatile Mass - Extremities Exam Extremities Exam: Normal Capillary Refill, Pedal Edema (+3 b/l LE pitting) - Back Exam Back Exam: NORMAL INSPECTION. absent: rash noted - Neurological Exam Neurological Exam: Alert, Awake, Oriented x3 - Psychiatric Exam Psychiatric exam: Anxious - Skin Skin Exam: Dry, Intact, Normal Color, Warm Assessment and Plan - Assessment and Plan (Free Text) Assessment: 1. Pancreatic ca Stage IV with liver mets 2. Recurrent Malignant Ascites 3. Hyperkalemia 4. Worsening KIMBERLY 5. Leukopenia 6. Hyponatremia 7. Transaminitis 8. Pain management 9. Constipation 10. DNR/DNI 11. Hemorrhoids 12. Gait dysfunction 13. Decreased PO intake Plan: Patient's vitals and blood work reviewed. Patient is POD#1 Aspira cath placement for recurrent malignant ascites. Patient's next drainage scheduled for 07/01. Patient continuing to receive Albumin and was transfused 1U FFP as per oncology. As per heme/onc patient on schedule to receive gem/abraxane while in house; 06/23/18 was Day 1 and next dose is Day 8 and 15. Patient's hyperkalemia managed with calcium gluconate, insulin, D50 cocktail, and kayexalate. Bicarb improved with fluids however patient's KIMBERLY worsening. Leukopenia likely secondary to recent chemo. Continue with sodium tabs for hyponatremia at this time. Patient's LFTs continue to be elevated with elevated Alk phos and TBili. This is likely secondary to mets. Pain medications have been adjusted as per hemeonc and palliative care. Patient on bowel regimen for constipation. Continue Ensure dietary supplement and Renal low potassium diet. Patient's family encouraged to feed her. Continue topical hemorrhoid cream as needed. Patient has been unable to work with physical therapy for gait conditioning due to clinical condition. GI ppx Protonix and DVT ppx heparin on hold in light of blood work. Patient made DNR/DNI on 06/24/18 by palliative care Safia Paramonte. Appreciate recommendations by heme/onc, pall care, GI, and ID. Patient and family were spoken to at length and concerns and questions were addressed thoroughly. Discussed with Dr. Floyd Ariza PGY3 <Hank Barrientos - Last Filed: 06/29/18 18:06> Objective - Vital Signs/Intake and Output Vital Signs (last 24 hours): Temp Pulse Resp BP Pulse Ox 98.4 F 92 H 20 111/60 99 06/29/18 08:17 06/29/18 08:17 06/29/18 08:17 06/29/18 08:17 06/29/18 08:17 Intake and Output: 06/29/18 06/29/18 06:59 18:59 Intake Total 840 Output Total 1100 Balance -260 - Medications Medications: Current Medications Acetaminophen (Tylenol 325mg Tab) 650 mg PO Q4 PRN PRN Reason: Pain, Mild (1-3) Albumin Human (Albumin Human 25% (12.5 Gm/50 Ml)) 12.5 gm IV BID [facility] Stop: 07/01/18 18:01 Last Admin: 06/29/18 12:27 Dose: 12.5 gm Bisacodyl (Dulcolax) 10 mg RC DAILY PRN PRN Reason: Constipation Docusate Sodium (Colace) 100 mg PO BID [facility] Last Admin: 06/29/18 09:53 Dose: 100 mg Heparin Sodium (Porcine) (Heparin) 5,000 units SC Q12 [facility]; Protocol Last Admin: 06/26/18 21:52 Dose: 5,000 units Hydromorphone HCl (Dilaudid) 1 mg IVP Q3H PRN PRN Reason: Pain, severe (8-10) Last Admin: 06/29/18 05:51 Dose: 1 mg Hydromorphone HCl (Dilaudid) 0.5 mg IVP Q3H PRN PRN Reason: Pain, severe (8-10) Last Admin: 06/28/18 21:53 Dose: 0.5 mg Sodium Bicarbonate 150 meq/ (Dextrose) 1,150 mls @ 100 mls/hr IV .[id number] [facility] Last Admin: 06/29/18 12:30 Dose: 100 mls/hr Levalbuterol HCl (Xopenex) 1.25 mg IH TIDRESP PRN PRN Reason: Shortness of Breath Lorazepam (Ativan) 0.5 mg PO Q6 PRN; Protocol PRN Reason: Anxiety Last Admin: 06/17/18 03:59 Dose: 0.5 mg Multi-Ingredient Ointment (Prep-Hem) 0 ea TOP BID PRN PRN Reason: Hemorrhoids Nystatin (Nystatin Oral Susp) 5 ml PO QID [facility] Last Admin: 06/29/18 14:09 Dose: 5 ml Nystatin (Mycostatin Oint) 0 gm TOP TID [facility] Last Admin: 06/29/18 14:19 Dose: 1 applic Ondansetron HCl (Zofran Inj) 4 mg IVP Q4H PRN PRN Reason: Nausea/Vomiting Last Admin: 06/28/18 15:15 Dose: 4 mg Pantoprazole Sodium (Protonix Ec Tab) 40 mg PO 0600 [facility] Last Admin: 06/27/18 05:07 Dose: 40 mg Sennosides (Senokot Tab) 8.6 mg PO DAILY [facility] Last Admin: 06/29/18 09:53 Dose: 8.6 mg Sodium Chloride (Sodium Chloride Tab) 1 gm PO WM [facility] Last Admin: 06/29/18 14:08 Dose: Not Given - Labs Labs: 06/29/18 06:00 06/29/18 13:15 PT 13.7 SECONDS (9.4-12.5) H 06/29/18 06:00 INR 1.21 06/29/18 06:00 APTT 23.8 Seconds (26.9-38.3) L 06/29/18 06:00 Assessment and Plan - Assessment and Plan (Free Text) Plan: Pt seen and examined by me. I have reviewed the note of the medical review specialist and I agree with it. I have discussed the assessment and plan with the resident. I have reviewed the medications and the last labs. Pt with KIMBERLY and hyperkalemia. She has not responded to the treatement for her Hyperkalemia. She is unable to take PO and MS kayexelate. I spoke to Oncology today about the possiblity of HD. Numerous case reports and case series have documented KIMBERLY from gemcitabine. I think that the combination of the medications and the third spacing that is occurring is leading to the KIMBERLY and hyperkalemia. The pt has a POLST that states she does not want to be on HD. Dr Funk will be speaking to the family about the possiblity of HD. She has not been eating well. Palliative care has been talking to the pt and the family. Prognosis is poor.
[2018-06-29] MEDS: Nystatin 100,000 Units/ml Oral Susp 5 ml UD PO SCH ×4 (09:53→21:46)
[2018-06-29] MEDS: Nystatin 100,000 Units/gm Oint(30 gm) TOP SCH ×2 (10:17→14:19)
--- NOTE | 2018-06-29 10:48 | CP.PCM.PN ---
Subjective - Date & Time of Evaluation Date of Evaluation: 06/29/18 Time of Evaluation: 10:00 - Subjective Subjective: Weak. Pain is controlled. BM this morning. Appetite fair,prefers jello, protein drinks Objective - Vital Signs/Intake and Output Vital Signs (last 24 hours): Temp Pulse Resp BP Pulse Ox 98.4 F 92 H 20 111/60 99 06/29/18 08:17 06/29/18 08:17 06/29/18 08:17 06/29/18 08:17 06/29/18 08:17 Intake and Output: 06/29/18 06/29/18 06:59 18:59 Intake Total 840 Output Total 1100 Balance -260 - Medications Medications: Current Medications Acetaminophen (Tylenol 325mg Tab) 650 mg PO Q4 PRN PRN Reason: Pain, Mild (1-3) Albumin Human (Albumin Human 25% (12.5 Gm/50 Ml)) 12.5 gm IV BID [facility] Stop: 07/01/18 18:01 Last Admin: 06/28/18 21:46 Dose: 12.5 gm Bisacodyl (Dulcolax) 10 mg RC DAILY PRN PRN Reason: Constipation Docusate Sodium (Colace) 100 mg PO BID [facility] Last Admin: 06/29/18 09:53 Dose: 100 mg Heparin Sodium (Porcine) (Heparin) 5,000 units SC Q12 [facility]; Protocol Last Admin: 06/26/18 21:52 Dose: 5,000 units Hydromorphone HCl (Dilaudid) 1 mg IVP Q3H PRN PRN Reason: Pain, severe (8-10) Last Admin: 06/29/18 05:51 Dose: 1 mg Hydromorphone HCl (Dilaudid) 0.5 mg IVP Q3H PRN PRN Reason: Pain, severe (8-10) Last Admin: 06/28/18 21:53 Dose: 0.5 mg Sodium Bicarbonate 150 meq/ (Dextrose) 1,150 mls @ 100 mls/hr IV .[id number] [facility] Last Admin: 06/28/18 23:23 Dose: 100 mls/hr Levalbuterol HCl (Xopenex) 1.25 mg IH TIDRESP PRN PRN Reason: Shortness of Breath Lorazepam (Ativan) 0.5 mg PO Q6 PRN; Protocol PRN Reason: Anxiety Last Admin: 06/17/18 03:59 Dose: 0.5 mg Multi-Ingredient Ointment (Prep-Hem) 0 ea TOP BID PRN PRN Reason: Hemorrhoids Nystatin (Nystatin Oral Susp) 5 ml PO QID [facility] Last Admin: 06/29/18 09:53 Dose: 5 ml Nystatin (Mycostatin Oint) 0 gm TOP TID [facility] Last Admin: 06/29/18 10:17 Dose: 1 applic Ondansetron HCl (Zofran Inj) 4 mg IVP Q4H PRN PRN Reason: Nausea/Vomiting Last Admin: 06/28/18 15:15 Dose: 4 mg Pantoprazole Sodium (Protonix Ec Tab) 40 mg PO 0600 [facility] Last Admin: 06/27/18 05:07 Dose: 40 mg Sennosides (Senokot Tab) 8.6 mg PO DAILY [facility] Last Admin: 06/29/18 09:53 Dose: 8.6 mg Sodium Chloride (Sodium Chloride Tab) 1 gm PO WM [facility] Last Admin: 06/29/18 09:53 Dose: 1 gm - Labs Labs: 06/29/18 06:00 06/29/18 06:00 PT 13.7 SECONDS (9.4-12.5) H 06/29/18 06:00 INR 1.21 06/29/18 06:00 APTT 23.8 Seconds (26.9-38.3) L 06/29/18 06:00 - Constitutional Appears: Cachectic, Chronically Ill - Eye Exam Eye Exam: Normal appearance, PERRL - ENT Exam ENT Exam: Mucous Membranes Moist - Respiratory Exam Respiratory Exam: Clear to Ausculation Bilateral, NORMAL BREATHING PATTERN - Cardiovascular Exam Cardiovascular Exam: Tachycardia, +S1, +S2 - GI/Abdominal Exam GI & Abdominal Exam: Distended, Soft - Extremities Exam Extremities Exam: Pedal Edema - Neurological Exam Neurological Exam: Alert - Skin Skin Exam: Dry, Pallor Assessment and Plan - Assessment and Plan (Free Text) Assessment: 63 year old female with history of metastatic pancreatic cancer, ascites,abdominal pain and cachexia who is admitted with hyperkalemia, leukocytosis now neutropenic, ascites, KIMBERLY, elevated billirubin and deconditioning. No acute issue overnight. Family reports that she slept well. Family intends to continue aggressive supportive care Plan: Leukocytosis resolved, ID following Neutropenia; Gemzar/ Abraxane one week ago. Monitor for fevers BM this morning, continue bowel regimen as ordered Ascites: s/p paracentisis and drain placement,next drainage 07/01. Albumin. Dilaudid 1 mg for pain. Dietary counseling PT/OT
[2018-06-29] MEDS: Albumin Human 25% (12.5 gm/50 ml) IV SCH ×2 (12:27→18:37)
[2018-06-29 12:30] LABS: ATYPICAL LYMPHOCYTE 3 % (0.0-0.0); LYMPHOCYTE 9 % (22.0-35.0); MONOCYTE 3 % (1.0-6.0); NEUTROPHIL 85 % (50.0-70.0)
[2018-06-29] MEDS: Sodium Bicarbonate 8.4% 150 MEQ in Dextrose 5% In Water 1,000 ML IV SCH (12:30)
[2018-06-29 13:51] LABS: ALB/GLOB RATIO 0.8 (1.1-1.8); ALBUMIN 2.2 g/dL (3.0-4.8)
--- NOTE | 2018-06-29 15:40 | PN ---
DATE: 06/29/2018 SUBJECTIVE: The patient is lying in bed. She is weak. She has occasional nausea. She denies vomiting. Oral intake and appetite are poor. PHYSICAL EXAMINATION VITAL SIGNS: Reveal temperature of 98.4, blood pressure 111/60, heart rate 92. HEENT: Reveals sclerae to be white. Conjunctivae pink. Oral mucosa is dry. NECK: Supple. CHEST: Reveals distant breath sounds. HEART: Reveals a regular rate and rhythm. ABDOMEN: Distended with ascites. EXTREMITIES: Show 1+ pedal edema. LABORATORY DATA: Reveal white blood cell count down to 2.7, platelet count of 55,000, hemoglobin 12.8. Chemistries reveal potassium 6.9, BUN 115, creatinine 3.8. AST 87, ALT 43, alkaline phosphatase 232, total bilirubin of 2. IMPRESSION: A 63-year-old female with stage IV pancreatic cancer with omental metastasis, liver metastasis, recurrent malignant ascites, status post placement of a peritoneal catheter yesterday. She has acute kidney failure. She is also currently leukopenic and thrombocytopenic, status post chemotherapy 1 week ago. Her prognosis is extremely poor. RECOMMENDATIONS: 1. Continue comfort measures. 2. Awaiting decision on hospice. 3. Nutritional supplements as tolerated. 4. Further treatment as per Oncology. Chet Kincaid MD
--- NOTE | 2018-06-29 16:22 | CP.PCM.PN ---
Subjective - Date & Time of Evaluation Date of Evaluation: 06/29/18 Time of Evaluation: 09:25 - Subjective Subjective: Feels weak, no fevers, still with abdominal discomfort. Objective - Vital Signs/Intake and Output Vital Signs (last 24 hours): Temp Pulse Resp BP Pulse Ox 97.6 F 91 H 15 90/50 L 97 06/28/18 11:14 06/28/18 11:14 06/28/18 11:14 06/28/18 11:14 06/28/18 11:14 - Medications Medications: Current Medications Acetaminophen (Tylenol 325mg Tab) 650 mg PO Q4 PRN PRN Reason: Pain, Mild (1-3) Albumin Human (Albumin Human 25% (12.5 Gm/50 Ml)) 12.5 gm IV BID [facility] Stop: 07/01/18 18:01 Bisacodyl (Dulcolax) 10 mg RC DAILY PRN PRN Reason: Constipation Docusate Sodium (Colace) 100 mg PO BID [facility] Last Admin: 06/28/18 10:00 Dose: Not Given Heparin Sodium (Porcine) (Heparin) 5,000 units SC Q12 [facility]; Protocol Last Admin: 06/26/18 21:52 Dose: 5,000 units Hydromorphone HCl (Dilaudid) 1 mg IVP Q3H PRN PRN Reason: Pain, severe (8-10) Last Admin: 06/27/18 17:14 Dose: 1 mg Hydromorphone HCl (Dilaudid) 0.5 mg IVP Q3H PRN PRN Reason: Pain, severe (8-10) Sodium Bicarbonate 150 meq/ (Dextrose) 1,150 mls @ 100 mls/hr IV .[id number] [facility] Last Admin: 06/27/18 21:54 Dose: 100 mls/hr Sodium Chloride (Sodium Chloride 0.45%) 1,000 mls @ 80 mls/hr IV .[id number] [facility] Stop: 06/28/18 16:00 Lorazepam (Ativan) 0.5 mg PO Q6 PRN; Protocol PRN Reason: Anxiety Last Admin: 06/17/18 03:59 Dose: 0.5 mg Multi-Ingredient Ointment (Prep-Hem) 0 ea TOP BID PRN PRN Reason: Hemorrhoids Nystatin (Nystatin Oral Susp) 5 ml PO QID [facility] Last Admin: 06/28/18 10:00 Dose: Not Given Nystatin (Mycostatin Oint) 0 gm TOP TID [facility] Last Admin: 06/28/18 10:00 Dose: Not Given Ondansetron HCl (Zofran Inj) 4 mg IVP Q4H PRN PRN Reason: Nausea/Vomiting Last Admin: 06/28/18 07:16 Dose: 4 mg Pantoprazole Sodium (Protonix Ec Tab) 40 mg PO 0600 [facility] Last Admin: 06/27/18 05:07 Dose: 40 mg Sennosides (Senokot Tab) 8.6 mg PO DAILY [facility] Last Admin: 06/28/18 10:00 Dose: Not Given Sodium Chloride (Sodium Chloride Tab) 1 gm PO WM [facility] Last Admin: 06/28/18 08:00 Dose: Not Given - Labs Labs: 06/28/18 06:00 06/28/18 06:00 PT 13.2 SECONDS (9.4-12.5) H 06/15/18 14:54 INR 1.15 06/15/18 14:54 APTT 27.5 Seconds (25.1-36.5) 06/15/18 14:54 - Constitutional Appears: Chronically Ill - Head Exam Head Exam: NORMAL INSPECTION - Respiratory Exam Respiratory Exam: Decreased Breath Sounds - Cardiovascular Exam Cardiovascular Exam: +S1, +S2 - GI/Abdominal Exam GI & Abdominal Exam: Soft. absent: Tenderness Assessment and Plan - Assessment and Plan (Free Text) Plan: Assessment S/P severe sepsis with KIMBERLY due to IAI in this patient in this patient with stage 4 pancreatic cancer with liver metastases persistent leukocytosis probably from cancer history of chronic alcohol use Plan cultures have been negative will continue to monitor off antibiotics since she is at risk for nosocomial infections discussed with Dr. Patel - patient is now on chemotherapy overall prognosis is poor
[2018-06-30] MEDS: Sodium Bicarbonate 8.4% 150 MEQ in Dextrose 5% In Water 1,000 ML IV SCH ×2 (01:59→15:27)
--- NOTE | 2018-06-30 04:04 | PN ---
DATE: 06/26/2018 ONCOLOGY PROGRESS NOTE LOCATION: The patient is in room 365, bed 2. SUBJECTIVE: The patient is examined at the bedside. This is a 63-year-old female, admitted with progressive abdominal pain, nausea, vomiting, progressive ascites secondary to newly discovered metastatic stage IV carcinoma of the pancreas proven on biopsy. Had taps x3 and insertion of an Aspira catheter. Fluid was removed. The last tap yielded about 3.6 liters. Overall, the patient has had about 9 liters of fluid removed, and the reason for recurrent effusion or ascitic fluid is related to positive tap as there is intraabdominal caking and malignant ascites which is the cause for the exudative nature of the ascitic fluid. The patient is now going to be tapped once a week or sooner as needed via the Aspira catheter. In the meantime, the patient's BUN and creatinine have been steadily rising, and the kidney injury could be prerenal azotemia superimposed on KIMBERLY and this could be worsened by her liver dysfunction as syndrome could also be paying a component to this aspect of her illness. The patient is status post one treatment with abraxane and gemcitabine on day #1. She is due for again similar treatment on day #8 and day #15 if the blood count allows us to do so. The patient has had a subjectively very poor appetite. The pain is not as much an issue at this point, but definitely the appetite has tremendously decreased with intermittent nausea. The patient still complains of abdominal pain, discomfort, and abdominal distention along with lower extremity edema. Denies any chest pain, shortness of breath, nausea, vomiting. PHYSICAL EXAMINATION: GENERAL: The patient is afebrile. The patient appears to be in no significant distress as she has recently been some pain medicines given. VITAL SIGNS: T-max is 98.4, pulse is 92, respirations are 20 per minute, blood pressure is 111/60, pulse ox is 99% on room air. Intake total is 840. Output is 1100. HEENT: Head is normocephalic and atraumatic. Conjunctivae pale. Sclerae icteric. Examination of the oropharynx with dry mucous membranes. NECK: Supple. There is no adenopathy. No jugular venous distention noted. LUNGS: Reveals to be clear to percussion and auscultation. Decreased breath sounds in both bases. CARDIOVASCULAR SYSTEM: Reveals PMI to be at the fifth intercostal space inside the mid clavicular line. S1, S2 are normal. No gallop or murmur is heard. ABDOMEN: Soft, nontender. Hypoactive bowel sounds are noted. No rebound, rigidity or guarding is noted. EXTREMITIES: Reveal normal capillary refill. The patient has bilateral lower extremity edema which is pitting in nature. NEUROLOGIC: Reveals higher functions to be normal. No focal deficits are noted. PSYCHIATRIC: The patient is anxious. SKIN: Reveals normal skin turgor. The patient is icteric. MEDICATIONS: The patient's medications were reviewed. They include Tylenol p.r.n., Albumin (Human) 25% 12.5 g IV b.i.d., Dulcolax one tablet daily, Colace 100 mg b.i.d. She is on heparin 5000 units subcutaneous every 12 hours, hydromorphone 1 mg IV every three hours p.r.n. for severe pain, hydromorphone 0.5 mg every three hours p.r.n. for moderate pain. The patient is on bicarbonate drip 100 mL an hour. She is on levalbuterol 1.25 mg inhaled t.i.d. The patient is on lorazepam 0.5 mg every six hours p.r.n., hemorrhoidal cream for the hemorrhoids b.i.d., nystatin oral suspension 5 mL four times a day, Zofran 4 mg IV every four hours p.r.n., pantoprazole 40 mg p.o. daily. The patient is on Senokot-S tablets one daily. She is on sodium chloride tablets 1 g p.o. three times a week. LABORATORY DATA: Labs from today revealed a white count of 2.7, hemoglobin 12.8, hematocrit 39.5, platelet count 65,000. Sodium is 132, K is 6.9, CO2 is 22, BUN is 115, creatinine is 3.8. Blood sugar is 115. PT/INR with a PT of 13.7 seconds, INR is 1.72, aPTT is 23.8 seconds. ASSESSMENT, NOTES, AND PLAN: This is a 63-year-old female with progressive metastatic stage IV carcinoma of the pancreas; intraabdominal caking associated with ascitic fluid, this is positive for malignancy; recurrent ascites, hyperkalemia, worsening acute kidney injury, leukopenia, hyponatremia, transaminitis, constipation. The patient is a jx-[id number]/[id number]. I spoke to Dr. Barrientos in detail today regarding the patient's rising BUN and creatinine. He has also reviewed labs and his feeling was that if things do not get better over the next 24 to 48 hours, we may have to entertain the possibility of dialysis, hemodialysis until the patient stabilizes, then we can decide which direction to go. Hyperkalemia has been treated with Kayexalate enemas. The patient is also on insulin and D50. She is also getting albumin 12.5 g twice a day. She is getting plasma 1 unit daily. The patient has abnormal liver function test related to her meds which are being addressed. Pain medicines have been given to her for control of pain. The patient's family is not at bedside but her gfzzhyd-zt-zge was there. I gave him all the latest labs and told him to have his or his ywtqbek-nz-vgr call me regarding the overall prognosis for the patient. Currently palliative care is also involved in the care. The patient's family still wants aggressive medical support and I voiced this concern to Dr. Barrientos. If the condition does not improve, we may have to entertain the possibility of shunt for hemodialysis. The patient's family is willing to think about it. All questions of the gyfjflw-ov-oyg were answered adequately by me. The patient's medications were reviewed and I have added fresh frozen plasma to the treatment regimen today. The patient is going to get fresh frozen plasma. I am repeating the blood work to check on the potassium within four hours on the last blood work. We are going to assess the patient in addition to getting fresh frozen plasma. If the condition worsens, we have to raise the issue of possibility of short-term hemodialysis and make sure the patient is eager to want this but these would be the recommendations of Gastrointestinal Oncology as well. I left my numbers with the patient's unvkmml-xl-wem, so he can reach out to the and then make appropriate decisions. Please make a note this is a complex patient with multiple comorbid medical issues. Time spent with the patient and the family is greater than 45 minutes. Cherelle Holt MD [facility] # [phone]
--- NOTE | 2018-06-30 05:13 | CP.PCM.PN ---
<Aditi Ariza - Last Filed: 06/30/18 15:47> Subjective - Date & Time of Evaluation Date of Evaluation: 06/30/18 Time of Evaluation: 07:00 - Subjective Subjective: Pgy3 Medicine Progress note for Dr. Barrientos Patient seen and examined at bedside. Patient seemed uncomfortable and in pain. No acute events overnight as per nursing. Patient complained of dry mouth and weakness. Complete ROS unobtainable as patient wanted to rest. Objective - Vital Signs/Intake and Output Vital Signs (last 24 hours): Temp Pulse Resp BP Pulse Ox 98.7 F 98 H 20 106/62 99 06/30/18 00:00 06/30/18 00:00 06/30/18 00:00 06/30/18 00:00 06/30/18 00:00 - Medications Medications: Current Medications Acetaminophen (Tylenol 325mg Tab) 650 mg PO Q4 PRN PRN Reason: Pain, Mild (1-3) Albumin Human (Albumin Human 25% (12.5 Gm/50 Ml)) 12.5 gm IV BID [facility] Stop: 07/01/18 18:01 Last Admin: 06/29/18 18:37 Dose: 12.5 gm Bisacodyl (Dulcolax) 10 mg RC DAILY PRN PRN Reason: Constipation Docusate Sodium (Colace) 100 mg PO BID [facility] Last Admin: 06/29/18 09:53 Dose: 100 mg Heparin Sodium (Porcine) (Heparin) 5,000 units SC Q12 [facility]; Protocol Last Admin: 06/26/18 21:52 Dose: 5,000 units Hydromorphone HCl (Dilaudid) 1 mg IVP Q3H PRN PRN Reason: Pain, severe (8-10) Last Admin: 06/29/18 05:51 Dose: 1 mg Hydromorphone HCl (Dilaudid) 0.5 mg IVP Q3H PRN PRN Reason: Pain, severe (8-10) Last Admin: 06/28/18 21:53 Dose: 0.5 mg Sodium Bicarbonate 150 meq/ (Dextrose) 1,150 mls @ 100 mls/hr IV .[id number] [facility] Last Admin: 06/30/18 01:59 Dose: 100 mls/hr Levalbuterol HCl (Xopenex) 1.25 mg IH TIDRESP PRN PRN Reason: Shortness of Breath Lorazepam (Ativan) 0.5 mg PO Q6 PRN; Protocol PRN Reason: Anxiety Last Admin: 06/17/18 03:59 Dose: 0.5 mg Multi-Ingredient Ointment (Prep-Hem) 0 ea TOP BID PRN PRN Reason: Hemorrhoids Nystatin (Nystatin Oral Susp) 5 ml PO QID [facility] Last Admin: 06/29/18 21:46 Dose: 5 ml Nystatin (Mycostatin Oint) 0 gm TOP TID [facility] Last Admin: 06/29/18 14:19 Dose: 1 applic Ondansetron HCl (Zofran Inj) 4 mg IVP Q4H PRN PRN Reason: Nausea/Vomiting Last Admin: 06/29/18 18:37 Dose: 4 mg Pantoprazole Sodium (Protonix Ec Tab) 40 mg PO 0600 [facility] Last Admin: 06/27/18 05:07 Dose: 40 mg Sennosides (Senokot Tab) 8.6 mg PO DAILY [facility] Last Admin: 06/29/18 09:53 Dose: 8.6 mg Sodium Chloride (Sodium Chloride Tab) 1 gm PO WM [facility] Last Admin: 06/29/18 14:08 Dose: Not Given - Labs Labs: 06/29/18 06:00 06/29/18 13:15 PT 13.7 SECONDS (9.4-12.5) H 06/29/18 06:00 INR 1.21 06/29/18 06:00 APTT 23.8 Seconds (26.9-38.3) L 06/29/18 06:00 - Additional Findings Additional findings: - Constitutional Appears: No Acute Distress, Cachectic, Chronically Ill - Head Exam Head Exam: ATRAUMATIC, NORMAL INSPECTION, NORMOCEPHALIC - Eye Exam Eye Exam: EOMI, Normal appearance. absent: Conjunctival injection, Scleral icterus - ENT Exam ENT Exam: Mucous Membranes Dry - Respiratory Exam Respiratory Exam: NORMAL BREATHING PATTERN. absent: Accessory Muscle Use, Rales, Rhonchi, Wheezes, Respiratory Distress - Cardiovascular Exam Cardiovascular Exam: Tachycardia, +S1, +S2 - GI/Abdominal Exam GI & Abdominal Exam: Distended, Soft, Tenderness (to palpation), Hypoactive Bowel Sounds. absent: Firm, Rigid, Pulsatile Mass - Extremities Exam Extremities Exam: Normal Capillary Refill, Pedal Edema (+3 b/l LE pitting) - Back Exam Back Exam: NORMAL INSPECTION. absent: rash noted - Neurological Exam Neurological Exam: Alert, Awake, Oriented x3 - Psychiatric Exam Psychiatric exam: Anxious - Skin Skin Exam: Dry, Intact, Normal Color, Warm Assessment and Plan - Assessment and Plan (Free Text) Assessment: 1. Pancreatic ca Stage IV with liver mets 2. Recurrent Malignant Ascites 3. Hyperkalemia 4. Worsening KIMBERLY 5. Leukopenia 6. Thrombocytopenia 7. Hyponatremia 8. Transaminitis 9. Pain management 10. DNR/DNI 11. Hemorrhoids 12. Gait dysfunction 13. Decreased PO intake Plan: Patient's vitals and blood work reviewed. Patient is POD#2 Aspira cath placement for recurrent malignant ascites. Patient's next drainage scheduled for 07/01. Patient continuing to receive Albumin and was transfused 2U FFP. Patient's hyperkalemia managed with calcium gluconate, insulin, D50 cocktail, and kayexalate. Bicarb improved with fluids however patient's KIMBERLY worsening. Leukopenia likely secondary to recent chemo. As per heme-onc, patient to receive granix 300mcg sc once a day for 7 days. Continue with sodium tabs for hyponatremia at this time. Patient's LFTs continue to be elevated with elevated Alk phos and TBili. This is likely secondary to mets. Pain medications have been adjusted as per hemeonc and palliative care. Patient on bowel regimen for constipation. Continue Ensure dietary supplement and Renal low potassium diet. Patient's family encouraged to feed her. Continue topical hemorrhoid cream as needed. Patient has been unable to work with physical therapy for gait conditioning due to clinical condition. GI ppx Protonix and DVT ppx heparin on hold in light of blood work. Patient made DNR/DNI on 06/24/18 by palliative care Safia Paramonte. Patient and family were spoken to at length and concerns and questions were addressed thoroughly. Discussed with Dr. Floyd Ariza PGY3 <Hank Barrientos - Last Filed: 06/30/18 21:05> Objective - Vital Signs/Intake and Output Vital Signs (last 24 hours): Temp Pulse Resp BP Pulse Ox 98.2 F 99 H 18 95/55 L 97 06/30/18 16:54 06/30/18 16:54 06/30/18 16:54 06/30/18 16:54 06/30/18 16:54 - Medications Medications: Current Medications Acetaminophen (Tylenol 325mg Tab) 650 mg PO Q4 PRN PRN Reason: Pain, Mild (1-3) Albumin Human (Albumin Human 25% (12.5 Gm/50 Ml)) 12.5 gm IV BID [facility] Stop: 07/05/18 18:01 Last Admin: 06/30/18 18:22 Dose: 12.5 gm Bisacodyl (Dulcolax) 10 mg RC DAILY PRN PRN Reason: Constipation Clotrimazole (Mycelex Felipe) 10 mg MT 5XD [facility] Last Admin: 06/30/18 17:15 Dose: Not Given Docusate Sodium (Colace) 100 mg PO BID [facility] Last Admin: 06/30/18 17:14 Dose: Not Given Heparin Sodium (Porcine) (Heparin) 5,000 units SC Q12 [facility]; Protocol Last Admin: 06/30/18 09:54 Dose: 5,000 units Hydromorphone HCl (Dilaudid) 1 mg IVP Q3H PRN PRN Reason: Pain, severe (8-10) Last Admin: 06/29/18 05:51 Dose: 1 mg Hydromorphone HCl (Dilaudid) 0.5 mg IVP Q3H PRN PRN Reason: Pain, severe (8-10) Last Admin: 06/30/18 15:27 Dose: 0.5 mg Sodium Bicarbonate 150 meq/ (Dextrose) 1,150 mls @ 100 mls/hr IV .[id number] [facility] Last Admin: 06/30/18 15:27 Dose: 100 mls/hr Levalbuterol HCl (Xopenex) 1.25 mg IH TIDRESP PRN PRN Reason: Shortness of Breath Lorazepam (Ativan) 0.5 mg PO Q6 PRN; Protocol PRN Reason: Anxiety Last Admin: 06/17/18 03:59 Dose: 0.5 mg Multi-Ingredient Ointment (Prep-Hem) 0 ea TOP BID PRN PRN Reason: Hemorrhoids Nystatin (Mycostatin Oint) 0 gm TOP TID [facility] Last Admin: 06/30/18 17:15 Dose: Not Given Ondansetron HCl (Zofran Inj) 4 mg IVP Q4H PRN PRN Reason: Nausea/Vomiting Last Admin: 06/30/18 20:55 Dose: 4 mg Pantoprazole Sodium (Protonix Ec Tab) 40 mg PO 0600 [facility] Last Admin: 06/27/18 05:07 Dose: 40 mg Sennosides (Senokot Tab) 8.6 mg PO DAILY [facility] Last Admin: 06/30/18 09:57 Dose: 8.6 mg Sodium Chloride (Sodium Chloride Tab) 1 gm PO WM [facility] Last Admin: 06/30/18 17:16 Dose: Not Given - Labs Labs: 06/30/18 06:05 06/30/18 06:05 PT 13.7 SECONDS (9.4-12.5) H 06/29/18 06:00 INR 1.21 06/29/18 06:00 APTT 23.8 Seconds (26.9-38.3) L 06/29/18 06:00 Assessment and Plan - Assessment and Plan (Free Text) Plan: Pt seen and examined by me. I have reviewed the note of the medical examiner and I agree with it. I have discussed the assessment and plan with the resident. I have reviewed the medications and the last labs. Spoke to Dr Funk and pt's lena webb. Spoke at length about the KIMBERLY and hyperkalemia. Decision was made not to start HD. understands that the prognosis is poor and HD will not change the prognosis. We spoke about hospice. She is not eating. Platelets are low and will be difficult to place a HD catheter. Granix was given today. Will need palliative care.
[2018-06-30 06:54] LABS: BASO # 0.03 K/mm3 (0.0-2.0); BASO % 1.7 % (0.0-3.0); EOS % 0.6 % (1.5-5.0); GRAN % 81.5 % (50.0-68.0); LYMPH # 0.3 (1.2-3.4); LYMPH % 14.5 % (22.0-35.0); MEAN CELL VOLUME 88.9 fl (80.0-105.0); MEAN CORPUSCULAR HEMOGLOBIN 29.6 pg (25.0-35.0); MEAN CORPUSCULAR HGB CONC 33.3 g/dl (31.0-37.0); MEAN PLATELET VOLUME 11.8 fl (7.0-11.0); MONO % 1.7 % (1.0-6.0); RBC 3.71 10^6/uL (3.5-6.1); RED CELL DISTRIBUTION WIDTH 13.9 % (11.5-14.5)
[2018-06-30 07:04] LABS: ALB/GLOB RATIO 0.9 (1.1-1.8); ALBUMIN 2.3 g/dL (3.0-4.8); CALCIUM 6.7 mg/dL (8.4-10.5)
[2018-06-30 07:06] LABS: PLATELET COUNT 30 10^3/uL (120.0-450.0); WHITE BLOOD COUNT 1.7 10^3/uL (4.5-11.0)
[2018-06-30] MEDS: Albumin Human 25% (12.5 gm/50 ml) IV SCH ×2 (09:53→18:22)
[2018-06-30] MEDS: Nystatin 100,000 Units/ml Oral Susp 5 ml UD PO SCH ×2 (09:57→13:52)
[2018-06-30] MEDS: HYDROmorphone 0.5 mg/0.5 ml ISec IVP PRN ×3 (10:15→21:14)
--- NOTE | 2018-06-30 11:30 | PN ---
DATE: 06/30/2018 SUBJECTIVE: The patient is lying in bed. She is extremely weak. She has some nausea, oral intake is poor. PHYSICAL EXAMINATION: VITAL SIGNS: Temperature 97.5, blood pressure of 98/58, heart rate 93. HEENT: Sclerae to be white. Conjunctivae pale. Oral mucosa is dry. NECK: Supple. CHEST: Distant breath sounds. HEART: Regular rate and rhythm. ABDOMEN: Distended with ascites with diffuse tenderness. EXTREMITIES: Show 1+ pedal edema. LABORATORY DATA: White blood cell count 1.7, hemoglobin 11, platelet count 30,000. Chemistries reveal potassium 6.6, BUN 115, creatinine of 4. AST 99, ALT 40, alkaline phosphatase of 238, total bilirubin of 2.6. IMPRESSION: This is a 63-year-old male female with stage IV pancreatic cancer, acute kidney injury, and leukopenia and thrombocytopenia, status post recent chemotherapy. Her prognosis is extremely poor. RECOMMENDATIONS: 1. Continue supportive care. 2. Consider hospice. 3. Further treatment as per Hem/Onc. Chet Kincaid MD
--- NOTE | 2018-06-30 13:30 | CP.PCM.PN ---
Subjective - Date & Time of Evaluation Date of Evaluation: 06/30/18 Time of Evaluation: 13:27 - Subjective Subjective: PGY-2 heme/onc progress note for Dr Holt No acute events noted overnight. Patient's sister at bedside. Patient denies any acute pain however stated she's extremely thirsty - she was drinking water from a straw when i saw her and ice chips are available to her. Also complained of weakness. Denied sob. Infrequent bowel movements - could not tell me when her last one was. Objective - Vital Signs/Intake and Output Vital Signs (last 24 hours): Temp Pulse Resp BP Pulse Ox 97.5 F L 93 H 20 98/58 L 99 06/30/18 08:16 06/30/18 08:16 06/30/18 08:16 06/30/18 08:16 06/30/18 08:16 Intake and Output: 06/30/18 06/30/18 06:59 18:59 Intake Total 1045 Output Total 250 Balance 795 - Medications Medications: Current Medications Acetaminophen (Tylenol 325mg Tab) 650 mg PO Q4 PRN PRN Reason: Pain, Mild (1-3) Albumin Human (Albumin Human 25% (12.5 Gm/50 Ml)) 12.5 gm IV BID [facility] Stop: 07/01/18 18:01 Last Admin: 06/30/18 09:53 Dose: 12.5 gm Bisacodyl (Dulcolax) 10 mg RC DAILY PRN PRN Reason: Constipation Docusate Sodium (Colace) 100 mg PO BID [facility] Last Admin: 06/30/18 09:53 Dose: 100 mg Heparin Sodium (Porcine) (Heparin) 5,000 units SC Q12 [facility]; Protocol Last Admin: 06/30/18 09:54 Dose: 5,000 units Hydromorphone HCl (Dilaudid) 1 mg IVP Q3H PRN PRN Reason: Pain, severe (8-10) Last Admin: 06/29/18 05:51 Dose: 1 mg Hydromorphone HCl (Dilaudid) 0.5 mg IVP Q3H PRN PRN Reason: Pain, severe (8-10) Last Admin: 06/30/18 10:15 Dose: 0.5 mg Sodium Bicarbonate 150 meq/ (Dextrose) 1,150 mls @ 100 mls/hr IV .[id number] [facility] Last Admin: 06/30/18 01:59 Dose: 100 mls/hr Levalbuterol HCl (Xopenex) 1.25 mg IH TIDRESP PRN PRN Reason: Shortness of Breath Lorazepam (Ativan) 0.5 mg PO Q6 PRN; Protocol PRN Reason: Anxiety Last Admin: 06/17/18 03:59 Dose: 0.5 mg Multi-Ingredient Ointment (Prep-Hem) 0 ea TOP BID PRN PRN Reason: Hemorrhoids Nystatin (Nystatin Oral Susp) 5 ml PO QID [facility] Last Admin: 06/30/18 09:57 Dose: 5 ml Nystatin (Mycostatin Oint) 0 gm TOP TID [facility] Last Admin: 06/29/18 14:19 Dose: 1 applic Ondansetron HCl (Zofran Inj) 4 mg IVP Q4H PRN PRN Reason: Nausea/Vomiting Last Admin: 06/30/18 10:15 Dose: 4 mg Pantoprazole Sodium (Protonix Ec Tab) 40 mg PO 0600 [facility] Last Admin: 06/27/18 05:07 Dose: 40 mg Sennosides (Senokot Tab) 8.6 mg PO DAILY [facility] Last Admin: 06/30/18 09:57 Dose: 8.6 mg Sodium Chloride (Sodium Chloride Tab) 1 gm PO WM [facility] Last Admin: 06/30/18 09:58 Dose: 1 gm - Labs Labs: 06/30/18 06:05 06/30/18 06:05 PT 13.7 SECONDS (9.4-12.5) H 06/29/18 06:00 INR 1.21 06/29/18 06:00 APTT 23.8 Seconds (26.9-38.3) L 06/29/18 06:00 - Additional Findings Additional findings: - Constitutional Appears: No Acute Distress - Head Exam Head Exam: ATRAUMATIC, NORMAL INSPECTION, NORMOCEPHALIC - Eye Exam Eye Exam: EOMI, Normal appearance, PERRL - ENT Exam ENT Exam: Mucous Membranes Moist - Neck Exam Additional comments: supple - Respiratory Exam Respiratory Exam: Clear to Ausculation Bilateral. absent: Rales, Rhonchi, Wheezes - Cardiovascular Exam Cardiovascular Exam: REGULAR RHYTHM. absent: +S1, +S2 - GI/Abdominal Exam GI & Abdominal Exam: Distended, Tenderness, Hypoactive Bowel Sounds. absent: Guarding (improves), Rigid - Extremities Exam Extremities Exam: Pedal Edema. absent: Calf Tenderness - Back Exam Back Exam: absent: CVA tenderness (L), CVA tenderness (R) - Neurological Exam Neurological Exam: Alert, Awake, Oriented x3 - Psychiatric Exam Psychiatric exam: Normal Affect, Normal Mood - Skin Skin Exam: Dry, Warm Assessment and Plan - Assessment and Plan (Free Text) Plan: Ms. Coppola esau 63 y/o women with pmhx significant for stage IV pancreatic cancer c/b malignant ascites currently admitted for SBP and ARF with associated electrolye abnormalities s/p paracentesis. stage IV pancreatic cancer c/b malignant ascites -Patient's abdomen appears to be getting distended again. * Repeat paracentesis performed 06/20/18 with 3800cc removed * paracentesis performed 06/27/18 with 3000cc removed (this is her 3rd paracentesis this admission) * wbc 621, rbc 77192, total cell count 100, mononuclear cell 72, polymorphonuclear 28, albumin 1.9, total protein 4.1, LDH 627 -aspira peritoneal catheter placed 06/28/18 -now receiving chemo in-house * gem/abraxane on 06/23/18, cycle is for day 1, 8, 15 * today would be day 8 however patient not stable enough for chemo today -we will consider neupogen infusion for her -on dilaudid for pain control -calorie count and dietary referral * < 50% meals taken; for now pt prefers jello, ice pops, dietary following * f/u calorie count -fibrinogen 404, fibrin split products > 40, INR 1.21, PTT 24 Pancytopenia -likely 2/2 to chemo tx received on 06/23/18 KIMBERLY -BUN and Cr steadily rising -possibly prerenal azotemia superimposed on KIMBERLY possibly worsened by her liver dysfunction as hepatorenal syndrom also likely a component -1u FFP daily and albumin 25% BID for volume expansion -HD was considered however Dr Holt spoke to family today and family (/sister) stated they do not want to go the HD route Hyperkalemia -being treated with kayexalate enemas, D50, insulin and calcium gluconate Dispo: palliative in discussion with family regarding hospice Seen and discussed with Dr Holt
--- NOTE | 2018-06-30 13:31 | CP.PCM.PN ---
Subjective - Date & Time of Evaluation Date of Evaluation: 06/30/18 Time of Evaluation: 08:10 - Subjective Subjective: No fevers overnight but patient is weak-looking and somewhat uncomfortable. Objective - Vital Signs/Intake and Output Vital Signs (last 24 hours): Temp Pulse Resp BP Pulse Ox 98.4 F 92 H 20 111/60 99 06/29/18 08:17 06/29/18 08:17 06/29/18 08:17 06/29/18 08:17 06/29/18 08:17 Intake and Output: 06/29/18 06/29/18 06:59 18:59 Intake Total 840 Output Total 1100 Balance -260 - Medications Medications: Current Medications Acetaminophen (Tylenol 325mg Tab) 650 mg PO Q4 PRN PRN Reason: Pain, Mild (1-3) Albumin Human (Albumin Human 25% (12.5 Gm/50 Ml)) 12.5 gm IV BID [facility] Stop: 07/01/18 18:01 Last Admin: 06/29/18 12:27 Dose: 12.5 gm Bisacodyl (Dulcolax) 10 mg RC DAILY PRN PRN Reason: Constipation Docusate Sodium (Colace) 100 mg PO BID [facility] Last Admin: 06/29/18 09:53 Dose: 100 mg Heparin Sodium (Porcine) (Heparin) 5,000 units SC Q12 [facility]; Protocol Last Admin: 06/26/18 21:52 Dose: 5,000 units Hydromorphone HCl (Dilaudid) 1 mg IVP Q3H PRN PRN Reason: Pain, severe (8-10) Last Admin: 06/29/18 05:51 Dose: 1 mg Hydromorphone HCl (Dilaudid) 0.5 mg IVP Q3H PRN PRN Reason: Pain, severe (8-10) Last Admin: 06/28/18 21:53 Dose: 0.5 mg Sodium Bicarbonate 150 meq/ (Dextrose) 1,150 mls @ 100 mls/hr IV .[id number] [facility] Last Admin: 06/29/18 12:30 Dose: 100 mls/hr Levalbuterol HCl (Xopenex) 1.25 mg IH TIDRESP PRN PRN Reason: Shortness of Breath Lorazepam (Ativan) 0.5 mg PO Q6 PRN; Protocol PRN Reason: Anxiety Last Admin: 06/17/18 03:59 Dose: 0.5 mg Multi-Ingredient Ointment (Prep-Hem) 0 ea TOP BID PRN PRN Reason: Hemorrhoids Nystatin (Nystatin Oral Susp) 5 ml PO QID [facility] Last Admin: 06/29/18 14:09 Dose: 5 ml Nystatin (Mycostatin Oint) 0 gm TOP TID [facility] Last Admin: 06/29/18 14:19 Dose: 1 applic Ondansetron HCl (Zofran Inj) 4 mg IVP Q4H PRN PRN Reason: Nausea/Vomiting Last Admin: 06/28/18 15:15 Dose: 4 mg Pantoprazole Sodium (Protonix Ec Tab) 40 mg PO 0600 [facility] Last Admin: 06/27/18 05:07 Dose: 40 mg Sennosides (Senokot Tab) 8.6 mg PO DAILY [facility] Last Admin: 06/29/18 09:53 Dose: 8.6 mg Sodium Chloride (Sodium Chloride Tab) 1 gm PO WM [facility] Last Admin: 06/29/18 14:08 Dose: Not Given - Labs Labs: 06/29/18 06:00 06/29/18 13:15 PT 13.7 SECONDS (9.4-12.5) H 06/29/18 06:00 INR 1.21 06/29/18 06:00 APTT 23.8 Seconds (26.9-38.3) L 06/29/18 06:00 - Constitutional Appears: Chronically Ill - Head Exam Head Exam: NORMAL INSPECTION - Respiratory Exam Respiratory Exam: Decreased Breath Sounds - Cardiovascular Exam Cardiovascular Exam: +S1, +S2 - GI/Abdominal Exam GI & Abdominal Exam: Distended, Soft. absent: Tenderness Assessment and Plan - Assessment and Plan (Free Text) Plan: Assessment S/P severe sepsis with KIMBERLY due to IAI in this patient in this patient with stage 4 pancreatic cancer with liver metastases persistent leukocytosis probably from cancer history of chronic alcohol use Plan cultures have been negative will continue to monitor off antibiotics since she is at risk for hospital- acquired infections discussed with Dr. Patel - patient is now on chemotherapy; abdominal catheter has been placed overall prognosis is poor and may consider hospice
[2018-06-30] MEDS: Nystatin 100,000 Units/gm Oint(30 gm) TOP SCH ×3 (13:51→17:15)
[2018-06-30] MEDS ORDERED: HYDROmorphone 0.5 mg/0.5 ml ISec IVP STA (16:15)
[2018-07-01] MEDS: HYDROmorphone 1 mg/ml ISec IVP PRN ×2 (00:24→05:04)
[2018-07-01] MEDS: Sodium Bicarbonate 8.4% 150 MEQ in Dextrose 5% In Water 1,000 ML IV SCH (05:05)
[2018-07-01] MEDS: Pantoprazole 40 mg EC Tab PO SCH (05:19)
[2018-07-01 07:23] VITALS: BP 106/59; PULSE 100; RESP 20; TEMP 98.1; O2SAT 99
--- NOTE | 2018-07-01 08:05 | CP.PCM.PN ---
Subjective - Date & Time of Evaluation Date of Evaluation: 07/01/18 Time of Evaluation: 08:02 - Subjective Subjective: PGY-2 heme/onc progress note for Dr Holt No acute events noted overnight. Patient refused bloodwork this morning - stated she's "had enough" and wants to "go to [facility]". Stated she feels weak. She is AAOx3. Per nursing has been complaining of nausea and abd pain and has been receiving meds for these complaints. Objective - Vital Signs/Intake and Output Vital Signs (last 24 hours): Temp Pulse Resp BP Pulse Ox 98.1 F 100 H 20 106/59 L 99 07/01/18 06:00 07/01/18 06:00 07/01/18 06:00 07/01/18 06:00 07/01/18 06:00 Intake and Output: 07/01/18 07/01/18 06:59 18:59 Intake Total 360 Output Total 450 Balance -90 - Medications Medications: Current Medications Acetaminophen (Tylenol 325mg Tab) 650 mg PO Q4 PRN PRN Reason: Pain, Mild (1-3) Albumin Human (Albumin Human 25% (12.5 Gm/50 Ml)) 12.5 gm IV BID [facility] Stop: 07/05/18 18:01 Last Admin: 06/30/18 18:22 Dose: 12.5 gm Bisacodyl (Dulcolax) 10 mg RC DAILY PRN PRN Reason: Constipation Clotrimazole (Mycelex Felipe) 10 mg MT 5XD [facility] Last Admin: 07/01/18 05:19 Dose: Not Given Docusate Sodium (Colace) 100 mg PO BID [facility] Last Admin: 06/30/18 17:14 Dose: Not Given Heparin Sodium (Porcine) (Heparin) 5,000 units SC Q12 [facility]; Protocol Last Admin: 06/30/18 21:12 Dose: Not Given Hydromorphone HCl (Dilaudid) 1 mg IVP Q3H PRN PRN Reason: Pain, severe (8-10) Last Admin: 07/01/18 05:04 Dose: 1 mg Hydromorphone HCl (Dilaudid) 0.5 mg IVP Q3H PRN PRN Reason: Pain, severe (8-10) Last Admin: 06/30/18 21:14 Dose: 0.5 mg Sodium Bicarbonate 150 meq/ (Dextrose) 1,150 mls @ 100 mls/hr IV .[id number] [facility] Last Admin: 07/01/18 05:05 Dose: 100 mls/hr Levalbuterol HCl (Xopenex) 1.25 mg IH TIDRESP PRN PRN Reason: Shortness of Breath Lorazepam (Ativan) 0.5 mg PO Q6 PRN; Protocol PRN Reason: Anxiety Last Admin: 06/17/18 03:59 Dose: 0.5 mg Multi-Ingredient Ointment (Prep-Hem) 0 ea TOP BID PRN PRN Reason: Hemorrhoids Nystatin (Mycostatin Oint) 0 gm TOP TID [facility] Last Admin: 06/30/18 17:15 Dose: Not Given Ondansetron HCl (Zofran Inj) 4 mg IVP Q4H PRN PRN Reason: Nausea/Vomiting Last Admin: 07/01/18 05:04 Dose: 4 mg Pantoprazole Sodium (Protonix Ec Tab) 40 mg PO 0600 [facility] Last Admin: 07/01/18 05:19 Dose: Not Given Sennosides (Senokot Tab) 8.6 mg PO DAILY [facility] Last Admin: 06/30/18 09:57 Dose: 8.6 mg Sodium Chloride (Sodium Chloride Tab) 1 gm PO WM [facility] Last Admin: 06/30/18 17:16 Dose: Not Given - Labs Labs: 06/30/18 06:05 06/30/18 06:05 PT 13.7 SECONDS (9.4-12.5) H 06/29/18 06:00 INR 1.21 06/29/18 06:00 APTT 23.8 Seconds (26.9-38.3) L 06/29/18 06:00 - Additional Findings Additional findings: - Constitutional Appears: No Acute Distress - Head Exam Head Exam: ATRAUMATIC, NORMAL INSPECTION, NORMOCEPHALIC - Eye Exam Eye Exam: EOMI, Normal appearance, PERRL - ENT Exam ENT Exam: Mucous Membranes Moist - Respiratory Exam Respiratory Exam: Clear to Ausculation Bilateral. absent: Rales, Rhonchi, Wheezes - Cardiovascular Exam Cardiovascular Exam: REGULAR RHYTHM. absent: +S1, +S2 - GI/Abdominal Exam GI & Abdominal Exam: Distended, Tenderness, Hypoactive Bowel Sounds. absent: Guarding (improves), Rigid - Extremities Exam Extremities Exam: Pedal Edema. absent: Calf Tenderness - Back Exam Back Exam: absent: CVA tenderness (L), CVA tenderness (R) - Neurological Exam Neurological Exam: Alert, Awake, Oriented x3 - Psychiatric Exam Psychiatric exam: Normal Affect, Normal Mood - Skin Skin Exam: Dry, Warm Assessment and Plan - Assessment and Plan (Free Text) Plan: Ms. Coppola esau 63 y/o women with pmhx significant for stage IV pancreatic cancer c/b malignant ascites currently admitted for SBP and ARF with associated electrolye abnormalities s/p paracentesis. stage IV pancreatic cancer c/b malignant ascites -Patient's abdomen appears to be getting distended again. * Repeat paracentesis performed 06/20/18 with 3800cc removed * paracentesis performed 06/27/18 with 3000cc removed (this is her 3rd paracentesis this admission) * wbc 621, rbc 17350, total cell count 100, mononuclear cell 72, polymorphonuclear 28, albumin 1.9, total protein 4.1, LDH 627 -aspira peritoneal catheter placed 06/28/18 -now receiving chemo in-house * gem/abraxane on 06/23/18, cycle is for day 1, 8, 15 * today would be day 8 however patient not stable enough for chemo today -we will consider neupogen infusion for her -on dilaudid for pain control -calorie count and dietary referral * < 50% meals taken; for now pt prefers jello, ice pops, dietary following * f/u calorie count -fibrinogen 404, fibrin split products > 40, INR 1.21, PTT 24 -BRCA gene testing blood draw done today 07/01/18 Pancytopenia -likely 2/2 to chemo tx received on 06/23/18 [facility] -BUN and Cr steadily rising -possibly prerenal azotemia superimposed on KIMBERLY possibly worsened by her liver dysfunction as hepatorenal syndrom also likely a component -1u FFP daily and albumin 25% BID for volume expansion -HD was considered however Dr Holt spoke to family today and family (/sister) stated they do not want to go the HD route Hyperkalemia -being treated with kayexalate enemas, D50, insulin and calcium gluconate Dispo: palliative in discussion with family regarding hospice Seen and discussed with Dr Holt Total time taken in the care of this patient: 50 mins
[2018-07-01] MEDS ORDERED: HYDROmorphone 1 mg/ml PCA 30 ML IV PRN (10:41)
[2018-07-01] MEDS ORDERED: DiphenhydrAMINE 50 mg/ml Inj IVP PRN (10:44)
--- NOTE | 2018-07-01 10:55 | CP.PCM.PN ---
Subjective - Date & Time of Evaluation Date of Evaluation: 07/01/18 Time of Evaluation: 06:30 Objective - Vital Signs/Intake and Output Vital Signs (last 24 hours): Temp Pulse Resp BP Pulse Ox 98.1 F 100 H 20 106/59 L 99 07/01/18 06:00 07/01/18 06:00 07/01/18 06:00 07/01/18 06:00 07/01/18 06:00 Intake and Output: 07/01/18 07/01/18 06:59 18:59 Intake Total 360 Output Total 450 Balance -90 - Medications Medications: Current Medications Acetaminophen (Tylenol 650 Mg Supp) 650 mg RC Q4H PRN PRN Reason: Fever >100.4 F Diphenhydramine HCl (Benadryl) 50 mg IVP Q6H PRN PRN Reason: For Secretions Hydromorphone HCl (Dilaudid-Hp 1 Mg/Ml Ap Processor) 30 mls @ 0.5 mls/hr IV PRN PRN; 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 Levalbuterol HCl (Xopenex) 1.25 mg IH TIDRESP PRN PRN Reason: Shortness of Breath Lorazepam (Ativan) 0.5 mg PO Q6 PRN; Protocol PRN Reason: Anxiety Last Admin: 06/17/18 03:59 Dose: 0.5 mg Multi-Ingredient Ointment (Prep-Hem) 0 ea TOP BID PRN PRN Reason: Hemorrhoids Nystatin (Mycostatin Oint) 0 gm TOP TID [facility] Last Admin: 06/30/18 17:15 Dose: Not Given Ondansetron HCl (Zofran Inj) 4 mg IVP Q4H PRN PRN Reason: Nausea/Vomiting Last Admin: 07/01/18 05:04 Dose: 4 mg Scopolamine (Transderm-Scop) 1 patch TD Q3D [facility] - Labs Labs: 06/30/18 06:05 06/30/18 06:05 PT 13.7 SECONDS (9.4-12.5) H 06/29/18 06:00 INR 1.21 06/29/18 06:00 APTT 23.8 Seconds (26.9-38.3) L 06/29/18 06:00
[2018-07-01] MEDS ORDERED: Racepinephrine 2.25% Inhal Soln 0.5 ML UD IH STA (12:28)
--- NOTE | 2018-07-01 12:53 | CP.PCM.DIS ---
<Aditi Ariza - Last Filed: 07/01/18 12:55> Provider - Provider Date of Admission: 06/15/18 16:17 Attending physician: Hank Barrientos MD Primary care physician: Christiano Estrada MD Consults: 06/15/18 16:20 Physician Consult Stat Comment: Consulting Provider: Cherelle Holt Consulting Physician: Cherelle Holt Reason for Consult: pancreatic cancer 06/15/18 19:38 Nursing Referral for Palliative Care Routine Comment: Physician Instructions: Reason For Exam: EVALUATION 06/16/18 11:26 Physician Consult Routine Comment: Consulting Provider: Oj Norris Consulting Physician: Oj Norris Reason for Consult: Aspira catheter for recurrent malignant ascites 06/16/18 22:16 Consult [Physician Consult] Routine Comment: Consulting Provider: Danyel Dawkins Consulting Physician: Danyel Dawkins Reason for Consult: id eval 06/19/18 10:39 TCU [Evaluation for TRCU] Routine Comment: Physician Instructions: Reason For Exam: gait dysfunction 06/23/18 11:49 Consult [Physician Consult] Routine Comment: Consulting Provider: Chet Kincaid Consulting Physician: Chet Kincaid Reason for Consult: abd pain 06/24/18 08:22 Consult [Physician Consult] Routine Comment: Consulting Provider: Yakelin Marcus Consulting Physician: Yakelin Marcus Reason for Consult: PALLIATIVE CARE 06/27/18 12:23 Physician Consult Routine Comment: ' Consulting Provider: Pete Motta Consulting Physician: Pete Motta Reason for Consult: Paracentesis 06/29/18 11:23 Consult [Physician Consult] Routine Comment: Consulting Provider: Oj Norris Consulting Physician: Oj Norris Reason for Consult: PICC insertion 07/01/18 08:44 Hospice [Case Management Referral] Routine Comment: Physician Instructions: Reason For Exam: Compassionate Care GIP Reason for Referral: Hospice Eval Time Spent in preparation of Discharge (in minutes): 45 Hospital Course - Lab Results Lab Results: Micro Results 06/15/18 15:20 Blood Blood Culture - Final NO GROWTH AFTER 5 DAYS 06/15/18 15:20 Blood Gram Stain - Final TEST NOT PERFORMED 06/15/18 15:00 Blood Blood Culture - Final NO GROWTH AFTER 5 DAYS 06/15/18 15:00 Blood Gram Stain - Final TEST NOT PERFORMED 06/16/18 15:21 Peritoneal Fluid Body Fluid Culture - Final No growth. 06/15/18 18:30 Naris MRSA Culture (Admit) - Final MRSA NOT DETECTED 06/15/18 21:50 Urine,Clean Catch Urine Culture - Final No Growth (<1,000 CFU/ML) Most Recent Lab Values WBC 1.7 10^3/uL (4.5-11.0) L* D 06/30/18 06:05 RBC 3.71 10^6/uL (3.5-6.1) 06/30/18 06:05 Hgb 11.0 g/dL (12.0-16.0) L 06/30/18 06:05 Hct 33.0 % (36.0-48.0) L 06/30/18 06:05 MCV 88.9 fl (80.0-105.0) 06/30/18 06:05 MCH 29.6 pg (25.0-35.0) 06/30/18 06:05 MCHC 33.3 g/dl (31.0-37.0) 06/30/18 06:05 RDW 13.9 % (11.5-14.5) 06/30/18 06:05 Plt Count 30 10^3/uL (120.0-450.0) L* 06/30/18 06:05 MPV 11.8 fl (7.0-11.0) H 06/30/18 06:05 Gran % 81.5 % (50.0-68.0) H 06/30/18 06:05 Lymph % (Auto) 14.5 % (22.0-35.0) L 06/30/18 06:05 Callahan % (Auto) 1.7 % (1.0-6.0) 06/30/18 06:05 Eos % (Auto) 0.6 % (1.5-5.0) L 06/30/18 06:05 Baso % (Auto) 1.7 % (0.0-3.0) 06/30/18 06:05 Gran # 1.40 (1.4-6.5) 06/30/18 06:05 Lymph # (Auto) 0.3 (1.2-3.4) L 06/30/18 06:05 Callahan # (Auto) 0.0 (0.1-0.6) L 06/30/18 06:05 Eos # (Auto) 0.0 (0.0-0.7) 06/30/18 06:05 Baso # (Auto) 0.03 K/mm3 (0.0-2.0) 06/30/18 06:05 Neutrophils % (Manual) 85 % (50.0-70.0) H 06/29/18 06:00 Band Neutrophils % 1 % (0-2) 06/22/18 06:10 Lymphocytes % (Manual) 9 % (22.0-35.0) L 06/29/18 06:00 Atypical Lymphs % 3 % (0.0-0.0) H 06/29/18 06:00 Monocytes % (Manual) 3 % (1.0-6.0) 06/29/18 06:00 Eosinophils % (Manual) 1 % (0.0-3.0) 06/25/18 08:20 Platelet Evaluation Normal (NORMAL) 06/22/18 06:10 Large Platelets Present 06/22/18 06:10 PT 13.7 SECONDS (9.4-12.5) H 06/29/18 06:00 INR 1.21 06/29/18 06:00 APTT 23.8 Seconds (26.9-38.3) L 06/29/18 06:00 Fibrinogen 404 mg/dl (200-400) H 06/29/18 06:00 Fibrin Degrad Products >40 ug/ml (< 10 ug/mL) 06/29/18 05:00 pO2 28 mm/Hg (30-55) L 06/17/18 17:00 VBG pH 7.32 (7.32-7.43) 06/17/18 17:00 VBG pCO2 44.0 (40-60) 06/17/18 17:00 VBG HCO3 22.7 mmol/l (21-28) 06/17/18 17:00 VBG Total CO2 24.1 mmol.L (22-28) 06/17/18 17:00 VBG O2 Sat (Calc) 56.7 % (40-65) 06/17/18 17:00 VBG Base Excess -3.5 mmol/L (0.0-2.0) L 06/17/18 17:00 VBG Potassium 4.1 mmol/L (3.6-5.2) 06/17/18 17:00 Sodium 128.0 mmol/L (132-148) L 06/17/18 17:00 Chloride 93.0 mmol/L (98-107) L 06/17/18 17:00 Glucose 129 mg/dl (65-105) H 06/17/18 17:00 Lactate 3.8 mmol/L (0.7-2.1) H 06/17/18 17:00 FiO2 21.0 % 06/17/18 17:00 Sodium 133 mmol/L (132-148) 06/30/18 06:05 Potassium 6.6 mmol/L (3.6-5.0) H* 06/30/18 06:05 Chloride 90 mmol/L (98-107) L 06/30/18 06:05 Carbon Dioxide 28 mmol/L (21-33) 06/30/18 06:05 Anion Gap 21 (10-20) H 06/30/18 06:05 BUN 115 mg/dL (7-21) H 06/30/18 06:05 Creatinine 4.0 mg/dl (0.7-1.2) H 06/30/18 06:05 Est GFR ( Amer) 14 06/30/18 06:05 Est GFR (Non-Af Amer) 11 06/30/18 06:05 POC Glucose (mg/dL) 116 mg/dL (65-110) H 06/24/18 07:25 Random Glucose 114 mg/dL (70-110) H 06/30/18 06:05 Lactic Acid 2.0 mmol/L (0.7-2.1) 06/15/18 23:55 Calcium 6.7 mg/dL (8.4-10.5) L* 06/30/18 06:05 Phosphorus 7.0 mg/dL (2.5-4.5) H 06/30/18 06:05 Magnesium 2.2 mg/dL (1.7-2.2) 06/30/18 06:05 Total Bilirubin 2.6 mg/dL (0.2-1.3) H 06/30/18 06:05 AST 99 U/L (14-36) H 06/30/18 06:05 ALT 40 U/L (7-56) 06/30/18 06:05 Alkaline Phosphatase 238 U/L (38-126) H 06/30/18 06:05 Lactate Dehydrogenase 937 U/L (333-699) H 06/18/18 07:00 Total Protein 4.8 g/dL (5.8-8.3) L 06/30/18 06:05 Albumin 2.3 g/dL (3.0-4.8) L 06/30/18 06:05 Globulin 2.5 gm/dL 06/30/18 06:05 Albumin/Globulin Ratio 0.9 (1.1-1.8) L 06/30/18 06:05 Amylase 70 U/L (35-125) 06/16/18 06:15 Lipase 72 U/L (23-300) 06/16/18 06:15 Venous Blood Potassium 4.1 mmol/L (3.6-5.2) 06/17/18 17:00 Urine Color Yellow (YELLOW) 06/15/18 21:50 Urine Appearance Cloudy (CLEAR) 06/15/18 21:50 Urine pH 5.5 (4.7-8.0) 06/15/18 21:50 Ur Specific [place] >= 1.030 (1.005-1.035) 06/15/18 21:50 Urine Protein Trace mg/dL (<30 mg/dL) H 06/15/18 21:50 Urine Glucose (UA) Negative mg/dL (NEGATIVE) 06/15/18 21:50 Urine Ketones Negative mg/dL (NEGATIVE) 06/15/18 21:50 Urine Blood Trace-lysed (NEGATIVE) H 06/15/18 21:50 Urine Nitrate Negative (NEGATIVE) 06/15/18 21:50 Urine Bilirubin Negative (NEGATIVE) 06/15/18 21:50 Urine Urobilinogen 0.2 E.U./dL (<1 E.U./dL) 06/15/18 21:50 Ur Leukocyte Esterase Negative Abel/uL (NEGATIVE) 06/15/18 21:50 Urine RBC 5 - 10 /hpf (0-2) H 06/15/18 21:50 Urine WBC 0 - 2 /hpf (0-6) 06/15/18 21:50 Ur Epithelial Cells 0 - 2 /hpf (0-5) 06/15/18 21:50 Urine Bacteria Large /hpf (NONE) 06/15/18 21:50 Fluid Source Peritoneal/ascites 06/27/18 19:10 Fluid Appearance Sl cloudy (CLEAR) 06/27/18 19:10 Fluid WBC 621.0 /uL (0.0-300.0) H 06/27/18 19:10 Fluid RBC 10370.0 /uL (0.0-0.0) H 06/27/18 19:10 Fluid Tot Cell Count 100 (0-0) H 06/27/18 19:10 Fluid Mononuclear Cell 72.6 % (0-0) H 06/27/18 19:10 Fl Polymorphonucl Cell 27.4 % (0-0) H 06/27/18 19:10 Fluid Albumin 1.9 g/dL 06/16/18 15:19 Fluid Comment Esme 06/27/18 19:10 Peritoneal Tot Protein 4.1 g/dL 06/16/18 15:19 Peritoneal LDH 685 U/L (<63) H 06/27/18 19:10 Stool Occult Blood Positive (NEGATIVE) H 07/01/18 05:40 HIV 1&2 Ag/Ab, 4th Gen Nonreactive (Nonreactive) 06/16/18 15:16 Blood Type O POSITIVE 06/28/18 13:40 Blood Type Confirm O POSITIVE 06/28/18 14:50 Antibody Screen Negative 06/28/18 13:40 BBK History Checked No verified bt 06/28/18 13:40 - Hospital Course Hospital Course: Upon Admission 63yo female PMHx Stage IV pancreatic ca with mets to the liver, uterine fibroids, EtOH abuse, and constipation presented to the ER with complaints of abdominal distention and vomiting. Patient was recently hospitalized 2 weeks ago for decreased appetite, lethargy, and inability to pass BM. Durin that hospitalization she had a CT guided bx to confirm pancreatic ca with mets to liver. For the past few years, pt had chronic abdominal pain and she has been drinking half a pint of vodka daily on and off along with Aleve to suppress her abdominal pain. After Dx with pancreatic cancer, Dr Holt (oncologist) started her on Percocet 10 mg every 4-6 hours. Patient was in office to see Dr. Holt however she started to vomit and was told to go to the ER. She reported she was having belching and was sob at times. Hospital Course In the ED, the patient was found to have meet SIRs criteria and multiple metabolic derangements including hyponatermia 123 and hyperkalemia 6.1. Code sepsis was called and patient was admitted to MICU for severe sepsis suspected secondary to SBP and KIMBERLY. Patient had a CT Ab/pel that showed interval distention of the abdomen is identified secondary to moderate to severe ascites which has increased in the interval. Numerous hepatic metastases are identified as well as likely omental caking once again. Her abd u/s showed moderate upper abdominal ascites identified in the perihepatic and perisplenic spaces. Patient had a bedside paracentesis that removed 3.5L of ascitic fluid. Patient was started on IV abx as per ID. Patient was then transferred to med/surg where she was noted to have abdominal distention again. She was taken for u/s guided paracentesis by IR. 3800cc esme fluid removed. Blood, urine, and peritoneal cultures grossly negative thus far. Antibiotics were discontinued and patient was to be monitored off abx as she was at high risk of nosocomial infections. Patient was transferred to [facility] as she was due for chemotherapy in house. Patient was given 1 dose of chemo gem/abraxane on 06/23/18. Patient's abdomen has worsening distention and abd u/s done 06/23 showed moderate ascites. Patient to have paracentesis with possible insertion of aspira catheter by IR today. Patient continued to have an elevated potassium with worsening creatinine and low bicarb. She was started on fluids with bicarb and her diet was modified to renal with low K. Patient had persistent leukocytosis with no associated fevers. Patient's LFTs continue to be elevated with elevated Alk phos and TBili. This is likely secondary to mets. Patient's pain medications adjusted to Morphine 3q3 and Dilaudid 0.5q4. Palliative care considering continuous morphine gtt at 1mg. Patient has dulcolax, colace, and senna on board for constipation- patient also has decreased PO intake which could explain decreased number of bowel movements despite medications. Patient has Ensure dietary supplement ordered in light of decreased PO intake. Patient made DNR/DNI on 06/24/18 by palliative care Safia Marcus. Pall care to have meeting with patient and family regarding hospice in light of patient clinical condition and poor prognosis. Patient had a repeat paracentesis that showed esme and cloudy, WBC 621, RBC 96868, Total cell count 100, Mononuclear cells 72.6, PMNs 27.4. Patient to be given 3 doses of Albumin 12.5 bid for 4 days. This was the third paracentesis patient has had during hospital course. Patient also had an Aspira cath placed in light of recurrent malignant ascites. Bicarb improved with fluids however patient's KIMBERLY worsening. Patient's WBC dropped to 2. She was also given 2U FFP in addition to the albumin. Multiple family discussions were had with family, palliative care, oncology, and the primary team. The decision to not do HD was made. Patient was given 1 dose of Granix. On 07/01/18 patient started to express that she was "tired" and "wanted to go [when asked where] to heaven" and that she had "had enough." She was ao x 3 and nursing was at bedside to witness patient's requests. Safia Angeline spoke to family in detail regarding in house hospice and it was decided that patient be placed on hospice due to her clinical state and grim prognosis. Upon Discharge Patient was discharged to med/surg for Compassionate Care and in-house Hospice. Please note this is a discharge summary. For full hospital course please refer to EMR. Discharge Exam - Head Exam Head Exam: NORMAL INSPECTION - Eye Exam Eye Exam: Normal appearance. absent: Conjunctival injection, Scleral icterus - ENT Exam ENT Exam: Mucous Membranes Dry Additional comments: covered in dry blood - Respiratory Exam Respiratory Exam: Decreased Breath Sounds, NORMAL BREATHING PATTERN. absent: Accessory Muscle Use, Respiratory Distress - Cardiovascular Exam Cardiovascular Exam: Tachycardia, +S1, +S2 - GI/Abdominal Exam GI & Abdominal Exam: Distended, Hypoactive Bowel Sounds, Soft, Tenderness - Extremities Exam Extremities exam: pedal edema (+3 b/l) - Neurological Exam Neurological exam: Alert, Oriented x3 - Psychiatric Exam Psychiatric exam: Depressed - Skin Skin Exam: Dry, Pallor Discharge Plan - Follow Up Plan Condition: CRITICAL Disposition: HOSPICE - MEDICAL FACILITY Instructions: Leukocytosis (DC), Leukocytosis (GEN) Referrals: Christiano Estrada MD [Primary Care Provider] - <Hank Barrientos - Last Filed: 07/01/18 18:49> Provider - Provider Date of Admission: 06/15/18 16:17 Attending physician: Hank Barrientos MD Primary care physician: Christiano Estrada MD Consults: 06/15/18 16:20 Physician Consult Stat Comment: Consulting Provider: Cherelle Holt Consulting Physician: Cherelle Holt Reason for Consult: pancreatic cancer 06/15/18 19:38 Nursing Referral for Palliative Care Routine Comment: Physician Instructions: Reason For Exam: EVALUATION 06/16/18 11:26 Physician Consult Routine Comment: Consulting Provider: Oj Norris Consulting Physician: Oj Norris Reason for Consult: Aspira catheter for recurrent malignant ascites 06/16/18 22:16 Consult [Physician Consult] Routine Comment: Consulting Provider: Danyel Dawkins Consulting Physician: Danyel Dawkins Reason for Consult: id eval 06/19/18 10:39 TCU [Evaluation for TRCU] Routine Comment: Physician Instructions: Reason For Exam: gait dysfunction 06/23/18 11:49 Consult [Physician Consult] Routine Comment: Consulting Provider: Chet Kincaid Consulting Physician: Chet Kincaid Reason for Consult: abd pain 06/24/18 08:22 Consult [Physician Consult] Routine Comment: Consulting Provider: Yakelin Marcus Consulting Physician: Yakelin Marcus Reason for Consult: PALLIATIVE CARE 06/27/18 12:23 Physician Consult Routine Comment: ' Consulting Provider: Pete Motta Consulting Physician: Pete Motta Reason for Consult: Paracentesis 06/29/18 11:23 Consult [Physician Consult] Routine Comment: Consulting Provider: Oj Norris Consulting Physician: Oj Norris Reason for Consult: PICC insertion 07/01/18 08:44 Hospice [Case Management Referral] Routine Comment: Physician Instructions: Reason For Exam: Compassionate Care GIP Reason for Referral: Hospice [facility] Course - Lab Results Lab Results: Micro Results 06/15/18 15:20 Blood Blood Culture - Final NO GROWTH AFTER 5 DAYS 06/15/18 15:20 Blood Gram Stain - Final TEST NOT PERFORMED 06/15/18 15:00 Blood Blood Culture - Final NO GROWTH AFTER 5 DAYS 06/15/18 15:00 Blood Gram Stain - Final TEST NOT PERFORMED 06/16/18 15:21 Peritoneal Fluid Body Fluid Culture - Final No growth. 06/15/18 18:30 Naris MRSA Culture (Admit) - Final MRSA NOT DETECTED 06/15/18 21:50 Urine,Clean Catch Urine Culture - Final No Growth (<1,000 CFU/ML) Most Recent Lab Values WBC 1.7 10^3/uL (4.5-11.0) L* D 06/30/18 06:05 RBC 3.71 10^6/uL (3.5-6.1) 06/30/18 06:05 Hgb 11.0 g/dL (12.0-16.0) L 06/30/18 06:05 Hct 33.0 % (36.0-48.0) L 06/30/18 06:05 MCV 88.9 fl (80.0-105.0) 06/30/18 06:05 MCH 29.6 pg (25.0-35.0) 06/30/18 06:05 MCHC 33.3 g/dl (31.0-37.0) 06/30/18 06:05 RDW 13.9 % (11.5-14.5) 06/30/18 06:05 Plt Count 30 10^3/uL (120.0-450.0) L* 06/30/18 06:05 MPV 11.8 fl (7.0-11.0) H 06/30/18 06:05 Gran % 81.5 % (50.0-68.0) H 06/30/18 06:05 Lymph % (Auto) 14.5 % (22.0-35.0) L 06/30/18 06:05 Callahan % (Auto) 1.7 % (1.0-6.0) 06/30/18 06:05 Eos % (Auto) 0.6 % (1.5-5.0) L 06/30/18 06:05 Baso % (Auto) 1.7 % (0.0-3.0) 06/30/18 06:05 Gran # 1.40 (1.4-6.5) 06/30/18 06:05 Lymph # (Auto) 0.3 (1.2-3.4) L 06/30/18 06:05 Callahan # (Auto) 0.0 (0.1-0.6) L 06/30/18 06:05 Eos # (Auto) 0.0 (0.0-0.7) 06/30/18 06:05 Baso # (Auto) 0.03 K/mm3 (0.0-2.0) 06/30/18 06:05 Neutrophils % (Manual) 85 % (50.0-70.0) H 06/29/18 06:00 Band Neutrophils % 1 % (0-2) 06/22/18 06:10 Lymphocytes % (Manual) 9 % (22.0-35.0) L 06/29/18 06:00 Atypical Lymphs % 3 % (0.0-0.0) H 06/29/18 06:00 Monocytes % (Manual) 3 % (1.0-6.0) 06/29/18 06:00 Eosinophils % (Manual) 1 % (0.0-3.0) 06/25/18 08:20 Platelet Evaluation Normal (NORMAL) 06/22/18 06:10 Large Platelets Present 06/22/18 06:10 PT 13.7 SECONDS (9.4-12.5) H 06/29/18 06:00 INR 1.21 06/29/18 06:00 APTT 23.8 Seconds (26.9-38.3) L 06/29/18 06:00 Fibrinogen 404 mg/dl (200-400) H 06/29/18 06:00 Fibrin Degrad Products >40 ug/ml (< 10 ug/mL) 06/29/18 05:00 pO2 28 mm/Hg (30-55) L 06/17/18 17:00 VBG pH 7.32 (7.32-7.43) 06/17/18 17:00 VBG pCO2 44.0 (40-60) 06/17/18 17:00 VBG HCO3 22.7 mmol/l (21-28) 06/17/18 17:00 VBG Total CO2 24.1 mmol.L (22-28) 06/17/18 17:00 VBG O2 Sat (Calc) 56.7 % (40-65) 06/17/18 17:00 VBG Base Excess -3.5 mmol/L (0.0-2.0) L 06/17/18 17:00 VBG Potassium 4.1 mmol/L (3.6-5.2) 06/17/18 17:00 Sodium 128.0 mmol/L (132-148) L 06/17/18 17:00 Chloride 93.0 mmol/L (98-107) L 06/17/18 17:00 Glucose 129 mg/dl (65-105) H 06/17/18 17:00 Lactate 3.8 mmol/L (0.7-2.1) H 06/17/18 17:00 FiO2 21.0 % 06/17/18 17:00 Sodium 133 mmol/L (132-148) 06/30/18 06:05 Potassium 6.6 mmol/L (3.6-5.0) H* 06/30/18 06:05 Chloride 90 mmol/L (98-107) L 06/30/18 06:05 Carbon Dioxide 28 mmol/L (21-33) 06/30/18 06:05 Anion Gap 21 (10-20) H 06/30/18 06:05 BUN 115 mg/dL (7-21) H 06/30/18 06:05 Creatinine 4.0 mg/dl (0.7-1.2) H 06/30/18 06:05 Est GFR ( Amer) 14 06/30/18 06:05 Est GFR (Non-Af Amer) 11 06/30/18 06:05 POC Glucose (mg/dL) 116 mg/dL (65-110) H 06/24/18 07:25 Random Glucose 114 mg/dL (70-110) H 06/30/18 06:05 Lactic Acid 2.0 mmol/L (0.7-2.1) 06/15/18 23:55 Calcium 6.7 mg/dL (8.4-10.5) L* 06/30/18 06:05 Phosphorus 7.0 mg/dL (2.5-4.5) H 06/30/18 06:05 Magnesium 2.2 mg/dL (1.7-2.2) 06/30/18 06:05 Total Bilirubin 2.6 mg/dL (0.2-1.3) H 06/30/18 06:05 AST 99 U/L (14-36) H 06/30/18 06:05 ALT 40 U/L (7-56) 06/30/18 06:05 Alkaline Phosphatase 238 U/L (38-126) H 06/30/18 06:05 Lactate Dehydrogenase 937 U/L (333-699) H 06/18/18 07:00 Total Protein 4.8 g/dL (5.8-8.3) L 06/30/18 06:05 Albumin 2.3 g/dL (3.0-4.8) L 06/30/18 06:05 Globulin 2.5 gm/dL 06/30/18 06:05 Albumin/Globulin Ratio 0.9 (1.1-1.8) L 06/30/18 06:05 Amylase 70 U/L (35-125) 06/16/18 06:15 Lipase 72 U/L (23-300) 06/16/18 06:15 Venous Blood Potassium 4.1 mmol/L (3.6-5.2) 06/17/18 17:00 Urine Color Yellow (YELLOW) 06/15/18 21:50 Urine Appearance Cloudy (CLEAR) 06/15/18 21:50 Urine pH 5.5 (4.7-8.0) 06/15/18 21:50 Ur Specific [place] >= 1.030 (1.005-1.035) 06/15/18 21:50 Urine Protein Trace mg/dL (<30 mg/dL) H 06/15/18 21:50 Urine Glucose (UA) Negative mg/dL (NEGATIVE) 06/15/18 21:50 Urine Ketones Negative mg/dL (NEGATIVE) 06/15/18 21:50 Urine Blood Trace-lysed (NEGATIVE) H 06/15/18 21:50 Urine Nitrate Negative (NEGATIVE) 06/15/18 21:50 Urine Bilirubin Negative (NEGATIVE) 06/15/18 21:50 Urine Urobilinogen 0.2 E.U./dL (<1 E.U./dL) 06/15/18 21:50 Ur Leukocyte Esterase Negative Abel/uL (NEGATIVE) 06/15/18 21:50 Urine RBC 5 - 10 /hpf (0-2) H 06/15/18 21:50 Urine WBC 0 - 2 /hpf (0-6) 06/15/18 21:50 Ur Epithelial Cells 0 - 2 /hpf (0-5) 06/15/18 21:50 Urine Bacteria Large /hpf (NONE) 06/15/18 21:50 Fluid Source Peritoneal/ascites 06/27/18 19:10 Fluid Appearance Sl cloudy (CLEAR) 06/27/18 19:10 Fluid WBC 621.0 /uL (0.0-300.0) H 06/27/18 19:10 Fluid RBC 55346.0 /uL (0.0-0.0) H 06/27/18 19:10 Fluid Tot Cell Count 100 (0-0) H 06/27/18 19:10 Fluid Mononuclear Cell 72.6 % (0-0) H 06/27/18 19:10 Fl Polymorphonucl Cell 27.4 % (0-0) H 06/27/18 19:10 Fluid Albumin 1.9 g/dL 06/16/18 15:19 Fluid Comment Esme 06/27/18 19:10 Peritoneal Tot Protein 4.1 g/dL 06/16/18 15:19 Peritoneal LDH 685 U/L (<63) H 06/27/18 19:10 Stool Occult Blood Positive (NEGATIVE) H 07/01/18 05:40 HIV 1&2 Ag/Ab, 4th Gen Nonreactive (Nonreactive) 06/16/18 15:16 Blood Type O POSITIVE 06/28/18 13:40 Blood Type Confirm O POSITIVE 06/28/18 14:50 Antibody Screen Negative 06/28/18 13:40 BBK History Checked No verified bt 06/28/18 13:40 - Hospital Course Hospital Course: Pt seen and examined by me. I have reviewed the note of the medical transport specialist and I agree with it. I have discussed the assessment and plan with the resident. I have reviewed the medications and the last labs. Pt has pancreatic cancer. She is going to be made comfort care. She does not want to continue with her treatment. Palliative care is following. Pt will be placed on hospice service and bed. She is DNR/DNI.
--- NOTE | 2018-07-01 13:04 | CP.PCM.PN ---
Subjective - Date & Time of Evaluation Date of Evaluation: 07/01/18 Time of Evaluation: 10:00 - Subjective Subjective: Awake, bleeding from mouth. Complaining of nausea. State she wants to Objective - Vital Signs/Intake and Output Vital Signs (last 24 hours): Temp Pulse Resp BP Pulse Ox 98.1 F 100 H 20 106/59 L 99 07/01/18 06:00 07/01/18 06:00 07/01/18 06:00 07/01/18 06:00 07/01/18 06:00 Intake and Output: 07/01/18 07/01/18 06:59 18:59 Intake Total 360 Output Total 450 Balance -90 - Labs Labs: 06/30/18 06:05 06/30/18 06:05 PT 13.7 SECONDS (9.4-12.5) H 06/29/18 06:00 INR 1.21 06/29/18 06:00 APTT 23.8 Seconds (26.9-38.3) L 06/29/18 06:00 - Constitutional Appears: Cachectic, Chronically Ill - Eye Exam Eye Exam: Scleral icterus - ENT Exam ENT Exam: Mucous Membranes Moist - Respiratory Exam Respiratory Exam: Decreased Breath Sounds - Cardiovascular Exam Cardiovascular Exam: Tachycardia, +S1, +S2 - GI/Abdominal Exam GI & Abdominal Exam: Distended, Soft, Tenderness, Hypoactive Bowel Sounds - Extremities Exam Additional comments: 2+ edema of lower extremities - Skin Skin Exam: Dry, Pallor Assessment and Plan - Assessment and Plan (Free Text) Assessment: 63 year old female with history of metastatic pancreatic cancer who is admitted with ascites, intractable pain, nuasea, vomiting, anemia, thrombocytopnea, hepatic/renal failure. Family at bedside I conveyed patients wishes to be kept comfortable and to be allowed to peacefully. Family in agreement for hospice care. met with [facility] composite bond worker. Hospice services explained in detail. Questions answered. Consent signed. Patient to be transitioned to [facility] services for pain and symptom management Time spent with family in goals of care and end of life counseling, 60 minutes Plan: End of life counseling Dilaudid 0.5mg continuos infusion. Ativan 0.5 mg IV as needed Tylenol 650 mg RC for fver over 100 Scopolamine transdermal patch Benadryl 50 mg every as needed for upper airway secretions Racepinephrine 2.25% IH stat for nasal/oral bleeding
== END 2018-07-01 12:50 | disposition hospice, inpatient (51) | DRG 871 ==
LOC: ED 14:15 → ERH 16:17 → ICU 18:28 → 5RSO 06-17 14:00 → 3RNO 06-22 21:00
PROVIDERS: ADMIT Internal Medicine Nephrology; ATTEND Internal Medicine Nephrology
PROC: 0W9G3ZZ Drainage of Peritoneal Cavity, Percutaneous Approach (ICD-10-PCS; 2018-06-16)
PROC: 0W9G3ZZ Drainage of Peritoneal Cavity, Percutaneous Approach (ICD-10-PCS; 2018-06-20)
PROC: BW40ZZZ Ultrasonography of Abdomen (ICD-10-PCS; 2018-06-20)
PROC: 3E04305 Introduction of Other Antineoplastic into Central Vein, Percutaneous Approach (ICD-10-PCS; 2018-06-23)
PROC: 0W9G30Z Drainage of Peritoneal Cavity with Drainage Device, Percutaneous Approach (ICD-10-PCS; principal; 2018-06-28)
PROC: BW40ZZZ Ultrasonography of Abdomen (ICD-10-PCS; 2018-06-28)
PROC: 30233K1 Transfusion of Nonautologous Frozen Plasma into Peripheral Vein, Percutaneous Approach (ICD-10-PCS; 2018-06-28)
DX: A41.9 Sepsis, unspecified organism (principal); K65.2 Spontaneous bacterial peritonitis; R65.21 Severe sepsis with septic shock; N17.9 Acute kidney failure, unspecified; E87.1 Hypo-osmolality and hyponatremia; R18.0 Malignant ascites; C25.9 Malignant neoplasm of pancreas, unspecified; C78.6 Secondary malignant neoplasm of retroperitoneum and peritoneum; C78.7 Secondary malignant neoplasm of liver and intrahepatic bile duct; E87.2 Acidosis; E87.5 Hyperkalemia; E86.0 Dehydration; D70.9 Neutropenia, unspecified; D69.6 Thrombocytopenia, unspecified; E83.41 Hypermagnesemia; E87.8 Other disorders of electrolyte and fluid balance, not elsewhere classified; G89.4 Chronic pain syndrome; K59.00 Constipation, unspecified; K64.9 Unspecified hemorrhoids; Z51.5 Encounter for palliative care; Z66 Do not resuscitate; Z80.0 Family history of malignant neoplasm of digestive organs; Z92.21 Personal history of antineoplastic chemotherapy

== ENCOUNTER 2018-07-01 12:53 | Inpatient (IN) | payer OTHER ==
[2018-07-01] MEDS ORDERED: HYDROmorphone 1 mg/ml PCA 30 ML IV PRN ×2 (13:12→13:46)
[2018-07-01] MEDS ORDERED: DiphenhydrAMINE 50 mg/ml Inj IVP PRN (13:14)
[2018-07-01] MEDS ORDERED: Racepinephrine 2.25% Inhal Soln 0.5 ML UD IH PRN (13:15)
[2018-07-01] MEDS ORDERED: HYDROmorphone 0.5 mg/0.5 ml ISec IVP STA (13:27)
[2018-07-01 14:10] VITALS: RESP 18
--- NOTE | 2018-07-01 17:48 | CP.PCM.HP ---
<Aditi Ariza - Last Filed: 07/01/18 17:40> History of Present Illness - History of Present Illness History of Present Illness: 63yo female PMHx Stage IV pancreatic ca with mets to the liver, uterine fibroids, EtOH abuse, and constipation presented to the ER on 06/15/18 with complaints of abdominal distention and vomiting. Patient was recently hospitalized 2 weeks prior and had a CT guided bx that confirmed pancreatic ca with mets to liver. Patient was in office to see Dr. Holt however she started to vomit and was told to go to the ER. Patient was admitted to MICU for severe sepsis suspected secondary to SBP and KIMBERLY. Patient had a CT Ab/pel that showed interval distention of the abdomen is identified secondary to moderate to severe ascites and an abd u/s that showed moderate upper abdominal ascites in the perihepatic and perisplenic spaces. Patient had a bedside paracentesis that removed 3.5L of ascitic fluid and was started on IV abx. Patient was transferred to the floors where she had to have a second paracentesis that removed 3800cc. It was decided by family and oncology that chemotherapy would be started in house. Patient was given 1 dose of chemo gem/abraxane on 06/23/18. Patient's abdomen has worsening distention and abd u/s done 06/23 showed moderate ascites. Patient's blood work continued to worsen and she required a third paracentesis after which she had an Aspira catheter placed. Patient was made DNR/DNI on 06/24/18 by palliative care Safia Marcus. Pall care to have meeting with patient and family regarding hospice in light of patient clinical condition and poor prognosis. Patient was transfused 2U FFP in addition to the albumin. Multiple family discussions were had with family, palliative care, oncology, and the primary team. The decision to not do HD was made in light of the patients clinical condition. Patient was given 1 dose of Granix. On 07/01/18 patient started to express that she was "tired" and "wanted to go [when asked where] to heaven" and that she had "had enough." She was ao x 3 and nursing was at bedside to witness patient's requests. Palliative care Safia Marcus spoke to family in detail regarding in house hospice and it was decided that patient be placed on hospice and compassionate care due to her clinical state and grim prognosis. Present on Admission - Present on Admission Any Indicators Present on Admission: No Review of Systems - Review of Systems Systems not reviewed;Unavailable: Acuity of Condition Past Patient History - Past Social History Smoking Status: Former Smoker - CARDIAC Hx Pacemaker: No - PULMONARY Hx Respiratory Disorders: No - NEUROLOGICAL Hx Neurological Disorder: No - HEENT Hx HEENT Problems: No - RENAL Hx Chronic Kidney Disease: No - ENDOCRINE/METABOLIC Hx Endocrine Disorders: No - HEMATOLOGICAL/ONCOLOGICAL Hx Blood Transfusions: No Hx Cancer: Yes (pancreatic) - INTEGUMENTARY Hx Dermatological Problems: No - MUSCULOSKELETAL/RHEUMATOLOGICAL Hx Musculoskeletal Disorders: No - GASTROINTESTINAL Hx Gastrointestinal Disorders: Yes (ASCITES-PANCREATIC CA WITH METS TO LIVER 06-02-18) - GENITOURINARY/GYNECOLOGICAL Hx Genitourinary Disorders: Yes (C/S X 2) - PSYCHIATRIC Hx Emotional Abuse: No Hx Physical Abuse: No Hx Substance Use: No - SURGICAL HISTORY Hx Section: Yes (x2) - ANESTHESIA Hx Anesthesia: Yes Hx Anesthesia Reactions: No Hx Malignant Hyperthermia: No Meds Allergies/Adverse Reactions: Allergies Allergy/AdvReac Type Severity Reaction Status Date / Time No Known Allergies Allergy Verified 06/15/18 15:47 Physical Exam - Additional Findings Additional findings: - Head Exam Head Exam: NORMAL INSPECTION - Eye Exam Eye Exam: Normal appearance. absent: Conjunctival injection, Scleral icterus - ENT Exam ENT Exam: Mucous Membranes Dry Additional comments: covered in dry blood - Respiratory Exam Respiratory Exam: Decreased Breath Sounds, NORMAL BREATHING PATTERN. absent: Accessory Muscle Use, Respiratory Distress - Cardiovascular Exam Cardiovascular Exam: Tachycardia, +S1, +S2 - GI/Abdominal Exam GI & Abdominal Exam: Distended, Hypoactive Bowel Sounds, Soft, Tenderness - Extremities Exam Extremities exam: pedal edema (+3 b/l) - Neurological Exam Neurological exam: Alert, Oriented x3 - Psychiatric Exam Psychiatric exam: Depressed - Skin Skin Exam: Dry, Pallor Results - Vital Signs Recent Vital Signs: Last Vital Signs Temp Pulse Resp 18 07/01/18 13:56 BP Pulse Ox Assessment & Plan - Assessment and Plan (Free Text) Assessment: -[facility] -Hospice -Stage IV pancreatic ca with mets -Intractable pain -Recurrent malignant ascites -Aspira catheter -Acute renal failure -Acute hepatic failure -Thrombocytopenia -Neutropenia Plan: Family was at bedside and decision was made to respect the patient's wishes to be kept comfortable and be allowed to peacefully. Family in agreement for hospice care. met with [facility] director of home care hospice. Hospice services explained in detail; questions were answered in detail and consent was signed. Patient was transitioned to [facility] services for pain and sym ptom management. Patient started on Dilaudid 0.5mg gtt, Ativan 0.5 iv prn, Tylneol 650mg prn for fever, Scopolamine transdermal patch and Benadryl prn for upper airway secretions, and Racepinephrine for nasa/oral bleeding. Patient and family were offered end of life counseling by palliative care Safia Paramonte. Discussed with Dr. Floyd Ariza PGY3 <Hank Barrientos S - Last Filed: 07/02/18 20:23> Results - Vital Signs Recent Vital Signs: Last Vital Signs Temp Pulse Resp 18 07/01/18 13:56 BP Pulse Ox Assessment & Plan - Assessment and Plan (Free Text) Plan: Pt seen and examined by me. I have reviewed the note of the medical lab assistant and I agree with it. I have discussed the assessment and plan with the resident. I have reviewed the medications and the last labs. Pt with Pancreatic ca end stage. She has KIMBERLY and the pt and family have decided not to start HD. The pt has been place on hospice with comfort measures. She is on Diluadid for pain. Antoine boston has been updated on the current issue.
--- NOTE | 2018-07-02 06:19 | CP.PCM.PRO ---
<Shiv Best - Last Filed: 07/02/18 06:18> Pronouncement of Note - Clinical Findings Physical Exam: No Response Verbal/Painful Stimuli, Absent Peripheral Pulses{Carotid & Femoral}, Absent Heart & Breath Sounds, No Pupillary Light Reflex, No Corneal Reflex, Pupils Fixed & Dilated, Absence of Vital Signs - Pronouncement Time Time of Pronouncement of : 05:33 - Notifications Pronouncement Notifications: Family Notified, Atending Notified Director Digital Strategy Notified: No - Autopsy Autopsy Requested: No - [place] [id number] <Marc Da Silva - Last Filed: 07/02/18 06:31> Attending/Attestation - Attestation I have personally seen and examined this patient.: No I have fully participated in the care of the patient.: No I have reviewed all pertinent clinical information: No
--- NOTE | 2018-07-02 08:22 | CP.PCM.DIS ---
<Aditi Ariza - Last Filed: 07/02/18 09:50> Provider - Provider Date of Admission: 07/01/18 12:53 Attending physician: Hank Barrientos MD Primary care physician: Christiano Estrada MD Time Spent in preparation of Discharge (in minutes): 35 Hospital Course - Hospital Course Hospital Course: 63yo female PMHx Stage IV pancreatic ca with mets to the liver, uterine fibroids, EtOH abuse, and constipation presented to the ER on 06/15/18 with complaints of abdominal distention and vomiting. Patient was recently hospitalized 2 weeks prior and had a CT guided bx that confirmed pancreatic ca with mets to liver. Patient was in office to see Dr. Holt however she started to vomit and was told to go to the ER. Patient was admitted to MICU for severe sepsis suspected secondary to SBP and KIMBERLY. Patient had a CT Ab/pel that showed interval distention of the abdomen is identified secondary to moderate to severe ascites and an abd u/s that showed moderate upper abdominal ascites in the perihepatic and perisplenic spaces. Patient had a bedside paracentesis that removed 3.5L of ascitic fluid and was started on IV abx. Patient was transferred to the floors where she had to have a second paracentesis that removed 3800cc. It was decided by family and oncology that chemotherapy would be started in house. Patient was given 1 dose of chemo gem/abraxane on 06/23/18. Patient's abdomen has worsening distention and abd u/s done 06/23 showed moderate ascites. Patient's blood work continued to worsen and she required a third paracentesis after which she had an Aspira catheter placed. Patient was made DNR/DNI on 06/24/18 [facility] Pall care to have meeting with patient and family regarding hospice in light of patient clinical condition and poor prognosis. Patient was transfused 2U FFP in addition to the albumin. Multiple family discussions were had with family, palliative care, oncology, and the primary team. The decision to not do HD was made in light of the patients clinical condition. Patient was given 1 dose of Granix. On 07/01/18 patient started to express that she was "tired" and "wanted to go [when asked where] to heaven" and that she had "had enough." She was ao x 3 and nursing was at bedside to witness patient's requests. Palliative care Safialoida Marcus spoke to family in detail regarding in house hospice and it was decided that patient be placed on hospice and compassionate care due to her clinical state and grim prognosis. met with [facility] revenue liaison. Hospice services explained in detail; questions were answered in detail and consent was signed. Patient was transitioned to [facility] services for pain and symptom management. Patient started on Dilaudid 0.5mg gtt, Ativan 0.5 iv prn, Tylneol 650mg prn for fever, Scopolamine transdermal patch and Benadryl prn for upper airway secretions, and Racepinephrine for nasa/oral bleeding. Patient and family were offered end of life counseling by palliative care Safia Paramyang. On 07/02/18 at 5:20AM patient was evaluated by nursing and noted to have no pulse or breath sounds. Patient was examined by on-call residents. At 5:33AM patient was pronounced . Call was placed to [facility] and informed of expiration. Patient's body was released at 5:51AM. Family was at bedside and Attending Dr. Barrientos was notified. EDRS#[id number] Discharge Exam - Additional Findings Additional findings: No Response Verbal/Painful Stimuli, Absent Peripheral Pulses{Carotid & Femoral}, Absent Heart & Breath Sounds, No Pupillary Light Reflex, No Corneal Reflex, Pupils Fixed & Dilated, Absence of Vital Signs Discharge Plan - Follow Up Plan Condition: Disposition: WITH WITHOUT AUTOPSY Referrals: Christiano Estrada MD [Primary Care Provider] - <Hank Barrientos - Last Filed: 07/02/18 20:13> Provider - Provider Date of Admission: 07/01/18 12:53 Attending physician: Hank Barrientos MD Primary care physician: Christiano Estrada MD Hospital Course - Hospital Course Hospital Course: Pt was not seen She early this morning. Family was at bedside.
== END 2018-07-02 09:41 | DRG 951 ==
LOC: 3RNO 12:53
PROVIDERS: ADMIT Internal Medicine Nephrology; ATTEND Internal Medicine Nephrology
DX: Z51.5 Encounter for palliative care (principal); K72.00 Acute and subacute hepatic failure without coma; A41.9 Sepsis, unspecified organism; R65.20 Severe sepsis without septic shock; K65.2 Spontaneous bacterial peritonitis; C25.9 Malignant neoplasm of pancreas, unspecified; C78.7 Secondary malignant neoplasm of liver and intrahepatic bile duct; N17.9 Acute kidney failure, unspecified; R18.0 Malignant ascites; Z66 Do not resuscitate; D25.9 Leiomyoma of uterus, unspecified; D70.9 Neutropenia, unspecified; D69.6 Thrombocytopenia, unspecified; R52 Pain, unspecified; Z87.891 Personal history of nicotine dependence